=== PATIENT | male | born 1940 | race Two or more races ===

== ENCOUNTER 2020-08-25 15:16 | Emergency (ER) | payer MEDICARE, SELFPAY ==
[2020-08-25 16:06] VITALS: BP 132/72; PULSE 87; RESP 16; TEMP 37.2; O2SAT 98; BMI 21.7
--- NOTE | 2020-08-25 19:51 | PC.NURSE ---
daughter at bedside, reports that pt has had a decreased appetite x 1 month, always needs to push hydration and nutrition because of his dementia history. blood clots in toilet today, pt not complaining of pain. bladder scan does not show urine in bladder. small amount of blood of adult diaper.
[2020-08-25 19:53] VITALS: BP 142/74; PULSE 75; RESP 18; TEMP 36.6; O2SAT 98
--- NOTE | 2020-08-25 19:54 | ED_ITS ---
HPI - Male Genitourinary General Chief complaint: Urogenital-Male Stated complaint: bleeding from penis Time Seen by Provider: 08/25/20 20:48 Source: family Mode of arrival: ambulatory Limitations: language barrier and altered mental status History of Present Illness HPI Narrative: 79-year-old male with past medical history of dementia and diabetes presents with bright red blood from his penis. He presents with his daughter, who is his primary medical officer psychiatry. The patient is unable to make his needs known, and requires 24 hour care. MD Complaint: dysuria Onset (ago): day(s) (1) Location: penis Severity: moderate Associated symptoms: Reports denies other symptoms Related Data Sexually active: No Previous Rx's Medication Instructions Recorded cefpodoxime 200 mg PO Q12H 10 Days #20 tab 08/25/20 Allergies Allergy/AdvReac Type Severity Reaction Status Date / Time No Known Allergies Allergy Verified 08/25/20 16:13 [No Known Allergies*] Review of Systems Review of Systems: Constitutional: No Fever, No Chills ENT/Mouth: No sore throat Eyes: No Eye Pain, No Swelling, No Redness Cardiovascular: No Chest Pain, No SOB Respiratory: No Cough, No Sputum, No Wheezing Gastrointestinal: No Nausea, no Vomiting, No Diarrhea, no abdominal pain Genitourinary: positive Dysuria, no urinary frequency, positive Hematuria, no Flank Pain, positive hesitancy Musculoskeletal: No joint pain, No Myalgias Skin: No Skin Lesions, No rash Neuro: No Weakness, No Numbness, No Headache Psych: No Anxiety/Panic, No Depression Heme/Lymph: No Bruising, No Lymphadenopathy Endocrine: No Polyuria, No Polydipsia Yes all other systems are reviewed and are negative [facility] Past Medical History Attestation statement: The following information was validated with the patient. Medical History Asthma Dementia Diabetes Social History Social History Advance Directives: No Advance Directives Information Provided: Yes Physical Exam Vital Signs: Vital Signs: Last Vital Signs Temp 99.0 F 08/25/20 21:43 Pulse 58 08/25/20 21:43 Resp 19 08/25/20 21:43 BP 142/71 H 08/25/20 21:43 Pulse Ox 97 08/25/20 21:43 Body Mass Index 21.7 Appearance: Alert. Oriented to self, demented per baseline. No acute distress. Eyes: Pupils equal, round and reactive to light. ENT: Pharynx normal. Neck: Normal inspection. Neck supple. CVS: Normal heart rate and rhythm. Pulses normal. Respiratory: No respiratory distress. Breath sounds normal. Abdomen: Soft and nontender. Genitourinary: Brief wet with sanguinous urine, no penile discharge or erythema. Skin: Skin warm and dry. Normal skin color. Normal skin turgor. Extremities: No lower extremity edema. Neuro: No motor deficit. No sensory deficit. Course Course Course Narrative: 79-year-old male presents with hematuria. H&P obtained from his daughter who is his primary medical officer psychiatry. When you ask him questions he does not answer in complete sentences, when asked if he is in pain he says no. Daughter noted that he has been weak and is not eating as much. She noted blood from his penis earlier today. Plan is for CBC, Chem 7, lactic, cultures and u rinalysis. Patient is not septic, does have a significant UTI, will give 1 dose of IV ceftriaxone and discharged home with p.o. antibiotics. Detailed discussion with daughter regarding care, and that she must follow-up with primary care provider in order to get more services at home. She states that it is difficult for her to take care of him and would like nursing to come in on a more regular basis. She was advised to discuss with her drafter structural as he already has services at home. cyber policy and strategy planner utilized for all correspondence, Google translate utilized for discharge instructions. Patient verbalized understanding of and agrees to our plan of care discharge home. MDM - Male Genitourinary Differential Diagnosis Differential diagnosis: Likely urinary tract infection, urethritis, epididymitis, prostatitis, acute retention of urine and inguinal hernia Medical Records Attestation: I reviewed the patient's medical records. Lab Data Attestation: I reviewed the patient's lab results. Result diagrams: 08/25/20 20:02 08/25/20 20:02 Labs: Lab Results 08/25/20 08/25/20 08/25/20 Range/Units 20:02 20:02 20:02 WBC 5.0 (4.8-10.8) X10*3/uL RBC 5.01 (4.60-5.80) X10*6/uL Hgb 15.3 (14.0-18.0) g/dl Hct 45.7 (42-52) % MCV 91.2 (80-98) fL MCH 30.5 (27.0-33.0) pg MCHC 33.5 (31.0-36.0) g/dl RDW 12.8 (11.0-16.0) % Plt Count 211 (160-400) X10*3/uL MPV 11.3 (9.4-12.4) fL Immature Gran % (Auto) 0.2 (0.0-0.4) % Neut % (Auto) 63.2 (45-73) % Lymph % (Auto) 20.0 (20-40) % [place] % (Auto) 5.8 (2-11) % Eos % (Auto) 10.6 H (0-4) % Baso % (Auto) 0.2 (0-2) % Lymph # (Auto) 1.0 L (1.2-4.9) X10*3/uL [place] # (Auto) 0.3 (0.1-1.2) X10*3/uL Eos # (Auto) 0.5 H (0.0-0.4) X10*3/uL Baso # (Auto) 0.0 (0.0-0.2) X10*3/uL Abs Immat Gran (auto) 0.01 (0.00-0.03) X10*3/uL Absolute Neuts (auto) 3.2 (2.0-8.3) X10*3/uL Absolute Nucleated RBC 0.000 (0.0-0.012) X10*3/uL Nucleated RBC % (auto) 0.0 (0.0-0.2) /100WBC PT (10.8-13.0) SEC INR (0.9-1.1) APTT (24.1-38.0) SEC Hold Blue Top SEE NOTE Sodium 136 (135-145) mmol/L Potassium 4.4 (3.3-5.1) mmol/l Chloride 100 (96-108) mmol/L Carbon Dioxide 27 (22-29) mmol/L Anion Gap 13 (12-20) BUN 15 (9-16) mg/dL Creatinine 1.07 (0.5-1.4) mg/dL Estim Creat Clear Calc 50.0 Estimated GFR > 60 POC Glucose (60-115) mg/dL Random Glucose 397 H* (60-115) mg/dL Lactic Acid (0.5-2.0) mmol/L Calcium 8.7 (8.4-10.2) mg/dL Troponin I High Sens (<3.5-35.0) ng/L Urine Color Urine Appearance Urine pH (5.0-8.0) Ur Specific [place] (1.005-1.025) Urine Protein (NEG-TRACE) MG/DL Urine Glucose (UA) (NEG) MG/DL Urine Ketones (NEG) MG/DL Urine Blood (NEG) Urine Nitrite (NEG) Ur Leukocyte Esterase (NEG) Urine RBC (0) /HPF Urine WBC (0-4) /HPF Ur Squamous Epith Cells /LPF Urine Bacteria /LPF 08/25/20 08/25/20 08/25/20 Range/Units 20:02 20:07 22:16 WBC (4.8-10.8) X10*3/uL RBC (4.60-5.80) X10*6/uL Hgb (14.0-18.0) g/dl Hct (42-52) % MCV (80-98) fL MCH (27.0-33.0) pg MCHC (31.0-36.0) g/dl RDW (11.0-16.0) % Plt Count (160-400) X10*3/uL MPV (9.4-12.4) fL Immature Gran % (Auto) (0.0-0.4) % Neut % (Auto) (45-73) % Lymph % (Auto) (20-40) % [place] % (Auto) (2-11) % Eos % (Auto) (0-4) % Baso % (Auto) (0-2) % Lymph # (Auto) (1.2-4.9) X10*3/uL [place] # (Auto) (0.1-1.2) X10*3/uL Eos # (Auto) (0.0-0.4) X10*3/uL Baso # (Auto) (0.0-0.2) X10*3/uL Abs Immat Gran (auto) (0.00-0.03) X10*3/uL Absolute Neuts (auto) (2.0-8.3) X10*3/uL Absolute Nucleated RBC (0.0-0.012) X10*3/uL Nucleated RBC % (auto) (0.0-0.2) /100WBC PT 11.7 (10.8-13.0) SEC INR 1.0 (0.9-1.1) APTT 27.3 (24.1-38.0) SEC Hold Blue Top Sodium (135-145) mmol/L Potassium (3.3-5.1) mmol/l Chloride (96-108) mmol/L Carbon Dioxide (22-29) mmol/L Anion Gap (12-20) BUN (9-16) mg/dL Creatinine (0.5-1.4) mg/dL Estim Creat Clear Calc Estimated GFR POC Glucose 357 H* (60-115) mg/dL Random Glucose (60-115) mg/dL Lactic Acid (0.5-2.0) mmol/L Calcium (8.4-10.2) mg/dL Troponin I High Sens (<3.5-35.0) ng/L Urine Color BROWN Urine Appearance TURBID Urine pH 5.5 (5.0-8.0) Ur Specific [place] 1.020 (1.005-1.025) Urine Protein 3+ H (NEG-TRACE) MG/DL Urine Glucose (UA) >=1000 H (NEG) MG/DL Urine Ketones 5 (NEG) MG/DL Urine Blood 3+ H (NEG) Urine Nitrite POS H (NEG) Ur Leukocyte Esterase TRACE H (NEG) Urine RBC TNTC H (0) /HPF Urine WBC 10-14 H (0-4) /HPF Ur Squamous Epith Cells TRACE /LPF Urine Bacteria 3+ /LPF 08/25/20 08/25/20 Range/Units 22:16 22:24 WBC (4.8-10.8) X10*3/uL RBC (4.60-5.80) X10*6/uL Hgb (14.0-18.0) g/dl Hct (42-52) % MCV (80-98) fL MCH (27.0-33.0) pg MCHC (31.0-36.0) g/dl RDW (11.0-16.0) % Plt Count (160-400) X10*3/uL MPV (9.4-12.4) fL Immature Gran % (Auto) (0.0-0.4) % Neut % (Auto) (45-73) % Lymph % (Auto) (20-40) % [place] % (Auto) (2-11) % Eos % (Auto) (0-4) % Baso % (Auto) (0-2) % Lymph # (Auto) (1.2-4.9) X10*3/uL [place] # (Auto) (0.1-1.2) X10*3/uL Eos # (Auto) (0.0-0.4) X10*3/uL Baso # (Auto) (0.0-0.2) X10*3/uL Abs Immat Gran (auto) (0.00-0.03) X10*3/uL Absolute Neuts (auto) (2.0-8.3) X10*3/uL Absolute Nucleated RBC (0.0-0.012) X10*3/uL Nucleated RBC % (auto) (0.0-0.2) /100WBC PT (10.8-13.0) SEC INR (0.9-1.1) APTT (24.1-38.0) SEC Hold Blue Top Sodium (135-145) mmol/L Potassium (3.3-5.1) mmol/l Chloride (96-108) mmol/L Carbon Dioxide (22-29) mmol/L Anion Gap (12-20) BUN (9-16) mg/dL Creatinine (0.5-1.4) mg/dL Estim Creat Clear Calc Estimated GFR POC Glucose (60-115) mg/dL Random Glucose (60-115) mg/dL Lactic Acid 1.2 (0.5-2.0) mmol/L Calcium (8.4-10.2) mg/dL Troponin I High Sens 4.9 (<3.5-35.0) ng/L Urine Color Urine Appearance Urine pH (5.0-8.0) Ur Specific [place] (1.005-1.025) Urine Protein (NEG-TRACE) MG/DL Urine Glucose (UA) (NEG) MG/DL Urine Ketones (NEG) MG/DL Urine Blood (NEG) Urine Nitrite (NEG) Ur Leukocyte Esterase (NEG) Urine RBC (0) /HPF Urine WBC (0-4) /HPF Ur Squamous Epith Cells /LPF Urine Bacteria /LPF Imaging Data Chest x-ray: Attestation: I personally reviewed and interpreted this imaging study as follows: Radiologist's impression: EXAMINATION: XR CHEST CLINICAL INFORMATION: Weakness COMPARISON: 02/02/2020 TECHNIQUE: Frontal view of the chest was obtained. FINDINGS: No acute finding. No obvious failure or infiltrate. There is no effusion. Low lung volumes are seen. The mediastinal contours are within normal limits. XR/XR chest 1V IMPRESSION: No acute finding on this portable chest. Low lung volumes. ECG Data Attestation: I personally reviewed and interpreted this ECG as follows: ECG interpretation date: 08/25/20 ECG interpretation time: 20:23 Prior ECG tracings: available for review Interpretation: Vent. Rate : 069 BPM Atrial Rate : 069 BPM P-R Int : 134 ms QRS Dur : 102 ms QT Int : 404 ms P-R-T Axes : 061 -58 070 degrees QTc Int : 432 ms Normal sinus rhythm Left axis deviation Nonspecific T wave abnormality Abnormal ECG When compared with ECG of 02-FEB-2020 13:56, QT has shortened Discharge Plan Discharge Clinical Impression: Urinary tract infection Patient Disposition: Home, Self-Care Instructions: Urinary Tract Infection in Men (ED), Urinary Tract Infection in Older Adults (ED) Additional Instructions: Tu padre fue evaluado por debilidad. Los laboratorios indican infecci?n del tracto urinario. Pedimos cefpodoxime, un antibi?pako para ayudar a combatir esta infecci?n del tracto urinario. Por favor, tome hugo medicamento dos veces al d?a y complete todo el curso. Usted debe hacer un seguimiento con el m?dico de atenci?n primaria en 3-5 d?as. Si los s?ntomas empeoran, por favor regrese al departamento de emergencias inmediatamente. Hayley por elegir hugo departamento de emergencias para la evaluaci?n. Por favor, mattie un seguimiento con el m?dico de atenci?n primaria seg?n sea necesario. Regrese al servicio de urgencias para cualquier s?ntoma nuevo, preocupante o que empeore. Your father was evaluated for weakness. Labs indicate urinary tract infection. We ordered cefpodoxime, an antibiotic to help fight this urinary tract infection. Please take this medication twice a day and complete the entire course. You must follow-up with primary care physician in 3-5 days. If symptoms get worse please return to the emergency department immediately. Thank you for choosing this emergency department for evaluation. Please follow-up with primary care physician as needed. Return to the emergency department for any new, concerning, or worsening symptoms. Prescriptions: New cefpodoxime 200 mg tablet 200 mg PO Q12H 10 Days Qty: 20 RF: 0 Interventions: ED Discharge Assessment Last Done: 08/25/20 23:29 Discharge Date/Time: 08/25/20 23:29
[2020-08-25 20:09] VITALS: BP 142/74; PULSE 97; RESP 16; O2SAT 97
[2020-08-25 20:12] LABS: Glucose, Whole Blood 357 mg/dL (60-115)
[2020-08-25 20:17] LABS: Basophils Percent Auto 0.2 % (0-2); Eosinophils Absolute Auto 0.5 X10*3/uL (0.0-0.4); Eosinophils Percent Auto 10.6 % (0-4); Hematocrit 45.7 % (42-52); Hemoglobin 15.3 g/dl (14.0-18.0); Imm Gran Abs Auto 0.01 X10*3/uL (0.00-0.03); Imm Gran Pct Auto 0.2 % (0.0-0.4); MANUAL DIFF FLAG NO; Mean Corpuscular HGB Conc 33.5 g/dl (31.0-36.0); Mean Corpuscular Hemoglobin 30.5 pg (27.0-33.0); Mean Corpuscular Volume 91.2 fL (80-98); Mean Platelet Volume 11.3 fL (9.4-12.4); Monocytes Absolute Auto 0.3 X10*3/uL (0.1-1.2); Monocytes Percent Auto 5.8 % (2-11); Neutrophils Absolute Auto 3.2 X10*3/uL (2.0-8.3); Neutrophils Percent Auto 63.2 % (45-73); Platelet Count 211 X10*3/uL (160-400); Red Blood Count 5.01 X10*6/uL (4.60-5.80); Red Cell Distribution Width 12.8 % (11.0-16.0)
[2020-08-25 20:47] LABS: Anion Gap 13 (12-20); Blood Urea Nitrogen 15 mg/dL (9-16); Calcium 8.7 mg/dL (8.4-10.2); Carbon Dioxide 27 mmol/L (22-29); Chloride 100 mmol/L (96-108); Estimated Glomerular Filt Rate > 60; Glucose Random 397 mg/dL (60-115); Potassium 4.4 mmol/l (3.3-5.1); Sodium 136 mmol/L (135-145)
[2020-08-25] MEDS: 0.9 % Sodium Chloride 1,000 ML 999 ML IVCONT ×2 (20:50→22:26)
[2020-08-25 20:55] LABS: Glucose Urine UA >=1000 MG/DL (NEG); Leukocyte Esterase Urine TRACE (NEG); Nitrite Urine POS (NEG); PH 5.5 (5.0-8.0); Urine Blood 3+ (NEG); Urine Ketones 5 MG/DL (NEG); Urine Protein 3+ MG/DL (NEG-TRACE)
[2020-08-25 21:26] LABS: Appearance Urine TURBID; Color Urine BROWN
[2020-08-25 21:28] LABS: Bacteria Urine 3+ /LPF; RBC Urine TNTC /HPF (0); Squamous Epithelial Cell Urine TRACE /LPF
[2020-08-25 21:43] VITALS: BP 142/71; PULSE 58; RESP 19; TEMP 37.2; O2SAT 97
[2020-08-25] MEDS: Insulin Regular, Human 100 UNIT/ML 3 ML VIAL 10 UNIT SUBCUT (22:26)
[2020-08-25] MEDS: cefTRIAXone sodium 1 GM in 0.9 % Sodium Chloride 50 ML IV (22:26)
--- NOTE | 2020-08-25 22:41 | PC.NURSE ---
PT HAS BEEN SLEEPING WHILE IN ER, WAKES EASILY. PT TOLERATED STRAIGHT CATH WELL TO OBTAIN URINE SAMPLE. DAUGHTER REMAINS AT BEDSIDE. SHE WAS ASKING WHAT CAUSED URINE INFECTION. EXPLAINED THAT URINE WAS VERY DARK, ONE CAUSE MAY BE DECREASED FLUID INTAKE. SHE WAS ALSO ASKING WHY HIS BLOOD GLUCOSE HAS BEEN ELEVATED. EXPLAINED THAT IT MAY BE BOTH DEHYDRATION AND UTI. PT IN NO DISTRESS, HAD A SMALL SOFT BM. PT DENIES PAIN.
[2020-08-25 22:44] LABS: Prothrombin Time 11.7 SEC (10.8-13.0)
[2020-08-25 22:46] LABS: Partial Thromboplastin Time 27.3 SEC (24.1-38.0)
[2020-08-25 22:59] LABS: Troponin-I High Sensitivity 4.9 ng/L (<3.5-35.0)
[2020-08-25 23:04] LABS: Lactic Acid 1.2 mmol/L (0.5-2.0)
== END 2020-08-25 23:29 | disposition home or self-care (01) ==
PROVIDERS: Nurse Practitioner Family; Emergency Provider Internal Medicine; PCP Internal Medicine
DX: N39.0 Urinary tract infection, site not specified (principal); R36.9 Urethral discharge, unspecified; R30.0 Dysuria; Z79.899 Other long term (current) drug therapy
CPT/HCPCS: 36415; 71045; 80048; 81001; 81003; 82947; 83605; 84484; 85025; 85610; 85730; 87040; 87086; 87088; 87186; 93005; 96361; 96365; 99283; 99284; J0696

== ENCOUNTER 2021-03-14 08:39 | Inpatient (IN) | payer MEDICARE, SELFPAY ==
--- NOTE | 2021-03-14 | ECG_ITS ---
Test Reason : UROGENITAL Blood Pressure : / mmHG Vent. Rate : 058 BPM Atrial Rate : 058 BPM P-R Int : 138 ms QRS Dur : 106 ms QT Int : 442 ms P-R-T Axes : 066 -56 238 degrees QTc Int : 433 ms Sinus bradycardia Left anterior fascicular block T wave abnormality, consider lateral ischemia Abnormal ECG When compared with ECG of 14-MAR-2021 11:20, Sinus rhythm has replaced Ectopic atrial rhythm Referred By: Ashia Briceño Electronically Signed By:Sacha Lopez
--- NOTE | ~2021-03-14 | CT_ITS ---
EXAMINATION: CT HEAD WITHOUT CONTRAST CLINICAL INFORMATION: Weakness COMPARISON: Head CT on 02/02/2020 TECHNIQUE: Contiguous axial imaging was performed from the skull base to vertex without intravenous administration of contrast. This CT examination was performed using dose optimization techniques as appropriate, variously including the following: *Automated exposure control *Adjustment of mA and/or kV according to patient size (this includes techniques or standardized protocols for targeted exams where dose is matched to indication/reason for exam; i.e. extremities or head) *Use of iterative reconstruction technique DLP: 751 mGy-cm FINDINGS: There is no evidence of acute intracranial hemorrhage or territorial infarction. No abnormal mass effect or midline shift is seen. Hernandez to white matter differentiation is well preserved. No extra-axial fluid collections are identified. The ventricles and sulci are mildly prominent consistent with age related volume loss.There are patchy periventricular and subcortical white matter changes, which are nonspecific, but likely represent chronic microangiopathic change in a patient of this age. The osseous structures and soft tissues are normal. The mastoid air cells and visualized portions of the paranasal sinuses are well aerated. CT/CT head/brain wo con IMPRESSION: No acute intracranial pathology.
--- NOTE | ~2021-03-14 | XR_ITS ---
EXAMINATION: XR CHEST CLINICAL INFORMATION: High sugar, weakness, evaluate for infection COMPARISON: Chest x-ray on 08/25/2020 TECHNIQUE: 2 views of the chest were obtained. FINDINGS: No significant abnormality is noted involving the heart, lungs, mediastinum, bony thorax or soft tissues. XR/XR chest 2V IMPRESSION: Unremarkable examination.
--- NOTE | 2021-03-14 08:47 | ED.GENADULT ---
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 His niece who is his marketing specialist tells me this morning when she changed his brief she noticed some bloody streaks on the brief. Denies any rectal bleeding or bloody emesis or abdominal pain No abdominal pain, flank pain, testicular pain, vomiting, diarrhea, fevers, chills. Patient does have dementia and requires 24 hour care at home. Seen here for similar complaint in August of 2020 and diagnosed with a UTI. Symptoms improved on antibiotics. Related Data Previous Rx's Medication Instructions Recorded cefpodoxime 200 mg PO Q12H 10 Days #20 tab 08/25/20 Allergies Allergy/AdvReac Type Severity Reaction Status Date / Time No Known Allergies Allergy Verified 08/25/20 16:13 [No Known Allergies*] Review of Systems Review of Systems: Yes Unobtainable due to mental status Neurologic: Denies Abnormal speech present and Reports confusion Psychiatric: Psychiatric: Reports confusion PMFSH Past Medical History Attestation statement: The following information was validated with the patient. Source: old records reviewed and nursing notes reviewed Medical History Asthma Dementia Diabetes Social History Social History Advance Directives: No Advance Directives Information Provided: No Physical Exam Vital Signs: Vital Signs: Last Vital Signs Temp 98.5 F 03/14/21 12:21 Pulse 55 03/14/21 12:21 Resp 17 03/14/21 12:21 BP 120/56 L 03/14/21 12:21 Pulse Ox 95 03/14/21 12:21 Body Mass Index 17.2 Const: Other: Resting with eyes closed. Arouses to verbal Ambulated into the emergency room bed General: confusion Orientation/consciousness: confusion Limitations: no limitations HENMT: Head: Yes normal to inspection Ears: hearing grossly normal bilaterally General nose exam: Normal external nose present Face and sinus: Yes normal facial exam Mouth: Normal oral and palatal mucosa present Throat: Yes posterior oropharynx normal Eyes: General: appearance normal, both eyes and all related structures Neck: Neck: Yes normal visual inspection Chest: Chest palpation & inspection: normal inspection of the chest Resp: Effort & Inspection: normal respiratory effort Auscultation: clear to auscultation bilaterally Cardio: Rate: regular rate Rhythm: regular rhythm Peripheral pulses: Peripheral pulses 2+ throughout GI: Inspection: Yes normal to inspection Palpation (GI): Soft to palpation and nontender Auscultation: normal bowel sounds : General: Yes no CVA tenderness Penis: normal penis and circumcised Meatus: meatus normal Scrotum: scrotum normal Back/Spine/Pelvis: Back: no CVA tenderness Thoracic/Lumbar Spine: thoracic and lumbar spine normal to inspection Skin: General skin exam: no rashes or lesions noted Neuro: General: moves all extremities and confusion Speech: No Abnormal speech present Extrem: General: Yes normal to inspection, Yes no pedal edema and Yes no calf tenderness Course Course Course Narrative: 80-year-old male here with complaints of bloody streaks noted on the brief this morning. History of UTI with similar presentation. Patient has dementia at baseline and is unable to provide history of present illness. He is here with his caregiver who provides the history. He is afebrile. No pain on exam. Pt is lethargic, confused. Per marketing specialist due to patient's medications and underlying dementia he normally is more sleepy and lethargic in the morning and rouses in the afternoon. He does appear to be at his baseline. Will check UA, labs. Patient is incontinent at baseline and so will perform straight catheter. 1020-urine is pending. Labs show elevated blood sugar. Patient has been compliant with his insulin per family but his blood sugars have been running high at home. Nursing to place IV. Will check the BG, acetone, blood cultures, lactic. Will give normal saline bolus, 10 units IV insulin. Check CXR, CT head. 1100-UA is consistent with UTI. At this time infection is suspected. Antibiotics ordered. Patient will require admission. Family was updated. 1130-EKG shows sinus bradycardia with flipped T-waves in leads V4 and V5 with slight depressions in V6. Add on troponin. No chest pain. 1200-repeat blood sugar 370. Pending imaging and then will admit. 1230-imaging negative. Troponin negative. Discussed with Fernanda GANT who agreed with admission. Medical Decision Making Medical Records Medical records reviewed: Yes I reviewed the patient's medical records. Lab Data Lab results reviewed: Yes I reviewed the patient's lab results. Result diagrams: 03/14/21 09:47 03/14/21 09:47 Labs: Lab Results 03/14/21 03/14/21 03/14/21 Range/Units 09:47 09:47 09:47 WBC 5.3 (4.8-10.8) X10*3/uL RBC 4.50 L (4.60-5.80) X10*6/uL Hgb 13.2 L (14.0-18.0) g/dl Hct 40.5 L (42-52) % MCV 90.0 (80-98) fL MCH 29.3 (27.0-33.0) pg MCHC 32.6 (31.0-36.0) g/dl RDW 12.9 (11.0-16.0) % Plt Count 234 (160-400) X10*3/uL MPV 11.1 (9.4-12.4) fL Immature Gran % (Auto) 0.2 (0.0-0.4) % Neut % (Auto) 58.8 (45-73) % Lymph % (Auto) 21.8 (20-40) % [place] % (Auto) 4.6 (2-11) % Eos % (Auto) 14.2 H (0-4) % Baso % (Auto) 0.4 (0-2) % Lymph # (Auto) 1.2 (1.2-4.9) X10*3/uL [place] # (Auto) 0.2 (0.1-1.2) X10*3/uL Eos # (Auto) 0.8 H (0.0-0.4) X10*3/uL Baso # (Auto) 0.0 (0.0-0.2) X10*3/uL Abs Immat Gran (auto) 0.01 (0.00-0.03) X10*3/uL Absolute Neuts (auto) 3.1 (2.0-8.3) X10*3/uL Absolute Nucleated RBC 0.000 (0.0-0.012) X10*3/uL Nucleated RBC % (auto) 0.0 (0.0-0.2) /100WBC VBG pH (7.32-7.43) VBG pCO2 mmHg VBG pO2 mmHg VBG HCO3 (22-26) mmol/L VBG O2 Saturation % VBG Base Excess mmol/L Sodium 135 (135-145) mmol/L Potassium 4.7 (3.3-5.1) mmol/L Chloride 98 (96-108) mmol/L Carbon Dioxide 30 H (22-29) mmol/L Anion Gap 12 (12-20) BUN 18 H (9-16) mg/dL Creatinine 1.40 (0.5-1.4) mg/dL Estim Creat Clear Calc 28.9 Estimated GFR 49 POC Glucose (60-115) mg/dL Random Glucose 634 H* (60-115) mg/dL Lactic Acid (0.5-2.0) mmol/L Calcium 8.6 (8.4-10.2) mg/dL Magnesium 1.7 (1.6-2.6) mg/dL Total Bilirubin 0.3 (0.0-1.0) mg/dL Direct Bilirubin < 0.2 (0.0-0.5) mg/dL AST 12 (5-37) U/L ALT 32 (0-40) U/L Alkaline Phosphatase 177 H (39-117) U/L Troponin I High Sens 4.0 (<3.5-35.0) ng/L Total Protein 6.4 L (6.5-8.0) g/dL Albumin 3.1 L (3.5-5.0) g/dL Urine Color Urine Appearance Urine pH (5.0-8.0) Ur Specific [place] (1.005-1.025) Urine Protein (NEG-TRACE) MG/DL Urine Glucose (UA) (NEG) MG/DL Urine Ketones (NEG) MG/DL Urine Blood (NEG) Urine Nitrite (NEG) Ur Leukocyte Esterase (NEG) Urine RBC (0) /HPF Urine WBC (0-4) /HPF Ur Squamous Epith Cells /LPF Urine Bacteria /LPF Acetone, Qual Negative (Negative) COVID-19 ([facility]) (Negative) COVID-19 Clin Com 03/14/21 03/14/21 03/14/21 Range/Units 10:26 10:39 10:39 WBC (4.8-10.8) X10*3/uL RBC (4.60-5.80) X10*6/uL Hgb (14.0-18.0) g/dl Hct (42-52) % MCV (80-98) fL MCH (27.0-33.0) pg MCHC (31.0-36.0) g/dl RDW (11.0-16.0) % Plt Count (160-400) X10*3/uL MPV (9.4-12.4) fL Immature Gran % (Auto) (0.0-0.4) % Neut % (Auto) (45-73) % Lymph % (Auto) (20-40) % [place] % (Auto) (2-11) % Eos % (Auto) (0-4) % Baso % (Auto) (0-2) % Lymph # (Auto) (1.2-4.9) X10*3/uL [place] # (Auto) (0.1-1.2) X10*3/uL Eos # (Auto) (0.0-0.4) X10*3/uL Baso # (Auto) (0.0-0.2) X10*3/uL Abs Immat Gran (auto) (0.00-0.03) X10*3/uL Absolute Neuts (auto) (2.0-8.3) X10*3/uL Absolute Nucleated RBC (0.0-0.012) X10*3/uL Nucleated RBC % (auto) (0.0-0.2) /100WBC VBG pH (7.32-7.43) VBG pCO2 mmHg VBG pO2 mmHg VBG HCO3 (22-26) mmol/L VBG O2 Saturation % VBG Base Excess mmol/L Sodium (135-145) mmol/L Potassium (3.3-5.1) mmol/L Chloride (96-108) mmol/L Carbon Dioxide (22-29) mmol/L Anion Gap (12-20) BUN (9-16) mg/dL Creatinine (0.5-1.4) mg/dL Estim Creat Clear Calc Estimated GFR POC Glucose 523 H* (60-115) mg/dL Random Glucose (60-115) mg/dL Lactic Acid 2.2 H* (0.5-2.0) mmol/L Calcium (8.4-10.2) mg/dL Magnesium (1.6-2.6) mg/dL Total Bilirubin (0.0-1.0) mg/dL Direct Bilirubin (0.0-0.5) mg/dL AST (5-37) U/L ALT (0-40) U/L Alkaline Phosphatase (39-117) U/L Troponin I High Sens (<3.5-35.0) ng/L Total Protein (6.5-8.0) g/dL Albumin (3.5-5.0) g/dL Urine Color Urine Appearance Urine pH (5.0-8.0) Ur Specific [place] (1.005-1.025) Urine Protein (NEG-TRACE) MG/DL Urine Glucose (UA) (NEG) MG/DL Urine Ketones (NEG) MG/DL Urine Blood (NEG) Urine Nitrite (NEG) Ur Leukocyte Esterase (NEG) Urine RBC (0) /HPF Urine WBC (0-4) /HPF Ur Squamous Epith Cells /LPF Urine Bacteria /LPF Acetone, Qual Cancelled (Negative) COVID-19 ([facility]) (Negative) COVID-19 Clin Com 03/14/21 03/14/21 03/14/21 Range/Units 10:40 11:10 11:11 WBC (4.8-10.8) X10*3/uL RBC (4.60-5.80) X10*6/uL Hgb (14.0-18.0) g/dl Hct (42-52) % MCV (80-98) fL MCH (27.0-33.0) pg MCHC (31.0-36.0) g/dl RDW (11.0-16.0) % Plt Count (160-400) X10*3/uL MPV (9.4-12.4) fL Immature Gran % (Auto) (0.0-0.4) % Neut % (Auto) (45-73) % Lymph % (Auto) (20-40) % [place] % (Auto) (2-11) % Eos % (Auto) (0-4) % Baso % (Auto) (0-2) % Lymph # (Auto) (1.2-4.9) X10*3/uL [place] # (Auto) (0.1-1.2) X10*3/uL Eos # (Auto) (0.0-0.4) X10*3/uL Baso # (Auto) (0.0-0.2) X10*3/uL Abs Immat Gran (auto) (0.00-0.03) X10*3/uL Absolute Neuts (auto) (2.0-8.3) X10*3/uL Absolute Nucleated RBC (0.0-0.012) X10*3/uL Nucleated RBC % (auto) (0.0-0.2) /100WBC VBG pH 7.36 (7.32-7.43) VBG pCO2 47 mmHg VBG pO2 38 mmHg VBG HCO3 27 H (22-26) mmol/L VBG O2 Saturation 59.0 % VBG Base Excess 1.6 mmol/L Sodium (135-145) mmol/L Potassium (3.3-5.1) mmol/L Chloride (96-108) mmol/L Carbon Dioxide (22-29) mmol/L Anion Gap (12-20) BUN (9-16) mg/dL Creatinine (0.5-1.4) mg/dL Estim Creat Clear Calc Estimated GFR POC Glucose (60-115) mg/dL Random Glucose (60-115) mg/dL Lactic Acid (0.5-2.0) mmol/L Calcium (8.4-10.2) mg/dL Magnesium (1.6-2.6) mg/dL Total Bilirubin (0.0-1.0) mg/dL Direct Bilirubin (0.0-0.5) mg/dL AST (5-37) U/L ALT (0-40) U/L Alkaline Phosphatase (39-117) U/L Troponin I High Sens (<3.5-35.0) ng/L Total Protein (6.5-8.0) g/dL Albumin (3.5-5.0) g/dL Urine Color YELLOW Urine Appearance HAZY Urine pH 6.0 (5.0-8.0) Ur Specific [place] 1.010 (1.005-1.025) Urine Protein TRACE (NEG-TRACE) MG/DL Urine Glucose (UA) >=1000 H (NEG) MG/DL Urine Ketones NEG (NEG) MG/DL Urine Blood 3+ H (NEG) Urine Nitrite POS H (NEG) Ur Leukocyte Esterase NEG (NEG) Urine RBC 50-75 H (0) /HPF Urine WBC 15-29 H (0-4) /HPF Ur Squamous Epith Cells NONE /LPF Urine Bacteria 3+ /LPF Acetone, Qual (Negative) COVID-19 ([facility]PIN[facility]) Negative (Negative) COVID-19 Clin Com See Note Imaging Data Chest x-ray: Attestation: I personally reviewed and interpreted this imaging study as follows: Radiologist's impression: EXAMINATION: XR CHEST CLINICAL INFORMATION: High sugar, weakness, evaluate for infection COMPARISON: Chest x-ray on 08/25/2020 TECHNIQUE: 2 views of the chest were obtained. FINDINGS: No significant abnormality is noted involving the heart, lungs, mediastinum, bony thorax or soft tissues. XR/XR chest 2V IMPRESSION: Unremarkable examination. CT scan - head: Attestation: I personally reviewed and interpreted this imaging study as follows: Radiologist's impression: FINDINGS: There is no evidence of acute intracranial hemorrhage or territorial infarction. No abnormal mass effect or midline shift is seen. Hernandez to white matter differentiation is well preserved. No extra-axial fluid collections are identified. The ventricles and sulci are mildly prominent consistent with age related volume loss.There are patchy periventricular and subcortical white matter changes, which are nonspecific, but likely represent chronic microangiopathic change in a patient of this age. The osseous structures and soft tissues are normal. The mastoid air cells and visualized portions of the paranasal sinuses are well aerated. CT/CT head/brain wo con IMPRESSION: No acute intracranial pathology. ECG Data Attestation: I personally reviewed and interpreted this ECG as follows: Interpretation: Sinus bradycardia with a rate of 59, normal CT, normal QRS, flipped T-waves in V4 and V5. ST depressions lead V6 Discharge Plan Discharge Clinical Impression: Urinary tract infection, Acute hyperglycemia Patient Disposition: Admitted As Inpatient
[2021-03-14 08:52] VITALS: BP 140/60; PULSE 62; RESP 18; TEMP 36.6; O2SAT 97; BMI 17.2
[2021-03-14 09:52] LABS: Basophils Percent Auto 0.4 % (0-2); Eosinophils Absolute Auto 0.8 X10*3/uL (0.0-0.4); Eosinophils Percent Auto 14.2 % (0-4); Hematocrit 40.5 % (42-52); Hemoglobin 13.2 g/dl (14.0-18.0); Imm Gran Abs Auto 0.01 X10*3/uL (0.00-0.03); Imm Gran Pct Auto 0.2 % (0.0-0.4); Lymphocytes Absolute Auto 1.2 X10*3/uL (1.2-4.9); Lymphocytes Percent Auto 21.8 % (20-40); MANUAL DIFF FLAG NO; Mean Corpuscular HGB Conc 32.6 g/dl (31.0-36.0); Mean Corpuscular Hemoglobin 29.3 pg (27.0-33.0); Mean Platelet Volume 11.1 fL (9.4-12.4); Monocytes Absolute Auto 0.2 X10*3/uL (0.1-1.2); Monocytes Percent Auto 4.6 % (2-11); Neutrophils Absolute Auto 3.1 X10*3/uL (2.0-8.3); Neutrophils Percent Auto 58.8 % (45-73); Platelet Count 234 X10*3/uL (160-400); Red Cell Distribution Width 12.9 % (11.0-16.0); White Blood Count 5.3 X10*3/uL (4.8-10.8)
[2021-03-14 10:22] LABS: Anion Gap 12 (12-20); Blood Urea Nitrogen 18 mg/dL (9-16); Calcium 8.6 mg/dL (8.4-10.2); Carbon Dioxide 30 mmol/L (22-29); Chloride 98 mmol/L (96-108); Creatinine Clr Calc Pharmacy 28.9; Estimated Glomerular Filt Rate 49; Glucose Random 634 mg/dL (60-115); Potassium 4.7 mmol/L (3.3-5.1); Sodium 135 mmol/L (135-145)
--- NOTE | 2021-03-14 10:26 | ECG_ITS ---
Test Reason : UROGENITAL Blood Pressure : / mmHG Vent. Rate : 060 BPM Atrial Rate : 060 BPM P-R Int : 138 ms QRS Dur : 106 ms QT Int : 394 ms P-R-T Axes : 146 -31 -38 degrees QTc Int : 394 ms Unusual P axis, possible ectopic atrial rhythm Left axis deviation Septal infarct , age undetermined T wave abnormality, consider lateral ischemia Abnormal ECG When compared with ECG of 25-AUG-2020 20:23, possible rhythm change Referred By: Ashia Briceño Electronically Signed By:DOMINGO KERR
[2021-03-14 10:30] LABS: Glucose, Whole Blood 523 mg/dL (60-115)
[2021-03-14 10:50] LABS: Glucose Urine UA >=1000 MG/DL (NEG); Leukocyte Esterase Urine NEG (NEG); Nitrite Urine POS (NEG); UACC Culture Trigger YES; Urine Blood 3+ (NEG); Urine Ketones NEG (NEG); Urine Protein TRACE MG/DL (NEG-TRACE)
[2021-03-14 10:51] LABS: Appearance Urine HAZY; Color Urine YELLOW
[2021-03-14 10:57] LABS: RBC Urine 50-75 /HPF (0)
[2021-03-14] MEDS: Insulin Regular, Human 100 UNIT/ML 3 ML VIAL 10 UNIT IVPUSH (10:57)
[2021-03-14] MEDS: 0.9 % Sodium Chloride 1,000 ML 999 ML IV (10:57)
[2021-03-14 10:58] LABS: Bacteria Urine 3+ /LPF
[2021-03-14] MEDS: cefTRIAXone sodium 1 GM in 0.9 % Sodium Chloride 50 ML IV (11:16)
[2021-03-14 11:19] LABS: VBG Base Excess 1.6 mmol/L; VBG HCO3 27 mmol/L (22-26); VBG pCO2 47 mmHg; VBG pH 7.36 (7.32-7.43); VBG pO2 38 mmHg
[2021-03-14 11:21] LABS: Lactic Acid 2.2 mmol/L (0.5-2.0)
[2021-03-14 11:22] LABS: Venous Blood Gas Refer to POC result
[2021-03-14 11:31] LABS: COVID-19 Test Negative (Negative); IDNOW Serial# 9DD0AD1C
[2021-03-14 11:34] LABS: Acetone, serum QL Negative (Negative); Alanine Aminotransferase 32 U/L (0-40); Albumin Level 3.1 g/dL (3.5-5.0); Alkaline Phosphatase 177 U/L (39-117); Aspartate Amino Transferase 12 U/L (5-37); Bilirubin Direct < 0.2 mg/dL (0.0-0.5); Bilirubin Total 0.3 mg/dL (0.0-1.0); Magnesium 1.7 mg/dL (1.6-2.6); Total Protein 6.4 g/dL (6.5-8.0)
[2021-03-14 11:59] VITALS: BP 144/61; PULSE 56; RESP 18; TEMP 36.6; O2SAT 97
[2021-03-14 12:21] VITALS: BP 120/56; PULSE 55; RESP 17; TEMP 36.9; O2SAT 95
[2021-03-14 12:44] LABS: Reflex Lactate? Lactic Acid Added
[2021-03-14 13:50] LABS: Glucose, Whole Blood 370 mg/dL (60-115)
--- NOTE | 2021-03-14 13:54 | P.HPHOSP_ITS ---
History of Present Illness Date of Service: 03/14/21 Chief Complaint: Bloody urine 80 year old tanzanian speaking man presenting to the ED with blood in his urine apparently his knees, who is his primary tear executive associate, noted some blood streaks in his brief. Patient has a history of dementia however he denied any p ain, nausea, vomiting, diarrhea. Attempt was made to call his daughter Tereza [phone]) however she did not answer. Urinalysis was noted to be overtly positive. Blood sugar was quite elevated at 634 with no anion gap, bicarb of 30 and no acetone. This did improve with fluids and insulin. Vital signs are stable. He was given IV Rocephin IV fluids in the ER. He will be admitted further management and treatment of UTI. Review of Systems Review of Systems: Denies any recent fever chills or decrease in appetite respiratory denies any shortness of breath coverage production cardiovascular Denies chest pain gastrointestinal denies any dysphagia abdominal pain nausea vomiting or diarrhea genitourinary denies any dysuria frequency or hematuria musculoskeletal denies any joint pain or swelling neuropsych denies any weakness or seizures all other systems reviewed are negative [facility] Medical History (Updated 03/14/21 @ 14:17 by Fernanda Blackman NP) Alzheimer disease Asthma Dementia Diabetes Pertinent family history: unknown history as patient has a history of dementia and is unaccompanied. Social History Advance Directives: No Advance Directives Information Provided: No Meds Allergies Allergy/AdvReac Type Severity Reaction Status Date / Time No Known Allergies Allergy Verified 08/25/20 16:13 [No Known Allergies*] Active Medications: Current Medications Generic Name Dose Route Start Last Admin Trade Name Freq PRN Reason Stop Dose Admin Acetaminophen 650 mg 03/14/21 13:39 Acetaminophen 325 Mg Tablet PO Q6H PRN Pain, Mild (Pain Scale 1-3) Ceftriaxone Sodium 1 gm/ 50 mls @ 100 mls/hr 03/15/21 11:00 Sodium Chloride IV Q24H ZACH Ondansetron HCl 4 mg 03/14/21 13:39 Ondansetron Hcl 4 Mg/2 Ml Vial IVPUSH Q8H PRN Nausea and Vomiting Sodium Chloride 3 ml 03/14/21 16:00 0.9 % Sodium Chloride Flush 3 Ml Syringe IVFLUSH QSHIFT [facility] Home Medications Medication Instructions Recorded Confirmed Last Taken Type aspirin 1 tab PO DAILY 03/14/21 03/14/21 Unknown History atorvastatin 1 tab PO BEDTIME 03/14/21 03/14/21 Unknown History docusate sodium 1 cap PO BID 03/14/21 03/14/21 Unknown History quetiapine 1 tab PO BEDTIME 03/14/21 03/14/21 Unknown History sertraline 1 tab PO DAILY 03/14/21 03/14/21 Unknown History trazodone 1 tab PO BEDTIME 03/14/21 03/14/21 Unknown History Physical Exam Vital Signs and Narrative: Vital Signs: Last Vital Signs Temp 98.5 F 03/14/21 12: Pulse 55 03/14/21 12:21 Resp 17 03/14/21 12:21 BP 120/56 L 03/14/21 12:21 Pulse Ox 95 03/14/21 12:21 Body Mass Index 17.2 Appearing in no acute distress head is normocephalic atraumatic eyes pupils are PERRLA sclera is anicteric mouth throat mucous membranes are intact and moist neck is supple no lymphadenopathy, no JVD noted lung sounds are clear to auscultation heart regular rate rhythm, clear S1, S2 positive bowel sounds, abdomen is soft, nontender neuro patient is alert, no focal deficits Results Labs CBC and Chem 7: 03/14/21 09:47 03/14/21 09:47 Labs: Laboratory Results - last 24 hr 03/14/21 03/14/21 03/14/21 09:47 09:47 09:47 MCV 90.0 MCH 29.3 MCHC 32.6 RDW 12.9 Plt Count 234 MPV 11.1 Immature Gran % (Auto) 0.2 Neut % (Auto) 58.8 Lymph % (Auto) 21.8 Smith % (Auto) 4.6 Eos % (Auto) 14.2 H Baso % (Auto) 0.4 Lymph # (Auto) 1.2 [place] # (Auto) 0.2 Eos # (Auto) 0.8 H Baso # (Auto) 0.0 Abs Immat Gran (auto) 0.01 Absolute Neuts (auto) 3.1 Absolute Nucleated RBC 0.000 Nucleated RBC % (auto) 0.0 VBG pH VBG pCO2 VBG pO2 VBG HCO3 VBG O2 Saturation VBG Base Excess Anion Gap 12 Estim Creat Clear Calc 28.9 Estimated GFR 49 POC Glucose Random Glucose 634 H* Lactic Acid Calcium 8.6 Magnesium 1.7 Total Bilirubin 0.3 Direct Bilirubin < 0.2 AST 12 ALT 32 Alkaline Phosphatase 177 H Troponin I High Sens 4.0 Total Protein 6.4 L Albumin 3.1 L Urine Color Urine Appearance Urine pH Ur Specific [place] Urine Protein Urine Glucose (UA) Urine Ketones Urine Blood Urine Nitrite Ur Leukocyte Esterase Urine RBC Urine WBC Ur Squamous Epith Cells Urine Bacteria Acetone, Qual Negative COVID-19 ([facility]PIN[facility]ZA) COVID-19 [employer]ost 03/14/21 03/14/21 03/14/21 10:26 10:39 10:39 MCV MCH MCHC RDW Plt Count MPV Immature Gran % (Auto) Neut % (Auto) Lymph % (Auto) [place] % (Auto) Eos % (Auto) Baso % (Auto) Lymph # (Auto) [place] # (Auto) Eos # (Auto) Baso # (Auto) Abs Immat Gran (auto) Absolute Neuts (auto) Absolute Nucleated RBC Nucleated RBC % (auto) VBG pH VBG pCO2 VBG pO2 VBG HCO3 VBG O2 Saturation VBG Base Excess Anion Gap Estim Creat Clear Calc Estimated GFR POC Glucose 523 H* Random Glucose Lactic Acid 2.2 H* Calcium Magnesium Total Bilirubin Direct Bilirubin AST ALT Alkaline Phosphatase Troponin I High Sens Total Protein Albumin Urine Color Urine Appearance Urine pH Ur Specific [place] Urine Protein Urine Glucose (UA) Urine Ketones Urine Blood Urine Nitrite Ur Leukocyte Esterase Urine RBC Urine WBC Ur Squamous Epith Cells Urine Bacteria Acetone, Qual Cancelled COVID-19 ([place]PIN[place]) COVID-19 KitBoost 03/14/21 03/14/21 03/14/21 10:40 11:10 11:11 MCV MCH MCHC RDW Plt Count MPV Immature Gran % (Auto) Neut % (Auto) Lymph % (Auto) [place] % (Auto) Eos % (Auto) Baso % (Auto) Lymph # (Auto) [place] # (Auto) Eos # (Auto) Baso # (Auto) Abs Immat Gran (auto) Absolute Neuts (auto) Absolute Nucleated RBC Nucleated RBC % (auto) VBG pH 7.36 VBG pCO2 47 VBG pO2 38 VBG HCO3 27 H VBG O2 Saturation 59.0 VBG Base Excess 1.6 Anion Gap Estim Creat Clear Calc Estimated GFR POC Glucose Random Glucose Lactic Acid Calcium Magnesium Total Bilirubin Direct Bilirubin AST ALT Alkaline Phosphatase Troponin I High Sens Total Protein Albumin Urine Color YELLOW Urine Appearance HAZY Urine pH 6.0 Ur Specific [place] 1.010 Urine Protein TRACE Urine Glucose (UA) >=1000 H Urine Ketones NEG Urine Blood 3+ H Urine Nitrite POS H Ur Leukocyte Esterase NEG Urine RBC 50-75 H Urine WBC 15-29 H Ur Squamous Epith Cells NONE Urine Bacteria 3+ Acetone, Qual COVID-19 ([facility]PIN[facility]) Negative COVID-19 Clin Com See Note 03/14/21 11:58 MCV MCH MCHC RDW Plt Count MPV Immature Gran % (Auto) Neut % (Auto) Lymph % (Auto) [place] % (Auto) Eos % (Auto) Baso % (Auto) Lymph # (Auto) [place] # (Auto) Eos # (Auto) Baso # (Auto) Abs Immat Gran (auto) Absolute Neuts (auto) Absolute Nucleated RBC Nucleated RBC % (auto) VBG pH VBG pCO2 VBG pO2 VBG HCO3 VBG O2 Saturation VBG Base Excess Anion Gap Estim Creat Clear Calc Estimated GFR POC Glucose 370 H* Random Glucose Lactic Acid Calcium Magnesium Total Bilirubin Direct Bilirubin AST ALT Alkaline Phosphatase Troponin I High Sens Total Protein Albumin Urine Color Urine Appearance Urine pH Ur Specific [place] Urine Protein Urine Glucose (UA) Urine Ketones Urine Blood Urine Nitrite Ur Leukocyte Esterase Urine RBC Urine WBC Ur Squamous Epith Cells Urine Bacteria Acetone, Qual COVID-19 ([facility]PIN[facility]ZA) COVID-19 Clin Com Imaging Radiologist's Impressions: Impressions Chest X-Ray 03/14/21 10:36 IMPRESSION: Unremarkable examination. Head CT 03/14/21 10:37 IMPRESSION: No acute intracranial pathology. Assessment and Plan (1) Urinary tract infection: Status: Acute 72-year-old Mongolian-speaking man with a history of Alzheimer's dementia is admitted due to acute UTI. UTI. Had some blood tinges in brief, no overt bleeding Follow urine cultures Continue Rocephin Diabetes mellitus with hyperglycemia. Likely secondary to infection. No DKA Sliding scale, ADA diet Dementia Continue Seroquel, sertraline and trazodone DVT prophylaxis with mechanical compression boots due to blood in his urine Full code Attending Dr. Overton Quality Stroke Does the patient have a stroke diagnosis?: No VTE Prior VTE?: No VTE Risk Level:: Medical - moderate - high VTE Device Contraindication: N/A - Device Ordered VTE Drug Contraindication: Treatment Not Indicated
[2021-03-14] MEDS: 0.9 % Sodium Chloride Flush 3 ML SYRINGE IVFLUSH (16:28)
--- NOTE | 2021-03-14 16:36 | P.EN_ITS ---
Event Note Date of Service: 03/14/21 Event Note: Patient seen examined case discussed with APC agree with above marce atment plan Patient brought into [facility] since noted to have some specks of blood on the brief, urinalysis positive, patient afebrile normal WBC count normal renal function noted to have hyperglycemia Patient is being admitted due to acute UTI and hyperglycemia continue IV antibiotics follow urine and blood cultures no evidence of sepsis, noted to have mild lactic acidosis likely due to hyperglycemia and mild dehydration.
[2021-03-14 19:19] VITALS: BP 135/70; PULSE 66; RESP 18; TEMP 36.7; O2SAT 95
[2021-03-14 19:53] LABS: ~Lactic Acid-LAB USE ONLY 1.2 mmol/L (0.5-2.0)
[2021-03-15] MEDS: 0.9 % Sodium Chloride Flush 3 ML SYRINGE IVFLUSH ×4 (00:49→19:53)
[2021-03-15 06:00] VITALS: BP 146/75; PULSE 58; RESP 16; TEMP 36.7; O2SAT 95
[2021-03-15 09:55] LABS: MANUAL DIFF FLAG NO
[2021-03-15 10:07] LABS: Basophils Percent Auto 0.4 % (0-2); Eosinophils Absolute Auto 0.8 X10*3/uL (0.0-0.4); Eosinophils Percent Auto 15.1 % (0-4); Hematocrit 46.8 % (42-52); Hemoglobin 15.2 g/dl (14.0-18.0); Imm Gran Abs Auto 0.02 X10*3/uL (0.00-0.03); Imm Gran Pct Auto 0.4 % (0.0-0.4); Lymphocytes Absolute Auto 1.8 X10*3/uL (1.2-4.9); Mean Corpuscular HGB Conc 32.5 g/dl (31.0-36.0); Mean Corpuscular Hemoglobin 29.3 pg (27.0-33.0); Mean Corpuscular Volume 90.3 fL (80-98); Mean Platelet Volume 11.3 fL (9.4-12.4); Monocytes Absolute Auto 0.2 X10*3/uL (0.1-1.2); Monocytes Percent Auto 3.4 % (2-11); Neutrophils Absolute Auto 2.5 X10*3/uL (2.0-8.3); Neutrophils Percent Auto 46.7 % (45-73); Platelet Count 274 X10*3/uL (160-400); Red Blood Count 5.18 X10*6/uL (4.60-5.80); Red Cell Distribution Width 12.9 % (11.0-16.0); White Blood Count 5.2 X10*3/uL (4.8-10.8)
[2021-03-15 10:27] LABS: Glucose, Whole Blood 458 mg/dL (60-115)
[2021-03-15 10:39] LABS: Anion Gap 17 (12-20); Blood Urea Nitrogen 18 mg/dL (9-16); Calcium 9.5 mg/dL (8.4-10.2); Carbon Dioxide 26 mmol/L (22-29); Chloride 99 mmol/L (96-108); Creatinine Clr Calc Pharmacy 34.5; Estimated Glomerular Filt Rate > 60; Glucose Random 434 mg/dL (60-115); Potassium 4.5 mmol/L (3.3-5.1); Sodium 137 mmol/L (135-145)
[2021-03-15] MEDS: Aspirin Enteric Coated 81 MG TABLET.DR PO (10:44)
[2021-03-15] MEDS: Docusate Sodium 100 MG CAPSULE PO ×2 (10:44→19:42)
[2021-03-15] MEDS: Insulin Glargine,Hum.rec.anlog 100 UNIT/ML 10 ML VIAL 15 UNIT SUBCUT (10:44)
[2021-03-15] MEDS: Sertraline HCL 100 MG TABLET PO (10:44)
[2021-03-15] MEDS: cefTRIAXone sodium 1 GM in 0.9 % Sodium Chloride 50 ML IV (10:56)
--- NOTE | 2021-03-15 11:12 | P.PNIM_ITS ---
Subjective Subjective Date of Service: 03/15/21 Interval History: Follow up UTI no fever mental status alert and oriented Physical Exam Vital Signs: Vital Signs: Last Vital Signs Temp 98.1 F 03/15/21 06:00 Pulse 58 03/15/21 06:00 Resp 16 03/15/21 06:00 BP 146/75 H 03/15/21 06:00 Pulse Ox 95 03/15/21 06:00 Body Mass Index 17.2 Appearing in no acute distress lung sounds are clear to auscultation heart regular rate rhythm, clear S1, S2 positive bowel sounds, abdomen is soft, nontender neuro patient is alert x3, no focal deficits Objective Data Current Medications Generic Name Dose Route Start Last Admin Trade Name Freq PRN Reason Stop Dose Admin Acetaminophen 650 mg 03/14/21 13:39 Acetaminophen 325 Mg Tablet PO Q6H PRN Pain, Mild (Pain Scale 1-3) Aspirin 81 mg 03/15/21 09:00 03/15/21 10:44 Aspirin Enteric Coated 81 Mg Tablet.Dr PO 81 mg DAILY ZACH Administration Atorvastatin Calcium 40 mg 03/15/21 21:00 Atorvastatin Calcium 40 Mg Tablet PO BEDTIME ZACH Docusate Sodium 100 mg 03/15/21 09:00 03/15/21 10:44 Docusate Sodium 100 Mg Capsule PO 100 mg BID ZACH Administration Ceftriaxone Sodium 1 gm/ 50 mls @ 100 mls/hr 03/15/21 11:00 03/15/21 10:56 Sodium Chloride IV 100 mls/hr Q24H ZACH Administration Insulin Glargine 15 unit 03/15/21 09:00 03/15/21 10:44 Insulin Glargine,Hum.Rec.Anlog 100 Unit/Ml 10 Ml Vial SUBCUT 15 unit DAILY ZACH Administration Insulin Human Lispro 0 unit 03/15/21 11:30 Insulin Lispro 100 Unit/Ml 3 Ml [facility]ial [facility] Protocol Ondansetron HCl 4 mg 03/14/21 13:39 Ondansetron Hcl 4 Mg/2 Ml Vial IVPUSH Q8H PRN Nausea and Vomiting Quetiapine Fumarate 25 mg 03/15/21 21:00 Quetiapine Fumarate 25 Mg Tablet PO BEDTIME ZACH Sertraline HCl 100 mg 03/15/21 09:00 03/15/21 10:44 Sertraline Hcl 100 Mg Tablet PO 100 mg DAILY ZACH Administration Sodium Chloride 3 ml 03/14/21 16:00 03/15/21 09:52 0.9 % Sodium Chloride Flush 3 Ml Syringe IVFLUSH 3 ml QSHIFT ZACH Administration Sodium Chloride 3 ml 03/15/21 16:00 0.9 % Sodium Chloride Flush 3 Ml Syringe IVFLUSH QSHIFT ZACH Trazodone HCl 50 mg 03/15/21 21:00 Trazodone Hcl 50 Mg Tablet PO BEDTIME ZACH Labs CBC & Chem 7: 03/15/21 09:43 03/15/21 09:43 Labs: Laboratory Results - last 24 hr 03/14/21 03/14/21 03/14/21 09:47 09:47 10:39 MCV MCH MCHC RDW Plt Count MPV Immature Gran % (Auto) Neut % (Auto) Lymph % (Auto) [place] % (Auto) Eos % (Auto) Baso % (Auto) Lymph # (Auto) [place] # (Auto) Eos # (Auto) Baso # (Auto) Abs Immat Gran (auto) Absolute Neuts (auto) Absolute Nucleated RBC Nucleated RBC % (auto) VBG pH VBG pCO2 VBG pO2 VBG HCO3 VBG O2 Saturation VBG Base Excess Anion Gap Estim Creat Clear Calc Estimated GFR POC Glucose Random Glucose Lactic Acid 2.2 H* Lactic Acid Fup @ 2Hr Calcium Magnesium 1.7 Total Bilirubin 0.3 Direct Bilirubin < 0.2 AST 12 ALT 32 Alkaline Phosphatase 177 H Troponin I High Sens 4.0 Total Protein 6.4 L Albumin 3.1 L Acetone, Qual Negative COVID-19 ([facility]) COVID-19 Clin Com 03/14/21 03/14/21 03/14/21 11:10 11:11 11:58 MCV MCH MCHC RDW Plt Count MPV Immature Gran % (Auto) Neut % (Auto) Lymph % (Auto) [place] % (Auto) Eos % (Auto) Baso % (Auto) Lymph # (Auto) [place] # (Auto) Eos # (Auto) Baso # (Auto) Abs Immat Gran (auto) Absolute Neuts (auto) Absolute Nucleated RBC Nucleated RBC % (auto) VBG pH 7.36 VBG pCO2 47 VBG pO2 38 VBG HCO3 27 H VBG O2 Saturation 59.0 VBG Base Excess 1.6 Anion Gap Estim Creat Clear Calc Estimated GFR POC Glucose 370 H* Random Glucose Lactic Acid Lactic Acid Fup @ 2Hr Calcium Magnesium Total Bilirubin Direct Bilirubin AST ALT Alkaline Phosphatase Troponin I High Sens Total Protein Albumin Acetone, Qual COVID-19 ([facility]) Negative [employer] See Note 03/14/21 03/15/21 03/15/21 19:30 09:43 09:43 MCV 90.3 MCH 29.3 MCHC 32.5 RDW 12.9 Plt Count 274 MPV 11.3 Immature Gran % (Auto) 0.4 Neut % (Auto) 46.7 Lymph % (Auto) 34.0 [place] % (Auto) 3.4 Eos % (Auto) 15.1 H Baso % (Auto) 0.4 Lymph # (Auto) 1.8 [place] # (Auto) 0.2 Eos # (Auto) 0.8 H Baso # (Auto) 0.0 Abs Immat Gran (auto) 0.02 Absolute Neuts (auto) 2.5 Absolute Nucleated RBC 0.000 Nucleated RBC % (auto) 0.0 VBG pH VBG pCO2 VBG pO2 VBG HCO3 VBG O2 Saturation VBG Base Excess Anion Gap 17 Estim Creat Clear Calc 34.5 Estimated GFR > 60 POC Glucose Random Glucose 434 H* Lactic Acid Lactic Acid Fup @ 2Hr 1.2 Calcium 9.5 D Magnesium Total Bilirubin Direct Bilirubin AST ALT Alkaline Phosphatase Troponin I High Sens Total Protein Albumin Acetone, Qual COVID-19 ([facility]) [employer] 03/15/21 10:23 MCV MCH MCHC RDW Plt Count MPV Immature Gran % (Auto) Neut % (Auto) Lymph % (Auto) [place] % (Auto) Eos % (Auto) Baso % (Auto) Lymph # (Auto) [place] # (Auto) Eos # (Auto) Baso # (Auto) Abs Immat Gran (auto) Absolute Neuts (auto) Absolute Nucleated RBC Nucleated RBC % (auto) VBG pH VBG pCO2 VBG pO2 VBG HCO3 VBG O2 Saturation VBG Base Excess Anion Gap Estim Creat Clear Calc Estimated GFR POC Glucose 458 H* Random Glucose Lactic Acid Lactic Acid Fup @ 2Hr Calcium Magnesium Total Bilirubin Direct Bilirubin AST ALT Alkaline Phosphatase Troponin I High Sens Total Protein Albumin Acetone, Qual COVID-19 ([facility]) [employer] Microbiology Microbiology Results: Microbiology 03/14/21 Unknown Urine Catheterized - Straight Catheter Urine Culture - Preliminary Gram negative sharmin Progress Note: A&P (1) Urinary tract infection: Status: Acute (2) Acute hyperglycemia: Status: Acute Assessment and Plan: 72-year-old Yakut-speaking man with a history of Alzheimer's dementia is admitted due to acute UTI. UTI. Had some blood tinges in brief, no overt bleeding urine cx GNR Continue Rocephin Diabetes mellitus with hyperglycemia. Likely secondary to infection. No DKA Sliding scale, ADA diet lantus Dementia Continue Seroquel, sertraline and trazodone DVT prophylaxis with mechanical compression boots due to blood in his urine Full code Attending Dr. Leiva Quality Stroke Does the patient have a stroke diagnosis?: No VTE Prior VTE?: No VTE Risk Level:: Medical - moderate - high VTE Device Contraindication: N/A - Device Ordered VTE Drug Contraindication: Treatment Not Indicated
[2021-03-15] MEDS: Insulin Lispro 100 UNIT/ML 3 ML VIAL SUBCUT ×3 (12:49→19:42)
[2021-03-15 13:10] LABS: Glucose, Whole Blood 389 mg/dL (60-115)
[2021-03-15 13:12] VITALS: BP 118/73; PULSE 62; RESP 16; TEMP 36.9; O2SAT 94
--- NOTE | 2021-03-15 13:24 | PC.NURSE ---
Pt alert and confused, vss. Pt resting quietly, family at bedside, insulin coverage given as documented. Pt awaiting bed assignment.
--- NOTE | 2021-03-15 13:32 | PC.NURSE ---
report given to receiving nurse NAIF Peres.
[2021-03-15 13:56] VITALS: BP 140/72; PULSE 62; RESP 18; TEMP 36.6; O2SAT 97
[2021-03-15 15:23] VITALS: BP 121/72; PULSE 68; RESP 18; TEMP 36.6; O2SAT 96
[2021-03-15 17:00] LABS: Glucose, Whole Blood 76 mg/dL (60-115)
[2021-03-15] MEDS: QUEtiapine Fumarate 25 MG TABLET PO (19:42)
[2021-03-15] MEDS: traZODone HCL 50 MG TABLET PO (19:42)
[2021-03-15] MEDS: Atorvastatin Calcium 40 MG TABLET PO (19:42)
[2021-03-15 19:58] LABS: Glucose, Whole Blood 262 mg/dL (60-115)
[2021-03-15 23:35] VITALS: BP 111/57; PULSE 59; RESP 16; TEMP 36.6; O2SAT 94
[2021-03-16] MEDS: 0.9 % Sodium Chloride Flush 3 ML SYRINGE IVFLUSH ×3 (00:28→07:14)
[2021-03-16 06:48] LABS: Anion Gap 16 (12-20); Blood Urea Nitrogen 22 mg/dL (9-16); Calcium 8.7 mg/dL (8.4-10.2); Carbon Dioxide 20 mmol/L (22-29); Chloride 105 mmol/L (96-108); Creatinine Clr Calc Pharmacy 43.9; Estimated Glomerular Filt Rate > 60; Glucose Random 120 mg/dL (60-115); Potassium 4.1 mmol/L (3.3-5.1); Sodium 137 mmol/L (135-145)
[2021-03-16 07:07] VITALS: BP 111/67; PULSE 64; RESP 16; TEMP 36.9; O2SAT 97
[2021-03-16 07:40] LABS: Glucose, Whole Blood 139 mg/dL (60-115)
[2021-03-16] MEDS: Sertraline HCL 100 MG TABLET PO (09:13)
[2021-03-16] MEDS: Docusate Sodium 100 MG CAPSULE PO (09:13)
[2021-03-16] MEDS: Aspirin Enteric Coated 81 MG TABLET.DR PO (09:13)
[2021-03-16] MEDS: Insulin Glargine,Hum.rec.anlog 100 UNIT/ML 10 ML VIAL 15 UNIT SUBCUT (09:13)
[2021-03-16] MEDS: cefTRIAXone sodium 1 GM in 0.9 % Sodium Chloride 50 ML IV (09:15)
[2021-03-16 11:11] VITALS: BP 111/67; PULSE 64; O2SAT 97
[2021-03-16 11:25] LABS: Glucose, Whole Blood 272 mg/dL (60-115)
[2021-03-16] MEDS: Insulin Lispro 100 UNIT/ML 3 ML VIAL SUBCUT (11:33)
--- NOTE | 2021-03-16 11:54 | MHC.CM.PN ---
pt lives c his daughter in their apt. he also has a kitchen stewardess who is his niece. per rhonda deleon at [facility] ( home builder) pt goes to adult day program. in addition to this program he can get 10 hrs per week of kitchen stewardess svcs through [facility]. pt also has a gssc - frankie gibbs ph: [phone]. rikki deleon has given auth for patient to have [facility] svcs for dm teaching and monitoring, a ref. for hvna has been made. pt' daughter or niece will provide transportation at az. az plan is for patient to return home c all prior svcs plus ref. for hvna. cm to cont. to follow.
--- NOTE | 2021-03-16 11:58 | P.DS_ITS ---
DS: Providers Provider Date of Service: 03/16/21 <Fernanda Blackman NP - Last Filed: 03/16/21 12:02> Date of admission: 03/15/21 08:59 <Fernanda Blackman NP - Last Filed: 03/16/21 12:02> Date of discharge: 03/16/21 <Fernanda Blackman NP - Last Filed: 03/16/21 12:02> Primary care physician: Lenore Gillette <Fernanda Blackman NP - Last Filed: 03/16/21 12:02> Admitting clinician: Fernanda Blackman <Fernanda Blackman NP - Last Filed: 03/16/21 12:02> Attending physician on admission: Angela Overton <Fernanda Blackman NP - Last Filed: 03/16/21 12:02> Attending physician on discharge: Arvind Leiva <Fernanda Blackman NP - Last Filed: 03/16/21 12:02> Discharging clinician: Fernanda Blackman <Fernanda Blackman NP - Last Filed: 03/16/21 12:02> DS: Diagnosis Discharge Diagnosis (1) Urinary tract infection: Status: Acute <Fernanda Blackman NP - Last Filed: 03/16/21 12:02> (2) Acute hyperglycemia: Status: Acute <Fernanda Blackman NP - Last Filed: 03/16/21 12:02> DS: Medications Discharge Medications Home Medications: Home Medications Medication Instructions Recorded Confirmed Lantus Solostar U-100 Insulin 15 unit SUBCUT DAILY 03/14/21 03/14/21 aspirin 1 tab PO DAILY 03/14/21 03/14/21 atorvastatin 1 tab PO BEDTIME 03/14/21 03/14/21 docusate sodium 1 cap PO BID 03/14/21 03/14/21 quetiapine 1 tab PO BEDTIME 03/14/21 03/14/21 sertraline 1 tab PO DAILY 03/14/21 03/14/21 trazodone 1 tab PO BEDTIME 03/14/21 03/14/21 Previous Rx's Medication Instructions Recorded cefuroxime axetil 500 mg PO BID #16 tab 03/16/21 <Fernanda Blackman NP - Last Filed: 03/16/21 12:02> DS: Summary Hospital Course Hospital Course: 80 year old sinhala speaking man presenting to the ED with blood in his urine apparently his knees, who 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 Patient has a history of dementia however he denied any pain, nausea, vomiting, diarrhea. Attempt was made to call his daughter Tereza [phone]) however she did not answer. Urinalysis was noted to be overtly positive. Blood sugar was quite elevated at 634 with no anion gap, bicarb of 30 and no acetone. This did improve with fluids and insulin. Vital signs are stable. He was given IV Rocephin IV fluids in the ER. He will be admitted further management and treatment of UTI. UTI. Positive urinalysis. Urine culture showed Klebsiella. Blood cultures negative after 24 hoursHe was treated with IV Rocephin while inpatient. He will be sent home with Ceftin. discharge back to home with family. Diabetes with hyperglycemia. No DKA. Secondary to infection. Treated with sliding scale. Continue home medications Attending Attestation: Patient seen and examined independently and I was present during hernandez portion of E/M service. Agree with Dick Blackman NP's history, physical, assessment, and plan. <Fernanda Blackman NP - Last Filed: 03/16/21 12:02> Time Spent with Patient Time attestation: Total time spent providing and/or coordinating discharge services: <Fernanda Blackman NP - Last Filed: 03/16/21 12:02> Discharge coordination time: Greater than 30 minutes <Fernanda Blackman NP - Last Filed: 03/16/21 12:02> Quality: Stroke Does the patient have a stroke diagnosis?: No <Fernanda Blackman NP - Last Filed: 03/16/21 12:02> Physical Exam Vital Signs: Vital Signs: Last Vital Signs Temp 98.4 F 03/16/21 07:07 Pulse 64 03/16/21 11:11 Resp 16 03/16/21 07:07 BP 111/67 03/16/21 11:11 Pulse Ox 97 03/16/21 11:11 Body Mass Index 17.2 <Fernanda Blackman NP - Last Filed: 03/16/21 12:02> Appearing in no acute distress head is normocephalic atraumatic eyes pupils are PERRLA sclera is anicteric mouth throat mucous membranes are intact and moist neck is supple no lymphadenopathy, no JVD noted lung sounds are clear to auscultation heart regular rate rhythm, clear S1, S2 positive bowel sounds, abdomen is soft, nontender neuro patient is alert x3, no focal deficits <Fernanda Blackman NP - Last Filed: 03/16/21 12:02> DS: Data Data Completed and Pending Labs on day of discharge: Laboratory Results - last 24 hr 03/15/21 03/15/21 03/15/21 12:08 16:41 19:35 Sodium Potassium Chloride Carbon Dioxide Anion Gap BUN Creatinine Estim Creat Clear Calc Estimated GFR POC Glucose 389 H* 76 262 H Random Glucose Calcium 03/16/21 03/16/21 03/16/21 05:55 07:09 11:14 Sodium 137 Potassium 4.1 Chloride 105 Carbon Dioxide 20 L Anion Gap 16 BUN 22 H Creatinine 0.92 Estim Creat Clear Calc 43.9 Estimated GFR > 60 POC Glucose 139 H 272 H Random Glucose 120 H D Calcium 8.7 D Preliminary micro results at discharge 03/14/21 11:10 Blood Culture - Preliminary Blood - Venous No growth after 24 hours. 03/14/21 10:39 Blood Culture - Preliminary Blood - Venous No growth after 24 hours. <Fernanda Blackman NP - Last Filed: 03/16/21 12:02> Discharge Plan Discharge Anticipated Discharge Date/Time: 03/16/21 11:43 <Fernanda Blackman NP - Last Filed: 03/16/21 12:02> Patient Disposition: Home, Self-Care <Fernanda Blackman NP - Last Filed: 03/16/21 12:02> Discharge Diagnosis: UTI Diabetes, hyperglycemia <Fernanda Blackman NP - Last Filed: 03/16/21 12:02> UTI Diabetes, hyperglycemia <Arvind Leiva MD - Last Filed: 03/16/21 17:41> Referrals: Reji DOBSON [Outside] - 1 Week Lenore Gillette [Primary Care Provider] - 1 Week <Fernanda Blackman NP - Last Filed: 03/16/21 12:02> Discharge Medications: New cefuroxime axetil 500 mg tablet 500 mg PO BID Qty: 16 RF: 0 Continued quetiapine 25 mg tablet 1 tab PO BEDTIME RF: 0 atorvastatin 40 mg tablet 1 tab PO BEDTIME RF: 0 trazodone 50 mg tablet 1 tab PO BEDTIME RF: 0 sertraline 100 mg tablet 1 tab PO DAILY RF: 0 aspirin 81 mg tablet,delayed release (DR/EC) 1 tab PO DAILY RF: 0 docusate sodium 100 mg capsule 1 cap PO BID RF: 0 Lantus Solostar U-100 Insulin 100 unit/mL (3 mL) insulin pen 15 unit subcut DAILY RF: 0 <Fernanda Blackman NP - Last Filed: 03/16/21 12:02> Discharge Orders: Discharge Order (Routine); Ordered 03/16/21 Ordered By: Fernanda Blackman <Fernanda Blackman NP - Last Filed: 03/16/21 12:02> Diet: advance to usual diet <Fernanda Blackman NP - Last Filed: 03/16/21 12:02> advance to usual diet <Arvind Leiva MD - Last Filed: 03/16/21 17:41> Activity on Discharge: As tolerated <Fernanda Blackman NP - Last Filed: 03/16/21 12:02> As tolerated <Arvind Leiva MD - Last Filed: 03/16/21 17:41> Stand Alone Forms: Patient Portal Discharge page <Fernanda Blackman NP - Last Filed: 03/16/21 12:02> Care Plan Goals: Resolution of urinary symptoms <Fernanda Blackman NP - Last Filed: 03/16/21 12:02> Health Concerns: UTI Diabetes, hyperglycemia <Fernanda Blackman NP - Last Filed: 03/16/21 12:02> Plan of Treatment: Continue antibiotics as prescribed <Fernanda Blackman NP - Last Filed: 03/16/21 12:02> Assessment: See discharge summary <Fernanda Blackman NP - Last Filed: 03/16/21 12:02> Discharge Date/Time: 03/16/21 13:43 <Fernanda Blackman NP - Last Filed: 03/16/21 12:02>
== END 2021-03-16 13:43 | disposition home or self-care (01) | DRG 690 ==
LOC: HO.ED 11:19 → HO.EDOVER 03-15 09:14 → HO.S3 03-15 12:14
PROVIDERS: Nurse Practitioner Family; Admitting Provider Nurse Practitioner Acute Care; Emergency Provider Emergency Medicine; PCP Internal Medicine; Visit Provider Family Medicine
DX: N39.0 Urinary tract infection, site not specified (principal); R31.9 Hematuria, unspecified; G30.9 Alzheimer's disease, unspecified; B96.1 Klebsiella pneumoniae [K. pneumoniae] as the cause of diseases classified elsewhere; E11.65 Type 2 diabetes mellitus with hyperglycemia; F02.80 Dementia in other diseases classified elsewhere, unspecified severity, without behavioral disturbance, psychotic disturbance, mood disturbance, and anxiety; Z20.822 Contact with and (suspected) exposure to COVID-19; Z79.4 Long term (current) use of insulin; Z79.82 Long term (current) use of aspirin; Z79.899 Other long term (current) drug therapy
CPT/HCPCS: 36415; 70450; 71046; 80048; 80076; 81001; 81003; 82009; 82947; 83605; 83735; 84484; 85025; 87040; 87086; 87088; 87186; 87635; 93005; 97161; 99285; J0696

== ENCOUNTER 2021-03-22 19:59 | Emergency (ER) | payer MEDICARE, SELFPAY ==
--- NOTE | ~2021-03-22 | CT_ITS ---
EXAMINATION: CT ABDOMEN AND PELVIS WITHOUT CONTRAST CLINICAL INFORMATION: Elevated lipase, question pancreatitis COMPARISON: None TECHNIQUE: Multidetector volumetric imaging was performed from the superior aspect of the liver through the pubic symphysis. Sagittal and coronal reformatted images were obtained on the technologist's workstation. This CT examination was performed using dose optimization techniques as appropriate, variously including the following: *Automated exposure control *Adjustment of mA and/or kV according to patient size (this includes techniques or standardized protocols for targeted exams where dose is matched to indication/reason for exam; i.e. extremities or head) *Use of iterative reconstruction technique DLP: 348 mGy-cm FINDINGS: Limited evaluation some regions due to motion artifact. LUNG BASES: The visualized lung bases demonstrate calcified granulomas. LIVER, GALLBLADDER, AND BILIARY TREE: The liver is normal in size, shape, and attenuation. No focal hepatic lesion or biliary ductal dilatation is identified. The gallbladder appears somewhat contracted with cholelithiasis noted. PANCREAS: No significant peripancreatic inflammation identified. SPLEEN: Unremarkable. ADRENAL GLANDS: Unremarkable. KIDNEYS AND URETERS: There are numerous bilateral renal hypodensities favoring cysts, more numerous in the right kidney than the left and measuring up to approximately 5 cm in diameter in the right upper pole. Multiple bilateral renal calculi are present, more numerous and larger in the right kidney and punctate on the left, measuring up to approximately 1.3 cm in length in the right lower pole. No hydronephrosis or ureteral calculus seen bilaterally. BLADDER: Unremarkable. GASTROINTESTINAL TRACT: No evidence of bowel obstruction. Large amount of stool is present in the rectum with mild perirectal stranding. Moderate to large volume of stool is also present in the remainder of the colon. No significant bowel wall thickening is seen. The appendix is not identified. ABDOMINAL WALL: No significant hernia is appreciated. LYMPH NODES: No discrete lymphadenopathy is seen, though assessment is limited in the absence of intravenous contrast. VASCULAR: There is atherosclerotic calcification along the aorta and iliac arteries. PELVIC VISCERA: Unremarkable. OSSEOUS STRUCTURES: There are several lower right rib fractures which overall have a subacute appearance. There is facet arthropathy of the lower lumbar spine. Grade 1 anterolisthesis of L4 on L5 is favored to be chronic. CT/CT abdomen pelvis wo con IMPRESSION: 1. Limited assessment due to motion artifact. No significant peripancreatic inflammation identified. 2. Large amount of stool in the rectum with mild surrounding stranding, potentially representing developing stercoral colitis. 3. Multiple lower right rib fractures which have a subacute appearance. Clinical correlation recommended. 4. Cholelithiasis. 5. Predominantly right-sided nephrolithiasis without hydronephrosis. Bilateral renal cysts.
[2021-03-22 20:23] VITALS: BP 125/61; PULSE 65; RESP 18; TEMP 36.7; O2SAT 95; BMI 51.5
[2021-03-22 20:31] LABS: Glucose, Whole Blood 562 mg/dL (60-115)
--- NOTE | 2021-03-22 21:26 | ED.GENADULT ---
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 On arrival patient's blood sugar was five hundred sixty-two. No vomiting no fever no cough no shortness of breath no abdominal pain Related Data Home Medications Medication Instructions Recorded Confirmed Lantus Solostar U-100 Insulin 15 unit SUBCUT DAILY 03/14/21 03/14/21 aspirin 1 tab PO DAILY 03/14/21 03/14/21 atorvastatin 1 tab PO BEDTIME 03/14/21 03/14/21 docusate sodium 1 cap PO BID 03/14/21 03/14/21 quetiapine 1 tab PO BEDTIME 03/14/21 03/14/21 sertraline 1 tab PO DAILY 03/14/21 03/14/21 trazodone 1 tab PO BEDTIME 03/14/21 03/14/21 Previous Rx's Medication Instructions Recorded cefuroxime axetil 500 mg PO BID #16 tab 03/16/21 Allergies Allergy/AdvReac Type Severity Reaction Status Date / Time No Known Allergies Allergy Verified 08/25/20 16:13 [No Known Allergies*] Review of Systems Review of Systems: Limited as patient has dementia [facility] Past Medical History Medical History Alzheimer disease Asthma Dementia Diabetes Social History Social History Household Members: Family Housing: Apartment Do you presently have visiting nurse or other home services: No Patient Tobacco Use Status: Former Tobacco user Quit Date: 1 YEAR AGO Advance Directives: No Advance Directives Information Provided: Yes service: No Current occupational status: retired Physical Exam Vital Signs: Vital Signs: Last Vital Signs Temp 97.8 F 03/22/21 22:52 Pulse 53 03/22/21 22:52 Resp 16 03/22/21 22:52 BP 132/56 L 03/22/21 22:52 Pulse Ox 97 03/22/21 22:52 Body Mass Index 51.5 Appearance: Alert. Oriented X1-2 No acute distress. Eyes: PERRLA, No Nystagmus ENT: Pharynx normal. Oral Mucosa moist Neck: Normal inspection. Neck supple. CVS: Normal heart rate and rhythm. Pulses normal. Respiratory: No respiratory distress. Equal air entry bilateral, no wheezing/rales/rhonchi Abdomen: Soft and nontender. Bowel sounds are present, no mass palpable, no CVA tenderness Skin: Skin warm and dry. Normal skin color. Normal skin turgor. Extremities: No lower extremity edema. No calf tenderness Neuro: Oriented X 1-2. No motor deficit. Medical Decision Making MDM Narrative Medical decision making narrative: Patient with elevated POC with elevated lipase to seek abdominal pain etiology not clear likely from less fluid intake. Will do the CT abdomen to rule out pancreatitis although patient does not have any abdominal pain Lab Data Lab results reviewed: Yes I reviewed the patient's lab results. Result diagrams: 03/22/21 22:05 03/22/21 22:05 Labs: Lab Results 03/22/21 03/22/21 03/22/21 Range/Units 20:26 22:05 22:05 WBC 4.2 L (4.8-10.8) X10*3/uL RBC 4.29 L (4.60-5.80) X10*6/uL Hgb 12.8 L (14.0-18.0) g/dl Hct 38.1 L (42-52) % MCV 88.8 (80-98) fL MCH 29.8 (27.0-33.0) pg MCHC 33.6 (31.0-36.0) g/dl RDW 13.1 (11.0-16.0) % Plt Count 220 (160-400) X10*3/uL MPV 10.8 (9.4-12.4) fL Immature Gran % (Auto) 0.5 H (0.0-0.4) % Neut % (Auto) 38.6 L (45-73) % Lymph % (Auto) 30.6 (20-40) % [place] % (Auto) 5.0 (2-11) % Eos % (Auto) 25.1 H (0-4) % Baso % (Auto) 0.2 (0-2) % Lymph # (Auto) 1.3 (1.2-4.9) X10*3/uL [place] # (Auto) 0.2 (0.1-1.2) X10*3/uL Eos # (Auto) 1.1 H (0.0-0.4) X10*3/uL Baso # (Auto) 0.0 (0.0-0.2) X10*3/uL Abs Immat Gran (auto) 0.02 (0.00-0.03) X10*3/uL Absolute Neuts (auto) 1.6 L (2.0-8.3) X10*3/uL Absolute Nucleated RBC 0.000 (0.0-0.012) X10*3/uL Nucleated RBC % (auto) 0.0 (0.0-0.2) /100WBC Smear Tech's Comments VERIFIED Sodium 133 L (135-145) mmol/L Potassium 4.0 (3.3-5.1) mmol/L Chloride 100 (96-108) mmol/L Carbon Dioxide 28 (22-29) mmol/L Anion Gap 9 L (12-20) BUN 15 (9-16) mg/dL Creatinine 1.37 (0.5-1.4) mg/dL Estim Creat Clear Calc 54.6 Estimated GFR 50 POC Glucose 562 H* (60-115) mg/dL Random Glucose 509 H* (60-115) mg/dL Calcium 8.5 (8.4-10.2) mg/dL Total Bilirubin 0.2 (0.0-1.0) mg/dL Direct Bilirubin < 0.2 (0.0-0.5) mg/dL AST 15 (5-37) U/L ALT 28 (0-40) U/L Alkaline Phosphatase 138 H D (39-117) U/L Total Protein 6.1 L (6.5-8.0) g/dL Albumin 3.1 L (3.5-5.0) g/dL Lipase 253 H (8-78) U/L Urine Color Urine Appearance Urine pH (5.0-8.0) Ur Specific [place] (1.005-1.025) Urine Protein (NEG-TRACE) MG/DL Urine Glucose (UA) (NEG) MG/DL Urine Ketones (NEG) MG/DL Urine Blood (NEG) Urine Nitrite (NEG) Ur Leukocyte Esterase (NEG) Urine RBC (0) /HPF Urine WBC (0-4) /HPF Ur Squamous Epith Cells /LPF Urine Bacteria /LPF Urine Mucus /LPF Acetone, Qual Negative (Negative) 03/22/21 03/22/21 03/22/21 Range/Units 22:53 23:32 23:34 WBC (4.8-10.8) X10*3/uL RBC (4.60-5.80) X10*6/uL Hgb (14.0-18.0) g/dl Hct (42-52) % MCV (80-98) fL MCH (27.0-33.0) pg MCHC (31.0-36.0) g/dl RDW (11.0-16.0) % Plt Count (160-400) X10*3/uL MPV (9.4-12.4) fL Immature Gran % (Auto) (0.0-0.4) % Neut % (Auto) (45-73) % Lymph % (Auto) (20-40) % [place] % (Auto) (2-11) % Eos % (Auto) (0-4) % Baso % (Auto) (0-2) % Lymph # (Auto) (1.2-4.9) X10*3/uL [place] # (Auto) (0.1-1.2) X10*3/uL Eos # (Auto) (0.0-0.4) X10*3/uL Baso # (Auto) (0.0-0.2) X10*3/uL Abs Immat Gran (auto) (0.00-0.03) X10*3/uL Absolute Neuts (auto) (2.0-8.3) X10*3/uL Absolute Nucleated RBC (0.0-0.012) X10*3/uL Nucleated RBC % (auto) (0.0-0.2) /100WBC Smear Tech's Comments Sodium (135-145) mmol/L Potassium (3.3-5.1) mmol/L Chloride (96-108) mmol/L Carbon Dioxide (22-29) mmol/L Anion Gap (12-20) BUN (9-16) mg/dL Creatinine (0.5-1.4) mg/dL Estim Creat Clear Calc Estimated GFR POC Glucose 238 H 228 H (60-115) mg/dL Random Glucose (60-115) mg/dL Calcium (8.4-10.2) mg/dL Total Bilirubin (0.0-1.0) mg/dL Direct Bilirubin (0.0-0.5) mg/dL AST (5-37) U/L ALT (0-40) U/L Alkaline Phosphatase (39-117) U/L Total Protein (6.5-8.0) g/dL Albumin (3.5-5.0) g/dL Lipase (8-78) U/L Urine Color STRAW Urine Appearance CLEAR Urine pH 6.5 (5.0-8.0) Ur Specific [place] <= 1.005 (1.005-1.025) Urine Protein NEG (NEG-TRACE) MG/DL Urine Glucose (UA) >=1000 H (NEG) MG/DL Urine Ketones NEG (NEG) MG/DL Urine Blood NEG (NEG) Urine Nitrite NEG (NEG) Ur Leukocyte Esterase NEG (NEG) Urine RBC 0-2 (0) /HPF Urine WBC 1-4 (0-4) /HPF Ur Squamous Epith Cells TRACE /LPF Urine Bacteria TRACE /LPF Urine Mucus TRACE /LPF Acetone, Qual (Negative) Discharge Plan Discharge Clinical Impression: Diabetes mellitus with hyperglycemia Qualifiers: Diabetes mellitus type: type 2 Diabetes mellitus senior living insulin use: with senior living use Qualified Code(s): E11.65 - Type 2 diabetes mellitus with hyperglycemia Patient Disposition: Home, Self-Care Instructions: Diabetic Hyperglycemia (ED) Additional Instructions: Give patient plenty of fluids Increased dose of Lantus insulin to 20 units in the morning Check blood sugar before meals and follow with PCP Prescriptions: No Action quetiapine 25 mg tablet 1 tab PO BEDTIME RF: 0 atorvastatin 40 mg tablet 1 tab PO BEDTIME RF: 0 trazodone 50 mg tablet 1 tab PO BEDTIME RF: 0 sertraline 100 mg tablet 1 tab PO DAILY RF: 0 aspirin 81 mg tablet,delayed release (DR/EC) 1 tab PO DAILY RF: 0 docusate sodium 100 mg capsule 1 cap PO BID RF: 0 Lantus Solostar U-100 Insulin 100 unit/mL (3 mL) insulin pen 15 unit subcut DAILY RF: 0 cefuroxime axetil 500 mg tablet 500 mg PO BID Qty: 16 RF: 0
[2021-03-22 22:13] LABS: Basophils Percent Auto 0.2 % (0-2); Eosinophils Absolute Auto 1.1 X10*3/uL (0.0-0.4); Eosinophils Percent Auto 25.1 % (0-4); Hematocrit 38.1 % (42-52); Hemoglobin 12.8 g/dl (14.0-18.0); Imm Gran Abs Auto 0.02 X10*3/uL (0.00-0.03); Imm Gran Pct Auto 0.5 % (0.0-0.4); Lymphocytes Absolute Auto 1.3 X10*3/uL (1.2-4.9); Lymphocytes Percent Auto 30.6 % (20-40); Mean Corpuscular HGB Conc 33.6 g/dl (31.0-36.0); Mean Corpuscular Hemoglobin 29.8 pg (27.0-33.0); Mean Corpuscular Volume 88.8 fL (80-98); Mean Platelet Volume 10.8 fL (9.4-12.4); Monocytes Absolute Auto 0.2 X10*3/uL (0.1-1.2); Neutrophils Absolute Auto 1.6 X10*3/uL (2.0-8.3); Neutrophils Percent Auto 38.6 % (45-73); Platelet Count 220 X10*3/uL (160-400); Red Blood Count 4.29 X10*6/uL (4.60-5.80); Red Cell Distribution Width 13.1 % (11.0-16.0); White Blood Count 4.2 X10*3/uL (4.8-10.8)
[2021-03-22 22:14] LABS: MANUAL DIFF FLAG SCAN
[2021-03-22 22:32] LABS: SLIDE REVIEW VERIFIED
[2021-03-22] MEDS: Insulin Lispro 100 UNIT/ML 3 ML VIAL 12 UNIT SUBCUT (22:33)
[2021-03-22] MEDS: 0.9 % Sodium Chloride 1,000 ML 999 ML IVCONT (22:34)
[2021-03-22 22:39] LABS: Alanine Aminotransferase 28 U/L (0-40); Albumin Level 3.1 g/dL (3.5-5.0); Alkaline Phosphatase 138 U/L (39-117); Aspartate Amino Transferase 15 U/L (5-37); Bilirubin Direct < 0.2 mg/dL (0.0-0.5); Bilirubin Total 0.2 mg/dL (0.0-1.0); Blood Urea Nitrogen 15 mg/dL (9-16); Calcium 8.5 mg/dL (8.4-10.2); Creatinine Clr Calc Pharmacy 54.6; Estimated Glomerular Filt Rate 50; Lipase 253 U/L (8-78); Total Protein 6.1 g/dL (6.5-8.0)
[2021-03-22 22:40] LABS: Glucose Random 509 mg/dL (60-115)
[2021-03-22 22:48] LABS: Anion Gap 9 (12-20); Carbon Dioxide 28 mmol/L (22-29); Chloride 100 mmol/L (96-108); Sodium 133 mmol/L (135-145)
[2021-03-22 22:52] VITALS: BP 132/56; PULSE 53; RESP 16; TEMP 36.6; O2SAT 97
[2021-03-22 23:00] LABS: Glucose Urine UA >=1000 MG/DL (NEG); Leukocyte Esterase Urine NEG (NEG); Nitrite Urine NEG (NEG); PH 6.5 (5.0-8.0); Specific Gravity - Urine <= 1.005 (1.005-1.025); Urine Blood NEG (NEG); Urine Ketones NEG (NEG); Urine Protein NEG (NEG-TRACE)
[2021-03-22 23:01] LABS: Appearance Urine CLEAR; Color Urine STRAW
[2021-03-22 23:08] LABS: Bacteria Urine TRACE /LPF; Mucus Urine TRACE /LPF; RBC Urine 0-2 /HPF (0); Squamous Epithelial Cell Urine TRACE /LPF
[2021-03-22 23:36] LABS: Acetone, serum QL Negative (Negative)
[2021-03-22 23:39] LABS: Glucose, Whole Blood 228 mg/dL (60-115)
[2021-03-22 23:39] LABS: Glucose, Whole Blood 238 mg/dL (60-115)
[2021-03-23] MEDS: LORazepam 2 MG/ML VIAL 0.5 MG IVPUSH (01:21)
[2021-03-23 02:00] VITALS: BP 132/68; PULSE 82; RESP 18; TEMP 36.8; O2SAT 97
[2021-03-23 04:00] VITALS: RESP 16
== END 2021-03-23 05:26 | disposition home or self-care (01) ==
PROVIDERS: Emergency Provider Internal Medicine; PCP Internal Medicine
DX: E11.65 Type 2 diabetes mellitus with hyperglycemia (principal); G30.9 Alzheimer's disease, unspecified; F02.80 Dementia in other diseases classified elsewhere, unspecified severity, without behavioral disturbance, psychotic disturbance, mood disturbance, and anxiety; S22.41XD Multiple fractures of ribs, right side, subsequent encounter for fracture with routine healing; Z79.4 Long term (current) use of insulin; Z79.899 Other long term (current) drug therapy; W06.XXXD Fall from bed, subsequent encounter
CPT/HCPCS: 36415; 74176; 80048; 80076; 81001; 81003; 82009; 82947; 83690; 85025; 96361; 96374; 99284; J2060

== ENCOUNTER 2022-07-30 15:06 | Emergency (ER) | payer MEDICARE, SELFPAY ==
--- NOTE | 2022-07-30 15:13 | ED_ITS ---
HPI - Male Genitourinary General Chief complaint: Urogenital-Male Stated complaint: bloody urine Time Seen by Provider: 07/30/22 16:05 Related Data Home Medications Medication Instructions Recorded Confirmed aspirin 81 mg tablet,delayed 1 tab PO DAILY 03/14/21 03/14/21 release atorvastatin 40 mg tablet 1 tab PO BEDTIME 03/14/21 03/14/21 docusate sodium 100 mg capsule 1 cap PO BID 03/14/21 03/14/21 insulin glargine 100 unit/mL (3 15 unit subcut DAILY 03/14/21 03/14/21 mL) subcutaneous pen (Lantus Solostar U-100 Insulin) quetiapine 25 mg tablet 1 tab PO BEDTIME 03/14/21 03/14/21 sertraline 100 mg tablet 1 tab PO DAILY 03/14/21 03/14/21 trazodone 50 mg tablet 1 tab PO BEDTIME 03/14/21 03/14/21 Previous Rx's Medication Instructions Recorded cefuroxime axetil 500 mg tablet 500 mg PO BID #16 tabs 03/16/21 cefuroxime axetil 500 mg tablet 500 mg PO Q12H 7 days #14 tabs 07/30/22 Allergies Allergy/AdvReac Type Severity Reaction Status Date / Time No Known Allergies Allergy Verified 08/25/20 16:13 [No Known Allergies*] [facility] Past Medical History Medical History Alzheimer disease Asthma Dementia Diabetes Social History Social History Household Members: Family Housing: Apartment Do you presently have visiting nurse or other home services: No Patient Tobacco Use Status: Former Tobacco user Quit Date: 1 YEAR AGO Advance Directives: No Advance Directives Information Provided: No service: No Current occupational status: retired Physical Exam Vital Signs: Vital Signs: Last Vital Signs Temp 98.4 F 07/30/22 19:43 Pulse 67 07/30/22 19:43 Resp 16 07/30/22 19:43 BP 133/73 07/30/22 19:43 Pulse Ox 97 07/30/22 19:43 O2 Del Method 07/30/22 19:43 BMI result Body Mass Index 26.6 Course Course Course Narrative: RME: Patient is a 81-year-old Guyanese-speaking male pmhx Dementia, HLD, DM presenting to emergency department for evaluation of hematuria, first noted today by daughter. Dark red in color, noted in the brief. While shoering today golden meade urinated and she also noted blood at that time. States he has had this happen once in the past, and she was encouraged to push fluids for him. Due to patient's history of dementia he is unable to provide any significant review of symptoms or history. PE: Abdominal examination is benign, no CVA tenderness, well appearing, non- toxic Plan:CBC, CMP, urinalysis Medications Administered Discontinued Medications Generic Name Dose Route Start Last Admin Trade Name Freq PRN Reason Stop Dose Admin Sodium Chloride 1,000 mls @ 999 mls/hr 07/30/22 17:45 07/30/22 19:57 Ns IVCONT 07/30/22 18:45 Infused .Q1H1M ZACH Infusion Ceftriaxone Sodium 1 gm/ 50 mls @ 100 mls/hr 07/30/22 17:39 07/30/22 19:57 Sodium Chloride IV 07/30/22 18:08 Infused ONCE ONE Infusion MDM - Male Genitourinary Lab Data Result diagrams: 07/30/22 17:30 07/30/22 17:30 Labs: Lab Results 07/30/22 07/30/22 07/30/22 Range/Units 17:10 17:30 17:30 WBC 4.9 (4.8-10.8) X10*3/uL RBC 4.85 (4.60-5.80) X10*6/uL Hgb 14.4 (14.0-18.0) g/dl Hct 43.3 (42.0-52.0) % MCV 89.3 (80.0-98.0) fL MCH 29.7 (27.0-33.0) pg MCHC 33.3 (31.0-36.0) g/dl RDW 13.2 (11.0-16.0) % Plt Count 176 (160-400) X10*3/uL MPV 11.3 (9.4-12.4) fL Immature Gran % (Auto) 0.2 (0.0-0.4) % Neut % (Auto) 32.1 L (45-73) % Lymph % (Auto) 28.2 (20-40) % [place] % (Auto) 4.1 (2-11) % Eos % (Auto) 34.6 H (0-4) % Baso % (Auto) 0.8 (0-2) % Lymph # (Auto) 1.4 (1.2-4.9) X10*3/uL [place] # (Auto) 0.2 (0.1-1.2) X10*3/uL Eos # (Auto) 1.7 H (0.0-0.4) X10*3/uL Baso # (Auto) 0.0 (0.0-0.2) X10*3/uL Abs Immat Gran (auto) 0.01 (0.00-0.03) X10*3/uL Absolute Neuts (auto) 1.6 L (2.0-8.3) x10*3/uL Absolute Nucleated RBC 0.000 (0.0-0.012) X10*3/uL Nucleated RBC % (auto) 0.0 (0.0-0.2) /100WBC Smear Tech's Comments VERIFIED Sodium 139 (135-145) mmol/L Potassium 4.2 (3.3-5.1) mmol/L Chloride 104 (96-108) mmol/L Carbon Dioxide 27 (22-29) mmol/L Anion Gap 12 (12-20) BUN 17 H (9-16) mg/dL Creatinine 0.93 (0.5-1.4) mg/dL Estim Creat Clear Calc 47.8 Estimated GFR > 60 Random Glucose 212 H (60-115) mg/dL Lactic Acid (0.5-2.0) mmol/L Calcium 8.4 (8.4-10.2) mg/dL Total Bilirubin 0.4 (0.0-1.0) mg/dL AST 12 (5-37) U/L ALT 14 (0-40) U/L Alkaline Phosphatase 131 H (39-117) U/L Total Protein 6.4 L (6.5-8.0) g/dL Albumin 3.3 L (3.5-5.0) g/dL Urine Color Yellow Urine Appearance Cloudy Urine pH 5.5 (5.0-9.0) Ur Specific [place] 1.020 (1.005-1.025) Urine Protein 300 (3+) H (Neg-Trace) mg/dL Urine Glucose (UA) Negative (Negative) mg/dL Urine Ketones Negative (Negative) mg/dL Urine Blood Large (3+) H (Negative) Urine Nitrite Negative (Negative) Ur Leukocyte Esterase Moderate (2+) H (Negative) Urine RBC >20 H (0-2) /HPF Urine WBC >50 H (0-5) /HPF Ur Squamous Epith Cells 0-2 (0-2) /HPF Urine Bacteria 4+ (None Seen) Hyaline Casts 3-5 (0-2) /LPF 07/30/22 Range/Units 18:01 WBC (4.8-10.8) X10*3/uL RBC (4.60-5.80) X10*6/uL Hgb (14.0-18.0) g/dl Hct (42.0-52.0) % MCV (80.0-98.0) fL MCH (27.0-33.0) pg MCHC (31.0-36.0) g/dl RDW (11.0-16.0) % Plt Count (160-400) X10*3/uL MPV (9.4-12.4) fL Immature Gran % (Auto) (0.0-0.4) % Neut % (Auto) (45-73) % Lymph % (Auto) (20-40) % [place] % (Auto) (2-11) % Eos % (Auto) (0-4) % Baso % (Auto) (0-2) % Lymph # (Auto) (1.2-4.9) X10*3/uL [place] # (Auto) (0.1-1.2) X10*3/uL Eos # (Auto) (0.0-0.4) X10*3/uL Baso # (Auto) (0.0-0.2) X10*3/uL Abs Immat Gran (auto) (0.00-0.03) X10*3/uL Absolute Neuts (auto) (2.0-8.3) x10*3/uL Absolute Nucleated RBC (0.0-0.012) X10*3/uL Nucleated RBC % (auto) (0.0-0.2) /100WBC Smear Tech's Comments Sodium (135-145) mmol/L Potassium (3.3-5.1) mmol/L Chloride (96-108) mmol/L Carbon Dioxide (22-29) mmol/L Anion Gap (12-20) BUN (9-16) mg/dL Creatinine (0.5-1.4) mg/dL Estim Creat Clear Calc Estimated GFR Random Glucose (60-115) mg/dL Lactic Acid 1.1 (0.5-2.0) mmol/L Calcium (8.4-10.2) mg/dL Total Bilirubin (0.0-1.0) mg/dL AST (5-37) U/L ALT (0-40) U/L Alkaline Phosphatase (39-117) U/L Total Protein (6.5-8.0) g/dL Albumin (3.5-5.0) g/dL Urine Color Urine Appearance Urine pH (5.0-9.0) Ur Specific [place] (1.005-1.025) Urine Protein (Neg-Trace) mg/dL Urine Glucose (UA) (Negative) mg/dL Urine Ketones (Negative) mg/dL Urine Blood (Negative) Urine Nitrite (Negative) Ur Leukocyte Esterase (Negative) Urine RBC (0-2) /HPF Urine WBC (0-5) /HPF Ur Squamous Epith Cells (0-2) /HPF Urine Bacteria (None Seen) Hyaline Casts (0-2) /LPF Discharge Plan Discharge Clinical Impression: Urinary tract infection Patient Disposition: Home, Self-Care Instructions: Urinary Tract Infection in Men (ED) Additional Instructions: Le evaluaron por hematuria. Le tratamos de saumya infecci?n del tracto urinario, mientras estaba en el servicio de urgencias recibi? 1 g de ceftriaxona y 1 L de l?quido. [place] cefuroxima 500 mg cada 12 horas pavel los pr?ximos 7 d?as. Seguimiento con el m?dico de atenci?n primaria esta semana. Si los s?ntomas empeoran, regrese al departamento de emergencias para saumya evaluaci?n inmediata. Hayley por elegir hugo departamento de emergencias para kunz evaluaci?n. Por favor, mattie un seguimiento con el m?dico de atenci?n primaria seg?n sea necesario. Regrese al departamento de emergencias por cualquier s?ntoma nuevo, preocupante o que empeore. You were evaluated for hematuria. We treated you for a urinary tract infection, while you were in the emergency department you received 1 g of ceftriaxone, and 1 L of fluid. Please take cefuroxime 500 mg every 12 hours for the next 7 days. Follow-up with primary care physician this week. If symptoms worsen please return to the emergency department for immediate evaluation. Thank you for choosing this emergency department for evaluation. Please follow-up with primary care physician as needed. Return to the emergency department for any new, concerning, or worsening symptoms. Prescriptions: New cefuroxime axetil 500 mg tablet 500 mg PO Q12H 7 Days Qty: 14 0RF No Action quetiapine 25 mg tablet 1 tab PO BEDTIME atorvastatin 40 mg tablet 1 tab PO BEDTIME trazodone 50 mg tablet 1 tab PO BEDTIME sertraline 100 mg tablet 1 tab PO DAILY aspirin 81 mg tablet,delayed release (DR/EC) 1 tab PO DAILY docusate sodium 100 mg capsule 1 cap PO BID Lantus Solostar U-100 Insulin 100 unit/mL (3 mL) insulin pen 15 unit subcut DAILY cefuroxime axetil 500 mg tablet 500 mg PO BID Qty: 16 0RF Interventions: ED Discharge Assessment Last Done: 07/30/22 19:31 Discharge Date/Time: 07/30/22 20:43
[2022-07-30 15:15] VITALS: BP 146/87; PULSE 89; RESP 16; TEMP 36.9; O2SAT 96; BMI 26.6
--- NOTE | 2022-07-30 16:12 | ED.MALEGU ---
HPI - Male Genitourinary General Chief complaint: Urogenital-Male Stated complaint: bloody urine Time Seen by Provider: 07/30/22 16:05 Source: patient and family Mode of arrival: ambulatory Limitations: other (Dementia) History of Present Illness HPI Narrative: 81-year-old male presents with family for hematuria. Daughter is the primary barrel drainer, and noted that patient had hematuria and his incontinent brief. She does not report fevers or chills, or abnormal behavior at this time. Patient has severe dementia, does not speak in complete sentences, and is not able to follow directions. Patient has been eating and drinking without difficulty, and has been taking his medications. There is no penile discharge, and no risk of STI. Onset (ago): day(s) (1) Duration: intermittent Severity: mild Associated symptoms: Reports denies other symptoms Related Data Sexually active: No Home Medications Medication Instructions Recorded Confirmed aspirin 81 mg tablet,delayed 1 tab PO DAILY 03/14/21 03/14/21 release atorvastatin 40 mg tablet 1 tab PO BEDTIME 03/14/21 03/14/21 docusate sodium 100 mg capsule 1 cap PO BID 03/14/21 03/14/21 insulin glargine 100 unit/mL (3 15 unit subcut DAILY 03/14/21 03/14/21 mL) subcutaneous pen (Lantus Solostar U-100 Insulin) quetiapine 25 mg tablet 1 tab PO BEDTIME 03/14/21 03/14/21 sertraline 100 mg tablet 1 tab PO DAILY 03/14/21 03/14/21 trazodone 50 mg tablet 1 tab PO BEDTIME 03/14/21 03/14/21 Previous Rx's Medication Instructions Recorded cefuroxime axetil 500 mg tablet 500 mg PO BID #16 tabs 03/16/21 cefuroxime axetil 500 mg tablet 500 mg PO Q12H 7 days #14 tabs 07/30/22 Allergies Allergy/AdvReac Type Severity Reaction Status Date / Time No Known Allergies Allergy Verified 08/25/20 16:13 [No Known Allergies*] Review of Systems Review of Systems: Yes Unobtainable due to mental condition PMFSH Past Medical History Attestation statement: The following information was validated with the patient. Source: old records reviewed Medical History Alzheimer disease Asthma Dementia Diabetes Social History Social History Household Members: Family Housing: Apartment Do you presently have visiting nurse or other home services: No Patient Tobacco Use Status: Former Tobacco user Quit Date: 1 YEAR AGO Advance Directives: No Advance Directives Information Provided: No service: No Current occupational status: retired Physical Exam Vital Signs: Vital Signs: Last Vital Signs Temp 98.4 F 07/30/22 19:43 Pulse 67 07/30/22 19:43 Resp 16 07/30/22 19:43 BP 133/73 07/30/22 19:43 Pulse Ox 97 07/30/22 19:43 O2 Del Method 07/30/22 19:43 BMI result Body Mass Index 26.6 Appearance: Alert. Pleasantly confused. No acute distress. Eyes: Pupils equal, round and reactive to light. ENT: Pharynx normal. Neck: Normal inspection. Neck supple. CVS: Normal heart rate and rhythm. Pulses normal. Respiratory: No respiratory distress. Breath sounds normal. Abdomen: Soft and nontender. Skin: Skin warm and dry. Normal skin color. Normal skin turgor. Extremities: No lower extremity edema. Awkward but steady gait Neuro: No motor deficit. No sensory deficit. Cranial nerves intact Course Course Course Narrative: 81-year-old male presents with family for hematuria that was noted this morning. Patient does not have any significant past medical history of kidney or cardiac injury. Patient is unable to make his needs known, but family states that they do not notice any changes in behavior, patient has been eating and drinking without difficulty, taking his medications, has been afebrile, no injuries or falls reported. Will order labs, straight cath for urine, with bladder scan. If bladder scan indicates urinary retention, will place [facility]. Bladder scan indicates 150 mL of urine, straight cath produced 150. 17:40 urinalysis positive for leukocyte esterase, heme. Order for ceftriaxone and 1 L of fluids. Lactic and cultures are pending. 19:15 lab values are encouraging, no indication of sepsis at this time. Will give cefuroxime 500 mg twice a day for the next 7 days for home usage. Family would like to take this patient home as they are able to care for him appropriately. Family does understand that if his symptoms worsen that they should return to the emergency department for immediate evaluation. waterproofing mixer utilized for all correspondence. Google translate utilized for discharge instructions. Patient's family verbalized understanding of and agrees to plan of care to discharge home. Medications Administered Discontinued Medications Generic Name Dose Route Start Last Admin Trade Name Tylerq PRN Reason Stop Dose Admin Sodium Chloride 1,000 mls @ 999 mls/hr 07/30/22 17:45 07/30/22 19:57 Ns IVCONT 07/30/22 18:45 Infused .Q1H1M ZACH Infusion Ceftriaxone Sodium 1 gm/ 50 mls @ 100 mls/hr 07/30/22 17:39 07/30/22 19:57 Sodium Chloride IV 07/30/22 18:08 Infused ONCE ONE Infusion MDM - Male Genitourinary Differential Diagnosis Differential diagnosis: Likely urinary tract infection, urethritis, epididymitis, prostatitis and acute retention of urine Medical Records Attestation: I reviewed the patient's medical records. Lab Data Attestation: I reviewed the patient's lab results. Result diagrams: 07/30/22 17:30 07/30/22 17:30 Labs: Lab Results 07/30/22 07/30/22 07/30/22 Range/Units 17:10 17:30 17:30 WBC 4.9 (4.8-10.8) X10*3/uL RBC 4.85 (4.60-5.80) X10*6/uL Hgb 14.4 (14.0-18.0) g/dl Hct 43.3 (42.0-52.0) % MCV 89.3 (80.0-98.0) fL MCH 29.7 (27.0-33.0) pg MCHC 33.3 (31.0-36.0) g/dl RDW 13.2 (11.0-16.0) % Plt Count 176 (160-400) X10*3/uL MPV 11.3 (9.4-12.4) fL Immature Gran % (Auto) 0.2 (0.0-0.4) % Neut % (Auto) 32.1 L (45-73) % Lymph % (Auto) 28.2 (20-40) % [place] % (Auto) 4.1 (2-11) % Eos % (Auto) 34.6 H (0-4) % Baso % (Auto) 0.8 (0-2) % Lymph # (Auto) 1.4 (1.2-4.9) X10*3/uL [place] # (Auto) 0.2 (0.1-1.2) X10*3/uL Eos # (Auto) 1.7 H (0.0-0.4) X10*3/uL Baso # (Auto) 0.0 (0.0-0.2) X10*3/uL Abs Immat Gran (auto) 0.01 (0.00-0.03) X10*3/uL Absolute Neuts (auto) 1.6 L (2.0-8.3) x10*3/uL Absolute Nucleated RBC 0.000 (0.0-0.012) X10*3/uL Nucleated RBC % (auto) 0.0 (0.0-0.2) /100WBC Smear Tech's Comments VERIFIED Sodium 139 (135-145) mmol/L Potassium 4.2 (3.3-5.1) mmol/L Chloride 104 (96-108) mmol/L Carbon Dioxide 27 (22-29) mmol/L Anion Gap 12 (12-20) BUN 17 H (9-16) mg/dL Creatinine 0.93 (0.5-1.4) mg/dL Estim Creat Clear Calc 47.8 Estimated GFR > 60 Random Glucose 212 H (60-115) mg/dL Lactic Acid (0.5-2.0) mmol/L Calcium 8.4 (8.4-10.2) mg/dL Total Bilirubin 0.4 (0.0-1.0) mg/dL AST 12 (5-37) U/L ALT 14 (0-40) U/L Alkaline Phosphatase 131 H (39-117) U/L Total Protein 6.4 L (6.5-8.0) g/dL Albumin 3.3 L (3.5-5.0) g/dL Urine Color Yellow Urine Appearance Cloudy Urine pH 5.5 (5.0-9.0) Ur Specific [place] 1.020 (1.005-1.025) Urine Protein 300 (3+) H (Neg-Trace) mg/dL Urine Glucose (UA) Negative (Negative) mg/dL Urine Ketones Negative (Negative) mg/dL Urine Blood Large (3+) H (Negative) Urine Nitrite Negative (Negative) Ur Leukocyte Esterase Moderate (2+) H (Negative) Urine RBC >20 H (0-2) /HPF Urine WBC >50 H (0-5) /HPF Ur Squamous Epith Cells 0-2 (0-2) /HPF Urine Bacteria 4+ (None Seen) Hyaline Casts 3-5 (0-2) /LPF 07/30/ Range/Units 18:01 WBC (4.8-10.8) X10*3/uL RBC (4.60-5.80) X10*6/uL Hgb (14.0-18.0) g/dl Hct (42.0-52.0) % MCV (80.0-98.0) fL MCH (27.0-33.0) pg MCHC (31.0-36.0) g/dl RDW (11.0-16.0) % Plt Count (160-400) X10*3/uL MPV (9.4-12.4) fL Immature Gran % (Auto) (0.0-0.4) % Neut % (Auto) (45-73) % Lymph % (Auto) (20-40) % [place] % (Auto) (2-11) % Eos % (Auto) (0-4) % Baso % (Auto) (0-2) % Lymph # (Auto) (1.2-4.9) X10*3/uL [place] # (Auto) (0.1-1.2) X10*3/uL Eos # (Auto) (0.0-0.4) X10*3/uL Baso # (Auto) (0.0-0.2) X10*3/uL Abs Immat Gran (auto) (0.00-0.03) X10*3/uL Absolute Neuts (auto) (2.0-8.3) x10*3/uL Absolute Nucleated RBC (0.0-0.012) X10*3/uL Nucleated RBC % (auto) (0.0-0.2) /100WBC Smear Tech's Comments Sodium (135-145) mmol/L Potassium (3.3-5.1) mmol/L Chloride (96-108) mmol/L Carbon Dioxide (22-29) mmol/L Anion Gap (12-20) BUN (9-16) mg/dL Creatinine (0.5-1.4) mg/dL Estim Creat Clear Calc Estimated GFR Random Glucose (60-115) mg/dL Lactic Acid 1.1 (0.5-2.0) mmol/L Calcium (8.4-10.2) mg/dL Total Bilirubin (0.0-1.0) mg/dL AST (5-37) U/L ALT (0-40) U/L Alkaline Phosphatase (39-117) U/L Total Protein (6.5-8.0) g/dL Albumin (3.5-5.0) g/dL Urine Color Urine Appearance Urine pH (5.0-9.0) Ur Specific [place] (1.005-1.025) Urine Protein (Neg-Trace) mg/dL Urine Glucose (UA) (Negative) mg/dL Urine Ketones (Negative) mg/dL Urine Blood (Negative) Urine Nitrite (Negative) Ur Leukocyte Esterase (Negative) Urine RBC (0-2) /HPF Urine WBC (0-5) /HPF Ur Squamous Epith Cells (0-2) /HPF Urine Bacteria (None Seen) Hyaline Casts (0-2) /LPF ECG Data Attestation: I personally reviewed and interpreted this ECG as follows: ECG interpretation date: 07/30/22 ECG interpretation time: 16:26 Prior ECG tracings: available for review Interpretation: Ventricular rate 76 beats per minute, NE 146, QRS 106, QT 386, QTC 434 normal sinus rhythm left axis deviation, nonspecific T-wave abnormality, no significant changes when compared to EKG on 03/14/2021, and 08/25/2020 Discharge Plan Discharge Clinical Impression: Urinary tract infection Patient Disposition: Home, Self-Care Instructions: Urinary Tract Infection in Men (ED) Additional Instructions: Le evaluaron por hematuria. Le tratamos de saumya infecci?n del tracto urinario, mientras estaba en el servicio de urgencias recibi? 1 g de ceftriaxona y 1 L de l?quido. [place] cefuroxima 500 mg cada 12 horas pavel los pr?ximos 7 d?as. Seguimiento con el m?dico de atenci?n primaria esta semana. Si los s?ntomas empeoran, regrese al departamento de emergencias para asumya evaluaci?n inmediata. Hayley por elegir hugo departamento de emergencias para kunz evaluaci?n. Por favor, mattie un seguimiento con el m?dico de atenci?n primaria seg?n sea necesario. Regrese al departamento de emergencias por cualquier s?ntoma nuevo, preocupante o que empeore. You were evaluated for hematuria. We treated you for a urinary tract infection, while you were in the emergency department you received 1 g of ceftriaxone, and 1 L of fluid. Please take cefuroxime 500 mg every 12 hours for the next 7 days. Follow-up with primary care physician this week. If symptoms worsen please return to the emergency department for immediate evaluation. Thank you for choosing this emergency department for evaluation. Please follow-up with primary care physician as needed. Return to the emergency department for any new, concerning, or worsening symptoms. Prescriptions: New cefuroxime axetil 500 mg tablet 500 mg PO Q12H 7 Days Qty: 14 0RF No Action quetiapine 25 mg tablet 1 tab PO BEDTIME atorvastatin 40 mg tablet 1 tab PO BEDTIME trazodone 50 mg tablet 1 tab PO BEDTIME sertraline 100 mg tablet 1 tab PO DAILY aspirin 81 mg tablet,delayed release (DR/EC) 1 tab PO DAILY docusate sodium 100 mg capsule 1 cap PO BID [place] U-100 Insulin 100 unit/mL (3 mL) insulin pen 15 unit subcut DAILY cefuroxime axetil 500 mg tablet 500 mg PO BID Qty: 16 0RF Interventions: ED Discharge Assessment Last Done: 07/30/22 19:31 Discharge Date/Time: 07/30/22 20:43
--- NOTE | 2022-07-30 16:18 | ECG_ITS ---
Test Reason : ABDOMINAL PAIN Blood Pressure : / mmHG Vent. Rate : 076 BPM Atrial Rate : 076 BPM P-R Int : 146 ms QRS Dur : 106 ms QT Int : 386 ms P-R-T Axes : 051 -56 145 degrees QTc Int : 434 ms Normal sinus rhythm Low voltage QRS Left anterior fascicular block Nonspecific T wave abnormality Abnormal ECG When compared with ECG of 14-MAR-2021 11:25, Nonspecific T wave abnormality, improved in Inferior leads Referred By: Marina Bourgeois Electronically Signed By:JODY SZYMANSKI MD
[2022-07-30 16:42] VITALS: RESP 16
[2022-07-30 17:16] LABS: Appearance Urine Cloudy; Color Urine Yellow; Glucose Urine UA Negative (Negative); Leukocyte Esterase Urine Moderate (2+) (Negative); Nitrite Urine Negative (Negative); PH 5.5 (5.0-9.0); UMIC TRIGGER UACC YES; Urine Blood Large (3+) (Negative); Urine Ketones Negative (Negative); Urine Protein 300 (3+) mg/dL (Neg-Trace)
[2022-07-30 17:28] LABS: Bacteria Urine 4+ (None Seen); RBC Urine >20 /HPF (0-2); Squamous Epithelial Cell Urine 0-2 /HPF (0-2); UACC Culture Trigger YES; WBC Urine >50 /HPF (0-5)
[2022-07-30 17:36] LABS: Basophils Percent Auto 0.8 % (0-2); Eosinophils Absolute Auto 1.7 X10*3/uL (0.0-0.4); Eosinophils Percent Auto 34.6 % (0-4); Hematocrit 43.3 % (42.0-52.0); Hemoglobin 14.4 g/dl (14.0-18.0); Imm Gran Abs Auto 0.01 X10*3/uL (0.00-0.03); Imm Gran Pct Auto 0.2 % (0.0-0.4); Lymphocytes Absolute Auto 1.4 X10*3/uL (1.2-4.9); Lymphocytes Percent Auto 28.2 % (20-40); Mean Corpuscular HGB Conc 33.3 g/dl (31.0-36.0); Mean Corpuscular Hemoglobin 29.7 pg (27.0-33.0); Mean Corpuscular Volume 89.3 fL (80.0-98.0); Mean Platelet Volume 11.3 fL (9.4-12.4); Monocytes Absolute Auto 0.2 X10*3/uL (0.1-1.2); Monocytes Percent Auto 4.1 % (2-11); Neutrophils Absolute Auto 1.6 x10*3/uL (2.0-8.3); Neutrophils Percent Auto 32.1 % (45-73); Platelet Count 176 X10*3/uL (160-400); Red Blood Count 4.85 X10*6/uL (4.60-5.80); Red Cell Distribution Width 13.2 % (11.0-16.0); SCAN SMEAR FLAG 1; White Blood Count 4.9 X10*3/uL (4.8-10.8)
[2022-07-30 17:42] LABS: MANUAL DIFF FLAG SCAN
[2022-07-30 17:54] LABS: Alanine Aminotransferase 14 U/L (0-40); Albumin Level 3.3 g/dL (3.5-5.0); Alkaline Phosphatase 131 U/L (39-117); Anion Gap 12 (12-20); Aspartate Amino Transferase 12 U/L (5-37); Bilirubin Total 0.4 mg/dL (0.0-1.0); Blood Urea Nitrogen 17 mg/dL (9-16); Calcium 8.4 mg/dL (8.4-10.2); Carbon Dioxide 27 mmol/L (22-29); Chloride 104 mmol/L (96-108); Creatinine Clr Calc Pharmacy 47.8; Estimated Glomerular Filt Rate > 60; Glucose Random 212 mg/dL (60-115); Potassium 4.2 mmol/L (3.3-5.1); Sodium 139 mmol/L (135-145); Total Protein 6.4 g/dL (6.5-8.0)
[2022-07-30 18:03] LABS: SLIDE REVIEW VERIFIED
[2022-07-30] MEDS: cefTRIAXone sodium 1 GM in 0.9 % Sodium Chloride 50 ML IV (18:16)
[2022-07-30] MEDS: 0.9 % Sodium Chloride 1,000 ML 999 ML IVCONT (18:16)
--- NOTE | 2022-07-30 18:18 | PC.NURSE ---
IV established, pt medicated per the MAR. Resting comfortably in bed
[2022-07-30 18:21] LABS: Lactic Acid 1.1 mmol/L (0.5-2.0)
[2022-07-30 19:43] VITALS: BP 133/73; PULSE 67; RESP 16; TEMP 36.9; O2SAT 97
== END 2022-07-30 20:43 | disposition home or self-care (01) ==
PROVIDERS: Nurse Practitioner Family; Emergency Provider Emergency Medicine
DX: N39.0 Urinary tract infection, site not specified (principal); G30.9 Alzheimer's disease, unspecified; F02.80 Dementia in other diseases classified elsewhere, unspecified severity, without behavioral disturbance, psychotic disturbance, mood disturbance, and anxiety; J45.909 Unspecified asthma, uncomplicated; Z87.891 Personal history of nicotine dependence; Z79.82 Long term (current) use of aspirin; Z79.02 Long term (current) use of antithrombotics/antiplatelets; Z79.4 Long term (current) use of insulin; Z79.899 Other long term (current) drug therapy
CPT/HCPCS: 36415; 51798; 80053; 81001; 83605; 85025; 87040; 87086; 87088; 87186; 93005; 96361; 96365; 99284; 99285; J0696

== ENCOUNTER 2023-02-04 12:46 | Inpatient (IN) | payer OTHER, SELFPAY ==
[2023-02-04 13:21] VITALS: BP 122/80; PULSE 100; RESP 18; TEMP 36.7; O2SAT 90; BMI 20.7
--- NOTE | 2023-02-04 13:21 | ED.GENADULT ---
HPI - General Adult General Chief complaint: Urogenital-Male Stated complaint: bacterial infection Time Seen by Provider: 02/04/23 16:02 Source: family Mode of arrival: EMS Limitations: other (Severe dementia) History of Present Illness HPI narrative: Patient comes to the emergency room accompanied by his daughter. According to the daughter, she has noted that over the last month, patient has had foul-smelling urine. Patient was seen by enters in their home on January 19, patient was diagnosed with a UTI, for unclear reasons, the patient only got a prescription of Levaquin for 2 days and did not have any more antibiotics. Since then, the daughter has noted that the patient is becoming more lethargic, sleeping more, not drinking enough fluids, patient usually takes/swallows his home medications but lately has been spitting them out then refusing them. Patient is awake, somnolent, unable to give any history. Related Data Home Medications Medication Instructions Recorded Confirmed aspirin 81 mg tablet,delayed 1 tab PO DAILY 03/14/21 03/14/21 release atorvastatin 40 mg tablet 1 tab PO BEDTIME 03/14/21 03/14/21 docusate sodium 100 mg capsule 1 cap PO BID 03/14/21 03/14/21 insulin glargine 100 unit/mL (3 15 unit subcut DAILY 03/14/21 03/14/21 mL) subcutaneous pen (Lantus Solostar U-100 Insulin) quetiapine 25 mg tablet 1 tab PO BEDTIME 03/14/21 03/14/21 sertraline 100 mg tablet 1 tab PO DAILY 03/14/21 03/14/21 trazodone 50 mg tablet 1 tab PO BEDTIME 03/14/21 03/14/21 Previous Rx's Medication Instructions Recorded cefuroxime axetil 500 mg tablet 500 mg PO BID #16 tabs 03/16/21 cefuroxime axetil 500 mg tablet 500 mg PO Q12H 7 days #14 tabs 07/30/22 Allergies Allergy/AdvReac Type Severity Reaction Status Date / Time No Known Allergies Allergy Verified 08/25/20 16:13 [No Known Allergies*] Review of Systems Review of Systems: Yes Unobtainable due to mental condition PMFSH Past Medical History Medical History Alzheimer disease Asthma Dementia Diabetes Social History Social History Household Members: Family Housing: Apartment Do you presently have visiting nurse or other home services: No Patient Tobacco Use Status: Former Tobacco user Quit Date: 1 YEAR AGO Advance Directives: No Advance Directives Information Provided: No service: No Current occupational status: retired Physical Exam ED Vital Signs: Vital Signs - 24 hr 02/04/23 13:21 02/04/23 16:17 02/04/23 18:46 Temperature 98.0 F 98.1 F Pulse Rate 100 78 70 Respiratory Rate 18 14 16 Blood Pressure 122/80 116/65 137/67 Pulse Oximetry 90 L 93 96 Oxygen Delivery Method Room Air Room Air Room Air BMI result Body Mass Index 20.7 Const Other: Appearance: Alert. Somnolent but easily arousable, lethargic Eyes: Pupils equal, round and reactive to light. ENT: Pharynx normal. Dry oral mucosa Neck: Normal inspection. Neck supple. No lymph nodes noted. No crepitus CVS: Normal heart rate and rhythm. Pulses normal. Normal S1 and S2 Respiratory: No respiratory distress. Breath sounds normal. No Wheezing. No rales Abdomen: Soft and nontender. No rigidity. No distention. Skin: Skin warm and dry. Normal skin color. Normal skin turgor. Extremities: No lower extremity edema. No Lacerations. No Rash Neuro: Unable to participating cranial nerve assessment Psych: calm, cooperative, Course Course Course Narrative: RME performed by Renee Gomez PA-C. Patient is an 82 year old assigned male at presenting to the emergency department with a possible infection. Labs ordered. Patient placed back in the waiting room pending room availability and results. Medications Administered Generic Name Dose Route Start Last Admin Trade Name Freq PRN Reason Stop Dose Admin Sodium Chloride 1,000 mls @ 999 mls/hr 02/04/23 18:30 02/04/23 18:48 Ns IVCONT 02/04/23 19:30 999 mls/hr .Q1H1M ONE Administration Discontinued Medications Generic Name Dose Route Start Last Admin Trade Name Freq PRN Reason Stop Dose Admin Sodium Chloride 1,000 mls @ 999 mls/hr 02/04/23 16:32 02/04/23 18:47 Ns IVCONT 02/04/23 17:32 Infused .Q1H1M ONE Infusion Lidocaine HCl 20 ml 02/04/23 17:28 02/04/23 17:41 Lidocaine Hcl 2 % Urojet 10 Ml Jel.Pf.Abigail TOPICAL 02/04/23 17:29 20 ml ONCE ONE Administration Medical Decision Making Medical Decision Making [facility] Narrative: Patient's white blood cell count within normal limits. Urinalysis pending. We will have to straight cath the patient. -admission has been consider. Patient seems dehydrated, will need fluids. Also, if patient has a UTI, he is unable to take p.o. antibiotics, he has been refusing all his PO meds. He will need IV antibiotics. Patient's son and daughter agree with plan. -blood pressure stable, 137/67, heart rate 70, no fever, lactic acid pending. At this time, 19:05 sepsis is not suspected -I was informed by the patient's nurse that they were unable to insert a Cochran catheter, I inserted a coude, urine obtained. -patient does have a UTI, patient is significantly symptomatic. -I discussed the patient with Dr. Soria, patient being admitted. Admission/Observation Consideration of admission/observation: Escalation of care including admission/observation considered Consult Healthcare Provider Management of the patient was discussed with: Hospitalist Lab Data [facility] Lab Attestation statement: I reviewed the patient's lab results. 02/04/23 13:51 02/04/23 13:51 Labs: Lab Results 02/04/23 02/04/23 02/04/23 Range/Units 13:51 13:51 17:02 WBC 4.8 (4.8-10.8) X10*3/uL RBC 5.20 (4.60-5.80) X10*6/uL Hgb 15.1 (14.0-18.0) g/dl Hct 46.7 (42.0-52.0) % MCV 89.8 (80.0-98.0) fL MCH 29.0 (27.0-33.0) pg MCHC 32.3 (31.0-36.0) g/dl RDW 13.6 (11.0-16.0) % Plt Count 252 D (160-400) X10*3/uL MPV 10.5 (9.4-12.4) fL Immature Gran % (Auto) 0.2 (0.0-0.4) % Neut % (Auto) 56.7 (45-73) % Lymph % (Auto) 26.4 (20-40) % [place] % (Auto) 3.1 (2-11) % Eos % (Auto) 13.2 H (0-4) % Baso % (Auto) 0.4 (0-2) % Lymph # (Auto) 1.3 (1.2-4.9) X10*3/uL [place] # (Auto) 0.2 (0.1-1.2) X10*3/uL Eos # (Auto) 0.6 H (0.0-0.4) X10*3/uL Baso # (Auto) 0.0 (0.0-0.2) X10*3/uL Abs Immat Gran (auto) 0.01 (0.00-0.03) X10*3/uL Absolute Neuts (auto) 2.7 (2.0-8.3) x10*3/uL Absolute Nucleated RBC 0.000 (0.0-0.012) X10*3/uL Nucleated RBC % (auto) 0.0 (0.0-0.2) /100WBC Sodium 142 (135-145) mmol/L Potassium 3.8 (3.3-5.1) mmol/L Chloride 106 (96-108) mmol/L Carbon Dioxide 26 (22-29) mmol/L Anion Gap 14 (12-20) BUN 13 (9-16) mg/dL Creatinine 1.09 (0.5-1.4) mg/dL Estim Creat Clear Calc 41.8 Estimated GFR > 60 Random Glucose 236 H (60-115) mg/dL Calcium 8.9 (8.4-10.2) mg/dL Magnesium 1.8 (1.6-2.6) mg/dL Total Bilirubin 0.5 (0.0-1.0) mg/dL AST 14 (5-37) U/L ALT 12 (0-40) U/L Alkaline Phosphatase 120 H (39-117) U/L Total Protein 7.2 (6.5-8.0) g/dL Albumin 3.6 (3.5-5.0) g/dL Urine Color Yellow Urine Appearance Cloudy Urine pH 5.5 (5.0-9.0) Ur Specific [place] 1.015 (1.005-1.025) Urine Protein 30 (1+) H (Neg-Trace) mg/dL Urine Glucose (UA) Negative (Negative) mg/dL Urine Ketones Negative (Negative) mg/dL Urine Blood Negative (Negative) Urine Nitrite Negative (Negative) Ur Leukocyte Esterase Small (1+) H (Negative) Urine RBC 0-2 (0-2) /HPF Urine WBC 6-10 H (0-5) /HPF Ur Squamous Epith Cells 0-2 (0-2) /HPF Urine Bacteria 4+ (None Seen) Hyaline Casts 0-2 (0-2) /LPF Critical Care Time Critical Care Time Critical Care Time: Yes Total Critical Care Time: 60 Attestation: I have personally provided critical care time. Time includes review of lab data, radiology results, discussion with consultants, and monitoring for potential decompensation. Intervention performed as documented. Discharge Plan Discharge Clinical Impression: Urinary tract infection, Weakness, Adult failure to thrive Patient Disposition: Admitted As Inpatient Prescriptions: No Action quetiapine 25 mg tablet 1 tab PO BEDTIME atorvastatin 40 mg tablet 1 tab PO BEDTIME trazodone 50 mg tablet 1 tab PO BEDTIME sertraline 100 mg tablet 1 tab PO DAILY aspirin 81 mg tablet,delayed release (DR/EC) 1 tab PO DAILY docusate sodium 100 mg capsule 1 cap PO BID Lantus Solostar U-100 Insulin 100 unit/mL (3 mL) insulin pen 15 unit subcut DAILY cefuroxime axetil 500 mg tablet 500 mg PO BID Qty: 16 0RF cefuroxime axetil 500 mg tablet 500 mg PO Q12H 7 Days Qty: 14 0RF
[2023-02-04 13:54] LABS: MANUAL DIFF FLAG NO
[2023-02-04 13:58] LABS: Basophils Percent Auto 0.4 % (0-2); Eosinophils Absolute Auto 0.6 X10*3/uL (0.0-0.4); Eosinophils Percent Auto 13.2 % (0-4); Hematocrit 46.7 % (42.0-52.0); Hemoglobin 15.1 g/dl (14.0-18.0); Imm Gran Abs Auto 0.01 X10*3/uL (0.00-0.03); Imm Gran Pct Auto 0.2 % (0.0-0.4); Lymphocytes Absolute Auto 1.3 X10*3/uL (1.2-4.9); Lymphocytes Percent Auto 26.4 % (20-40); Mean Corpuscular HGB Conc 32.3 g/dl (31.0-36.0); Mean Corpuscular Volume 89.8 fL (80.0-98.0); Mean Platelet Volume 10.5 fL (9.4-12.4); Monocytes Absolute Auto 0.2 X10*3/uL (0.1-1.2); Monocytes Percent Auto 3.1 % (2-11); Neutrophils Absolute Auto 2.7 x10*3/uL (2.0-8.3); Neutrophils Percent Auto 56.7 % (45-73); Platelet Count 252 X10*3/uL (160-400); Red Cell Distribution Width 13.6 % (11.0-16.0); White Blood Count 4.8 X10*3/uL (4.8-10.8)
[2023-02-04 14:20] LABS: Alanine Aminotransferase 12 U/L (0-40); Albumin Level 3.6 g/dL (3.5-5.0); Alkaline Phosphatase 120 U/L (39-117); Anion Gap 14 (12-20); Aspartate Amino Transferase 14 U/L (5-37); Bilirubin Total 0.5 mg/dL (0.0-1.0); Blood Urea Nitrogen 13 mg/dL (9-16); Calcium 8.9 mg/dL (8.4-10.2); Carbon Dioxide 26 mmol/L (22-29); Chloride 106 mmol/L (96-108); Creatinine Clr Calc Pharmacy 41.8; Estimated Glomerular Filt Rate > 60; Glucose Random 236 mg/dL (60-115); Magnesium 1.8 mg/dL (1.6-2.6); Potassium 3.8 mmol/L (3.3-5.1); Sodium 142 mmol/L (135-145); Total Protein 7.2 g/dL (6.5-8.0)
[2023-02-04 16:17] VITALS: BP 116/65; PULSE 78; RESP 14; TEMP 36.7; O2SAT 93
--- OUTSIDE RECORDS SUMMARY | 2023-02-04 16:18 | XMS_ITS | Continuity of Care Document ---
Author Name Unknown Organization [facility] Address [address] [place] [id number]- Care Team Providers Care Choir Director Name Role Phone Nain WILSON, Lenore Primary Care Physician [facility]): 11[facility]16[facility]20 - 12/16/20 [facility] [address] [address]- Allergies, Adverse Reactions, Alerts No Known Medication Allergies Immunizations Given and Recorded Vaccine Date Status Refusal Reason SARS-CoV-2 (COVID-19) mRNA BNT-162b2 vac 11/26/20 Given SARS-CoV-2 (COVID-19) mRNA BNT-162b2 vac 1 10/29/20 Given influenza virus vaccine, inactivated 07/04/19 Give n influenza virus vaccine, inactivated 2 07/15/16 Gi al influenza virus vaccine, inactivated 07/15/16 Give n influenza virus vaccine, inactivated 11/26/15 Give n influenza virus vaccine, inactivated 3 06/12/14 Gi al influenza virus vaccine, inactivated 06/10/13 Give n influenza virus vaccine, inactivated 4 07/18/12 Gi al influenza virus vaccine, inactivated 5 11/28/11 Gi al influenza virus vaccine, inactivated 6 10/18/10 Gi al pneumococcal 13-valent vaccine 7 02/26/15 Given tetanus/diphtheria/pertussis, acel(Tdap) 01/15/14 Given Zoster Vaccine Live 8 11/07/12 Given pneumococcal 23-valent vaccine 9 10/18/10 Given 1Result Comment: [place] Dawn 2Result Comment: [07/19/2016 Uncharted] duplicate 3Result Comment: [06/13/2014] Ordered by [facility] 4Admin Note: vis 03/05/2012 Flulzone 5Admin Note: VIS 03/29/11 GIVEN 6Admin Note: VIS 04/13/10 GIVEN 7Result Comment: [02/26/2015] Ordered by Som 8Asaloni Note: PT BRINGS IN VIS 05/10 9Admin Note: VIS 06/09/09 GIVEN Medications Adult Diapers size small Adult Diapers size small, See Instructions, # 240 each, Refills 11, Tot. Refills 11, Maintenance, to used as directed 8/day incontinence R32 vascular dementia F01.50 faxed to [phone], 08/10/20 15:06:00 EST, Supply Start Date: 08/10/20 Status: Ordered albuterol CFC free 90 mcg/inh inhalation aerosol 1, puffs, Inhalation, 4 times a day, PRN, # 1 each, Refills 6, Tot. Refills 6, Maintenance, 12/20/18 11:20:52 EDT, Aerosol, Route to Pharmacy Electronically, [id number], [facility] Start Date: 12/20/18 Stop Date: 07/18/19 Status: Ordered Aspirin Low Dose 81 mg oral delayed release tablet See Instructions, TAKE 1 TABLET BY MOUTH DAILY WITH FOOD, # 28 tablet, 5 Refills, Soft Stop, 11/03/20 10:10:00 EST, [facility], 157, cm, 04/30/20 13:16:00 EDT, Height Start Date: 11/03/20 Status: Ordered atorvastatin 40 mg oral tablet 1 tablet = 40 mg, By Mouth, Daily, # 30 tablet, 5 Refills, Maintenance, 07/29/20 16:53:00 EST, Tablet, [facility], 157, cm, 04/30/20 13:16:00 EDT, Height Start Date: 07/29/20 Stop Date: 01/25/21 Status: Ordered Diabetic Shoes with 3 inserts Diabetic Shoes with 3 inserts, See Instructions, # 1 each, Refills 0, Tot. Refills 0, Maintenance, dx: DM II with neuropathy, 11/18/19 17:16:00 EDT, Supply Start Date: 11/18/19 Status: Ordered Disposable Underpads Disposable Underpads, See Instructions, # 240 each, Refills 11, Tot. Refills 11, Maintenance, to used as directed 8/day incontinence R32 vascular dementia F01.50 faxed to [phone], 08/10/20 15:06:00 EST, Supply Start Date: 08/10/20 Status: Ordered docusate sodium 100 mg oral capsule 1 capsule = 100 mg, By Mouth, 2 times a day, # 56 capsule, 5 Refills, Soft Stop, 11/19/20 7:19:00 EDT, [facility], 157, cm, 04/30/20 13:16:00 EDT, Height Start Date: 11/19/20 Status: Ordered Freestyle Lite Lancets See Instructions, # 200 each, Refills 3, Tot. Refills 3, Maintenance, to check BS BID. Dx: DM II controlled, E11.9, 90 days supply., 12/09/20 14:36:00 EDT, Compound, 157, cm, 11/26/20 11:44:00 EDT, Height Start Date: 12/09/20 Status: Ordered Freestyle Lite Monitor See Instructions, # 1 units, Maintenance, to check BS BID. Dx: Dm II controlled, E11.9, 05/08/19 15:34:41 EDT, Compound Start Date: 05/08/19 Status: Ordered Freestyle Lite Test Strips See Instructions, # 200 each, Refills 3, Tot. Refills 3, Maintenance, to check Bs BID Dx: DM II controlled, E11.9, 90 days supply., 12/09/20 14:36:00 EDT, Compound, 157, cm, 11/26/20 11:44:00 EDT, Height Start Date: 12/09/20 Status: Ordered Gloves size adult Gloves size adult, See Instructions, # 4 pack/packet, Refills 11, Tot. Refills 11, Maintenance, to used as directed 8pair/day incontinence R32 vascular dementia F01.50 faxed to [phone], 08/10/2015:06:00 EST, Supply Start Date: 08/10/20 Status: Ordered Incontinence wipes for adults Incontinence wipes for adults, See Instructions, # 4 pack/packet, Refills 11, Tot. Refills 11, Maintenance, to used as directed 8 changes/day incontinence R32 vascular dementia F01.50 faxed to [phone], 08/10/20 15:06:00 EST, Supply Start Date: 08/10/20 Status: Ordered Lantus Solostar Pen 100 units/mL subcutaneous solution = 15 units, Subcutaneous Infusion, Daily, NEW HIGHER DOSE. discontinue metformin, # 10 mL, 3 Refills, Maintenance, 11/26/20 12:25:00 EDT, [facility], 157, cm, 11/26/20 11:44:00 EDT, Height Start Date: 11/26/20 Stop Date: 03/26/21 Status: Ordered Nitrostat 0.4 mg sublingual tablet 1 tablet = 0.4 mg, Sublingual, Every 5 minutes, PRN for chest pain, If chest pain not relieved in 5mins after 1st dose, take 2nd & go to the ER, # 25 tablet, 0 Refills, Maintenance, 12/20/18 11:37:20 EDT, Tablet Start Date: 12/20/18 Status: Ordered Nutritional Supplements See Instructions, # 90 each, Refills 11, Tot. Refills 11, Maintenance, Glucerna. Assorted Flavors. dx: R62.7, 06/02/20 14:19:00 EDT, Supply Start Date: 06/02/20 Status: Ordered Pen [place], 30 G x 8 mm BD Ultra Fine II See Instructions, # 90 units, Refills 3, Tot. Refills 3, Maintenance, to use with lantus 15 units daily, 05/08/19 15:35:35 EDT, Compound Start Date: 05/08/19 Status: Ordered Pen [place], 30 G x 8 mm BD Ultra Fine II See Instructions, # 30 each, Refills 11, Tot. Refills 11, Maintenance, dx: DM II. to use with lantus 10 units daily, 12/09/20 14:36:00 EDT, Compound, 157, cm, 11/26/20 11:44:00 EDT, Height Start Date: 12/09/20 Status: Ordered Shower chair Shower chair, See Instructions, # 1 each, Refills 0, Tot. Refills 0, Maintenance, Z91. 81 Weight: 46 kgs Height: 157 cm, 11/26/20 18:33:00 EDT, Supply Start Date: 11/26/20 Status: Ordered traZODone 100 mg oral tablet 100 mg, 1, tablet, By Mouth, Daily at bedtime, at 10 pm, # 90 tablet, Refills 3, Tot. Refills 3, Maintenance, 12/07/20 9:47:00 EDT, Route to Pharmacy Electronically, [facility], 157, cm, 11/26/20 11:44:00 EDT, Height Start Date: 12/07/20 Status: Ordered Walker with seat Walker with seat, See Instructions, # 1 each, Refills 0, Tot. Refills 0, Maintenance, Z91. 81 Weight: 46 kgs Height: 157 cm, 11/26/20 18:32:00 EDT, Supply Start Date: 11/26/20 Status: Ordered Zoloft 100 mg oral tablet 1 tablet = 100 mg, By Mouth, Daily, Please discontinue previous Rx of 50 mg with 100 mg being new dosing, # 90 tablet, 3 Refills, Maintenance, 08/17/20 13:32:00 EST, Tablet, [facility], Partial fill upon patient request if the prescription... Start Date: 08/17/20 Status: Ordered Problem List Condition Effective Dates Status Health Status Inform ant CAD - Coronary artery disease(Confirmed) 1, 2 Active Erectile dysfunction(Confirmed) Active Hyperlipidemia LDL goal < 100(Confirmed) Active Mild asthma(Confirmed) 3, 4 Active *[id number]-[facility] Neyda Gallegos RN(Confirmed) Active Counseling regarding advance d directives(Confirmed) 5 Active Diabetes mellitus type II, controlled(Confirmed) 2016 Active Urolithiasis(Confirmed) Active Dementia, vascular(Confirmed) Active 1Echo 2014:The mid anterior,inferolateral, anterolateral wall is moderately to severely hypokinetic [id number]-[id number] perfusion test shows scar in inferior and infero-lateral wall without reversibility. 3Had normal spirometry in [facility] in 04-06-2011, that if anything could suggest mild asthma 4Based on CXR done at [facility] in : hyperinflated lungs. PFTs done at outside facility (scanned under non [facility] results) showed severe obstruction with no marked improvement in FEV1 afer bronchodilator 5DNR/DNI Social History Social History Type Response Smoking Status 10 or more cigarette s (1/2 pack or more)/day in last 30 days; Type: Cigarettes; Tobacco use times per day: 2 CIGS A DAY; Started at age: 22; entered on: 12/20/18 Sex
--- OUTSIDE RECORDS SUMMARY | 2023-02-04 16:18 | XMS_ITS | Continuity of Care Document ---
Author Name Unknown Organization [facility] Address [address] [place] [address]- Care Team Providers Care Travel Manager Name Role Phone Nain WILSON, Lenore Primary Care Physician [facility]): [facility]20 - 10/29/20 [facility] [address] [place] [id number]- Attending Physician: Valorie Paez MD Admitting Physician: Valorie Paez MD Allergies, Adverse Reactions, Alerts No Known Medication Allergies Immunizations Given and Recorded Vaccine Date Status Refusal Reason SARS-CoV-2 (COVID-19) mRNA BNT-162b2 vac 1 10/29/20 [...] Uncharted] duplicate 3Result Comment: [06/13/2014] Ordered by Som 4Admin Note: vis 03/05/2012 Flulzone 5Admin Note: VIS 03/29/11 GIVEN 6Admin Note: VIS 04/13/10 GIVEN 7Result Comment: [02/26/2015] Ordered by Som 8Admin Note: PT BRINGS IN VIS 05/10 9Admin Note: VIS 06/09/09 GIVEN Medications Adult Diapers size small Adult Diapers size small, See Instructions, # 240 each, Refills 11, Tot. Refills 11, Maintenance, to used as directed 8/day incontinence R32 vascular dementia F01.50 faxed to [phone], 08/10/20 15:06:00 EST, Supply Start Date: 08/10/20 Status: Ordered albuterol CFC free 90 mcg/inh inhalation aerosol 1, puffs, Inhalation, 4 times a day, PRN, # 1 each, Refills 6, Tot. Refills 6, Maintenance, 12/20/18 11:20:52 EDT, Aerosol, Route to Pharmacy Electronically, [id number], [facility] Start Date: 12/20/18 Stop Date: 07/18/19 Status: Ordered Aspirin Low Dose 81 mg oral delayed release tablet See Instructions, TAKE 1 TABLET BY MOUTH DAILY WITH FOOD, # 28 tablet, 4 Refills, Soft Stop, 06/03/20 15:10:00 EDT, [facility], 157, cm, 04/30/20 13:16:00 EDT, Height Start Date: 06/03/20 Status: Ordered atorvastatin 40 mg oral tablet [...] incontinence R32 vascular dementia F01.50 faxed to [phone], 08/10/20 15:06:00 EST, Supply Start Date: 08/10/20 Status: Ordered docusate sodium 100 mg oral capsule 1 capsule = 100 mg, By Mouth, 2 times a day, # 56 capsule, 5 Refills, Soft Stop, 06/03/20 15:10:00 EDT, [facility], 157, cm, 04/30/20 13:16:00 EDT, Height Start Date: 06/03/20 Status: Ordered Freestyle Lite Lancets See Instructions, # 200 units, Refills 3, Tot. Refills 3, Maintenance, to check BS BID. Dx: DM II controlled, E11.9, 90 days supply., 05/08/19 15:34:40 EDT, Compound Start Date: 05/08/19 Status: Ordered Freestyle Lite Monitor See Instructions, # 1 units, Maintenance, to check BS BID. Dx: Dm II controlled, E11.9, 05/08/19 15:34:41 EDT, Compound Start Date: 05/08/19 Status: Ordered Freestyle Lite Test Strips See Instructions, # 200 units, Refills 3, Tot. Refills 3, Maintenance, to check Bs BID Dx: DM II controlled, E11.9, 90 days supply., 05/08/19 15:34:42 EDT, Compound Start Date: 05/08/19 Status: Ordered Gloves size adult Gloves size adult, See Instructions, # 4 pack/packet, Refills 11, Tot. Refills 11, Maintenance, to used as directed 8pair/day incontinence R32 vascular dementia F01.50 faxed to [phone], 08/10/2015:06:00 EST, Supply Start Date: 08/10/20 Status: Ordered Incontinence wipes for adults Incontinence wipes for adults, See Instructions, # 4 pack/packet, Refills 11, Tot. Refills 11, Maintenance, to used as directed 8 changes/day incontinence R32 vascular dementia F01.50 faxed to [phone], 08/10/20 15:06:00 EST, Supply Start Date: 08/10/20 Status: Ordered Lantus Solostar Pen 100 units/mL subcutaneous solution = 10 units, Subcutaneous Infusion, Daily, # 10 mL, 3 Refills, Maintenance, 10/21/19 12:10:00 EST, [facility], 157, cm, 07/04/19 11:26:00 EDT, Height Start Date: 10/21/19 Stop Date: 02/18/20 Status: Ordered metFORMIN 1000 mg oral tablet 1 tablet = 1,000 mg, By Mouth, Daily at supper, NEW LOWER FREQUENCY, # 90 tablet, 3 Refills, Maintenance, 06/09/20 11:07:00 EDT, Tablet, [facility], 157, cm, 04/30/20 13:16:00 EDT, Height Start Date: 06/09/20 Stop Date: 06/04/21 Status: Ordered Nitrostat 0.4 mg sublingual tablet [...] Supply Start Date: 06/02/20 Status: Ordered Pen [place], 30 G x 8 mm BD Ultra Fine II See Instructions, # 30 each, Refills 11, Tot. Refills 11, Maintenance, dx: DM II. to use with lantus 10 units daily, 10/21/19 12:12:00 EST, Compound, 157, cm, 07/04/19 11:26:00 EDT, Height Start Date: 10/21/19 Status: Ordered Pen [place], 30 G x 8 mm BD Ultra Fine II See Instructions, # 90 units, Refills 3, Tot. Refills 3, Maintenance, to use with lantus 15 units daily, 05/08/19 15:35:35 EDT, Compound Start Date: 05/08/19 Status: Ordered traZODone 100 mg oral tablet 100 mg, 1, tablet, By Mouth, Daily at bedtime, at 10 pm, # 90 tablet, Refills 3, Tot. Refills 3, Maintenance, 01/22/20 10:12:00 EDT, Route to Pharmacy Electronically, [facility], 157,cm, 12/23/19 15:32:00 EDT, Height Start Date: 01/22/20 Status: Ordered Zoloft 100 mg oral tablet [...] 100(Confirmed) Active Mild asthma(Confirmed) 3, 4 Active *[phone]-Care Neyda Gallegos RN(Confirmed) Active Counseling regarding advance d directives(Confirmed) 5 Active Diabetes mellitus type II, controlled(Confirmed) 2015 Active Urolithiasis(Confirmed) Active Dementia, vascular(Confirmed) Active 1Echo 2014:The mid anterior,inferolateral, anterolateral wall is moderately to severely hypokinetic [id number]-[id number] perfusion test shows scar in inferior and infero-lateral wall without reversibility. 3Had normal spirometry in [facility] in 04-06-2011, that if anything could suggest mild asthma 4Based on CXR done at [facility] in : hyperinflated lungs. PFTs done [...]
--- OUTSIDE RECORDS SUMMARY | 2023-02-04 16:18 | XMS_ITS | Continuity of Care Document ---
Author Name Unknown Organization [facility] Address [address] [place] [id number]- Care Team Providers Care Rn Manager Name Role Phone Nain WILSON, Lenore Primary Care Physician [facility] Date[facility]): 06[facility]11/20 - 07/11/20 [facility] [address] [address]- Allergies, Adverse Reactions, Alerts No Known Medication Allergies Immunizations Given and Recorded Vaccine Date Status Refusal Reason influenza virus vaccine, inactivated 07/04/19 Give n influenza virus vaccine, inactivated 1 07/15/16 Gi al influenza virus vaccine, inactivated 07/15/16 Give n influenza virus vaccine, inactivated 11/26/15 Give n influenza virus vaccine, inactivated 2 06/12/14 Gi al influenza virus vaccine, inactivated 06/10/13 Give n influenza virus vaccine, inactivated 3 07/18/12 Gi al influenza virus vaccine, inactivated 4 11/28/11 Gi al influenza virus vaccine, inactivated 5 10/18/10 Gi al pneumococcal 13-valent vaccine 6 02/26/15 Given tetanus/diphtheria/pertussis, acel(Tdap) 01/15/14 Given Zoster Vaccine Live 7 11/07/12 Given pneumococcal 23-valent vaccine 8 10/18/10 Given 1Result Comment: [07/19/2016 Uncharted] duplicate 2Result Comment: [06/13/2014] Ordered by Som 3Admin Note: vis 03/05/2012 Flulzone 4Admin Note: VIS 03/29/11 GIVEN 5Admin Note: VIS 04/13/10 GIVEN 6Result Comment: [02/26/2015] Ordered by Som 7Admin Note: PT BRINGS IN VIS 05/10 8Admin Note: VIS 06/09/09 GIVEN Medications albuterol CFC free 90 mcg/inh inhalation aerosol 1, puffs, Inhalation, 4 times a day, PRN, # 1 each, Refills 6, Tot. Refills 6, Maintenance, 12/20/18 11:20:52 EDT, Aerosol, Route to Pharmacy Electronically, [id number], [facility] Start Date: 12/20/18 Stop [...] mg, By Mouth, Daily, # 30 tablet, 11 Refills, Maintenance, 08/30/19 15:57:00 EST, Tablet, [facility], 157, cm, 07/04/19 11:26:00 EDT, Height Start Date: 08/30/19 Stop Date: 08/24/20 Status: Ordered Diabetic Shoes with 3 inserts Diabetic Shoes with 3 inserts, See Instructions, # 1 each, Refills 0, Tot. Refills 0, Maintenance, dx: DM II with neuropathy, 11/18/19 17:16:00 EDT, Supply Start Date: 11/18/19 Status: Ordered docusate sodium 100 mg oral [...] EDT, Compound Start Date: 05/08/19 Status: Ordered ketoconazole 2% topical shampoo See Instructions, lather and leave on skin x 5 minutes everyday x 14 days, # 120 mL, 0 Refills, Soft Stop, 07/04/19 12:47:32 EDT, lather and leave on skin x 5 minutes everyday x 14 days Start Date: 07/04/19 Status: Ordered Lantus Solostar Pen 100 units/mL [...] Date: 06/09/20 Stop Date: 06/04/21 Status: Ordered nicotine 14 mg/24 hr transdermal film, extended release 1 patch, Topically, Daily, please discontinue NICOTROL INH, # 30 patch, 0 Refills, Maintenance, 06/09/20 11:22:00 EDT, Patch, [facility], 1 patch Topically Daily,Instr:please discontinue NICOTROL INH, 157, cm, 04/30/20 13:16:00 EDT, Height Start Date: 06/09/20 Status: Ordered Nitrostat 0.4 mg sublingual tablet [...] Supply Start Date: 06/02/20 Status: Ordered Pen [place], 30 G x 8 mm BD Ultra Fine II See Instructions, # 90 units, Refills 3, Tot. Refills 3, Maintenance, to use with lantus 15 units daily, 05/08/19 15:35:35 EDT, Compound Start Date: 05/08/19 Status: Ordered Pen [place], 30 G x 8 mm BD Ultra Fine II See Instructions, # 30 each, Refills 11, Tot. Refills 11, Maintenance, dx: DM II. to use with lantus 10 units daily, 10/21/19 12:12:00 EST, Compound, 157, cm, 07/04/19 11:26:00 EDT, Height Start Date: 10/21/19 Status: Ordered traZODone 100 mg oral tablet 100 mg, 1, tablet, By Mouth, Daily at bedtime, at 10 pm, # 90 tablet, Refills 3, Tot. Refills 3, Maintenance, 01/22/20 10:12:00 EDT, Route to Pharmacy Electronically, [facility], 157,cm, 12/23/19 15:32:00 EDT, Height Start Date: 01/22/20 Status: Ordered Zoloft 50 mg oral tablet 1 tablet = 50 mg, By Mouth, Daily, # 90 tablet, 2 Refills, Maintenance, 01/22/20 10:11:00 EDT, Tablet, [facility], 157, cm, 12/23/19 15:32:00 EDT, Height Start Date: 01/22/20 Status: Ordered Problem List Condition Effective Dates Status Health Status Inform ant CAD - Coronary artery disease(Confirmed) 1, 2 Active Erectile dysfunction(Confirmed) Active Hyperlipidemia LDL goal < 100(Confirmed) Active Mild asthma(Confirmed) 3, 4 Active *[id number] Neyda Gallegos RN(Confirmed) Active Counseling regarding advance d directives(Confirmed) 5 Active Diabetes mellitus type II, controlled(Confirmed) 2016 Active Urolithiasis(Confirmed) Active Dementia, vascular(Confirmed) Active 1Echo 2014:The mid anterior,inferolateral, anterolateral wall is moderately to severely hypokinetic 07543-Azrepfoxcq perfusion test shows scar in inferior and infero-lateral wall without reversibility. 3Had normal spirometry in [facility] in 04-06-2011, that if anything could suggest mild asthma 4Based on CXR done at [facility] in : hyperinflated lungs. PFTs done [...]
--- OUTSIDE RECORDS SUMMARY | 2023-02-04 16:18 | XMS_ITS | Continuity of Care Document ---
Author Name Unknown Organization [facility] Address [address] [place] [address]- Care Team Providers Care Crop Production Advisor Name Role Phone Nain WILSON, Lenore Primary Care Physician Encounter [facility] [id number] Date(s): 11/26/20 - 12/26/20 [facility] [address] [address]- Attending Physician: Blayne Torres Admitting Physician: Blayne Torres Referring Physician: AdmtrBlayne Allergies, Adverse Reactions, Alerts No Known Medication [...] incontinence R32 vascular dementia F01.50 faxed to [phone], 08/10/20 15:06:00 EST, Supply Start Date: 08/10/20 Status: Ordered albuterol CFC free 90 mcg/inh inhalation aerosol 1, puffs, Inhalation, 4 times a day, PRN, # 1 each, Refills 6, Tot. Refills 6, Maintenance, 12/20/18 11:20:52 EDT, Aerosol, Route to Pharmacy Electronically, [id number], [facility] Start Date: 12/20/18 Stop Date: 07/18/19 Status: Ordered Aspirin Low Dose 81 mg oral delayed release tablet See Instructions, TAKE 1 TABLET BY MOUTH DAILY WITH FOOD, # 28 tablet, 5 Refills, Soft Stop, 11/03/20 [facility], [facility], cm, 04/30/20 13:16:00 EDT, [...] incontinence R32 vascular dementia F01.50 faxed to [phone], 08/10/20 15:06:00 EST, Supply Start Date: 08/10/20 [...] incontinence R32 vascular dementia F01.50 faxed to [phone], 08/10/2015:06:00 EST, Supply Start Date: 08/10/20 Status: Ordered Incontinence wipes for adults Incontinence wipes for adults, See Instructions, # 4 pack/packet, Refills 11, Tot. Refills 11, Maintenance, to used as directed 8 changes/day incontinence R32 vascular dementia F01.50 faxed to [phone], 08/10/20 15:06:00 EST, Supply Start Date: 08/10/20 [...] Supply Start Date: 06/02/20 Status: Ordered Pen [place], 30 G x 8 mm BD Ultra Fine II See Instructions, # 90 units, Refills 3, Tot. Refills 3, Maintenance, to use with lantus 15 units daily, 05/08/19 15:35:35 EDT, Compound Start Date: 05/08/19 Status: Ordered Pen [place], 30 G x 8 mm BD Ultra [...] 100(Confirmed) Active Mild asthma(Confirmed) 3, 4 Active *[id number]-Care Neyda Gallegos RN(Confirmed) Active Counseling regarding advance d directives(Confirmed) 5 Active Diabetes mellitus type II, controlled(Confirmed) 2015 Active Urolithiasis(Confirmed) Active Dementia, vascular(Confirmed) Active 1Echo 2014:The mid anterior,inferolateral, anterolateral wall is moderately to severely hypokinetic 11644-Feofjstpfp perfusion test shows scar in inferior and infero-lateral wall without reversibility. 3Had normal spirometry in [facility] in 04-06-2011, that if anything could suggest mild asthma 4Based on CXR done at [facility] in : hyperinflated lungs. PFTs done at outside facility (scanned under non BH results) showed severe obstruction with no marked improvement in FEV1 afer bronchodilator 5DNR/DNI Procedures Procedure Date Related Diagnosis Body Site Status TURP - Transurethral resecti on of prostate 1 07/21/16 Completed 1- Cystoscopy and transurethral resection of the prostate using bipolar energy. Social History Social History Type Response Smoking Status 10 or more cigarette s (1/2 pack or more)/day in last 30 days; Type: Cigarettes; Tobacco use times per day: 2 CIGS A DAY; Started at age: 22; entered on: 12/20/18 Sex
--- OUTSIDE RECORDS SUMMARY | 2023-02-04 16:18 | XMS_ITS | Continuity of Care Document ---
Author Name Unknown Organization [facility] Address [address] [place] [address]- Care Team Providers Care Metal Bumper Name Role Phone Lenore Gillette MD Primary Care Physician [facility] Date[facility]s): 01/03/20 - 01/10/20 [facility]/[address] [address]- [facility] Attending Physician: Lenore Gillette MD Allergies, Adverse Reactions, Alerts No Known [...] 11:20:52 EDT, Aerosol, Route to Pharmacy Electronically, [id number], [facility] Start Date: 12/20/18 Stop Date: 07/18/19 Status: Ordered Aspirin Low Dose 81 mg oral delayed release tablet See Instructions, # 28 tablet, Refills 11 Tot. Refills 11, TAKE 1 TABLET BY MOUTH DAILY WITH FOOD, [facility] Start Date: 07/11/19 Status: Ordered atorvastatin 40 mg oral tablet [...] # 56 capsule, 5 Refills, Soft Stop, 12/19/19 13:31:00 EDT, [facility], 157, cm, 07/04/19 11:26:00 EDT, Height Start Date: 12/19/19 Status: Ordered Freestyle Lite Lancets See Instructions, [...] = 1,000 mg, By Mouth, Daily at bedtime, NEW LOWER FREQUENCY, # 90 tablet, 3 Refills, Maintenance, 01/03/20 14:06:00 EDT, Tablet, [facility], 157, cm, 12/23/19 15:32:00 EDT, Height Start Date: 01/03/20 Stop Date: 12/28/20 Status: Ordered Nitrostat 0.4 mg sublingual tablet 1 tablet = 0.4 mg, Sublingual, Every 5 minutes, PRN for chest pain, If chest pain not relieved in 5mins after 1st dose, take 2nd & go to the ER, # 25 tablet, 0 Refills, Maintenance, 12/20/18 11:37:20 EDT, Tablet Start Date: 12/20/18 Status: Ordered oxybutynin 5 mg/24 hours oral tablet, extended release 1 tablet = 5 mg, By Mouth, Daily, # 90 tablet, 3 Refills, Maintenance, 10/28/19 12:35:00 EST, ER Tablet, [facility], 157, cm, 07/04/19 11:26:00 EDT, Height Start Date: 10/28/19 Status: Ordered Pen [place], 30 G x 8 mm BD Ultra Fine II See Instructions, # 90 units, Refills 3, Tot. Refills 3, Maintenance, to use with lantus 15 units daily, 05/08/19 15:35:35 EDT, Compound Start Date: 05/08/19 Status: Ordered Pen [place], 30 G x 8 mm BD Ultra Fine II See Instructions, # 30 each, Refills 11, Tot. Refills 11, Maintenance, dx: DM II. to use with lantus 10 units daily, 10/21/19 12:12:00 EST, Compound, 157, cm, 07/04/19 11:26:00 EDT, Height Start Date: 10/21/19 Status: Ordered traZODone 50 mg oral tablet 75 mg, 1.5, tablet, By Mouth, Daily at bedtime, new higher dose, # 135 tablet, Refills 3, Tot. Refills 3, Maintenance, 09/30/19 18:05:00 EST, Route to Pharmacy Electronically, [facility], 157, cm, 07/04/19 11:26:00 EDT, Height Start Date: 09/30/19 Stop Date: 09/24/20 Status: Ordered Zoloft 25 mg oral tablet 1 tablet = 25 mg, By Mouth, Daily, # 30 tablet, 4 Refills, Maintenance, 12/23/19 16:16:00 EDT, Tablet, [facility], 157, cm, 12/23/19 15:32:00 EDT, Height Start Date: 12/23/19 Status: Ordered Problem List Condition Effective Dates Status Health Status Inform ant CAD - Coronary artery disease(Confirmed) 1, 2 Active Erectile dysfunction(Confirmed) Active Hyperlipidemia LDL goal < 100(Confirmed) Active Mild asthma(Confirmed) 3, 4 Active *[phone]-[facility] Partn er-Mya Fairbanksgriselda(Confirmed) Active Diabetes mellitus type II, controlled(Confirmed) 2015 Active Urolithiasis(Confirmed) Active Dementia, vascular(Confirmed) Active 1Echo 2014:The mid anterior,inferolateral, anterolateral wall is moderately to severely hypokinetic 32300-Svutspjqhz perfusion test shows scar in inferior and infero-lateral wall without reversibility. 3Had normal spirometry in [facility] in 04-06-2011, that if anything could suggest mild asthma 4Based on CXR done at [facility] in : hyperinflated lungs. PFTs done at outside facility (scanned under non BH results) showed severe obstruction with no marked improvement in FEV1 afer bronchodilator Social History Social History Type Response Smoking Status 10 or more cigarette s (1/2 pack or more)/day in last 30 days; Type: Cigarettes; Tobacco use times per day: 2 CIGS A DAY; Started at age: 22; entered on: 12/20/18 Sex
--- OUTSIDE RECORDS SUMMARY | 2023-02-04 16:18 | XMS_ITS | Continuity of Care Document ---
Author Name Unknown Organization [facility] Address Unknown Care Team Providers Care Frame Wirer Name Role Phone Nain WILSON, Lenore Primary Care Physician [facility] Date[facility]s): 06/10/21 - 07/10/21 [facility] Allergies, Adverse Reactions, Alerts No Known Medication Allergies Immunizations Given and Recorded Vaccine Date Status Refusal Reason SARS-CoV-2 (COVID-19) mRNA BNT-162b2 vac 06/10/21 Given SARS-CoV-2 (COVID-19) mRNA BNT-162b2 vac 11/26/20 Given [...] incontinence R32 vascular dementia F01.50 faxed to [phone], 08/10/20 15:06:00 EST, Supply Start Date: 08/10/20 Status: Ordered albuterol CFC free 90 mcg/inh inhalation aerosol 1, puffs, Inhalation, 4 times a day, PRN, # 1 each, Refills 6, Tot. Refills 6, Maintenance, 12/20/18 11:20:52 EDT, Aerosol, Route to Pharmacy Electronically, [id number], [facility] Start Date: 12/20/18 Stop Date: 07/18/19 Status: Ordered Aspirin Low Dose 81 mg oral delayed release tablet See Instructions, TAKE 1 TABLET BY MOUTH DAILY WITH FOOD, # 28 tablet, 10 Refills, Maintenance, [facility], 157, cm, 03/29/21 13:24:00 EDT, Height Start Date: 03/31/21 Status: Ordered atorvastatin 40 mg oral tablet 1 tablet, By Mouth, Daily, # 28 tablet, 5 Refills, [facility], 157, cm, 06/10/21 11:13:00 EDT, Height Start Date: 06/23/21 Status: Ordered Diabetic Shoes with 3 inserts [...] incontinence R32 vascular dementia F01.50 faxed to [phone], 08/10/20 15:06:00 EST, Supply Start Date: 08/10/20 Status: Ordered docusate sodium 100 mg oral capsule 1 capsule, By Mouth, 2 times a day, # 56 capsule, 5 Refills, [facility], 157, cm, 04/16/21 15:53:00 EDT, Height Start Date: 04/27/21 Status: Ordered Freestyle Lite Lancets See Instructions, # 200 each, Refills 3, Tot. Refills 3, Maintenance, to check BS BID. Dx: DM II controlled, E11.9, 90 days supply., 12/09/20 14:36:00 EDT, Compound, 157, cm, 11/26/20 11:44:00 EDT, Height Start Date: 12/09/20 Status: Ordered Freestyle Lite Monitor See Instructions, # 1 each, Maintenance, to check BS BID. 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 Start Date: 03/12/21 Status: Ordered Incontinence wipes for adults Incontinence wipes for adults, See Instructions, # 4 pack/packet, Refills 11, Tot. Refills 11, Maintenance, to used as directed 8 changes/day incontinence R32 vascular dementia F01.50 faxed to [phone], 08/10/20 15:06:00 EST, Supply Start Date: 08/10/20 Status: Ordered Lantus Solostar Pen 100 units/mL subcutaneous solution = 20 units, Subcutaneous Infusion, Daily, NEW HIGHER DOSE., # 10 mL, 3 Refills, Maintenance, 03/25/21 11:42:00 EDT, [facility], 157, cm, 03/25/21 11:06:00 EDT, Height Start Date: 03/25/21 Stop Date: 07/23/21 Status: Ordered naproxen 375 mg oral tablet 375 mg, 1, tablet, By Mouth, 2 times a day, Take PRN rib pain with food. [place], # 30 tablet, Refills 0, Tot. Refills 0, Maintenance, 04/16/21 16:32:00 EDT, Route to Pharmacy Electronically, [facility], Partial fill upon patient request... Start Date: 04/16/21 Status: Ordered Nitrostat 0.4 mg sublingual tablet [...] Supply Start Date: 06/02/20 Status: Ordered Pen [place], 30 G x 8 mm BD Ultra Fine II See Instructions, # 100 each, Refills 1, Tot. Refills 1, Maintenance, dx: DM II. to use with units daily, 06/03/21 15:48:00 EDT, Compound, 157, cm, 06/03/21 10:57:00 EDT, Height Start Date: 06/03/21 Status: Ordered Pen [place], 30 G x 8 mm BD Ultra Fine II See Instructions, # 90 units, Refills 3, Tot. Refills 3, Maintenance, to use with lantus 15 units daily, 05/08/19 15:35:35 EDT, Compound Start Date: 05/08/19 Status: Ordered SEROquel 25 mg oral tablet 25 mg, 1, tablet, By Mouth, Daily, # 90 tablet, Refills 5, Tot. Refills 5, Maintenance, 01/21/21 10:49:00 EDT, Route to Pharmacy Electronically, [facility], Partial fill upon patient request if the prescription is for a schedule II opioid... Start Date: 01/21/21 Status: Ordered Shower chair Shower chair, See Instructions, # 1 each, Refills 0, Tot. Refills 0, Maintenance, Z91. 81 Weight: 46 kgs Height: 157 cm, 11/26/20 18:33:00 EDT, Supply Start Date: 11/26/20 Status: Ordered traZODone 50 mg oral tablet 25 mg, 0.5, tablet, By Mouth, Daily at bedtime, please cut in half for this elderly patient. NEW LOWER DOSE, # 15 tablet, Refills 11, Tot. Refills 11, Maintenance, 03/25/21 11:25:00 EDT, Route to Pharmacy Electronically, [facility], [place]... Start Date: 03/25/21 Stop Date: 03/20/22 Status: Ordered Trulicity Pen 1.5 mg/0.5 mL subcutaneous solution 0.5 mL = 1.5 mg, Subcutaneous Injection, Every week, rotate injection sites. NEW HIGHER DOSE, # 2 mL, 6 Refills, Maintenance, 06/03/21 11:11:00 EDT, Solution, [facility], Partial fillupon patient request if the prescription is for a sched... Start Date: 06/03/21 Status: Ordered Walker with seat Walker with seat, See Instructions, # 1 each, Refills 0, Tot. Refills 0, Maintenance, Z91. 81 Weight: 46 kgs Height: 157 cm, 11/26/20 18:32:00 EDT, Supply Start Date: 11/26/20 Status: Ordered Zoloft 100 mg oral tablet 1 tablet = 100 mg, By Mouth, Daily, # 90 tablet, 3 Refills, Maintenance, 07/06/21 13:57:00 EDT, Tablet, [facility], Partial fill upon patient request if the prescription is for a schedule II opioid drug., 157, cm, 06/10/21 11:13:00 EDT, He... Start Date: 07/06/21 Status: Ordered Problem List Condition Effective Dates Status Health Status Inform ant Cholelithiasis(Confirmed) 1 Active CAD - Coronary artery disease(Confirmed) 2, 3 Active Erectile dysfunction(Confirmed) Active Rib fractures(Confirmed) 4 Active Hyperlipidemia LDL goal < 100(Confirmed) Active Multiple renal calculi(Confirmed) 5 Active Mild asthma(Confirmed) 6, 7 Active DNR (do not resuscitate)(Confirmed) 8 Active *[phone]-Care Partn swathi-Francheska Gallegos RN(Confirmed) Active Counseling regarding advance d directives(Confirmed) 9 Active Diabetes mellitus type II, controlled(Confirmed) 2016 Active Urolithiasis(Confirmed) Active Dementia, vascular(Confirmed) Active 1-in US done at [facility] March 2021 2Echo 2014:The mid anterior,inferolateral, anterolateral wall is moderately to severely hypokinetic 96170-Lgpmrvhmgs perfusion test shows scar in inferior and infero-lateral wall without reversibility. 4-multiple subacute rib fractures on the Right (seen in imaging done at [facility] March 2021) 5-seen in CT scan abdomen done at [facility] March 2021 6Had normal spirometry in [facility] in 04-06-2011, that if anything could suggest mild asthma 7Based on CXR done at [facility] in : hyperinflated lungs. PFTs done at outside facility (scanned under non BH results) showed severe obstruction with no marked improvement in FEV1 afer bronchodilator 8MOLST 04/30/20 to reflect DNR DNI, no CPAP, ok to hospitalize, no artificial nutrition, no HD Health Care Proxy: Patient has appointed his daughter Tereza as his HCP 9DNR/DNI Social History Social History Type Response Smoking Status 10 or more cigarette s (1/2 pack or more)/day in last 30 days; Type: Cigarettes; Tobacco use times per day: 2 CIGS A DAY; Started at age: 22; entered on: 12/20/18 Sex
--- OUTSIDE RECORDS SUMMARY | 2023-02-04 16:18 | XMS_ITS | Continuity of Care Document ---
Author Name Unknown Organization [facility] Address [address] [place] [address]- Care Team Providers Care Is Project Manager Name Role Phone Nain WILSON, Lenore Primary Care Physician ( [phone] Encounter [facility] ACCT R [id number] Date(s): 01/02/23 - 02/01/23 [facility] [address]- Attending Physician: Blayne Torres Admitting Physician: Blayne Torres Referring Physician: AdmtrBlayne Allergies, Adverse Reactions, Alerts No Known Medication Allergies Immunizations Given and Recorded Vaccine Date Status Refusal Reason influenza virus vaccine, inactivated 06/16/22 Give n influenza virus vaccine, inactivated 07/04/19 Give n [...] virus vaccine, inactivated 5 10/18/10 Gi al SARS-CoV-2 (COVID-19) mRNA BNT-162b2 vac 06/10/21 Given SARS-CoV-2 (COVID-19) mRNA BNT-162b2 vac 11/26/20 Given SARS-CoV-2 (COVID-19) mRNA BNT-162b2 vac 6 10/29/20 Given pneumococcal 13-valent vaccine 7 02/26/15 Given tetanus/diphtheria/pertussis, acel(Tdap) 01/15/14 Given Zoster Vaccine Live 8 11/07/12 Given pneumococcal 23-valent vaccine 9 10/18/10 Given 1Result Comment: [07/19/2016 Uncharted] duplicate 2Result Comment: [06/13/2014] Ordered by Som 3Admin Note: vis 03/05/2012 Flulzone 4Admin Note: VIS 03/29/11 GIVEN 5Admin Note: VIS 04/13/10 GIVEN 6Result Comment: Savage Dawn 7Result Comment: [02/26/2015] Ordered by Som 8Admin Note: PT BRINGS IN VIS 05/10 9Admin Note: VIS 06/09/09 GIVEN Medications Adult Diapers size small Adult Diapers size small, See Instructions, # 240 each, Refills 11, Tot. Refills 11, Maintenance, to used as directed 8/day incontinence R32 vascular dementia F01.50 faxed to [phone], 01/02/23 14:17:00 EDT, Supply Start Date: 01/02/23 Status: Ordered Aspirin Low Dose 81 mg oral delayed release tablet See Instructions, TAKE 1 TABLET BY MOUTH DAILY WITH FOOD, # 90 tablet, 3 Refills, Maintenance, 01/02/23 13:33:00 EDT, [facility], 157, cm, 01/02/23 13:12:00 EDT, Height Start Date: 01/02/23 Status: Ordered atorvastatin 40 mg oral tablet See Instructions, TAKE 1 TABLET BY MOUTH DAILY., # 28 tablet, 5 Refills, Maintenance, 11/12/22 19:26:00 EST, [facility], 157, cm, 08/31/22 10:47:00 EST, Height Start Date: 11/12/22 Status: Ordered Diabetic Shoes with 3 inserts [...] incontinence R32 vascular dementia F01.50 faxed to [phone], 01/02/23 14:17:00 EDT, Supply Start Date: 01/02/23 Status: Ordered Gloves size adult Gloves size adult, See Instructions, # 4 pack/packet, Refills 11, Tot. Refills 11, Maintenance, to used as directed 8pair/day incontinence R32 vascular dementia F01.50 faxed to [phone], 08/10/2015:06:00 EST, Supply Start Date: 08/10/20 Status: [...] incontinence R32 vascular dementia F01.50 faxed to [phone], 08/10/20 15:06:00 EST, Supply Start Date: 08/10/20 Status: Ordered Lantus Solostar Pen 100 units/mL subcutaneous solution = 20 units, Subcutaneous Infusion, Daily, NEW HIGHER DOSE, # 10 mL, 3 Refills, Maintenance, 01/02/23 13:47:00 EDT, [facility], 157, cm, 01/02/23 13:12:00 EDT, Height Start Date: 01/02/23 Stop Date: 05/02/23 Status: Ordered nitroglycerin 0.4 mg sublingual tablet See Instructions, PLACE 1 TABLET UNDER THE TONGUE EVERY 5 MINS NEEDED FOR CHEST PAIN, IF CHEST PAIN NOT RELIEVED IN 5 MINS AFTER 1ST DOSE, TAKE 2ND DOSE AND GO TO THE ER, # 25 tablet, 0 Refills, [facility], 157, cm, 09/27/21 8:42:00 E... Start Date: 11/16/21 Status: Ordered Nutritional Supplements See Instructions, # 90 each, Refills 11, Tot. Refills 11, Maintenance, Glucerna. Vanilla only. dx: R62.7, 01/19/23 14:30:00 EDT, Supply Start Date: 01/19/23 Status: Ordered One Touch Delica Lancets See Instructions, # 200 each, Refills 11, Tot. Refills 11, Maintenance, to check BS BID. Dx: DM II controlled, E11.9, 90, 12/22/22 9:16:00 EDT, Supply, 157, cm, 08/31/22 10:47:00 EST, Height Start Date: 12/22/22 Status: Ordered One Touch Ultra 2 Glucose Meter See Instructions, # 1 each, Maintenance, to check BS BID. Dx: DM II controlled, E11.9,, 12/22/22 9:14:00 EDT, Supply, 157, cm, 08/31/22 10:47:00 EST, Height Start Date: 12/22/22 Status: Ordered One Touch Ultra Test Strips See Instructions, # 200 each, Refills 11, Tot. Refills 11, Maintenance, to check BS BID. Dx: DM II controlled, E11.9, 90 days supply, 12/22/22 9:14:00 EDT, Supply, 157, cm, 08/31/22 10:47:00 EST, Height Start Date: 12/22/22 Status: Ordered Pen [place], 30 G x 8 mm BD Ultra Fine II See Instructions, # 90 each, Refills 3, Tot. Refills 3, Maintenance, use as directed for Type 2 Diabetes Mellitus. to use with lantus emeterio, 01/02/23 13:47:00 EDT, Supply, 157, cm, 01/02/23 13:12:00 EDT, Height Start Date: 01/02/23 Stop Date: 12/28/23 Status: Ordered Reusable Bed Liners Reusable Bed Liners, See Instructions, # 2 each, Refills 0, Tot. Refills 0, Maintenance, 2 each incontinence R32 vascular dementia F01.50, 01/19/23 14:31:00 EDT, Supply Start Date: 01/19/23 Status: Ordered Senna 8.6 mg oral tablet 1 or 2 tablets, By Mouth, Daily at bedtime, PRN, # 60 tablet, Refills 1, Tot. Refills 1, Acute, Constipation, 02/16/23 11:34:00 EDT, 02/15/22 11:34:00 EDT, Route to Pharmacy Electronically, [facility]; [facility], Partial fill upon patient requ... Start Date: 02/15/22 Stop Date: 02/16/23 Status: Ordered SEROquel 100 mg oral tablet 100 mg, 1, tablet, By Mouth, Daily at supper, At 6:00 pm, # 90 tablet, Refills 3, Tot. Refills 3, Maintenance, 01/02/23 13:33:00 EDT, Route to Pharmacy Electronically, [facility], Partial fill upon patient request if the prescription is fo... Start Date: 01/02/23 Status: Ordered SEROquel 25 mg oral tablet 25 mg, 1, tablet, By Mouth, Daily in AM, CONTINUE WITH 100 MG AT 6 PM, # 90 tablet, Refills 3, Tot.Refills 3, Maintenance, 01/02/23 13:34:00 EDT, Route to Pharmacy Electronically, [facility], Partial fill upon patient request if the presc... Start Date: 01/02/23 Status: Ordered sertraline 100 mg oral tablet See Instructions, TAKE 1 TABLET BY MOUTH DAILY., # 28 tablet, 5 Refills, Maintenance, 11/12/22 19:26:00 EST, [facility], 157, cm, 08/31/22 10:47:00 EST, Height Start Date: 11/12/22 Status: Ordered Shower chair Shower chair, See Instructions, # 1 each, Refills 0, Tot. Refills 0, Maintenance, Z91. 81 Weight: 46 kgs Height: 157 cm, 11/26/20 18:33:00 EDT, Supply Start Date: 11/26/20 Status: Ordered Trulicity Pen 3 mg/0.5 mL subcutaneous solution 0.5 mL = 3 mg, Subcutaneous Injection, Every week, rotate injection sites. New higher dose, # 6.5 mL, 0 Refills, Maintenance, 01/02/23 13:48:00 EDT, Solution, [facility], Partial fillupon patient request if the prescription is for a sched... Start Date: 01/02/23 Stop Date: 04/02/23 Status: Ordered Ventolin HFA 108 mcg/inh inhalation aerosol with adapter See Instructions, INHALE 1 PUFF BY MOUTH 4 TIMES A DAY NEEDED FOR WHEEZING/SHORTNESS OF BREATH, # 18 Gm, 5 Refills, Maintenance, 08/10/22 10:49:00 [facility], 157, cm, 06/16/22 9:38:00 EDT, Height Start Date: 08/10/22 Status: Ordered Walker with seat Walker with seat, See Instructions, # 1 each, Refills 0, Tot. Refills 0, Maintenance, Z91. 81 Weight: 46 kgs Height: 157 cm, 11/26/20 18:32:00 EDT, Supply Start Date: 11/26/20 Status: Ordered Problem List Condition Confirmation Course Effective Dates Status H ealth Status Informant Cholelithiasis 1 Confirmed Active CAD - Coronary artery disease 2, 3 Confirmed Active Erectile dysfunction Confirmed Active Rib fractures 4 Confirmed Active Hyperlipidemia LDL goal < 100 Confirmed Active Multiple renal calculi 5 Confirmed Active Mild asthma 6, 7 Confirmed Active DNR (do not resuscitate) 8 Confirmed Active *[id number]-Car e Partner-Francheska Gallegos RN Confirmed Active Counseling regarding advanced directives 9 Confirmed Active Diabetes mellitus type II, controlled Confirmed 2015 Active Urolithiasis Confirmed Active Dementia, vascular Confirmed Active 1-in US done at [facility] March 2021 2Echo 2014:The mid anterior,inferolateral, anterolateral wall is moderately to severely hypokinetic 17535-Jciiqrnmrj perfusion test shows scar in inferior and infero-lateral wall without reversibility. 4-multiple subacute rib fractures on the Right (seen in imaging done at [facility] March 2021) 5-seen in CT scan abdomen done at [facility] March 2021 6Had normal spirometry in [facility] in 04-06-2011, that if anything could suggest mild asthma 7Based on CXR done at [facility] in : hyperinflated lungs. PFTs done at outside facility (scanned under non BH results) showed severe obstruction with no marked improvement in FEV1 afer bronchodilator 8MOLST 04/30/20 to reflect DNR DNI, no CPAP, ok to hospitalize, no artificial nutrition, no HD Health Care Proxy: Patient has appointed his daughter Nikolas as his HCP 9DNR/DNI Procedures Procedure Date Related Diagnosis Body Site Status TURP - Transurethral resecti on of prostate 1 07/21/16 Completed 1- Cystoscopy and transurethral resection of the prostate using bipolar energy. Social History Social History Type Response Smoking Status Former smoker, quit more than 30 days ago; Type: Cigarettes; Exposure to Secondhand Smoke: No; Started at age: 22; entered on: 01/02/23 Sex Note * Event Display: Discharge/Transfer Note Hospital Authored Date: [id number] Patient Care team information Care Team Personnel Name: Lenore Gillette MD Position: [facility] Physician - Primary Care Member Role: PCP Address: Address: [address] [place] [address]- Care Team Related Persons Name: RIC HARPER Address: home [address] [address] Name: NIKOLAS MEJÍA Address: home [address] [place] [address] Name: ANITA LEÓN Address: home [facility] [address] Name: AKHIL CHAU Address: [place] [address] Name: JESENIA KUMARI Address: [place] [address]
--- OUTSIDE RECORDS SUMMARY | 2023-02-04 16:18 | XMS_ITS | Continuity of Care Document ---
Author Name Unknown Organization [facility] Address [address] [place] [address]- Care Team Providers Care Nursery Helper Name Role Phone Nain WILSON, Lenore Primary Care Physician ( [phone] [facility]counter [facility] Date(s): 06/01/20 - 07/01/20 [facility] De Lisa [address] [place] [id number]- [facility] Allergies, Adverse Reactions, Alerts No Known [...] Som 7Admin Note: PT BRINGS IN VIS 09/06 8Admin Note: VIS 06/09/09 GIVEN Medications albuterol CFC free 90 mcg/inh inhalation aerosol 1, puffs, Inhalation, 4 times a day, PRN, # 1 each, Refills 6, Tot. Refills 6, Maintenance, 12/20/18 11:20:52 EDT, Aerosol, Route to Pharmacy Electronically, [id number], [facility] Start Date: 12/20/18 Stop [...] Supply Start Date: 06/02/20 Status: Ordered Pen [place], 30 G x 8 mm BD Ultra Fine II See Instructions, # 90 units, Refills 3, Tot. Refills 3, Maintenance, to use with lantus 15 units daily, 05/08/19 15:35:35 EDT, Compound Start Date: 05/08/19 Status: Ordered Pen [place], 30 G x 8 mm BD Ultra [...] 100(Confirmed) Active Mild asthma(Confirmed) 3, 4 Active *[id number] Neyda Gallegos RN(Confirmed) Active Counseling regarding advance d directives(Confirmed) 5 Active Diabetes mellitus type II, controlled(Confirmed) 2016 Active Urolithiasis(Confirmed) Active Dementia, vascular(Confirmed) Active 1Echo 2014:The mid anterior,inferolateral, anterolateral wall is moderately to severely hypokinetic 94704-Pcseeuypfe perfusion test shows scar in inferior and infero-lateral wall without reversibility. 3Had normal spirometry in [facility] in 04-06-2011, that if anything could suggest mild asthma 4Based on CXR done at [facility] in : hyperinflated lungs. PFTs done [...]
--- OUTSIDE RECORDS SUMMARY | 2023-02-04 16:18 | XMS_ITS | Continuity of Care Document ---
Author Name Unknown Organization [facility] Address [address] [place] [address]- Care Team Providers Care Vamp Stitcher Name Role Phone Nain WILSON, Lenore Primary Care Physician Encounter [facility] Date(s): 04/01/20 - 05/01/20 [facility] De Lisa [address] [place] [address]- [facility] Allergies, Adverse Reactions, Alerts No Known Medication [...] 11:20:52 EDT, Aerosol, Route to Pharmacy Electronically, [id number], [facility] Start Date: 12/20/18 Stop [...] EDT, Tablet Start Date: 12/20/18 Status: Ordered Pen [place], 30 G x 8 mm BD Ultra Fine II See Instructions, # 90 units, Refills 3, Tot. Refills 3, Maintenance, to use with lantus 15 units daily, 05/08/19 15:35:35 EDT, Compound Start Date: 05/08/19 Status: Ordered Pen [place], 30 G x 8 mm BD Ultra [...] 100(Confirmed) Active Mild asthma(Confirmed) 3, 4 Active *[id number] Monreal(Confirmed) Active Diabetes mellitus type II, controlled(Confirmed) 2015 Active Urolithiasis(Confirmed) Active Dementia, vascular(Confirmed) Active 1Echo 2014:The mid anterior,inferolateral, anterolateral wall is moderately to severely hypokinetic 29777-Kckiutzwbo perfusion test shows scar in inferior and infero-lateral wall without reversibility. 3Had normal spirometry in [facility] in 04-06-2011, that if anything could suggest mild asthma 4Based on CXR done at [facility] in : hyperinflated lungs. PFTs [...]
--- OUTSIDE RECORDS SUMMARY | 2023-02-04 16:18 | XMS_ITS | Continuity of Care Document ---
Author Name Unknown Organization [facility] Address Unknown Care Team Providers Care Tours Hostess Name Role Phone Nain WILSON, Lenore Primary Care Physician ( [phone] [facility]counter [facility] Date(s): 12/01/21 - 12/31/21 [facility] Allergies, Adverse Reactions, Alerts No Known [...] duplicate 3Result Comment: [06/13/2014] Ordered by Som 4Asaloni Note: vis 03/05/2012 Flulzone 5Admin Note: VIS [...] incontinence R32 vascular dementia F01.50 faxed to [phone], 08/10/20 15:06:00 EST, Supply Start Date: 08/10/20 Status: Ordered Aspirin Low Dose 81 mg oral delayed release tablet See Instructions, TAKE 1 TABLET BY MOUTH DAILY WITH FOOD, # 28 tablet, 10 Refills, Maintenance, [facility], 157, cm, 03/29/21 13:24:00 EDT, Height Start Date: 03/31/21 Status: Ordered atorvastatin 40 mg oral tablet 1 tablet, By Mouth, Daily, # 28 tablet, 5 Refills, 12/08/21 15:37:00 EDT, [facility], 157, cm, 09/27/21 8:42:00 EST, Height Start Date: 12/08/21 Status: Ordered Diabetic Shoes with 3 inserts [...] incontinence R32 vascular dementia F01.50 faxed to [phone], 08/10/20 15:06:00 EST, Supply Start Date: 08/10/20 Status: Ordered docusate sodium 100 mg oral capsule See Instructions, TAKE (1) CAPSULE BY MOUTH TWICE DAILY., # 56 capsule, 5 Refills, [facility], 157, cm, 09/27/21 8:42:00 EST, Height Start Date: 10/14/21 Status: Ordered Freestyle Lite Lancets See Instructions, [...] incontinence R32 vascular dementia F01.50 faxed to [phone], 08/10/2015:06:00 EST, Supply Start Date: 08/10/20 Status: [...] incontinence R32 vascular dementia F01.50 faxed to [phone], 08/10/20 15:06:00 EST, Supply Start Date: 08/10/20 Status: Ordered Lantus Solostar Pen 100 units/mL subcutaneous solution = 20 units, Subcutaneous Infusion, Daily, NEW HIGHER DOSE., # 10 mL, 3 Refills, Maintenance, 03/25/21 11:42:00 EDT, [facility], 157, cm, 03/25/21 11:06:00 EDT, Height Start Date: 03/25/21 Stop Date: 07/23/21 Status: Ordered MiraLax oral powder for reconstitution = 17 Gm, By Mouth, Daily, for 30 days, dissolve in water before taking, # 510 Gm, 1 Refills, Acute 02/07/22 11:20:00 EDT, 12/09/21 11:20:00 EDT, REC Powder, [facility], Partial fill upon patient request if the prescription is for a schedul... Start Date: 12/09/21 Stop Date: 02/07/22 Status: Ordered nitroglycerin 0.4 mg sublingual tablet See Instructions, PLACE 1 TABLET UNDER THE TONGUE EVERY 5 MINS NEEDED FOR CHEST PAIN, IF CHEST PAIN NOT RELIEVED IN 5 MINS AFTER 1ST DOSE, TAKE 2ND DOSE AND GO TO THE ER, # 25 tablet, 0 Refills, [facility], 157, cm, 09/27/21 8:42:00 E... Start Date: 11/16/21 Status: Ordered Nutritional Supplements See Instructions, # 90 each, Refills 11, Tot. Refills 11, Maintenance, Glucerna. Assorted Flavors. dx: R62.7, 06/02/20 14:19:00 EDT, Supply Start Date: 06/02/20 Status: Ordered Pen [place], 30 G x 8 mm BD Ultra Fine II See Instructions, # 90 each, Refills 3, Tot. Refills 3, Maintenance, to use with lantus daily, 12/09/21 11:14:00 EDT, Compound, 157, cm, 12/09/21 10:30:00 EDT, Height Start Date: 12/09/21 Status: Ordered Pen [place], 30 G x 8 mm BD Ultra Fine II See Instructions, # 100 each, Refills 1, Tot. Refills 1, Maintenance, dx: DM II. to use with [id number] units daily, 12/08/21 15:38:00 EDT, Compound, 157, cm, 09/27/21 8:42:00 EST, Height Start Date: 12/08/21 Status: Ordered SEROquel 50 mg oral tablet 1.5 tablet = 75 mg, By Mouth, Daily at bedtime, total 75 mg in total to be taken at 6pm, # 135 tablet, 3 Refills, Maintenance, 11/22/21 9:52:00 EDT, Tablet, [facility], Partial fill upon patient request if the prescription is for a schedul... Start Date: 11/22/21 Status: Ordered Shower chair Shower chair, See Instructions, # 1 each, Refills 0, Tot. Refills 0, Maintenance, Z91. 81 Weight: 46 kgs Height: 157 cm, 11/26/20 18:33:00 EDT, Supply Start Date: 11/26/20 Status: Ordered Trulicity Pen 1.5 mg/0.5 mL subcutaneous solution See Instructions, INJECT 0.5ML SUBCUTANEOUS EVERY WEEK. ROTATE INJECTION SITES., # 2 mL, 6 Refills,12/09/21 11:14:00 EDT, [facility], 157, cm, 12/09/21 10:30:00 EDT, Height Start Date: 12/09/21 Status: Ordered Ventolin HFA 108 mcg/inh inhalation aerosol with adapter 1 puffs, Inhalation, 4 times a day, PRN NEEDED FOR WHEEZING/SHORTNESS OF BREATH, # 18 Gm, 0 Refills, [facility], 157, cm, 09/27/21 8:42:00 EST, Height Start Date: 11/16/21 Status: Ordered Walker with seat Walker with [...] a schedule II opioid drug., 157, cm, 10/07/21 11:13:00 EDT, He... Start Date: 07/06/21 Status: Ordered Problem List Condition Effective Dates Status Health Status Inform ant Cholelithiasis(Confirmed) 1 Active CAD - Coronary artery disease(Confirmed) 2, 3 Active Erectile dysfunction(Confirmed) Active Rib fractures(Confirmed) 4 Active Hyperlipidemia LDL goal < 100(Confirmed) Active Multiple renal calculi(Confirmed) 5 Active Mild asthma(Confirmed) 6, 7 Active DNR (do not resuscitate)(Confirmed) 8 Active *[id number]-Care Partn swathi-Francheska Gallegos RN(Confirmed) Active Counseling regarding advance d directives(Confirmed) 9 Active Diabetes mellitus type II, controlled(Confirmed) 2015 Active Urolithiasis(Confirmed) Active Dementia, vascular(Confirmed) Active 1-in US done at [facility] March 2021 2Echo 2014:The mid anterior,inferolateral, anterolateral wall is moderately to severely hypokinetic 88402-Tgyrlvpccq perfusion test shows scar in inferior and infero-lateral wall without reversibility. 4-multiple subacute rib fractures on the Right (seen in imaging done at [facility] March 2021) 5-seen in CT scan abdomen done at [facility] March 2021 6Had normal spirometry in [facility] in -, that if anything could suggest mild asthma 7Based on CXR done at [facility] in : hyperinflated lungs. PFTs done [...]
--- OUTSIDE RECORDS SUMMARY | 2023-02-04 16:18 | XMS_ITS | Continuity of Care Document ---
Author Name Unknown Organization [facility] Address [address] [place] [address]- Care Team Providers Care Transmission Maintenance Supervisor Name Role Phone Nain WILSON, Lenore Primary Care Physician ( [phone] [facility]counter [facility] Date(s): 07/31/20 - 08/30/20 [facility] De Lisa[address] [address]- Allergies, Adverse Reactions, Alerts No Known Medication [...] 05/10 8Admin Note: VIS 06/09/09 GIVEN Medications Adult Diapers size small Adult Diapers size small, See Instructions, # 240 each, Refills 11, Tot. Refills 11, Maintenance, to used as directed 8/day incontinence R32 vascular dementia F01.50 faxed to [phone], 08/10/20 15:06:00 EST, Supply Start Date: 08/10/20 Status: Ordered albuterol CFC free 90 mcg/inh inhalation aerosol 1, puffs, Inhalation, 4 times a day, PRN, # 1 each, Refills 6, Tot. Refills 6, Maintenance, 12/20/18 11:20:52 EDT, Aerosol, Route to Pharmacy Electronically, [id number], [facility] Start Date: 12/20/18 Stop [...] Date: 07/29/20 Stop Date: 01/25/21 Status: Ordered cefpodoxime 200 mg oral tablet 1 tablet = 200 mg, By Mouth, Every 12 hours, for 10 days, # 20 tablet, 0 Refills, Acute 09/06/20 9:25:00 EST, 08/27/20 9:25:00 EST, Tablet, [facility], Partial fill upon patient request if the prescription is for a schedule II opioid drug.... Start Date: 08/27/20 Stop Date: 09/06/20 Status: Ordered Diabetic Shoes with 3 inserts [...] incontinence R32 vascular dementia F01.50 faxed to [phone], 08/10/20 15:06:00 EST, Supply Start Date: 08/10/20 [...] incontinence R32 vascular dementia F01.50 faxed to [phone], 08/10/2015:06:00 EST, Supply Start Date: 08/10/20 Status: Ordered Incontinence wipes for adults Incontinence wipes for adults, See Instructions, # 4 pack/packet, Refills 11, Tot. Refills 11, Maintenance, to used as directed 8 changes/day incontinence R32 vascular dementia F01.50 faxed to [phone], 08/10/20 15:06:00 EST, Supply Start Date: 08/10/20 Status: Ordered ketoconazole 2% topical shampoo See [...] Supply Start Date: 06/02/20 Status: Ordered Pen [place], 30 G x 8 mm BD Ultra Fine II See Instructions, # 30 each, Refills 11, Tot. Refills 11, Maintenance, dx: DM II. to use with lantus 10 units daily, 10/21/19 12:12:00 EST, Compound, 157, cm, 07/04/19 11:26:00 EDT, Height Start Date: 10/21/19 Status: Ordered Pen [place], 30 G x 8 mm BD Ultra [...] 100(Confirmed) Active Mild asthma(Confirmed) 3, 4 Active *[id number] Neyda Gallegos RN(Confirmed) Active Counseling regarding advance d directives(Confirmed) 5 Active Diabetes mellitus type II, controlled(Confirmed) 2016 Active Urolithiasis(Confirmed) Active Dementia, vascular(Confirmed) Active 1Echo 2014:The mid anterior,inferolateral, anterolateral wall is moderately to severely hypokinetic 83958-Qsdbyddvjh perfusion test shows scar in inferior and infero-lateral wall without reversibility. 3Had normal spirometry in [facility] in 04-06-2011, that if anything could suggest mild asthma 4Based on CXR done at [facility] in : hyperinflated lungs. PFTs done [...]
--- OUTSIDE RECORDS SUMMARY | 2023-02-04 16:18 | XMS_ITS | Continuity of Care Document ---
Author Name Unknown Organization [facility] Address [address] [place] [address]- Care Team Providers Care Theater Teacher Name Role Phone Nain WILSON, Lenore Primary Care Physician ( [phone] Encounter [facility] Date(s): 08/31/22 - 09/30/22 [facility] [address]- Attending Physician: Blayne Torres Admitting Physician: AdmBlayne dietz Referring Physician: AdmtrBlayne Allergies, Adverse Reactions, Alerts [...] incontinence R32 vascular dementia F01.50 faxed to [phone], 08/10/20 15:06:00 EST, Supply Start Date: 08/10/20 Status: Ordered Aspirin Low Dose 81 mg oral delayed release tablet See Instructions, TAKE 1 TABLET BY MOUTH DAILY WITH FOOD, # 28 tablet, 10 Refills, [facility], 157, cm, 12/09/21 10:30:00 EDT, Height Start Date: 02/03/22 Status: Ordered atorvastatin 40 mg oral tablet 1 tablet, By Mouth, Daily, # 28 tablet, 5 Refills, Maintenance, 05/25/22 18:15:00 EDT, [facility], 157, cm, 05/03/22 11:09:00 EDT, Height Start Date: 05/25/22 Status: Ordered Diabetic Shoes with 3 inserts [...] incontinence R32 vascular dementia F01.50 faxed to [phone], 08/10/20 15:06:00 EST, Supply Start Date: 08/10/20 Status: Ordered Freestyle Lite Lancets See Instructions, [...] incontinence R32 vascular dementia F01.50 faxed to [phone], 08/10/2015:06:00 EST, Supply Start Date: 08/10/20 Status: Ordered GNP ULTICARE PEN NDL 8MM 31G GNP ULTICARE PEN NDL 8MM 31G, See Instructions, # 100 Unknown, 0 Refills, Maintenance, TO USE WITH LANTUS DAILY, 09/01/22 12:18:00 EST, 157, cm, 08/31/22 10:47:00 EST, Height Start Date: 09/01/22 Status: Ordered Hospital Bed See Instructions, # [...] incontinence R32 vascular dementia F01.50 faxed to [phone], 08/10/20 15:06:00 EST, Supply Start Date: 08/10/20 Status: Ordered Lantus Solostar Pen 100 units/mL subcutaneous solution = 15 units, Subcutaneous Infusion, Daily, new lower dose, # 10 mL, 3 Refills, Maintenance, 06/16/2210:30:00 EDT, [facility], 157, cm, 06/16/22 9:38:00 EDT, Height Start Date: 06/16/22 Stop Date: 10/14/22 Status: Ordered levoFLOXacin 250 mg oral tablet 1 tablet = 250 mg, By Mouth, Every 24 hours, for 10 days, # 10 tablet, 0 Refills, Acute 10/08/22 12:18:00 EST, 09/28/22 12:18:00 EST, [facility], Partial fill upon patient request if the prescription is for a schedule II opioid drug., 157,... Start Date: 09/28/22 Stop Date: 10/08/22 Status: Ordered nitroglycerin 0.4 mg sublingual tablet See Instructions, PLACE 1 TABLET UNDER THE TONGUE EVERY 5 MINS NEEDED FOR CHEST PAIN, IF CHEST PAIN NOT RELIEVED IN 5 MINS AFTER 1ST DOSE, TAKE 2ND DOSE AND GO TO THE ER, # 25 tablet, 0 Refills, [facility], 157, cm, 09/27/21 8:42:00 E... Start Date: 11/16/21 Status: Ordered Nutritional Supplements See Instructions, # 90 each, Refills 11, Tot. Refills 11, Maintenance, Glucerna. Vanilla only. dx: R62.7, 06/16/22 10:48:00 EDT, Supply Start Date: 06/16/22 Status: Ordered Senna 8.6 mg oral tablet 1 or 2 tablets, By Mouth, Daily at bedtime, PRN, # 60 tablet, Refills 1, Tot. Refills 1, Acute, Constipation, 02/16/23 11:34:00 EDT, 02/15/22 11:34:00 EDT, Route to Pharmacy Electronically, [facility] Tablet, Partial fill upon patient requ... Start Date: 02/15/22 Stop Date: 02/16/23 Status: Ordered SEROquel 100 mg oral tablet 100 mg, 1, tablet, By Mouth, Daily at supper, At 6:00 pm, # 90 tablet, Refills 3, Tot. Refills 3, Maintenance, 02/15/22 11:33:00 EDT, Route to Pharmacy Electronically, [facility], Partial fill upon patient request if the prescription is fo... Start Date: 02/15/22 Status: Ordered SEROquel 25 mg oral tablet 25 mg, 1, tablet, By Mouth, Daily in AM, CONTINUE WITH 100 MG AT 6 PM, # 90 tablet, Refills 3, Tot.Refills 3, Maintenance, 08/05/22 16:31:00 EST, Route to Pharmacy Electronically, [facility], Partial fill upon patient request if the presc... Start Date: 08/05/22 Status: Ordered sertraline 100 mg oral tablet 1 tablet, By Mouth, Daily, # 28 tablet, 5 Refills, Maintenance, 05/25/22 18:17:00 EDT, [facility], 157, cm, 05/03/22 11:09:00 EDT, Height Start Date: 05/25/22 Status: Ordered Shower chair Shower chair, See Instructions, # 1 each, Refills 0, Tot. Refills 0, Maintenance, Z91. 81 Weight: 46 kgs Height: 157 cm, 11/26/20 18:33:00 EDT, Supply Start Date: 11/26/20 Status: Ordered Trulicity Pen 1.5 mg/0.5 mL subcutaneous solution See Instructions, INJECT 0.5ML SUBCUTANEOUS EVERY WEEK. ROTATE INJECTION SITES., # 2 mL, 11 Refills, 06/16/22 10:31:00 EDT, [facility], 157, cm, 06/16/22 9:38:00 EDT, Height Start Date: 06/16/22 Status: Ordered Ventolin HFA 108 mcg/inh inhalation [...] DNR (do not resuscitate) 8 Confirmed Active *[id number]-Car e Partner-Francheska Gallegos RN Confirmed Active Counseling regarding advanced directives 9 Confirmed Active Diabetes mellitus type II, controlled Confirmed 2015 Active Urolithiasis Confirmed Active Dementia, vascular Confirmed Active 1-in US done at [facility] March 2021 2Echo 2014:The mid anterior,inferolateral, anterolateral wall is moderately to severely hypokinetic 80800-Rjlmpeewco perfusion test shows scar in inferior and infero-lateral wall without reversibility. 4-multiple subacute rib fractures on the Right (seen in imaging done at [facility] March 2021) 5-seen in CT scan abdomen done at [facility] March 2021 6Had normal spirometry in [facility] in 04-06-2011, that if anything could suggest mild asthma 7Based on CXR done at [facility] in : hyperinflated lungs. PFTs [...] No; Started at age: 22; entered on: 06/16/22 Sex Note * Event Display: Discharge/Transfer Note Hospital Authored Date: Patient Care team information Care Team Personnel Name: Lenore Gillette MD Position: S Primary Care Physician Member Role: PCP Address: Address: [address] [place] [address]- Care Team Related Persons Name: RIC HARPER Address: home [address] [place] [address] Name: NIKOLAS MEJÍA Address: home [address] [place] [address] Name: ANITA LEÓN Address: home [facility] [id number] Name: AKHIL CHAU Address: [place] [address] Name: JESENIA KUMARI Address: [place] [address]
--- OUTSIDE RECORDS SUMMARY | 2023-02-04 16:18 | XMS_ITS | Continuity of Care Document ---
Author Name Unknown Organization [facility] Address [address] [place] [address]- Care Team Providers Care Supervisor Bonding Name Role Phone Nain WILSON, Lenore Primary Care Physician Encounter [facility] Date(s): 01/23/21 - 02/22/[address] [facility] [address] [place] [address]- Allergies, Adverse Reactions, Alerts No Known Medication [...] incontinence R32 vascular dementia F01.50 faxed to [phone], 08/10/20 15:06:00 EST, Supply Start Date: 08/10/20 Status: Ordered albuterol CFC free 90 mcg/inh inhalation aerosol 1, puffs, Inhalation, 4 times a day, PRN, # 1 each, Refills 6, Tot. Refills 6, Maintenance, 12/20/18 11:20:52 EDT, Aerosol, Route to Pharmacy Electronically, [id number], [facility] Start Date: 12/20/18 Stop [...] Daily, # 30 tablet, 5 Refills, Maintenance, 01/25/21 16:53:00 EDT, Tablet, [facility], 157, cm, 11/26/20 11:44:00 EDT, Height Start Date: 01/25/21 Stop Date: 07/24/21 Status: Ordered Diabetic Shoes with 3 inserts [...] incontinence R32 vascular dementia F01.50 faxed to [phone], 08/10/20 15:06:00 EST, Supply Start Date: 08/10/20 [...] incontinence R32 vascular dementia F01.50 faxed to [phone], 08/10/2015:06:00 EST, Supply Start Date: 08/10/20 Status: Ordered Incontinence wipes for adults Incontinence wipes for adults, See Instructions, # 4 pack/packet, Refills 11, Tot. Refills 11, Maintenance, to used as directed 8 changes/day incontinence R32 vascular dementia F01.50 faxed to [phone], 08/10/20 15:06:00 EST, Supply Start Date: 08/10/20 [...] Supply Start Date: 06/02/20 Status: Ordered Pen Ava, 30 G x 8 mm BD Ultra Fine II See Instructions, # 90 units, Refills 3, Tot. Refills 3, Maintenance, to use with lantus 15 units daily, 05/08/19 15:35:35 EDT, Compound Start Date: 05/08/19 Status: Ordered Pen Ava, 30 G x 8 mm BD Ultra Fine II See Instructions, # 30 each, Refills 11, Tot. Refills 11, Maintenance, dx: DM II. to use with lantus 10 units daily, 12/09/20 14:36:00 EDT, Compound, 157, cm, 11/26/20 11:44:00 EDT, Height Start Date: 12/09/20 Status: Ordered SEROquel 25 mg oral tablet [...] Status: Ordered traZODone 50 mg oral tablet 50 mg, 1, tablet, By Mouth, Daily at bedtime, # 90 tablet, Refills 5, Tot. Refills 5, Maintenance, 01/21/21 10:58:00 EDT, Route to Pharmacy Electronically, [facility], Partial fill upon patient request if the prescription is for a schedule... Start Date: 01/21/21 Status: Ordered Walker with seat Walker with [...] 100(Confirmed) Active Mild asthma(Confirmed) 3, 4 Active *[phone]-[facility] Neyda Gallegos RN(Confirmed) Active Counseling regarding advance d directives(Confirmed) 5 Active Diabetes mellitus type II, controlled(Confirmed) 2015 Active Urolithiasis(Confirmed) Active Dementia, vascular(Confirmed) Active 1Echo 2014:The mid anterior,inferolateral, anterolateral wall is moderately to severely hypokinetic 26415-Thrmtzkanf perfusion test shows scar in inferior and infero-lateral wall without reversibility. 3Had normal spirometry in [facility] in 04-06-2011, that if anything could suggest mild asthma 4Based on CXR done at [facility] in : hyperinflated lungs. [...]
--- OUTSIDE RECORDS SUMMARY | 2023-02-04 16:18 | XMS_ITS | Continuity of Care Document ---
Author Name Unknown Organization [facility] Address [address] [place] [address]- Care Team Providers Care Assorter Name Role Phone Nain WILSON, Lenore Primary Care Physician Encounter [facility] Date(s): 08/10/22 - 09/09/22 [facility]/[address] [address]- [place] Allergies, Adverse Reactions, Alerts No Known Medication [...] incontinence R32 vascular dementia F01.50 faxed to [phone], 08/10/20 15:06:00 EST, Supply Start Date: 08/10/20 [...] incontinence R32 vascular dementia F01.50 faxed to [phone], 08/10/20 15:06:00 EST, Supply Start Date: 08/10/20 [...] incontinence R32 vascular dementia F01.50 faxed to [phone], 08/10/2015:06:00 EST, Supply Start Date: 08/10/20 Status: [...] Risk for Falls Z91.81 Poor Vision H54.7 ARAD 99To be used as directed, 03/12/21 10:42:00 E... Start Date: 03/12/21 Status: Ordered Incontinence wipes for adults Incontinence wipes for adults, See Instructions, # 4 pack/packet, Refills 11, Tot. Refills 11, Maintenance, to used as directed 8 changes/day incontinence R32 vascular dementia F01.50 faxed to [phone], 08/10/20 15:06:00 EST, Supply Start Date: 08/10/20 Status: Ordered Lantus Solostar Pen 100 units/mL subcutaneous solution = 15 units, Subcutaneous Infusion, Daily, new lower dose, # 10 mL, 3 Refills, Maintenance, 06/16/2210:30:00 EDT, [facility], 157, cm, 06/16/22 9:38:00 EDT, Height Start Date: 06/16/22 Stop Date: 10/14/22 Status: Ordered nitroglycerin 0.4 mg sublingual tablet See Instructions, PLACE 1 TABLET UNDER THE TONGUE EVERY 5 MINS NEEDED FOR CHEST PAIN, IF CHEST PAIN NOT RELIEVED IN 5 MINS AFTER 1ST DOSE, TAKE 2ND DOSE AND GO TO THE ER, # 25 tablet, 0 Refills, [facility], 157, cm, 09/27/21 8:42:00 E... Start Date: [...] 11:34:00 EDT, Route to Pharmacy Electronically, [facility] Anna[facility]; [facility] Tablet, Partial fill upon [...] 5 Refills, Maintenance, 05/25/22 18:17:00 EDT, [facility], 157, cm, 05/03/22 11:09:00 EDT, Height Start [...] 18 Gm, 5 Refills, Maintenance, 08/10/22 10:49:00 EST, [facility], 157, cm, 06/16/22 9:38:00 EDT, Height Start [...] DNR (do not resuscitate) 8 Confirmed Active *[phone]-Car e Partner-Francheska Gallegos RN Confirmed Active Counseling regarding advanced directives 9 Confirmed Active Diabetes mellitus type II, controlled Confirmed 2016 Active Urolithiasis Confirmed Active Dementia, vascular Confirmed Active 1-in US done at [facility] March 2021 2Echo 2014:The mid anterior,inferolateral, anterolateral wall is moderately to severely hypokinetic 17322-Torxajesdf perfusion test shows scar in inferior and infero-lateral wall without reversibility. 4-multiple subacute rib fractures on the Right (seen in imaging done at [facility] March 2021) 5-seen in CT scan abdomen done at [facility] March 2021 6Had normal spirometry in [facility] in -, that if anything could suggest mild asthma 7Based on CXR done at [facility] in : hyperinflated lungs. PFTs done at outside facility (scanned under non results) showed severe obstruction with no marked improvement in FEV1 afer bronchodilator 8MOLST 04/30/20 to reflect DNR DNI, no CPAP, ok to hospitalize, no artificial nutrition, no HD Health Care Proxy: Patient has appointed his daughter Nikolas as his HCP 9DNR/DNI Social History Social History Type Response Smoking Status Former smoker, quit more than 30 days ago; Type: Cigarettes; Exposure to Secondhand Smoke: No; Started at age: 22; entered on: 06/16/22 Sex Patient Care team information Care Team Personnel Name: Nain WILSON, Lenore Position: [facility] Primary Care Physician Member Role: PCP Address: Address: [address] [place] [address]- Care Team Related Persons Name: RIC HARPER Address: home [address] [place] [address] Name: NIKOLAS MEJÍA Address: home [address] [facility] [place] [address] Name: ANITA LEÓN Address: home [facility] [address] Name: AKHIL CHAU Address: [place] [address] Name: JESENIA KUMARI Address: [place] [address]
--- OUTSIDE RECORDS SUMMARY | 2023-02-04 16:18 | XMS_ITS | Continuity of Care Document ---
Author Name Unknown Organization [facility] Address [address] [place] [address]- Care Team Providers Care Glass Inspector Name Role Phone Lenore Gillette MD Primary Care Physician ( [phone] Encounter [facility] Date(s): 11/19/21 - 12/22/21 [facility] [address] [place] [address]- Attending Physician: Valorie Paez MD Admitting Physician: [...] vaccine 9 10/18/10 Given 1Result Comment: Savage R. 2Result Comment: [07/19/2016 Uncharted] duplicate 3Result Comment: [...] incontinence R32 vascular dementia F01.50 faxed to [phone], 08/10/20 15:06:00 EST, Supply Start Date: 08/10/20 [...] incontinence R32 vascular dementia F01.50 faxed to [phone], 08/10/20 15:06:00 EST, Supply Start Date: 08/10/20 Status: Ordered docusate sodium 100 mg oral capsule See Instructions, TAKE (1) CAPSULE BY MOUTH TWICE DAILY., # 56 capsule, 5 Refills, [facility], 157, cm, 09/27/21 8:42:00 EST, Height Start [...] incontinence R32 vascular dementia F01.50 faxed to [phone], 08/10/2015:06:00 EST, Supply Start Date: 08/10/20 Status: [...] incontinence R32 vascular dementia F01.50 faxed to [phone], 08/10/20 15:06:00 EST, Supply Start Date: 08/10/20 [...] Supply Start Date: 06/02/20 Status: Ordered Pen [place], 30 G x 8 mm BD Ultra Fine II See Instructions, # 90 each, Refills 3, Tot. Refills 3, Maintenance, to use with lantus daily, 12/09/21 11:14:00 EDT, Compound, 157, cm, 12/09/21 10:30:00 EDT, Height Start Date: 12/09/21 Status: Ordered Pen [place], 30 G x 8 mm BD Ultra Fine II See Instructions, # 100 each, Refills 1, Tot. Refills 1, Maintenance, dx: DM II. to use with dteeab11 units daily, 12/08/21 15:38:00 EDT, Compound, 157, [...] BREATH, # 18 Gm, 0 Refills, [facility], 157, cm, 09/27/21 [...] opioid drug., 157, cm, 06/10/21 11:13:00 EDT, Leif. Start Date: 07/06/21 Status: Ordered Problem List Condition Effective Dates Status Health Status Inform ant Cholelithiasis(Confirmed) 1 Active CAD - Coronary artery disease(Confirmed) 2, 3 Active Erectile dysfunction(Confirmed) Active Rib fractures(Confirmed) 4 Active Hyperlipidemia LDL goal < 100(Confirmed) Active Multiple renal calculi(Confirmed) 5 Active Mild asthma(Confirmed) 6, 7 Active DNR (do not resuscitate)(Confirmed) 8 Active *[phone]-Care Partpennie Gallegos RN(Confirmed) Active Counseling regarding advance d directives(Confirmed) 9 Active Diabetes mellitus type II, controlled(Confirmed) 2015 Active Urolithiasis(Confirmed) Active Dementia, vascular(Confirmed) Active 1-in US done at [facility] March 2021 2Echo 2014:The mid anterior,inferolateral, anterolateral wall is moderately to severely hypokinetic 35587-Yfbysrljle perfusion test shows scar in inferior and infero-lateral wall without reversibility. 4-multiple subacute rib fractures on the Right (seen in imaging done at [facility] March 2021) 5-seen in CT scan abdomen done at [facility] March 2021 6Had normal spirometry in [facility] in 04-06-2011, that if anything could suggest mild asthma 7Based on CXR done at [facility] in : hyperinflated lungs. [...]
--- OUTSIDE RECORDS SUMMARY | 2023-02-04 16:18 | XMS_ITS | Continuity of Care Document ---
Author Name Unknown Organization [facility] Address [address] [place] [address]- Care Team Providers Care Tray Casting Machine Operator Name Role Phone Nain WILSON, Lenore Primary Care Physician Encounter [facility] Date(s): 10/14/19 - 11/16/19 [facility] De Lisa [address] [place] [address]- [facility] Attending Physician: Lenore Gillette MD Admitting Physician: Lenore Gillette MD Allergies, Adverse Reactions, [...] 11:20:52 EDT, Aerosol, Route to Pharmacy Electronically, [id number], [facility] Start Date: 12/20/18 Stop Date: [...] 11 Refills, Maintenance, 08/30/19 15:57:00 EST, Tablet, [facility], 157, cm, 07/04/19 11:26:00 EDT, Height Start Date: 08/30/19 Stop Date: 08/24/20 Status: Ordered docusate sodium 100 mg oral capsule See Instructions, # 56 capsule, Refills 5 Tot. Refills 5, TAKE (1) CAPSULE BY MOUTH TWICE DAILY., [facility] Start Date: 07/11/19 Status: Ordered donepezil 5 mg oral tablet 5 mg, 1, tablet, By Mouth, Daily at bedtime, # 30 tablet, Refills 11, Tot. Refills 11, Maintenance,03/15/19 17:52:34 EDT, Route to Pharmacy Electronically, [id number], [facility] Start Date: 03/15/19 Stop Date: 03/09/20 Status: Ordered Freestyle Lite Lancets See Instructions, [...] 1 tablet = 1,000 mg, By Mouth, 2 times a day, with meals, # 180 tablet, 3 Refills, Maintenance, 08/30/19 15:57:00 EST, Tablet, [facility], 157, cm, 07/04/19 11:26:00 EDT, Height Start Date: 08/30/19 Stop Date: 08/24/20 Status: Ordered Nitrostat 0.4 mg sublingual tablet [...] Height Start Date: 10/28/19 Status: Ordered Pen [place], 30 G x 8 mm BD Ultra Fine II See Instructions, # 90 units, Refills 3, Tot. Refills 3, Maintenance, to use with lantus 15 units daily, 05/08/19 15:35:35 EDT, Compound Start Date: 05/08/19 Status: Ordered Pen [place], 30 G x 8 mm BD Ultra [...] Date: 09/30/19 Stop Date: 09/24/20 Status: Ordered Vitamin D3 1000 intl units oral tablet 1 tablet = 1,000 International_Units, By Mouth, Daily, # 30 tablet, 11 Refills, Maintenance, 08/30/19 15:57:00 EST, Tablet, [facility], 157, cm, 07/04/19 11:26:00 EDT, Height Start Date: 08/30/19 Stop Date: 08/24/20 Status: Ordered Problem List Condition Effective Dates Status Health Status Inform ant CAD - Coronary artery disease(Confirmed) 1, 2 Active Erectile dysfunction(Confirmed) Active Hyperlipidemia LDL goal < 100(Confirmed) Active Mild asthma(Confirmed) 3, 4 Active *[phone]-[facility] Partn er-Mya Limardo(Confirmed) Active Diabetes mellitus type II, controlled(Confirmed) 2016 Active Urolithiasis(Confirmed) Active Dementia, vascular(Confirmed) Active 1Echo 2014:The mid anterior,inferolateral, anterolateral wall is moderately to severely hypokinetic 19243-Gbqwkckdsi perfusion test shows scar in inferior and infero-lateral wall without reversibility. 3Had normal spirometry in [facility] in 04-06-2011, that if anything could suggest mild asthma 4Based on CXR done at [facility] in : hyperinflated lungs. PFTs done [...]
--- OUTSIDE RECORDS SUMMARY | 2023-02-04 16:18 | XMS_ITS | Continuity of Care Document ---
Author Name Unknown Organization [facility] Address [address] [place] [address]- Care Team Providers Care Funeral Director And Embalmer Name Role Phone Nain WILSON, Lenore Primary Care Physician [facility]counter [facility] Date(s): 12/09/20 - 01/08/21 [facility] De [address] [address]- Allergies, Adverse Reactions, Alerts No Known Medication [...] incontinence R32 vascular dementia F01.50 faxed to [phone], 08/10/20 15:06:00 EST, Supply Start Date: 08/10/20 Status: Ordered albuterol CFC free 90 mcg/inh inhalation aerosol 1, puffs, Inhalation, 4 times a day, PRN, # 1 each, Refills 6, Tot. Refills 6, Maintenance, 12/20/18 11:20:52 EDT, Aerosol, Route to Pharmacy Electronically, [id number], [facility] Start Date: 12/20/18 Stop [...] incontinence R32 vascular dementia F01.50 faxed to [phone], 08/10/20 15:06:00 EST, Supply Start Date: 08/10/20 [...] incontinence R32 vascular dementia F01.50 faxed to [phone], 08/10/2015:06:00 EST, Supply Start Date: 08/10/20 Status: Ordered Incontinence wipes for adults Incontinence wipes for adults, See Instructions, # 4 pack/packet, Refills 11, Tot. Refills 11, Maintenance, to used as directed 8 changes/day incontinence R32 vascular dementia F01.50 faxed to [phone], 08/10/20 15:06:00 EST, Supply Start Date: 08/10/20 [...] Supply Start Date: 06/02/20 Status: Ordered Pen [place], 30 G x 8 mm BD Ultra Fine II See Instructions, # 90 units, Refills 3, Tot. Refills 3, Maintenance, to use with lantus 15 units daily, 05/08/19 15:35:35 EDT, Compound Start Date: 05/08/19 Status: Ordered Pen [place], 30 G x 8 mm BD Ultra [...] 100(Confirmed) Active Mild asthma(Confirmed) 3, 4 Active *[id number]-[facility] Neyda Gallegos RN(Confirmed) Active Counseling regarding advance d directives(Confirmed) 5 Active Diabetes mellitus type II, controlled(Confirmed) 2016 Active Urolithiasis(Confirmed) Active Dementia, vascular(Confirmed) Active 1Echo 2014:The mid anterior,inferolateral, anterolateral wall is moderately to severely hypokinetic 24951-[place] perfusion test shows scar in inferior and infero-lateral wall without reversibility. 3Had normal spirometry in [facility] in 04-06-2011, that if anything could suggest mild asthma 4Based on CXR done at [facility] in : hyperinflated lungs. PFTs done at [...]
--- OUTSIDE RECORDS SUMMARY | 2023-02-04 16:18 | XMS_ITS | Continuity of Care Document ---
Author Name Unknown Organization [facility] Address [address] [place] [address]- Care Team Providers Care Hand Almond Blancher Name Role Phone Nain WILSON, Lenore Primary Care Physician Encounter [facility] Date(s): 06/16/22 - 07/16/22 [facility] [address]- Attending Physician: Blayne Torres Admitting Physician: AdmBlayne [...] incontinence R32 vascular dementia F01.50 faxed to [phone], 08/10/20 15:06:00 EST, Supply Start Date: 08/10/20 [...] incontinence R32 vascular dementia F01.50 faxed to [phone], 08/10/20 15:06:00 EST, Supply Start Date: 08/10/20 [...] incontinence R32 vascular dementia F01.50 faxed to [phone], 08/10/2015:06:00 EST, Supply Start Date: 08/10/20 Status: [...] incontinence R32 vascular dementia F01.50 faxed to [phone], 08/10/20 15:06:00 EST, Supply Start Date: 08/10/20 [...] EDT, Supply Start Date: 06/16/22 Status: Ordered Pen [place], 30 G x 8 mm BD Ultra Fine II See Instructions, # 90 each, Refills 3, Tot. Refills 3, Maintenance, to use with lantus daily, 12/09/21 11:14:00 EDT, Compound, 157, cm, 12/09/21 10:30:00 EDT, Height Start Date: 12/09/21 Status: Ordered Senna 8.6 mg oral tablet [...] WITH 100 MG AT 6 PM, # 30 tablet, Refills 1, Tot.Refills 1, Maintenance, 06/28/22 12:50:00 EDT, Route to Pharmacy Electronically, [facility], Partial fill upon patient request if the presc... Start Date: 06/28/22 Status: Ordered sertraline 100 mg oral tablet 1 tablet, By Mouth, Daily, # 28 tablet, 5 Refills, Maintenance, 05/25/22 18:17:00 EDT, [facility], 157, cm, 05/03/22 11:09:00 EDT, Height Start [...] BREATH, # 18 Gm, 0 Refills, [facility], 157, cm, 09/27/21 8:42:00 EST, Height Start [...] DNR (do not resuscitate) 8 Confirmed Active *[phone]-Car e Partner-Francheska Gallegos RN Confirmed Active Counseling regarding advanced directives 9 Confirmed Active Diabetes mellitus type II, controlled Confirmed 2016 Active Urolithiasis Confirmed Active Dementia, vascular Confirmed Active 1-in US done at [facility] March 2021 2Echo 2014:The mid anterior,inferolateral, anterolateral wall is moderately to severely hypokinetic 18766-Yuwbpcvwyn perfusion test shows scar in inferior and infero-lateral wall without reversibility. 4-multiple subacute rib fractures on the Right (seen in imaging done at [facility] March 2021) 5-seen in CT scan abdomen done at [facility] March 2021 6Had normal spirometry in [facility] in -, that if anything could suggest mild asthma 7Based on CXR done at [facility] in : hyperinflated lungs. PFTs done at [...] Team Personnel Name: Lenore Gillette MD Position: [facility] Primary Care Physician Member Role: PCP Address: Address: [address] [place] [address]- Care Team Related Persons Name: RIC HARPER Address: home [address] [place] [address] Name: NIKOLAS MEJÍA Address: home [address] [place] [address] Name: ANITA LEÓN Address: home [facility] [address] Name: AKHIL CHAU Address: [place] [address] Name: JESENIA KUMARI Address: [place] [address]
--- OUTSIDE RECORDS SUMMARY | 2023-02-04 16:18 | XMS_ITS | Continuity of Care Document ---
Author Name Unknown Organization [facility] Address [address] [place] [address]- Care Team Providers Care Groover And Turner Name Role Phone Nain WILSON, Lenore Primary Care Physician ( [phone] Encounter [facility] Date(s): 02/15/22 - 03/17/22 [facility] [address] [place] [address]- Attending Physician: Blayne Torres Admitting Physician: Blayne [...] incontinence R32 vascular dementia F01.50 faxed to [phone], 08/10/20 15:06:00 EST, Supply Start Date: 08/10/20 [...] incontinence R32 vascular dementia F01.50 faxed to [phone], 08/10/20 15:06:00 EST, Supply Start Date: 08/10/20 [...] incontinence R32 vascular dementia F01.50 faxed to [phone], 08/10/2015:06:00 EST, Supply Start Date: 08/10/20 Status: [...] incontinence R32 vascular dementia F01.50 faxed to [phone], 08/10/20 15:06:00 EST, Supply Start Date: 08/10/20 Status: Ordered Lantus Solostar Pen 100 units/mL subcutaneous solution = 20 units, Subcutaneous Infusion, Daily, # 10 mL, 3 Refills, Maintenance, 02/01/22 17:18:00 EDT, [facility], 157, cm, 12/09/21 10:30:00 EDT, Height Start Date: 02/01/22 Stop Date: 06/01/22 Status: Ordered nitroglycerin 0.4 mg sublingual tablet [...] 11, Maintenance, Glucerna. Vanilla only. dx: R62.7, 02/02/22 13:06:00 EDT, Supply Start Date: 02/02/22 Status: Ordered Pen [place], 30 G x 8 mm BD Ultra Fine II See Instructions, # 90 each, Refills 3, Tot. Refills 3, Maintenance, to use with lantus daily, 12/09/21 11:14:00 EDT, Compound, 157, cm, 12/09/21 10:30:00 EDT, Height Start Date: 12/09/21 Status: Ordered Pen [place], 30 G x 8 mm BD Ultra Fine II See Instructions, # 100 each, Refills 1, Tot. Refills 1, Maintenance, dx: DM II. to use with phurff25 units daily, 12/08/21 15:38:00 EDT, Compound, 157, cm, 09/27/21 8:42:00 EST, Height Start Date: 12/08/21 Status: Ordered Senna 8.6 mg oral tablet [...] is fo... Start Date: 02/15/22 Status: Ordered Shower chair Shower chair, See [...] BREATH, # 18 Gm, 0 Refills, [facility], 157, cm, 09/27/21 8:42:00 EST, Height [...] Active DNR (do not resuscitate)(Confirmed) 8 Active *[phone]-Care Partn er-Francheska Gallegos RN(Confirmed) Active Counseling regarding advance d directives(Confirmed) 9 Active Diabetes mellitus type II, controlled(Confirmed) 2016 Active Urolithiasis(Confirmed) Active Dementia, vascular(Confirmed) Active 1-in US done at [facility] March 2021 2Echo 2014:The mid anterior,inferolateral, anterolateral wall is moderately to severely hypokinetic 41837-Rdwegxjnpw perfusion test shows scar in inferior and infero-lateral wall without reversibility. 4-multiple subacute rib fractures on the Right (seen in imaging done at [facility] March 2021) 5-seen in CT scan abdomen done at [facility] March 2021 6Had normal spirometry in [facility] in -, that if anything could suggest mild asthma 7Based on CXR done at [facility] in : hyperinflated lungs. PFTs [...]
--- OUTSIDE RECORDS SUMMARY | 2023-02-04 16:18 | XMS_ITS | Continuity of Care Document ---
Author Name Unknown Organization [facility] Address [address] [place] [address]- Care Team Providers Care Stemhole Borer And Topper Name Role Phone Nain WILSON, Lenore Primary Care Physician ( [phone] Encounter [facility] Date(s): 10/07/21 - 11/25/21 [facility] [address] [place] [address]- Attending Physician: Valorie Paez MD Admitting Physician: [...] influenza virus vaccine, inactivated 4 07/18/12 Gi la influenza virus vaccine, inactivated 5 11/28/11 Gi [...] incontinence R32 vascular dementia F01.50 faxed to [phone], 08/10/20 15:06:00 EST, Supply Start Date: 08/10/20 Status: Ordered Aspirin Low Dose 81 mg oral delayed release tablet See Instructions, TAKE 1 TABLET BY MOUTH DAILY WITH FOOD, # 28 tablet, 10 Refills, Maintenance, [facility], 157, cm, 03/29/21 13:24:00 EDT, Height Start Date: 03/31/21 Status: Ordered atorvastatin 40 mg oral tablet 1 tablet, By Mouth, Daily, # 28 tablet, 5 Refills, [facility], 157, cm, 06/10/21 11:13:00 EDT, Height Start [...] incontinence R32 vascular dementia F01.50 faxed to [phone], 08/10/20 15:06:00 EST, Supply Start Date: 08/10/20 [...] incontinence R32 vascular dementia F01.50 faxed to [phone], 08/10/2015:06:00 EST, Supply Start Date: 08/10/20 Status: [...] incontinence R32 vascular dementia F01.50 faxed to [phone], 08/10/20 15:06:00 EST, Supply Start Date: 08/10/20 Status: Ordered Lantus Solostar Pen 100 units/mL subcutaneous solution = 20 units, Subcutaneous Infusion, Daily, NEW HIGHER DOSE., # 10 mL, 3 Refills, Maintenance, 03/25/21 11:42:00 EDT, [facility], 157, cm, 03/25/21 11:06:00 EDT, Height Start Date: 03/25/21 Stop Date: 07/23/21 Status: Ordered nitroglycerin 0.4 mg sublingual tablet [...] Supply Start Date: 06/02/20 Status: Ordered Pen [place], 30 G x 8 mm BD Ultra Fine II See Instructions, # 100 each, Refills 1, Tot. Refills 1, Maintenance, dx: DM II. to use with [id number] units daily, 06/03/21 15:48:00 EDT, Compound, 157, cm, 06/03/21 10:57:00 EDT, Height Start Date: 06/03/21 Status: Ordered Pen [place], 30 G x 8 mm BD Ultra Fine II See Instructions, # 90 units, Refills 3, Tot. Refills 3, Maintenance, to use with lantus 15 units daily, 05/08/19 15:35:35 EDT, Compound Start Date: 05/08/19 Status: Ordered SEROquel 50 mg oral tablet [...] WEEK. ROTATE INJECTION SITES., # 2 mL, 2 Refills,[facility], 157, cm, 09/27/21 8:42:00 EST, Height Start Date: 11/10/21 Status: Ordered Ventolin HFA 108 mcg/inh inhalation aerosol with adapter 1 puffs, Inhalation, 4 times a day, PRN NEEDED FOR WHEEZING/SHORTNESS OF BREATH, # 18 Gm, 0 Refills, [facility], 157, cm, 09/27/21 8:42:00 EST, [...] Active DNR (do not resuscitate)(Confirmed) 8 Active *[phone]-Care Partn swathi-Francheska Gallegos RN(Confirmed) Active Counseling regarding advance d directives(Confirmed) 9 Active Diabetes mellitus type II, controlled(Confirmed) 2016 Active Urolithiasis(Confirmed) Active Dementia, vascular(Confirmed) Active 1-in US done at [facility] March 2021 2Echo 2014:The mid anterior,inferolateral, anterolateral wall is moderately to severely hypokinetic 83680-Dtdvbtskmn perfusion test shows scar in inferior and infero-lateral wall without reversibility. 4-multiple subacute rib fractures on the Right (seen in imaging done at [facility] March 2021) 5-seen in CT scan abdomen done at [facility] March 2021 6Had normal spirometry in [facility] in -, that if anything could suggest mild asthma 7Based on CXR done at [facility] in : hyperinflated lungs. PFTs done at [...]
--- OUTSIDE RECORDS SUMMARY | 2023-02-04 16:18 | XMS_ITS | Continuity of Care Document ---
Author Name Unknown Organization [facility] Address [address] [place] [address]- Care Team Providers Care Dip Lube Operator Name Role Phone Nain WILSON, Lenore Primary Care Physician Encounter [facility] Date(s): 03/17/21 - 04/16/21 [facility]/[address] [address]- Allergies, Adverse Reactions, Alerts No Known Medication [...] incontinence R32 vascular dementia F01.50 faxed to [phone], 08/10/20 15:06:00 EST, Supply Start Date: 08/10/20 Status: Ordered albuterol CFC free 90 mcg/inh inhalation aerosol 1, puffs, Inhalation, 4 times a day, PRN, # 1 each, Refills 6, Tot. Refills 6, Maintenance, 12/20/18 11:20:52 EDT, Aerosol, Route to Pharmacy Electronically, [id number], [facility] Start Date: 12/20/18 Stop [...] incontinence R32 vascular dementia F01.50 faxed to [phone], 08/10/20 15:06:00 EST, Supply Start Date: 08/10/20 [...] incontinence R32 vascular dementia F01.50 faxed to [phone], 08/10/2015:06:00 EST, Supply Start Date: 08/10/20 Status: [...] incontinence R32 vascular dementia F01.50 faxed to [phone], 08/10/20 15:06:00 EST, Supply Start Date: 08/10/20 Status: Ordered Lantus Solostar Pen 100 units/mL subcutaneous solution = 20 units, Subcutaneous Infusion, Daily, NEW HIGHER DOSE., # 10 mL, 3 Refills, Maintenance, 03/25/21 11:42:00 EDT, [facility], 157, cm, 03/25/21 11:06:00 EDT, Height Start Date: 03/25/21 Stop Date: 07/23/21 Status: Ordered lidocaine 5% topical ointment 1 application, Topically, 3 times a day, Apply to right ribs PRN pain wash hands thoroughly after application [place] Citizen, # 50 Gm, 0 Refills, Maintenance, 04/16/21 16:32:00 EDT, Ointment, [facility], Partial fill upon patient request if th... Start Date: 04/16/21 Status: Ordered naproxen 375 mg oral tablet 375 mg, 1, tablet, By Mouth, 2 times a day, Take PRN rib pain with food. [place], # 30 tablet, Refills 0, Tot. Refills [...] Supply Start Date: 06/02/20 Status: Ordered Pen [place], 30 G x 8 mm BD Ultra Fine II See Instructions, # 90 units, Refills 3, Tot. Refills 3, Maintenance, to use with lantus 15 units daily, 05/08/19 15:35:35 EDT, Compound Start Date: 05/08/19 Status: Ordered Pen [place], 30 G x 8 mm BD Ultra [...] 03/25/21 11:25:00 EDT, Route to Pharmacy Electronically, [facility], [place]... Start Date: 03/25/21 Stop Date: 03/20/22 Status: Ordered Trulicity Pen 0.75 mg/0.5 mL subcutaneous solution 0.5 mL = 0.75 mg, Subcutaneous Injection, Every week, rotate injection sites For diabetes [place] Citizen, # 2 mL, 11 Refills, Maintenance, 04/16/21 16:42:00 EDT, Solution, [facility], Partial fill upon patient request if the prescription is fo... Start Date: 04/16/21 Status: Ordered Walker with seat Walker with [...] Active DNR (do not resuscitate)(Confirmed) 8 Active *[phone]-[facility] Neyda Gallegos RN(Confirmed) Active Counseling regarding advance d directives(Confirmed) 9 Active Diabetes mellitus type II, controlled(Confirmed) 2016 Active Urolithiasis(Confirmed) Active Dementia, vascular(Confirmed) Active 1-in US done at [facility] March 2021 2Echo 2014:The mid anterior,inferolateral, anterolateral wall is moderately to severely hypokinetic 63807-Aumoeocxss perfusion test shows scar in inferior and infero-lateral wall without reversibility. 4-multiple subacute rib fractures on the Right (seen in imaging done at [facility] March 2021) 5-seen in CT scan abdomen done at [facility] March 2021 6Had normal spirometry in [facility] in -, that if anything could suggest mild asthma 7Based on CXR done at [facility] in : hyperinflated lungs. PFTs done at [...]
--- OUTSIDE RECORDS SUMMARY | 2023-02-04 16:19 | XMS_ITS | Continuity of Care Document ---
Author Name Unknown Organization [facility] Address [address] [place] [address]- Care Team Providers Care Sewer Tapper Name Role Phone Nain WILSON, Lenore Primary Care Physician ( [phone] Encounter [facility] Date(s): 08/31/22 - 09/30/22 [facility]/[place] [address]- [place] Allergies, Adverse Reactions, Alerts No Known [...] incontinence R32 vascular dementia F01.50 faxed to [phone], 08/10/20 15:06:00 EST, Supply Start Date: 08/10/20 [...] incontinence R32 vascular dementia F01.50 faxed to [phone], 08/10/20 15:06:00 EST, Supply Start Date: 08/10/20 [...] incontinence R32 vascular dementia F01.50 faxed to [phone], 08/10/2015:06:00 EST, Supply Start Date: 08/10/20 Status: [...] incontinence R32 vascular dementia F01.50 faxed to [phone], 08/10/20 15:06:00 EST, Supply Start Date: 08/10/20 [...] ER, # 25 tablet, 0 Refills, [facility], 157, cm, 09/27/21 8:42:00 E... Start Date: [...] 5 Refills, Maintenance, 05/25/22 18:17:00 EDT, [facility], 157, cm, 05/03/22 11:09:00 [...] 5 Refills, Maintenance, 08/10/22 10:49:00 EST, [facility], 157, cm, 06/16/22 9:38:00 EDT, Height [...] DNR (do not resuscitate) 8 Confirmed Active *[phone]-Car e Partner-Francheska Gallegos RN Confirmed Active Counseling regarding advanced directives 9 Confirmed Active Diabetes mellitus type II, controlled Confirmed 2015 Active Urolithiasis Confirmed Active Dementia, vascular Confirmed Active 1-in US done at [facility] March 2021 2Echo 2014:The mid anterior,inferolateral, anterolateral wall is moderately to severely hypokinetic 07020-Domsxysjhh perfusion test shows scar in inferior and infero-lateral wall without reversibility. 4-multiple subacute rib fractures on the Right (seen in imaging done at [facility] March 2021) 5-seen in CT scan abdomen done at [facility] March 2021 6Had normal spirometry in [facility] in 04-06-2011, that if anything could suggest mild asthma 7Based on CXR done at [facility] in : hyperinflated lungs. PFTs done [...] Team Personnel Name: Lenore Gillette MD Position: [facility] Primary Care Physician Member Role: PCP Address: Address: [address] [place] [address]- Care Team Related Persons Name: RIC HARPER Address: home [address] [place] [address] Name: NIKOLAS MEJÍA Address: home [address] [place] [address] Name: ANITA LEÓN Address: home [facility] [address] Name: AKHIL CHAU Address: [place] [address] Name: JESENIA KUMARI Address: [place] [address]
--- OUTSIDE RECORDS SUMMARY | 2023-02-04 16:19 | XMS_ITS | Continuity of Care Document ---
Author Name Unknown Organization [facility] Address [address] [place] [address]- Care Team Providers Care Diesel Mechanic Helper Name Role Phone Nain WILSON, Lenore Primary Care Physician [facility]counter [facility] Date(s): 10/30/19 - 02/01/20 [facility]/[address] [address]- [facility] Attending Physician: Lenore Gillette MD Admitting [...] 11:20:52 EDT, Aerosol, Route to Pharmacy Electronically, [id number], [facility] Start Date: [...] Tablet Start Date: 12/20/18 Status: Ordered Pen [place], 30 G x 8 mm BD Ultra Fine II See Instructions, # 90 units, Refills 3, Tot. Refills 3, Maintenance, to use with lantus 15 units daily, 05/08/19 15:35:35 EDT, Compound Start Date: 05/08/19 Status: Ordered Pen [place], 30 G x 8 mm BD Ultra [...] 100(Confirmed) Active Mild asthma(Confirmed) 3, 4 Active *[phone]-[facility] Partn liyahMya Fairbanksgriselda(Confirmed) Active Diabetes mellitus type II, controlled(Confirmed) 2015 Active Urolithiasis(Confirmed) Active Dementia, vascular(Confirmed) Active 1Echo 2014:The mid anterior,inferolateral, anterolateral wall is moderately to severely hypokinetic 89621-Maexmtvoog perfusion test shows scar in inferior and infero-lateral wall without reversibility. 3Had normal spirometry in [facility] in 04-06-2011, that if anything could suggest mild asthma 4Based on CXR done at [facility] in : hyperinflated lungs. PFTs done [...]
--- OUTSIDE RECORDS SUMMARY | 2023-02-04 16:19 | XMS_ITS | Continuity of Care Document ---
Author Name Unknown Organization [facility] Address [address] [place] [address]- Care Team Providers Care Front Counter Clerk Name Role Phone Nain WILSON, Lenore Primary Care Physician Encounter [facility] Date(s): 08/01/22 - 09/16/22 [facility]/[place] [address]- Attending Physician: Lety Chanel DO Admitting Physician: Lety Chanel DO Allergies, Adverse Reactions, Alerts No Known Medication [...] Note: VIS 04/13/10 GIVEN 6Result Comment: Savage VanChastity 7Result Comment: [02/26/2015] Ordered by Som 8Admin Note: PT BRINGS IN VIS 05/10 9Admin Note: VIS 06/09/09 GIVEN Medications Adult Diapers size small Adult Diapers size small, See Instructions, # 240 each, Refills 11, Tot. Refills 11, Maintenance, to used as directed 8/day incontinence R32 vascular dementia F01.50 faxed to [phone], 08/10/20 15:06:00 EST, Supply Start Date: 08/10/20 [...] incontinence R32 vascular dementia F01.50 faxed to [phone], 08/10/20 15:06:00 EST, Supply Start Date: 08/10/20 [...] incontinence R32 vascular dementia F01.50 faxed to [phone], 08/10/2015:06:00 EST, Supply Start Date: 08/10/20 Status: [...] incontinence R32 vascular dementia F01.50 faxed to [phone], 08/10/20 15:06:00 EST, Supply Start Date: 08/10/20 [...] 5 Refills, Maintenance, 05/25/22 18:17:00 EDT, [facility], 157, cm, 05/03/22 11:09:00 EDT, Height Start [...] mL, 11 Refills, 06/16/22 10:31:00 EDT, [facility], 157, cm, 06/16/22 9:38:00 EDT, Height [...] DNR (do not resuscitate) 8 Confirmed Active *[phone]-Car e Partner-Francheska Gallegos RN Confirmed Active Counseling regarding advanced directives 9 Confirmed Active Diabetes mellitus type II, controlled Confirmed 2015 Active Urolithiasis Confirmed Active Dementia, vascular Confirmed Active 1-in US done at [facility] March 2021 2Echo 2014:The mid anterior,inferolateral, anterolateral wall is moderately to severely hypokinetic 56954-Srkvpsrdhb perfusion test shows scar in inferior and infero-lateral wall without reversibility. 4-multiple subacute rib fractures on the Right (seen in imaging done at [facility] March 2021) 5-seen in CT scan abdomen done at [facility] March 2021 6Had normal spirometry in [facility] in -, that if anything could suggest mild asthma 7Based on CXR done at [facility] in : hyperinflated lungs. PFTs done [...] Team Personnel Name: Lenore Gillette MD Position: [facility] Primary Care Physician Member Role: PCP Address: Address: [address] [place] [address]- Care Team Related Persons Name: RIC HARPER Address: home [address] [place] [address] Name: NIKOLAS MEJÍA Address: home [address] [facility] [address] [place] [address] Name: ANITA LEÓN Address: home [facility] [address] Name: AKHIL CHAU Address: [place] [address] Name: JESENIA KUMARI Address: home [place] [id number]
--- OUTSIDE RECORDS SUMMARY | 2023-02-04 16:19 | XMS_ITS | Continuity of Care Document ---
Author Name Unknown Organization [facility] Address [address] [place] [address]- Care Team Providers Care Slot Operations Director Name Role Phone Nain WILSON, Lenore Primary Care Physician [facility]): 12/21/22 - 01/20/23 [facility]/[address] [address]- [place] Allergies, Adverse Reactions, Alerts No Known [...] incontinence R32 vascular dementia F01.50 faxed to [phone], 01/02/23 14:17:00 EDT, Supply Start Date: 01/02/23 [...] incontinence R32 vascular dementia F01.50 faxed to [phone], 01/02/23 14:17:00 EDT, Supply Start Date: 01/02/23 Status: Ordered Gloves size adult Gloves size adult, See Instructions, # 4 pack/packet, Refills 11, Tot. Refills 11, Maintenance, to used as directed 8pair/day incontinence R32 vascular dementia F01.50 faxed to [phone], 08/10/2015:06:00 EST, Supply Start Date: 08/10/20 Status: [...] incontinence R32 vascular dementia F01.50 faxed to [phone], 08/10/20 15:06:00 EST, Supply Start Date: 08/10/20 [...] 25 tablet, 0 Refills, [facility], 157, cm, 09/27/21 8:42:00 E... Start [...] Height Start Date: 12/22/22 Status: Ordered Pen Lucile, 30 G x 8 mm BD Ultra [...] 5 Refills, Maintenance, 11/12/22 19:26:00 EST, [facility], 157, cm, 08/31/22 10:47:00 EST, Height Start [...] Refills, Maintenance, 01/02/23 13:48:00 EDT, Solution, [facility], Partial fillupon patient request if the prescription is for a sched... Start Date: 01/02/23 Stop Date: 04/02/23 Status: Ordered Ventolin HFA 108 mcg/inh inhalation aerosol with adapter See Instructions, INHALE 1 PUFF BY MOUTH 4 TIMES A DAY NEEDED FOR WHEEZING/SHORTNESS OF BREATH, # 18 Gm, 5 Refills, Maintenance, 08/10/22 10:49:00 [facility], 157, cm, 06/16/22 9:38:00 EDT, Height [...] DNR (do not resuscitate) 8 Confirmed Active *[phone]-Car e Partner-Francheska Gallegos RN Confirmed Active Counseling regarding advanced directives 9 Confirmed Active Diabetes mellitus type II, controlled Confirmed 2015 Active Urolithiasis Confirmed Active Dementia, vascular Confirmed Active 1-in US done at [facility] March 2021 2Echo 2014:The mid anterior,inferolateral, anterolateral wall is moderately to severely hypokinetic 63841-Bdtogenkhu perfusion test shows scar in inferior and infero-lateral wall without reversibility. 4-multiple subacute rib fractures on the Right (seen in imaging done at [facility] March 2021) 5-seen in CT scan abdomen done at [facility] March 2021 6Had normal spirometry in [facility] in 04-06-2011, that if anything could suggest mild asthma 7Based on CXR done at [facility] [...] at age: 22; entered on: 01/02/23 Sex Patient Care team information Care Team Personnel Name: Nain WILSON, Lenore Position: [facility] Primary Care Physician Member Role: PCP Address: Address: [address] [place] [phone]- Care Team Related Persons Name: RIC HARPER Address: home [address] [address] Name: NIKOLAS MEJÍA Address: home [address] [place] [address] Name: ANITA LEÓN Address: home [facility] [address] Name: AKHIL CHAU Address: [place] [address] Name: JESENIA KUMARI Address: [place] [address]
--- OUTSIDE RECORDS SUMMARY | 2023-02-04 16:19 | XMS_ITS | Continuity of Care Document ---
Author Name Unknown Organization [facility] Address Unknown Care Team Providers Care Senior Games Technician Name Role Phone Nain WILSON, Lenore Primary Care Physician [facility]): 06/15/21 - 07/15/21 [facility] Allergies, Adverse Reactions, Alerts No Known [...] incontinence R32 vascular dementia F01.50 faxed to [phone], 08/10/20 15:06:00 EST, Supply Start Date: 08/10/20 Status: Ordered albuterol CFC free 90 mcg/inh inhalation aerosol 1, puffs, Inhalation, 4 times a day, PRN, # 1 each, Refills 6, Tot. Refills 6, Maintenance, 12/20/18 11:20:52 EDT, Aerosol, Route to Pharmacy Electronically, [id number], [facility] Start Date: 12/20/18 Stop [...] incontinence R32 vascular dementia F01.50 faxed to [phone], 08/10/20 15:06:00 EST, Supply Start Date: 08/10/20 [...] incontinence R32 vascular dementia F01.50 faxed to [phone], 08/10/2015:06:00 EST, Supply Start Date: 08/10/20 Status: [...] incontinence R32 vascular dementia F01.50 faxed to [phone], 08/10/20 15:06:00 EST, Supply Start Date: 08/10/20 [...] day, Take PRN rib pain with food. Liberian, # 30 tablet, Refills 0, Tot. Refills [...] Supply Start Date: 06/02/20 Status: Ordered Pen Elsie, 30 G x 8 mm BD Ultra Fine II See Instructions, # 100 each, Refills 1, Tot. Refills 1, Maintenance, dx: DM II. to use with iwolfe84 units daily, 06/03/21 15:48:00 EDT, Compound, 157, cm, 06/03/21 10:57:00 EDT, Height Start Date: 06/03/21 Status: Ordered Pen Elsie, 30 G x 8 mm BD Ultra [...] Active DNR (do not resuscitate)(Confirmed) 8 Active *[phone]-Care Partn swathi-Francheska Gallegos RN(Confirmed) Active Counseling regarding advance d directives(Confirmed) 9 Active Diabetes mellitus type II, controlled(Confirmed) 2016 Active Urolithiasis(Confirmed) Active Dementia, vascular(Confirmed) Active 1-in US done at [facility] March 2021 2Echo 2014:The mid anterior,inferolateral, anterolateral wall is moderately to severely hypokinetic 27916-Bhwpaujsno perfusion test shows scar in inferior and infero-lateral wall without reversibility. 4-multiple subacute rib fractures on the Right (seen in imaging done at [facility] March 2021) 5-seen in CT scan abdomen done at [facility] March 2021 6Had normal spirometry in [facility] in 04-06-2011, that if anything could suggest mild asthma 7Based on CXR done at [facility] in : hyperinflated lungs. PFTs done [...]
--- OUTSIDE RECORDS SUMMARY | 2023-02-04 16:19 | XMS_ITS | Continuity of Care Document ---
Author Name Unknown Organization [facility] Address [address] [place] [address]- Care Team Providers Care Second Vp Hr Assessment Name Role Phone Nain WILSON, Lenore Primary Care Physician [facility] Date(s): 12/29/22 - 01/28/23 [facility] [place] [facility] [address]- [place] Allergies, Adverse Reactions, Alerts No Known [...] incontinence R32 vascular dementia F01.50 faxed to [phone], 01/02/23 14:17:00 EDT, Supply Start Date: 01/02/23 [...] incontinence R32 vascular dementia F01.50 faxed to [phone], 01/02/23 14:17:00 EDT, Supply Start Date: 01/02/23 Status: Ordered Gloves size adult Gloves size adult, See Instructions, # 4 pack/packet, Refills 11, Tot. Refills 11, Maintenance, to used as directed 8pair/day incontinence R32 vascular dementia F01.50 faxed to [phone], 08/10/2015:06:00 EST, Supply Start Date: 08/10/20 Status: [...] incontinence R32 vascular dementia F01.50 faxed to [phone], 08/10/20 15:06:00 EST, Supply Start Date: 08/10/20 [...] ER, # 25 tablet, 0 Refills, [facility], 157, cm, 09/27/21 8:42:00 E... Start Date: [...] Height Start Date: 12/22/22 Status: Ordered Pen Fairplay, 30 G x 8 mm BD Ultra [...] DNR (do not resuscitate) 8 Confirmed Active *[id number]-Car e Partner-Francheska Gallegos RN Confirmed Active Counseling regarding advanced directives 9 Confirmed Active Diabetes mellitus type II, controlled Confirmed 2015 Active Urolithiasis Confirmed Active Dementia, vascular Confirmed Active 1-in US done at [facility] March 2021 2Echo 2014:The mid anterior,inferolateral, anterolateral wall is moderately to severely hypokinetic 69091-Afgbbqkuly perfusion test shows scar in inferior and infero-lateral wall without reversibility. 4-multiple subacute rib fractures on the Right (seen in imaging done at [facility] March 2021) 5-seen in CT scan abdomen done at [facility] March 2021 6Had normal spirometry in [facility] in 04-06-2011, that if anything could suggest mild asthma 7Based on CXR done at [facility] in : hyperinflated lungs. PFTs [...] Team Personnel Name: Lenore Gillette MD Position: [facility] Physician - Primary Care Member Role: PCP Address: Address: [address] [place] [address]- Care Team Related Persons Name: RIC HARPER Address: home [address] [place] [address] Name: NIKOLAS MEJÍA Address: home [address] [place] [address] Name: ANITA LEÓN Address: home [facility] [address] Name: AKHIL CHAU Address: [place] [address] Name: JESENIA KUMARI Address: [place] [address]
--- OUTSIDE RECORDS SUMMARY | 2023-02-04 16:19 | XMS_ITS | Continuity of Care Document ---
Author Name Unknown Organization [facility] Address [address] [place] [address]- Care Team Providers Care Machine Setter Automatic Name Role Phone Nain WILSON, Lenore Primary Care Physician [facility]s): 08/17/20 - 09/16/20 [facility] [address] [place] [address] Allergies, Adverse Reactions, Alerts No Known Medication [...] incontinence R32 vascular dementia F01.50 faxed to [phone], 08/10/20 15:06:00 EST, Supply Start Date: 08/10/20 Status: Ordered albuterol CFC free 90 mcg/inh inhalation aerosol 1, puffs, Inhalation, 4 times a day, PRN, # 1 each, Refills 6, Tot. Refills 6, Maintenance, 12/20/18 11:20:52 EDT, Aerosol, Route to Pharmacy Electronically, [id number], [facility] Start Date: 12/20/18 Stop [...] incontinence R32 vascular dementia F01.50 faxed to [phone], 08/10/20 15:06:00 EST, Supply Start Date: 08/10/20 [...] incontinence R32 vascular dementia F01.50 faxed to [phone], 08/10/2015:06:00 EST, Supply Start Date: 08/10/20 Status: Ordered Incontinence wipes for adults Incontinence wipes for adults, See Instructions, # 4 pack/packet, Refills 11, Tot. Refills 11, Maintenance, to used as directed 8 changes/day incontinence R32 vascular dementia F01.50 faxed to [phone], 08/10/20 15:06:00 EST, Supply Start Date: 08/10/20 [...] Supply Start Date: 06/02/20 Status: Ordered Pen Perham, 30 G x 8 mm BD Ultra Fine II See Instructions, # 30 each, Refills 11, Tot. Refills 11, Maintenance, dx: DM II. to use with lantus 10 units daily, 10/21/19 12:12:00 EST, Compound, 157, cm, 07/04/19 11:26:00 EDT, Height Start Date: 10/21/19 Status: Ordered Pen Perham, 30 G x 8 mm BD Ultra [...] 100(Confirmed) Active Mild asthma(Confirmed) 3, 4 Active *[id number]-[facility] Neyda Gallegos RN(Confirmed) Active Counseling regarding advance d directives(Confirmed) 5 Active Diabetes mellitus type II, controlled(Confirmed) 2015 Active Urolithiasis(Confirmed) Active Dementia, vascular(Confirmed) Active 1Echo 2014:The mid anterior,inferolateral, anterolateral wall is moderately to severely hypokinetic 39883-Qhrbmqkzws perfusion test shows scar in inferior and infero-lateral wall without reversibility. 3Had normal spirometry in [facility] in 04-06-2011, that if anything could suggest mild asthma 4Based on CXR done at [facility] in : hyperinflated lungs. PFTs [...]
--- OUTSIDE RECORDS SUMMARY | 2023-02-04 16:19 | XMS_ITS | Continuity of Care Document ---
Author Name Unknown Organization [facility] Address [address] [place] [address]- Care Team Providers Care Trimmer Tailer Name Role Phone Nain WILSON, Lenore Primary Care Physician [facility] Date(s): 12/07/22 - 01/06/23 [facility] [place] [address]- [place] Allergies, Adverse Reactions, Alerts No Known [...] incontinence R32 vascular dementia F01.50 faxed to [phone], 01/02/23 14:17:00 EDT, Supply Start Date: 01/02/23 [...] incontinence R32 vascular dementia F01.50 faxed to [phone], 01/02/23 14:17:00 EDT, Supply Start Date: 01/02/23 Status: Ordered Gloves size adult Gloves size adult, See Instructions, # 4 pack/packet, Refills 11, Tot. Refills 11, Maintenance, to used as directed 8pair/day incontinence R32 vascular dementia F01.50 faxed to [phone], 08/10/2015:06:00 EST, Supply Start Date: 08/10/20 Status: [...] incontinence R32 vascular dementia F01.50 faxed to [phone], 08/10/20 15:06:00 EST, Supply Start Date: 08/10/20 [...] THE ER, # 25 tablet, 0 Refills, [facility], 157, cm, 09/27/21 8:42:00 E... Start Date: 11/16/21 Status: Ordered Nutritional Supplements See Instructions, # 90 each, Refills 11, Tot. Refills 11, Maintenance, Glucerna. Vanilla only. dx: R62.7, 06/16/22 10:48:00 EDT, Supply Start Date: 06/16/22 Status: Ordered One Touch Delica Lancets See [...] Height Start Date: 12/22/22 Status: Ordered Pen Homeland, 30 G x 8 mm BD Ultra Fine II See Instructions, # 90 each, Refills 3, Tot. Refills 3, Maintenance, use as directed for Type 2 Diabetes Mellitus. to use with lantus emeterio, 01/02/23 13:47:00 EDT, Supply, 157, cm, 01/02/23 13:12:00 EDT, Height Start Date: 01/02/23 Stop Date: 12/28/23 Status: Ordered Senna 8.6 mg oral tablet [...] 18 Gm, 5 Refills, Maintenance, 08/10/22 10:49:00 [facility], 157, cm, 06/16/22 9:38:00 EDT, Height [...] DNR (do not resuscitate) 8 Confirmed Active *[phone]-Car e Partner-Francheska Gallegos RN Confirmed Active Counseling regarding advanced directives 9 Confirmed Active Diabetes mellitus type II, controlled Confirmed 2015 Active Urolithiasis Confirmed Active Dementia, vascular Confirmed Active 1-in US done at [facility] March 2021 2Echo 2014:The mid anterior,inferolateral, anterolateral wall is moderately to severely hypokinetic 34400-Itfnbegxal perfusion test shows scar in inferior and infero-lateral wall without reversibility. 4-multiple subacute rib fractures on the Right (seen in imaging done at [facility] March 2021) 5-seen in CT scan abdomen done at [facility] March 2021 6Had normal spirometry in [facility] in 04-06-2011, that if anything could suggest mild asthma 7Based on CXR done at [facility] in : hyperinflated lungs. PFTs done at [...] Team Personnel Name: Lenore Gillette MD Position: [facility] Primary Care Physician Member Role: PCP Address: Address: [address] [place] [address]- Care Team Related Persons Name: RIC HARPER Address: home [address] [address] Name: NIKOLAS MEJÍA Address: home [address] [facility] [address] [place] [address] Name: ANITA LEÓN Address: home [facility] [address] Name: AKHIL CHAU Address: [place] [address] Name: JESENIA KUMARI Address: [place] [address]
--- OUTSIDE RECORDS SUMMARY | 2023-02-04 16:19 | XMS_ITS | Continuity of Care Document ---
Author Name Unknown Organization [facility] Address [address] [place] [address]- Care Team Providers Care Wood Finisher Name Role Phone Nain WILSON, Lenore Primary Care Physician [facility]s): 01/15/21 - 02/14/21 [facility] [address] [address]- Allergies, Adverse Reactions, Alerts No Known Medication [...] incontinence R32 vascular dementia F01.50 faxed to [phone], 08/10/20 15:06:00 EST, Supply Start Date: 08/10/20 Status: Ordered albuterol CFC free 90 mcg/inh inhalation aerosol 1, puffs, Inhalation, 4 times a day, PRN, # 1 each, Refills 6, Tot. Refills 6, Maintenance, 12/20/18 11:20:52 EDT, Aerosol, Route to Pharmacy Electronically, [id number], [facility] Start Date: 12/20/18 Stop [...] incontinence R32 vascular dementia F01.50 faxed to [phone], 08/10/20 15:06:00 EST, Supply Start Date: 08/10/20 [...] incontinence R32 vascular dementia F01.50 faxed to [phone], 08/10/2015:06:00 EST, Supply Start Date: 08/10/20 Status: Ordered Incontinence wipes for adults Incontinence wipes for adults, See Instructions, # 4 pack/packet, Refills 11, Tot. Refills 11, Maintenance, to used as directed 8 changes/day incontinence R32 vascular dementia F01.50 faxed to [phone], 08/10/20 15:06:00 EST, Supply Start Date: 08/10/20 [...] Supply Start Date: 06/02/20 Status: Ordered Pen Phoenix, 30 G x 8 mm BD Ultra Fine II See Instructions, # 90 units, Refills 3, Tot. Refills 3, Maintenance, to use with lantus 15 units daily, 05/08/19 15:35:35 EDT, Compound Start Date: 05/08/19 Status: Ordered Pen Phoenix, 30 G x 8 mm BD Ultra [...] 100(Confirmed) Active Mild asthma(Confirmed) 3, 4 Active *[phone]-Care Neyda Gallegos RN(Confirmed) Active Counseling regarding advance d directives(Confirmed) 5 Active Diabetes mellitus type II, controlled(Confirmed) 2016 Active Urolithiasis(Confirmed) Active Dementia, vascular(Confirmed) Active 1Echo 2014:The mid anterior,inferolateral, anterolateral wall is moderately to severely hypokinetic 72298-Bzillwdoys perfusion test shows scar in inferior and infero-lateral wall without reversibility. 3Had normal spirometry in [facility] in 04-06-2011, that if anything could suggest mild asthma 4Based on CXR done at [facility] in : hyperinflated lungs. PFTs [...]
--- OUTSIDE RECORDS SUMMARY | 2023-02-04 16:19 | XMS_ITS | Continuity of Care Document ---
Author Name Unknown Organization [facility] Address [address] [place] [address]- Care Team Providers Care Jig Boring Machine Operator For Metal Name Role Phone Nain WILSON, Lenore Primary Care Physician Encounter [facility] Date(s): 08/16/22 - 09/17/22 [facility] [address]- Attending Physician: Alessia Tarango NP Admitting Physician: Alessia Tarango NP Allergies, Adverse Reactions, Alerts No Known Medication [...] 8 11/07/12 Given pneumococcal 23-valent vaccine 9 2/14/11 Given 1Result Comment: [07/19/2016 Uncharted] duplicate 2Result Comment: [06/13/2014] Ordered by Som 3Admin Note: vis 03/05/2012 Flulzone 4Admin Note: VIS 03/29/11 GIVEN 5Admin Note: VIS 04/13/10 GIVEN 6Result Comment: Savage AraujoChastity 7Result Comment: [02/26/2015] Ordered by Som 8Admin Note: PT BRINGS IN VIS 05/10 9Admin Note: VIS 06/09/09 GIVEN Medications Adult Diapers size small Adult Diapers size small, See Instructions, # 240 each, Refills 11, Tot. Refills 11, Maintenance, to used as directed 8/day incontinence R32 vascular dementia F01.50 faxed to [phone], 08/10/20 15:06:00 EST, Supply Start Date: 08/10/20 [...] incontinence R32 vascular dementia F01.50 faxed to [phone], 08/10/20 15:06:00 EST, Supply Start Date: 08/10/20 [...] incontinence R32 vascular dementia F01.50 faxed to [phone], 08/10/2015:06:00 EST, Supply Start Date: 08/10/20 Status: [...] incontinence R32 vascular dementia F01.50 faxed to [phone], 08/10/20 15:06:00 EST, Supply Start Date: 08/10/20 [...] DNR (do not resuscitate) 8 Confirmed Active *[phone]-Car e Partner-Francheska Gallegos RN Confirmed Active Counseling regarding advanced directives 9 Confirmed Active Diabetes mellitus type II, controlled Confirmed 2015 Active Urolithiasis Confirmed Active Dementia, vascular Confirmed Active 1-in US done at [facility] March 2021 2Echo 2014:The mid anterior,inferolateral, anterolateral wall is moderately to severely hypokinetic 88777-Gimgklkkag perfusion test shows scar in inferior and infero-lateral wall without reversibility. 4-multiple subacute rib fractures on the Right (seen in imaging done at [facility] March 2021) 5-seen in CT scan abdomen done at [facility] March 2021 6Had normal spirometry in [facility] in -, that if anything could suggest mild asthma 7Based on CXR done at [facility] in : hyperinflated lungs. PFTs done [...] Team Personnel Name: Lenore Gillette MD Position: [facility] Primary Care Physician Member Role: PCP Address: Address: [address] [place] [address]- Care Team Related Persons Name: RIC HARPER Address: home [address] [place] [address] Name: NIKOLAS MEJÍA Address: home [address] [address] [place] [address] Name: ANITA LEÓN Address: home [facility] [address] Name: AKHIL CHAU Address: [place] [address] Name: JESENIA KUMARI Address: home [address] [place] [id number]
--- OUTSIDE RECORDS SUMMARY | 2023-02-04 16:19 | XMS_ITS | Continuity of Care Document ---
Author Name Unknown Organization [facility] Address [address] [place] [address]- Care Team Providers Care Computer Forensics Technician Name Role Phone Nain WILSON, Lenore Primary Care Physician ( [phone] [facility] Date[facility]s): 03/29/21 - 04/28/21 [facility] [address] [place] [address]- Attending Physician: Blayne Torres Admitting Physician: Blayne [...] incontinence R32 vascular dementia F01.50 faxed to [phone], 08/10/20 15:06:00 EST, Supply Start Date: 08/10/20 Status: Ordered albuterol CFC free 90 mcg/inh inhalation aerosol 1, puffs, Inhalation, 4 times a day, PRN, # 1 each, Refills 6, Tot. Refills 6, Maintenance, 12/20/18 11:20:52 EDT, Aerosol, Route to Pharmacy Electronically, [id number], [facility] Start Date: 12/20/18 Stop [...] incontinence R32 vascular dementia F01.50 faxed to [phone], 08/10/20 15:06:00 EST, Supply Start Date: 08/10/20 [...] incontinence R32 vascular dementia F01.50 faxed to [phone], 08/10/2015:06:00 EST, Supply Start Date: 08/10/20 Status: [...] incontinence R32 vascular dementia F01.50 faxed to [phone], 08/10/20 15:06:00 EST, Supply Start Date: 08/10/20 [...] PRN pain wash hands thoroughly after application Serbian, # 50 Gm, 0 Refills, Maintenance, 04/16/21 16:32:00 EDT, Ointment, [facility], Partial fill upon patient request if th... Start Date: 04/16/21 Status: Ordered naproxen 375 mg oral tablet 375 mg, 1, tablet, By Mouth, 2 times a day, Take PRN rib pain with food. Serbian, # 30 tablet, Refills 0, Tot. Refills [...] Supply Start Date: 06/02/20 Status: Ordered Pen [place], 30 G x 8 mm BD Ultra Fine II See Instructions, # 90 units, Refills 3, Tot. Refills 3, Maintenance, to use with lantus 15 units daily, 05/08/19 15:35:35 EDT, Compound Start Date: 05/08/19 Status: Ordered Pen [place], 30 G x 8 mm BD Ultra [...] Every week, rotate injection sites For diabetes Serbian, # 2 mL, 11 Refills, Maintenance, 04/16/21 [...] Active DNR (do not resuscitate)(Confirmed) 8 Active *[phone]-[facility] Neyda Gallegos RN(Confirmed) Active Counseling regarding advance d directives(Confirmed) 9 Active Diabetes mellitus type II, controlled(Confirmed) 2016 Active Urolithiasis(Confirmed) Active Dementia, vascular(Confirmed) Active 1-in US done at [facility] March 2021 2Echo 2014:The mid anterior,inferolateral, anterolateral wall is moderately to severely hypokinetic 16003-Jbjrhcirzp perfusion test shows scar in inferior and infero-lateral wall without reversibility. 4-multiple subacute rib fractures on the Right (seen in imaging done at [facility] March 2021) 5-seen in CT scan abdomen done at [facility] March 2021 6Had normal spirometry in [facility] in -, that if anything could suggest mild asthma 7Based on CXR done at [facility] in : hyperinflated lungs. PFTs done [...]
--- OUTSIDE RECORDS SUMMARY | 2023-02-04 16:19 | XMS_ITS | Continuity of Care Document ---
Author Name Unknown Organization [facility] Address [address] [place] [address]- Care Team Providers Care Fabricator Industrial Furnace Name Role Phone Lenore Gillette MD Primary Care Physician [facility] Date[facility]s): 10/31/19 - 01/22/20 [facility] [address] [place] [address]- [facility] Attending Physician: Valorie Paez MD Admitting Physician: [...] 11:20:52 EDT, Aerosol, Route to Pharmacy Electronically, [id number], [facility] Start Date: 12/20/18 Stop [...] Tablet Start Date: 12/20/18 Status: Ordered Pen [place], 30 G x 8 mm BD Ultra Fine II See Instructions, # 90 units, Refills 3, Tot. Refills 3, Maintenance, to use with lantus 15 units daily, 05/08/19 15:35:35 EDT, Compound Start Date: 05/08/19 Status: Ordered Pen [place], 30 G x 8 mm BD Ultra [...] 100(Confirmed) Active Mild asthma(Confirmed) 3, 4 Active *[id number]-[facility] swathiMya Monreal(Confirmed) Active Diabetes mellitus type II, controlled(Confirmed) 2015 Active Urolithiasis(Confirmed) Active Dementia, vascular(Confirmed) Active 1Echo 2014:The mid anterior,inferolateral, anterolateral wall is moderately to severely hypokinetic 12840-Rrpgxjwsmi perfusion test shows scar in inferior and infero-lateral wall without reversibility. 3Had normal spirometry in [facility] in 04-06-2011, that if anything could suggest mild asthma 4Based on CXR done at [facility] in : hyperinflated lungs. PFTs done [...]
--- OUTSIDE RECORDS SUMMARY | 2023-02-04 16:19 | XMS_ITS | Continuity of Care Document ---
Author Name Unknown Organization [facility] Address Unknown Care Team Providers Care Recruit Instructor Name Role Phone Nain WILSON, Lenore Primary Care Physician [facility] [facility] [id number] Date(s): 04/16/21 - 05/16/21 [facility] Attending Physician: Blayne Torres Admitting Physician: Blayne Torres Referring Physician: Blayne Torres Allergies, Adverse Reactions, Alerts No Known Medication [...] incontinence R32 vascular dementia F01.50 faxed to [phone], 08/10/20 15:06:00 EST, Supply Start Date: 08/10/20 Status: Ordered albuterol CFC free 90 mcg/inh inhalation aerosol 1, puffs, Inhalation, 4 times a day, PRN, # 1 each, Refills 6, Tot. Refills 6, Maintenance, 12/20/18 11:20:52 EDT, Aerosol, Route to Pharmacy Electronically, [id number], [facility] Start Date: 12/20/18 Stop [...] incontinence R32 vascular dementia F01.50 faxed to [phone], 08/10/20 15:06:00 EST, Supply Start Date: 08/10/20 Status: Ordered docusate sodium 100 mg oral capsule 1 capsule, By Mouth, 2 times a day, # 56 capsule, 5 Refills, [facility], 157, cm, 04/16/21 15:53:00 EDT, Height Start [...] incontinence R32 vascular dementia F01.50 faxed to [phone], 08/10/2015:06:00 EST, Supply Start Date: 08/10/20 Status: [...] incontinence R32 vascular dementia F01.50 faxed to [phone], 08/10/20 15:06:00 EST, Supply Start Date: 08/10/20 [...] PRN pain wash hands thoroughly after application Bulgarian, # 50 Gm, 0 Refills, Maintenance, 04/16/21 16:32:00 EDT, Ointment, [facility], Partial fill upon patient request if th... Start Date: 04/16/21 Status: Ordered naproxen 375 mg oral tablet 375 mg, 1, tablet, By Mouth, 2 times a day, Take PRN rib pain with food. Bulgarian, # 30 tablet, Refills 0, Tot. Refills [...] Supply Start Date: 06/02/20 Status: Ordered Pen [place], 30 G x 8 mm BD Ultra Fine II See Instructions, # 90 units, Refills 3, Tot. Refills 3, Maintenance, to use with lantus 15 units daily, 05/08/19 15:35:35 EDT, Compound Start Date: 05/08/19 Status: Ordered Pen [place], 30 G x 8 mm BD Ultra [...] 11:25:00 EDT, Route to Pharmacy Electronically, [facility], [place]... Start Date: 03/25/21 Stop Date: 03/20/22 Status: Ordered Trulicity Pen 0.75 mg/0.5 mL subcutaneous solution 0.5 mL = 0.75 mg, Subcutaneous Injection, Every week, rotate injection sites For diabetes Bulgarian, # 2 mL, 11 Refills, Maintenance, 04/16/21 16:42:00 EDT, Solution, [facility], Partial fill upon patient request [...] Active DNR (do not resuscitate)(Confirmed) 8 Active *[phone]-Care Partpennie Gallegos RN(Confirmed) Active Counseling regarding advance d directives(Confirmed) 9 Active Diabetes mellitus type II, controlled(Confirmed) 2016 Active Urolithiasis(Confirmed) Active Dementia, vascular(Confirmed) Active 1-in US done at [facility] March 2021 2Echo 2014:The mid anterior,inferolateral, anterolateral wall is moderately to severely hypokinetic 69967-Notyvlomsy perfusion test shows scar in inferior and infero-lateral wall without reversibility. 4-multiple subacute rib fractures on the Right (seen in imaging done at [facility] March 2021) 5-seen in CT scan abdomen done at [facility] March 2021 6Had normal spirometry in [facility] in 04-06-2011, that if anything could suggest mild asthma 7Based on CXR done at [facility] in : hyperinflated lungs. PFTs done at outside facility (scanned under non BH results) showed severe obstruction with no marked improvement in FEV1 afer bronchodilator 8MOLST 04/30/20 to reflect DNR DNI, no CPAP, ok to hospitalize, no artificial nutrition, no HD Health Care Proxy: Patient has appointed his daughter Tereza as his HCP 9DNR/DNI Procedures Procedure Date [...]
--- OUTSIDE RECORDS SUMMARY | 2023-02-04 16:19 | XMS_ITS | Continuity of Care Document ---
Author Name Unknown Organization [facility] Address [address] [place] [address]- Care Team Providers Care Bi Specialist Name Role Phone Nain WILSON, Lenore Primary Care Physician [facility] Date(s): 06/03/20 - 07/03/20 [facility] [address] [place] [address]- [facility] Allergies, Adverse Reactions, Alerts [...] 11:20:52 EDT, Aerosol, Route to Pharmacy Electronically, [id number], [facility] Start Date: 12/20/18 Stop [...] Supply Start Date: 06/02/20 Status: Ordered Pen [place], 30 G x 8 mm BD Ultra Fine II See Instructions, # 90 units, Refills 3, Tot. Refills 3, Maintenance, to use with lantus 15 units daily, 05/08/19 15:35:35 EDT, Compound Start Date: 05/08/19 Status: Ordered Pen [place], 30 G x 8 mm BD Ultra [...] 100(Confirmed) Active Mild asthma(Confirmed) 3, 4 Active *[phone] Neyda Gallegos RN(Confirmed) Active Counseling regarding advance d directives(Confirmed) 5 Active Diabetes mellitus type II, controlled(Confirmed) 2016 Active Urolithiasis(Confirmed) Active Dementia, vascular(Confirmed) Active 1Echo 2014:The mid anterior,inferolateral, anterolateral wall is moderately to severely hypokinetic 16251-Eowesnlxwz perfusion test shows scar in inferior and infero-lateral wall without reversibility. 3Had normal spirometry in [facility] in 04-06-2011, that if anything could suggest mild asthma 4Based on CXR done at [facility] in : hyperinflated lungs. PFTs [...]
--- OUTSIDE RECORDS SUMMARY | 2023-02-04 16:19 | XMS_ITS | Continuity of Care Document ---
Author Name Unknown Organization [facility] Address [address] [place] [address]- Care Team Providers Care Plant Production Worker Name Role Phone Nain WILSON, Lenore Primary Care Physician [facility] Date(s): 01/03/20 - 02/02/20 [facility]/[address] [address]- [facility] Attending Physician: AdmBlayne dietz Admitting Physician: AdmtrBlayne Referring Physician: Admtr, Blayne Allergies, Adverse Reactions, Alerts No Known Medication [...] 11:20:52 EDT, Aerosol, Route to Pharmacy Electronically, [id number], [facility] Start Date: [...] Tablet Start Date: 12/20/18 Status: Ordered Pen [place], 30 G x 8 mm BD Ultra Fine II See Instructions, # 90 units, Refills 3, Tot. Refills 3, Maintenance, to use with lantus 15 units daily, 05/08/19 15:35:35 EDT, Compound Start Date: 05/08/19 Status: Ordered Pen [place], 30 G x 8 mm BD Ultra [...] 100(Confirmed) Active Mild asthma(Confirmed) 3, 4 Active *[phone]-[facility] swathi-Mya Fairbanksgriselda(Confirmed) Active Diabetes mellitus type II, controlled(Confirmed) 2015 Active Urolithiasis(Confirmed) Active Dementia, vascular(Confirmed) Active 1Echo 2014:The mid anterior,inferolateral, anterolateral wall is moderately to severely hypokinetic 80032-Kigqlxgund perfusion test shows scar in inferior and infero-lateral wall without reversibility. 3Had normal spirometry in [facility] in 04-06-2011, that if anything could suggest mild asthma 4Based on CXR done at [facility] in : hyperinflated lungs. PFTs done at outside facility (scanned under non BH results) showed severe obstruction with no marked improvement in FEV1 afer bronchodilator Procedures Procedure Date Related Diagnosis Body Site [...]
--- OUTSIDE RECORDS SUMMARY | 2023-02-04 16:19 | XMS_ITS | Continuity of Care Document ---
Author Name Unknown Organization [facility] Address Unknown Care Team Providers Care Burnt Lime Drawer Name Role Phone Nain WILSON, Lenore Primary Care Physician [place] [facility] [place] 07/10/21 [facility] Attending Physician: Blayne Torres Admitting Physician: [...] incontinence R32 vascular dementia F01.50 faxed to [phone], 08/10/20 15:06:00 EST, Supply Start Date: 08/10/20 Status: Ordered albuterol CFC free 90 mcg/inh inhalation aerosol 1, puffs, Inhalation, 4 times a day, PRN, # 1 each, Refills 6, Tot. Refills 6, Maintenance, 12/20/18 11:20:52 EDT, Aerosol, Route to Pharmacy Electronically, [id number], [facility] Start Date: 12/20/18 Stop [...] incontinence R32 vascular dementia F01.50 faxed to [phone], 08/10/20 15:06:00 EST, Supply Start Date: 08/10/20 [...] incontinence R32 vascular dementia F01.50 faxed to [phone], 08/10/2015:06:00 EST, Supply Start Date: 08/10/20 Status: [...] incontinence R32 vascular dementia F01.50 faxed to [phone], 08/10/20 15:06:00 EST, Supply Start Date: 08/10/20 [...] day, Take PRN rib pain with food. Zimbabwean, # 30 tablet, Refills 0, Tot. Refills 0, Maintenance, 04/16/21 16:32:00 EDT, Route to Pharmacy Electronically, [facility]; [facility], Partial fill upon patient [...] Supply Start Date: 06/02/20 Status: Ordered Pen [place], 30 G x 8 mm BD Ultra Fine II See Instructions, # 100 each, Refills 1, Tot. Refills 1, Maintenance, dx: DM II. to use with [id number] units daily, 06/03/21 15:48:00 EDT, Compound, 157, cm, 06/03/21 10:57:00 EDT, Height Start Date: 06/03/21 Status: Ordered Pen [place], 30 G x 8 mm BD Ultra [...] 6 Refills, Maintenance, 06/03/21 11:11:00 EDT, Solution, [facility], Partial fillupon [...] Active DNR (do not resuscitate)(Confirmed) 8 Active *[phone][facility] Franc[facility]ka Gallegos RN(Confirmed) Active Counseling regarding advance d directives(Confirmed) 9 Active Diabetes mellitus type II, controlled(Confirmed) 2016 Active Urolithiasis(Confirmed) Active Dementia, vascular(Confirmed) Active 1-in US done at [facility] March 2021 2Echo 2014:The mid anterior,inferolateral, anterolateral wall is moderately to severely hypokinetic 27825-Pbyaqnynjv perfusion test shows scar in inferior and infero-lateral wall without reversibility. 4-multiple subacute rib fractures on the Right (seen in imaging done at [facility] March 2021) 5-seen in CT scan abdomen done at [facility] March 2021 6Had normal spirometry in [facility] in 04-06-2011, that if anything could suggest mild asthma 7Based on CXR done at [facility] in : hyperinflated lungs. PFTs done [...]
--- OUTSIDE RECORDS SUMMARY | 2023-02-04 16:19 | XMS_ITS | Continuity of Care Document ---
Author Name Unknown Organization [facility] Address Unknown Care Team Providers Care Stand In Name Role Phone Nain WILSON, Lenore Primary Care Physician [facility] Date(s): 05/26/21 - 06/25/21 [facility] Allergies, Adverse Reactions, Alerts No [...] incontinence R32 vascular dementia F01.50 faxed to [phone], 08/10/20 15:06:00 EST, Supply Start Date: 08/10/20 Status: Ordered albuterol CFC free 90 mcg/inh inhalation aerosol 1, puffs, Inhalation, 4 times a day, PRN, # 1 each, Refills 6, Tot. Refills 6, Maintenance, 12/20/18 11:20:52 EDT, Aerosol, Route to Pharmacy Electronically, [id number], [facility] Start Date: 12/20/18 Stop [...] incontinence R32 vascular dementia F01.50 faxed to [phone], 08/10/20 15:06:00 EST, Supply Start Date: 08/10/20 [...] incontinence R32 vascular dementia F01.50 faxed to [phone], 08/10/2015:06:00 EST, Supply Start Date: 08/10/20 Status: [...] incontinence R32 vascular dementia F01.50 faxed to [phone], 08/10/20 15:06:00 EST, Supply Start Date: 08/10/20 [...] day, Take PRN rib pain with food. Japanese, # 30 tablet, Refills 0, Tot. Refills [...] Supply Start Date: 06/02/20 Status: Ordered Pen [place], 30 G x 8 mm BD Ultra Fine II See Instructions, # 100 each, Refills 1, Tot. Refills 1, Maintenance, dx: DM II. to use with [id number] units daily, 06/03/21 15:48:00 EDT, Compound, 157, cm, 06/03/21 10:57:00 EDT, Height Start Date: 06/03/21 Status: Ordered Pen [place], 30 G x 8 mm BD Ultra [...] cm, 11/26/20 18:32:00 EDT, Supply Start Date: 3/25/21 Status: Ordered Zoloft 100 mg oral tablet 1 tablet = 100 mg, By Mouth, Daily, Please discontinue previous Rx of 50 mg with 100 mg being new dosing, # 90 tablet, 3 Refills, Maintenance, 08/17/20 13:32:00 EST, Tablet, [facility], Partial fill [...] Active DNR (do not resuscitate)(Confirmed) 8 Active *[id number]-Care Partpennie Gallegos RN(Confirmed) Active Counseling regarding advance d directives(Confirmed) 9 Active Diabetes mellitus type II, controlled(Confirmed) 2015 Active Urolithiasis(Confirmed) Active Dementia, vascular(Confirmed) Active 1-in US done at [facility] March 2021 2Echo 2014:The mid anterior,inferolateral, anterolateral wall is moderately to severely hypokinetic 78069-Pvgicddfrc perfusion test shows scar in inferior and infero-lateral wall without reversibility. 4-multiple subacute rib fractures on the Right (seen in imaging done at [facility] March 2021) 5-seen in CT scan abdomen done at [facility] March 2021 6Had normal spirometry in [facility] in 04-06-2011, that if anything could suggest mild asthma 7Based on CXR done at [facility] in : hyperinflated lungs. PFTs done at [...]
--- OUTSIDE RECORDS SUMMARY | 2023-02-04 16:19 | XMS_ITS | Continuity of Care Document ---
Author Name Unknown Organization [facility] Address [address] [place] [address]- Care Team Providers Care Interpreter Translator Name Role Phone Nain WILSON, Lenore Primary Care Physician ( [phone] [facility] Date(s): 12/20/21 - 02/17/22 [facility] [address] [place] [address]- Attending Physician: Valorie Paez MD Admitting Physician: [...] incontinence R32 vascular dementia F01.50 faxed to [phone], 08/10/20 15:06:00 EST, Supply Start Date: 08/10/20 Status: Ordered Aspirin Low Dose 81 mg oral delayed release tablet See Instructions, TAKE 1 TABLET BY MOUTH DAILY WITH FOOD, # 28 tablet, 10 Refills, [facility], 157, cm, 12/09/21 10:30:00 EDT, Height Start [...] incontinence R32 vascular dementia F01.50 faxed to [phone], 08/10/20 15:06:00 EST, Supply Start Date: 08/10/20 [...] incontinence R32 vascular dementia F01.50 faxed to [phone], 08/10/2015:06:00 EST, Supply Start Date: 08/10/20 Status: [...] incontinence R32 vascular dementia F01.50 faxed to [phone], 08/10/20 15:06:00 EST, Supply Start Date: 08/10/20 [...] Supply Start Date: 02/02/22 Status: Ordered Pen [place], 30 G x 8 mm BD Ultra Fine II See Instructions, # 90 each, Refills 3, Tot. Refills 3, Maintenance, to use with lantus daily, 12/09/21 11:14:00 EDT, Compound, 157, cm, 12/09/21 10:30:00 EDT, Height Start Date: 12/09/21 Status: Ordered Pen [place], 30 G x 8 mm BD Ultra Fine II See Instructions, # 100 each, Refills 1, Tot. Refills 1, Maintenance, dx: DM II. to use with [id number] units daily, 12/08/21 15:38:00 EDT, Compound, 157, [...] BREATH, # 18 Gm, 0 Refills, [facility], 157, cm, 09/27/21 8:42:00 EST, Height [...] Active DNR (do not resuscitate)(Confirmed) 8 Active *[id number]-Care Partn swathi-Francheska Gallegos RN(Confirmed) Active Counseling regarding advance d directives(Confirmed) 9 Active Diabetes mellitus type II, controlled(Confirmed) 2016 Active Urolithiasis(Confirmed) Active Dementia, vascular(Confirmed) Active 1-in US done at [facility] March 2021 2Echo 2014:The mid anterior,inferolateral, anterolateral wall is moderately to severely hypokinetic 11592-Pmreuluvzn perfusion test shows scar in inferior and infero-lateral wall without reversibility. 4-multiple subacute rib fractures on the Right (seen in imaging done at [facility] March 2021) 5-seen in CT scan abdomen done at [facility] March 2021 6Had normal spirometry in [facility] in 04-06-2011, that if anything could suggest mild asthma 7Based on CXR done at [facility] in : hyperinflated lungs. PFTs done [...]
--- OUTSIDE RECORDS SUMMARY | 2023-02-04 16:19 | XMS_ITS | Continuity of Care Document ---
Author Name Unknown Organization [facility] Address [address] [place] [address]- Care Team Providers Care Life Skills Instructor Name Role Phone Nain WILSON, Lenore Primary Care Physician [place] [facility] [place] [id number] Date(s): 06/09/20 - 07/09/20 [facility] De Lisa [address] [place] [address]- Attending Physician: Blayne Torres Admitting Physician: Blayne [...] 11:20:52 EDT, Aerosol, Route to Pharmacy Electronically, [id number], [facility] Start Date: 12/20/18 Stop [...] Supply Start Date: 06/02/20 Status: Ordered Pen [place], 30 G x 8 mm BD Ultra Fine II See Instructions, # 90 units, Refills 3, Tot. Refills 3, Maintenance, to use with lantus 15 units daily, 05/08/19 15:35:35 EDT, Compound Start Date: 05/08/19 Status: Ordered Pen [place], 30 G x 8 mm BD Ultra [...] 100(Confirmed) Active Mild asthma(Confirmed) 3, 4 Active *[phone]-[facility] Neyda Gallegos RN(Confirmed) Active Counseling regarding advance d directives(Confirmed) 5 Active Diabetes mellitus type II, controlled(Confirmed) 2015 Active Urolithiasis(Confirmed) Active Dementia, vascular(Confirmed) Active 1Echo 2014:The mid anterior,inferolateral, anterolateral wall is moderately to severely hypokinetic 37938-Rzbjgddcpv perfusion test shows scar in inferior and infero-lateral wall without reversibility. 3Had normal spirometry in [facility] in 04-06-2011, that if anything could suggest mild asthma 4Based on CXR done at [facility] in : hyperinflated lungs. PFTs [...]
--- OUTSIDE RECORDS SUMMARY | 2023-02-04 16:19 | XMS_ITS | Continuity of Care Document ---
Author Name Unknown Organization [facility] Address [address] [place] [address]- Care Team Providers Care Baker Apprentice Name Role Phone Nain WILSON, Lenore Primary Care Physician [facility]): [facility]21 - 05/22/21 [facility] Medicine [address] [place] [id number] Allergies, Adverse Reactions, Alerts No Known Medication [...] incontinence R32 vascular dementia F01.50 faxed to [phone], 08/10/20 15:06:00 EST, Supply Start Date: 08/10/20 Status: Ordered albuterol CFC free 90 mcg/inh inhalation aerosol 1, puffs, Inhalation, 4 times a day, PRN, # 1 each, Refills 6, Tot. Refills 6, Maintenance, 12/20/18 11:20:52 EDT, Aerosol, Route to Pharmacy Electronically, [id number], [facility] Start Date: 12/20/18 Stop [...] incontinence R32 vascular dementia F01.50 faxed to [phone], 08/10/20 15:06:00 EST, Supply Start Date: 08/10/20 [...] incontinence R32 vascular dementia F01.50 faxed to [phone], 08/10/2015:06:00 EST, Supply Start Date: 08/10/20 Status: [...] incontinence R32 vascular dementia F01.50 faxed to [phone], 08/10/20 15:06:00 EST, Supply Start Date: 08/10/20 [...] Supply Start Date: 06/02/20 Status: Ordered Pen [place], 30 G x 8 mm BD Ultra Fine II See Instructions, # 90 units, Refills 3, Tot. Refills 3, Maintenance, to use with lantus 15 units daily, 05/08/19 15:35:35 EDT, Compound Start Date: 05/08/19 Status: Ordered Pen [place], 30 G x 8 mm BD Ultra [...] 11:25:00 EDT, Route to Pharmacy Electronically, [facility], [place]... Start Date: 03/25/21 [...] Active DNR (do not resuscitate)(Confirmed) 8 Active *[phone][facility](Confirmed) Active Counseling regarding advance d directives(Confirmed) 9 Active Diabetes mellitus type II, controlled(Confirmed) 2016 Active Urolithiasis(Confirmed) Active Dementia, vascular(Confirmed) Active 1-in US done at [facility] March 2021 2Echo 2014:The mid anterior,inferolateral, anterolateral wall is moderately to severely hypokinetic 70660-Pqctjwejtd perfusion test shows scar in inferior and infero-lateral wall without reversibility. 4-multiple subacute rib fractures on the Right (seen in imaging done at [facility] March 2021) 5-seen in CT scan abdomen done at [facility] March 2021 6Had normal spirometry in [facility] in 04-06-2011, that if anything could suggest mild asthma 7Based on CXR done at [facility] in : hyperinflated lungs. PFTs [...]
--- OUTSIDE RECORDS SUMMARY | 2023-02-04 16:19 | XMS_ITS | Continuity of Care Document ---
Author Name Unknown Organization [facility] Address [address] [place] [address]- Care Team Providers Care Sharemilker Name Role Phone Nain WILSON, Lenore Primary Care Physician [facility] Date(s): 04/27/22 - 05/27/22 [facility] [address]- [place] Allergies, Adverse Reactions, Alerts No Known [...] incontinence R32 vascular dementia F01.50 faxed to [phone], 08/10/20 15:06:00 EST, Supply Start Date: 08/10/20 [...] EDT, Height Start Date: 05/25/22 Status: Ordered atorvastatin 40 mg oral tablet [...] incontinence R32 vascular dementia F01.50 faxed to [phone], 08/10/20 15:06:00 EST, Supply Start Date: 08/10/20 Status: Ordered docusate sodium 100 mg oral capsule 1 capsule, By Mouth, 2 times a day, # 56 capsule, 10 Refills, Maintenance, 04/28/22 10:19:00 EDT, [facility], 157, cm, 02/15/22 11:08:00 EDT, Height Start Date: 04/28/22 Status: Ordered Freestyle Lite Lancets See Instructions, [...] incontinence R32 vascular dementia F01.50 faxed to [phone], 08/10/2015:06:00 EST, Supply Start Date: 08/10/20 Status: [...] incontinence R32 vascular dementia F01.50 faxed to [phone], 08/10/20 15:06:00 EST, Supply Start Date: 08/10/20 [...] Supply Start Date: 02/02/22 Status: Ordered Pen [place], 30 G x 8 mm BD Ultra Fine II See Instructions, # 90 each, Refills 3, Tot. Refills 3, Maintenance, to use with lantus daily, 12/09/21 11:14:00 EDT, Compound, 157, cm, 12/09/21 10:30:00 EDT, Height Start Date: 12/09/21 Status: Ordered Pen [place], 30 G x 8 mm BD Ultra Fine II See Instructions, # 100 each, Refills 1, Tot. Refills 1, Maintenance, dx: DM II. to use with ojuwxo27 units daily, 12/08/21 15:38:00 EDT, Compound, 157, [...] is fo... Start Date: 02/15/22 Status: Ordered sertraline 100 mg oral tablet 1 tablet, By Mouth, Daily, # 28 tablet, 5 Refills, Maintenance, 05/25/22 18:17:00 EDT, [facility], 157, cm, 05/03/22 11:09:00 EDT, Height Start [...] OF BREATH, # 18 Gm, 0 Refills, [facility], 157, cm, 09/27/21 8:42:00 EST, Height [...] Active DNR (do not resuscitate)(Confirmed) 8 Active *[id number]-[facility] Gal[facility] RN(Confirmed) Active Counseling regarding advance d directives(Confirmed) 9 Active Diabetes mellitus type II, controlled(Confirmed) 2015 Active Urolithiasis(Confirmed) Active Dementia, vascular(Confirmed) Active 1-in US done at [facility] March 2021 2Echo 2014:The mid anterior,inferolateral, anterolateral wall is moderately to severely hypokinetic 50366-Hhddfbfxdk perfusion test shows scar in inferior and infero-lateral wall without reversibility. 4-multiple subacute rib fractures on the Right (seen in imaging done at [facility] March 2021) 5-seen in CT scan abdomen done at [facility] March 2021 6Had normal spirometry in [facility] in 04-06-2011, that if anything could suggest mild asthma 7Based on CXR done at [facility] in : hyperinflated lungs. PFTs [...] more than 30 days ago; Type: Cigarettes; Tobacco use times per day: 2 CIGS A DAY; Started at age: 22; entered on: 05/03/22 Sex Care Team Personnel Name: Nain WILSON, Lenore Address: [address] [place] [id number]
--- OUTSIDE RECORDS SUMMARY | 2023-02-04 16:19 | XMS_ITS | Continuity of Care Document ---
Author Name Unknown Organization [facility] Address [address] [place] [address]- Care Team Providers Care Scaleman Name Role Phone Nain WILSON, Lenore Primary Care Physician [facility]): 05[facility]25/20 - 06/24/20 [facility] De [address] [address]- [facility] Allergies, Adverse Reactions, Alerts No Known [...] 11:20:52 EDT, Aerosol, Route to Pharmacy Electronically, [id number], [facility] Start Date: 12/20/18 Stop [...] Supply Start Date: 06/02/20 Status: Ordered Pen [place], 30 G x 8 mm BD Ultra Fine II See Instructions, # 90 units, Refills 3, Tot. Refills 3, Maintenance, to use with lantus 15 units daily, 05/08/19 15:35:35 EDT, Compound Start Date: 05/08/19 Status: Ordered Pen [place], 30 G x 8 mm BD Ultra [...] 100(Confirmed) Active Mild asthma(Confirmed) 3, 4 Active *[phone] Neyda Gallegos RN(Confirmed) Active Counseling regarding advance d directives(Confirmed) 5 Active Diabetes mellitus type II, controlled(Confirmed) 2016 Active Urolithiasis(Confirmed) Active Dementia, vascular(Confirmed) Active 1Echo 2014:The mid anterior,inferolateral, anterolateral wall is moderately to severely hypokinetic 09683-Lgzapeqgob perfusion test shows scar in inferior and infero-lateral wall without reversibility. 3Had normal spirometry in [facility] in 04-06-2011, that if anything could suggest mild asthma 4Based on CXR done at [facility] in : hyperinflated lungs. PFTs done [...]
--- OUTSIDE RECORDS SUMMARY | 2023-02-04 16:19 | XMS_ITS | Continuity of Care Document ---
Author Name Unknown Organization [facility] Address [address] [place] [address]- Care Team Providers Care Wire Temperer Name Role Phone Nain WILSON, Lenore Primary Care Physician [facility]s): 06/03/20 - 07/03/20 [facility] De Lisa [address] [place] [address]- [facility] Allergies, Adverse Reactions, Alerts No Known [...] 11:20:52 EDT, Aerosol, Route to Pharmacy Electronically, [id number], [facility] Start Date: 12/20/18 Stop [...] Supply Start Date: 06/02/20 Status: Ordered Pen [place], 30 G x 8 mm BD Ultra Fine II See Instructions, # 90 units, Refills 3, Tot. Refills 3, Maintenance, to use with lantus 15 units daily, 05/08/19 15:35:35 EDT, Compound Start Date: 05/08/19 Status: Ordered Pen [place], 30 G x 8 mm BD Ultra [...] 100(Confirmed) Active Mild asthma(Confirmed) 3, 4 Active *[id number] Neyda Gallegos RN(Confirmed) Active Counseling regarding advance d directives(Confirmed) 5 Active Diabetes mellitus type II, controlled(Confirmed) 2016 Active Urolithiasis(Confirmed) Active Dementia, vascular(Confirmed) Active 1Echo 2014:The mid anterior,inferolateral, anterolateral wall is moderately to severely hypokinetic 76802-Tzqrwuwcuu perfusion test shows scar in inferior and infero-lateral wall without reversibility. 3Had normal spirometry in [facility] in 04-06-2011, that if anything could suggest mild asthma 4Based on CXR done at [facility] in : hyperinflated lungs. PFTs done at [...]
--- OUTSIDE RECORDS SUMMARY | 2023-02-04 16:19 | XMS_ITS | Continuity of Care Document ---
Author Name Unknown Organization [facility] Address [address] [place] [address]- Care Team Providers Care Pool Cleaner Name Role Phone Nain WILSON, Lenore Primary Care Physician [facility]s): 05/19/20 - 09/16/20 [facility] [address] [place] [address] Attending Physician: Valorie Paez MD Admitting Physician: [...] GIVEN 6Result Comment: [02/26/2015] Ordered by Som Robison Note: PT BRINGS IN VIS 05/10 8Avivianain Note: VIS 06/09/09 GIVEN Medications Adult Diapers size small Adult Diapers size small, See Instructions, # 240 each, Refills 11, Tot. Refills 11, Maintenance, to used as directed 8/day incontinence R32 vascular dementia F01.50 faxed to [phone], 08/10/20 15:06:00 EST, Supply Start Date: 08/10/20 Status: Ordered albuterol CFC free 90 mcg/inh inhalation aerosol 1, puffs, Inhalation, 4 times a day, PRN, # 1 each, Refills 6, Tot. Refills 6, Maintenance, 12/20/18 11:20:52 EDT, Aerosol, Route to Pharmacy Electronically, [id number], [facility] Start Date: 12/20/18 Stop [...] incontinence R32 vascular dementia F01.50 faxed to [phone], 08/10/20 15:06:00 EST, Supply Start Date: 08/10/20 [...] incontinence R32 vascular dementia F01.50 faxed to [phone], 08/10/2015:06:00 EST, Supply Start Date: 08/10/20 Status: Ordered Incontinence wipes for adults Incontinence wipes for adults, See Instructions, # 4 pack/packet, Refills 11, Tot. Refills 11, Maintenance, to used as directed 8 changes/day incontinence R32 vascular dementia F01.50 faxed to [phone], 08/10/20 15:06:00 EST, Supply Start Date: 08/10/20 [...] Supply Start Date: 06/02/20 Status: Ordered Pen [place], 30 G x 8 mm BD Ultra Fine II See Instructions, # 30 each, Refills 11, Tot. Refills 11, Maintenance, dx: DM II. to use with lantus 10 units daily, 10/21/19 12:12:00 EST, Compound, 157, cm, 07/04/19 11:26:00 EDT, Height Start Date: 10/21/19 Status: Ordered Pen [place], 30 G x 8 mm BD Ultra [...] 100(Confirmed) Active Mild asthma(Confirmed) 3, 4 Active *[id number]-Care Partpennie echevarria-Francheska Gallegos RN(Confirmed) Active Counseling regarding advance d directives(Confirmed) 5 Active Diabetes mellitus type II, controlled(Confirmed) 2015 Active Urolithiasis(Confirmed) Active Dementia, vascular(Confirmed) Active 1Echo 2014:The mid anterior,inferolateral, anterolateral wall is moderately to severely hypokinetic 38313-Pixdnqcdsk perfusion test shows scar in inferior and infero-lateral wall without reversibility. 3Had normal spirometry in [facility] in 04-06-2011, that if anything could suggest mild asthma 4Based on CXR done at [facility] in : hyperinflated lungs. PFTs [...]
--- OUTSIDE RECORDS SUMMARY | 2023-02-04 16:19 | XMS_ITS | Continuity of Care Document ---
Author Name Unknown Organization [facility] Address [address] [place] [address]- Care Team Providers Care Vacuum Evaporation Operator Name Role Phone Nain WILSON, Lenore Primary Care Physician [facility] Date(s): 12/19/22 - 01/18/23 [facility] [place] [address]- [place] Allergies, Adverse Reactions, Alerts No Known [...] incontinence R32 vascular dementia F01.50 faxed to [phone], 01/02/23 14:17:00 EDT, Supply Start Date: 01/02/23 [...] incontinence R32 vascular dementia F01.50 faxed to [phone], 01/02/23 14:17:00 EDT, Supply Start Date: 01/02/23 Status: Ordered Gloves size adult Gloves size adult, See Instructions, # 4 pack/packet, Refills 11, Tot. Refills 11, Maintenance, to used as directed 8pair/day incontinence R32 vascular dementia F01.50 faxed to [phone], 08/10/2015:06:00 EST, Supply Start Date: 08/10/20 Status: [...] incontinence R32 vascular dementia F01.50 faxed to [phone], 08/10/20 15:06:00 EST, Supply Start Date: 08/10/20 [...] ER, # 25 tablet, 0 Refills, [facility], 157, cm, 09/27/21 8:42:00 E... Start [...] Height Start Date: 12/22/22 Status: Ordered Pen [place], 30 G x 8 mm BD Ultra [...] DNR (do not resuscitate) 8 Confirmed Active *[phone]-Car e Partner-Francheska Gallegos RN Confirmed Active Counseling regarding advanced directives 9 Confirmed Active Diabetes mellitus type II, controlled Confirmed 2015 Active Urolithiasis Confirmed Active Dementia, vascular Confirmed Active 1-in US done at [facility] March 2021 2Echo 2014:The mid anterior,inferolateral, anterolateral wall is moderately to severely hypokinetic 70530-Tfpvqagreo perfusion test shows scar in inferior and infero-lateral wall without reversibility. 4-multiple subacute rib fractures on the Right (seen in imaging done at [facility] March 2021) 5-seen in CT scan abdomen done at [facility] March 2021 6Had normal spirometry in [facility] in 04-06-2011, that if anything could suggest mild asthma 7Based on CXR done at [facility] in : hyperinflated lungs. PFTs [...] Team Personnel Name: Lenore Gillette MD Position: [facility] Primary Care Physician Member Role: PCP Address: Address: [address] [place] [address]- Care Team Related Persons Name: RIC HARPER Address: home [address] [address] Name: NIKOLAS MEJÍA Address: home [address] [facility] [address] [place] [address] Name: ANITA LEÓN Address: home [facility] [address] Name: AKHIL CHAU Address: [place] [address] Name: JESENIA KUMARI Address: [place] [address]
--- OUTSIDE RECORDS SUMMARY | 2023-02-04 16:19 | XMS_ITS | Continuity of Care Document ---
Author Name Unknown Organization [facility] Address Unknown Care Team Providers Care Bulk Intake Worker Name Role Phone Nain WILSON, Lenore Primary Care Physician ( [phone] Encounter [facility] [place] [place] Date(s): 04/30/21 - 05/30/21 [facility] Allergies, Adverse Reactions, Alerts No Known [...] 8Asaloni Note: PT BRINGS IN VIS 05/10 9Asaloni Note: VIS 06/09/09 GIVEN Medications Adult Diapers size small Adult Diapers size small, See Instructions, # 240 each, Refills 11, Tot. Refills 11, Maintenance, to used as directed 8/day incontinence R32 vascular dementia F01.50 faxed to [phone], 08/10/20 15:06:00 EST, Supply Start Date: 08/10/20 Status: Ordered albuterol CFC free 90 mcg/inh inhalation aerosol 1, puffs, Inhalation, 4 times a day, PRN, # 1 each, Refills 6, Tot. Refills 6, Maintenance, 12/20/18 11:20:52 EDT, Aerosol, Route to Pharmacy Electronically, [id number], [facility] Start Date: 12/20/18 Stop [...] incontinence R32 vascular dementia F01.50 faxed to [phone], 08/10/20 15:06:00 EST, Supply Start Date: 08/10/20 [...] incontinence R32 vascular dementia F01.50 faxed to [phone], 08/10/2015:06:00 EST, Supply Start Date: 08/10/20 Status: [...] incontinence R32 vascular dementia F01.50 faxed to [phone], 08/10/20 15:06:00 EST, Supply Start Date: 08/10/20 [...] PRN pain wash hands thoroughly after application Amharic, # 50 Gm, 0 Refills, Maintenance, 04/16/21 16:32:00 EDT, Ointment, [facility], Partial fill upon patient request if th... Start Date: 04/16/21 Status: Ordered naproxen 375 mg oral tablet 375 mg, 1, tablet, By Mouth, 2 times a day, Take PRN rib pain with food. Amharic, # 30 tablet, Refills 0, Tot. Refills [...] Supply Start Date: 06/02/20 Status: Ordered Pen [place], 30 G x 8 mm BD Ultra Fine II See Instructions, # 90 units, Refills 3, Tot. Refills 3, Maintenance, to use with lantus 15 units daily, 05/08/19 15:35:35 EDT, Compound Start Date: 05/08/19 Status: Ordered Pen [place], 30 G x 8 mm BD Ultra [...] Every week, rotate injection sites For diabetes Amharic, # 2 mL, 11 Refills, Maintenance, 04/16/21 [...] Active DNR (do not resuscitate)(Confirmed) 8 Active *[phone]-Care Partn Francheska Gallegos RN(Confirmed) Active Counseling regarding advance d directives(Confirmed) 9 Active Diabetes mellitus type II, controlled(Confirmed) 2015 Active Urolithiasis(Confirmed) Active Dementia, vascular(Confirmed) Active 1-in US done at [facility] March 2021 2Echo 2014:The mid anterior,inferolateral, anterolateral wall is moderately to severely hypokinetic 02628-Xsirbyjepi perfusion test shows scar in inferior and infero-lateral wall without reversibility. 4-multiple subacute rib fractures on the Right (seen in imaging done at [facility] March 2021) 5-seen in CT scan abdomen done at [facility] March 2021 6Had normal spirometry in [facility] in 04-06-2011, that if anything could suggest mild asthma 7Based on CXR done at [facility] in : hyperinflated lungs. PFTs done at [...]
--- OUTSIDE RECORDS SUMMARY | 2023-02-04 16:19 | XMS_ITS | Continuity of Care Document ---
Author Name Unknown Organization [facility] Address Unknown Care Team Providers Care Autism Motor Specialist Name Role Phone Nain WILSON, Lenore Primary Care Physician Encounter [facility] Date(s): 12/17/21 - 01/16/22 [facility] Allergies, Adverse Reactions, Alerts No [...] incontinence R32 vascular dementia F01.50 faxed to [phone], 08/10/20 15:06:00 EST, Supply Start Date: 08/10/20 [...] incontinence R32 vascular dementia F01.50 faxed to [phone], 08/10/20 15:06:00 EST, Supply Start Date: 08/10/20 [...] incontinence R32 vascular dementia F01.50 faxed to [phone], 08/10/2015:06:00 EST, Supply Start Date: 08/10/20 Status: [...] incontinence R32 vascular dementia F01.50 faxed to [phone], 08/10/20 15:06:00 EST, Supply Start Date: 08/10/20 [...] ER, # 25 tablet, 0 Refills, [facility], 157, cm, 09/27/21 8:42:00 E... Start Date: 11/16/21 Status: Ordered Nutritional Supplements See Instructions, # 90 each, Refills 11, Tot. Refills 11, Maintenance, Glucerna. Assorted Flavors. dx: R62.7, 06/02/20 14:19:00 EDT, Supply Start Date: 06/02/20 Status: Ordered Pen [place], 30 G x 8 mm BD Ultra Fine II See Instructions, # 90 each, Refills 3, Tot. Refills 3, Maintenance, to use with lantus daily, 12/09/21 11:14:00 EDT, Compound, 157, cm, 12/09/21 10:30:00 EDT, Height Start Date: 12/09/21 Status: Ordered Pen [place], 30 G x 8 mm BD Ultra Fine II See Instructions, # 100 each, Refills 1, Tot. Refills 1, Maintenance, dx: DM II. to use with units daily, 12/08/21 15:38:00 EDT, Compound, 157, [...] BREATH, # 18 Gm, 0 Refills, [facility], 157, cm, 09/27/21 8:42:00 EST, [...] Active DNR (do not resuscitate)(Confirmed) 8 Active *[id number]-Care Partn swathi-Francheska Gallegos RN(Confirmed) Active Counseling regarding advance d directives(Confirmed) 9 Active Diabetes mellitus type II, controlled(Confirmed) 2015 Active Urolithiasis(Confirmed) Active Dementia, vascular(Confirmed) Active 1-in US done at [facility] March 2021 2Echo 2014:The mid anterior,inferolateral, anterolateral wall is moderately to severely hypokinetic 34653-Fcoysaegxv perfusion test shows scar in inferior and infero-lateral wall without reversibility. 4-multiple subacute rib fractures on the Right (seen in imaging done at [facility] March 2021) 5-seen in CT scan abdomen done at [facility] March 2021 6Had normal spirometry in [facility] in -, that if anything could suggest mild asthma 7Based on CXR done at [facility] in : hyperinflated lungs. PFTs done [...]
--- OUTSIDE RECORDS SUMMARY | 2023-02-04 16:19 | XMS_ITS | Continuity of Care Document ---
Author Name Unknown Organization [facility] Address [address] [place] [address]- Care Team Providers Care Warrant Clerk Name Role Phone Nain WILSON, Lenore Primary Care Physician [facility]): 05/02/22 - 06/01/22 [facility] [place] [address]- [place] Allergies, Adverse Reactions, Alerts No Known [...] incontinence R32 vascular dementia F01.50 faxed to [phone], 08/10/20 15:06:00 EST, Supply Start Date: 08/10/20 [...] 5 Refills, Maintenance, 05/25/22 18:15:00 EDT, [facility], 157, cm, 05/03/22 11:09:00 [...] incontinence R32 vascular dementia F01.50 faxed to [phone], 08/10/20 15:06:00 EST, Supply Start Date: 08/10/20 [...] incontinence R32 vascular dementia F01.50 faxed to [phone], 08/10/2015:06:00 EST, Supply Start Date: 08/10/20 Status: [...] incontinence R32 vascular dementia F01.50 faxed to [phone], 08/10/20 15:06:00 EST, Supply Start Date: 08/10/20 [...] Supply Start Date: 02/02/22 Status: Ordered Pen [place], 30 G x 8 mm BD Ultra Fine II See Instructions, # 90 each, Refills 3, Tot. Refills 3, Maintenance, to use with lantus daily, 12/09/21 11:14:00 EDT, Compound, 157, cm, 12/09/21 10:30:00 EDT, Height Start Date: 12/09/21 Status: Ordered Pen [place], 30 G x 8 mm BD Ultra [...] 2 mL, 6 Refills,12/09/21 11:14:00 EDT, [facility], 157, cm, 12/09/21 10:30:00 EDT, Height [...] DNR (do not resuscitate) 8 Confirmed Active *[phone]-Car e Partner-Francheska Gallegos RN Confirmed Active Counseling regarding advanced directives 9 Confirmed Active Diabetes mellitus type II, controlled Confirmed 2015 Active Urolithiasis Confirmed Active Dementia, vascular Confirmed Active 1-in US done at [facility] March 2021 2Echo 2014:The mid anterior,inferolateral, anterolateral wall is moderately to severely hypokinetic 11536-Ocjwybhxkw perfusion test shows scar in inferior and infero-lateral wall without reversibility. 4-multiple subacute rib fractures on the Right (seen in imaging done at [facility] March 2021) 5-seen in CT scan abdomen done at [facility] March 2021 6Had normal spirometry in [facility] in 04-06-2011, that if anything could suggest mild asthma 7Based on CXR done at [facility] in : hyperinflated lungs. [...] at age: 22; entered on: 05/03/22 Sex Patient Care team information Personnel Name: Lenore Gillette MD Address: Address: [address] [place] [address]-
--- OUTSIDE RECORDS SUMMARY | 2023-02-04 16:20 | XMS_ITS | Continuity of Care Document ---
Author Name Unknown Organization [facility] Address [address] [place] [address]- Care Team Providers Care Family Preservation Officer Name Role Phone Nain WILSON, Lenore Primary Care Physician Encounter [facility] Date(s): 12/23/19 - 01/22/20 [facility] [address] [place] [address]- [facility] Attending Physician: Not on Staff, Attending MD Allergies, Adverse Reactions, Alerts No Known [...] 05/10 8Avivianain Note: VIS 06/09/09 GIVEN Medications albuterol CFC free 90 mcg/inh inhalation aerosol 1, puffs, Inhalation, 4 times a day, PRN, # 1 each, Refills 6, Tot. Refills 6, Maintenance, 12/20/18 11:20:52 EDT, Aerosol, Route to Pharmacy Electronically, [id number], [facility] Start Date: 12/20/18 Stop Date: 07/18/19 Status: Ordered Aspirin Low Dose 81 mg oral delayed release tablet See Instructions, # 28 tablet, Refills 11 Tot. Refills 11, TAKE 1 TABLET BY MOUTH DAILY WITH FOOD, [facility] Start Date: 07/11/19 Status: Ordered [...] Tablet Start Date: 12/20/18 Status: Ordered Pen [place], 30 G x 8 mm BD Ultra Fine II See Instructions, # 90 units, Refills 3, Tot. Refills 3, Maintenance, to use with lantus 15 units daily, 05/08/19 15:35:35 EDT, Compound Start Date: 05/08/19 Status: Ordered Pen [place], 30 G x 8 mm BD Ultra [...] 01/22/20 10:12:00 EDT, Route to Pharmacy Electronically, [facility], 157,cm, 12/23/19 15:32:00 EDT, Height [...] 100(Confirmed) Active Mild asthma(Confirmed) 3, 4 Active *[phone]-[facility] swathiMya Frankeldaniellegriselda(Confirmed) Active Diabetes mellitus type II, controlled(Confirmed) 2015 Active Urolithiasis(Confirmed) Active Dementia, vascular(Confirmed) Active 1Echo 2014:The mid anterior,inferolateral, anterolateral wall is moderately to severely hypokinetic 84176-Bsxiwtaczv perfusion test shows scar in inferior and infero-lateral wall without reversibility. 3Had normal spirometry in [facility] in 04-06-2011, that if anything could suggest mild asthma 4Based on [facility] done at [facility] [...]
--- OUTSIDE RECORDS SUMMARY | 2023-02-04 16:20 | XMS_ITS | Continuity of Care Document ---
Author Name Unknown Organization [facility] Address [address] [place] [address]- Care Team Providers Care Safety Advisor Name Role Phone Nain WILSON, Lenore Primary Care Physician ( [phone] [facility]): 10/15/20 - 11/14/20 [facility] [address] [address]- Allergies, Adverse Reactions, Alerts No Known Medication [...] incontinence R32 vascular dementia F01.50 faxed to [phone], 08/10/20 15:06:00 EST, Supply Start Date: 08/10/20 Status: Ordered albuterol CFC free 90 mcg/inh inhalation aerosol 1, puffs, Inhalation, 4 times a day, PRN, # 1 each, Refills 6, Tot. Refills 6, Maintenance, 12/20/18 11:20:52 EDT, Aerosol, Route to Pharmacy Electronically, [id number], [facility] Start Date: 12/20/18 Stop [...] incontinence R32 vascular dementia F01.50 faxed to [phone], 08/10/20 15:06:00 EST, Supply Start Date: 08/10/20 [...] incontinence R32 vascular dementia F01.50 faxed to [phone], 08/10/2015:06:00 EST, Supply Start Date: 08/10/20 Status: Ordered Incontinence wipes for adults Incontinence wipes for adults, See Instructions, # 4 pack/packet, Refills 11, Tot. Refills 11, Maintenance, to used as directed 8 changes/day incontinence R32 vascular dementia F01.50 faxed to [phone], 08/10/20 15:06:00 EST, Supply Start Date: 08/10/20 [...] Supply Start Date: 06/02/20 Status: Ordered Pen [place], 30 G x 8 mm BD Ultra Fine II See Instructions, # 30 each, Refills 11, Tot. Refills 11, Maintenance, dx: DM II. to use with lantus 10 units daily, 10/21/19 12:12:00 EST, Compound, 157, cm, 07/04/19 11:26:00 EDT, Height Start Date: 10/21/19 Status: Ordered Pen [place], 30 G x 8 mm BD Ultra [...] 100(Confirmed) Active Mild asthma(Confirmed) 3, 4 Active *[phone]-Care Neyda Gallegos RN(Confirmed) Active Counseling regarding advance d directives(Confirmed) 5 Active Diabetes mellitus type II, controlled(Confirmed) 2015 Active Urolithiasis(Confirmed) Active Dementia, vascular(Confirmed) Active 1Echo 2014:The mid anterior,inferolateral, anterolateral wall is moderately to severely hypokinetic 13469-Nbfvowhbua perfusion test shows scar in inferior and infero-lateral wall without reversibility. 3Had normal spirometry in [facility] in 04-06-2011, that if anything could suggest mild asthma 4Based on CXR done at [facility] in : hyperinflated lungs. PFTs [...]
--- OUTSIDE RECORDS SUMMARY | 2023-02-04 16:20 | XMS_ITS | Continuity of Care Document ---
Author Name Unknown Organization [facility] Address [address] [place] [address]- Care Team Providers Care Embedded Software Design Engineer Name Role Phone Nain WILSON, Lenore Primary Care Physician [facility]s): 03/19/21 - 04/18/21 [facility] De [address] [address]- Allergies, Adverse Reactions, Alerts No Known Medication [...] incontinence R32 vascular dementia F01.50 faxed to [phone], 08/10/20 15:06:00 EST, Supply Start Date: 08/10/20 Status: Ordered albuterol CFC free 90 mcg/inh inhalation aerosol 1, puffs, Inhalation, 4 times a day, PRN, # 1 each, Refills 6, Tot. Refills 6, Maintenance, 12/20/18 11:20:52 EDT, Aerosol, Route to Pharmacy Electronically, [id number], [facility] Start Date: 12/20/18 Stop [...] incontinence R32 vascular dementia F01.50 faxed to [phone], 08/10/20 15:06:00 EST, Supply Start Date: 08/10/20 [...] incontinence R32 vascular dementia F01.50 faxed to [phone], 08/10/2015:06:00 EST, Supply Start Date: 08/10/20 Status: [...] incontinence R32 vascular dementia F01.50 faxed to [phone], 08/10/20 15:06:00 EST, Supply Start Date: 08/10/20 [...] PRN pain wash hands thoroughly after application [place], # 50 Gm, 0 Refills, Maintenance, 04/16/21 16:32:00 EDT, Ointment, [facility], Partial fill upon patient request if th... Start Date: 04/16/21 Status: Ordered naproxen 375 mg oral tablet 375 mg, 1, tablet, By Mouth, 2 times a day, Take PRN rib pain with food. [place], # 30 tablet, Refills 0, Tot. Refills [...] Supply Start Date: 06/02/20 Status: Ordered Pen [place], 30 G x 8 mm BD Ultra Fine II See Instructions, # 90 units, Refills 3, Tot. Refills 3, Maintenance, to use with lantus 15 units daily, 05/08/19 15:35:35 EDT, Compound Start Date: 05/08/19 Status: Ordered Pen [place], 30 G x 8 mm BD Ultra [...] Every week, rotate injection sites For diabetes Citizen [place], # 2 mL, 11 Refills, Maintenance, 04/16/21 [...] Active DNR (do not resuscitate)(Confirmed) 8 Active *[phone]-[facility] Neyda Gallegos RN(Confirmed) Active Counseling regarding advance d directives(Confirmed) 9 Active Diabetes mellitus type II, controlled(Confirmed) 2016 Active Urolithiasis(Confirmed) Active Dementia, vascular(Confirmed) Active 1-in US done at [facility] March 2021 2Echo 2015:The mid anterior,inferolateral, anterolateral wall is moderately to severely hypokinetic 38817-Iebqvccntm perfusion test shows scar in inferior and infero-lateral wall without reversibility. 4-multiple subacute rib fractures on the Right (seen in imaging done at [facility] March 2021) 5-seen in CT scan abdomen done at [facility] March 2021 6Had normal spirometry in [facility] in -, that if anything could suggest mild asthma 7Based on CXR done at [facility] [...]
--- OUTSIDE RECORDS SUMMARY | 2023-02-04 16:20 | XMS_ITS | Continuity of Care Document ---
Author Name Unknown Organization [facility] Address [address] [place] [address]- Care Team Providers Care Tie Presser Name Role Phone Nain WILSON, Lenore Primary Care Physician ( [phone] [facility]s): 06/04/20 - 07/04/20 [facility] [address] [place] [address]- [facility] Allergies, Adverse Reactions, Alerts No Known Medication [...] 11:20:52 EDT, Aerosol, Route to Pharmacy Electronically, [id number], [facility] Start Date: 12/20/18 Stop [...] Supply Start Date: 06/02/20 Status: Ordered Pen [place], 30 G x 8 mm BD Ultra Fine II See Instructions, # 90 units, Refills 3, Tot. Refills 3, Maintenance, to use with lantus 15 units daily, 05/08/19 15:35:35 EDT, Compound Start Date: 05/08/19 Status: Ordered Pen [place], 30 G x 8 mm BD Ultra [...] 100(Confirmed) Active Mild asthma(Confirmed) 3, 4 Active *[phone] Neyda Gallegos RN(Confirmed) Active Counseling regarding advance d directives(Confirmed) 5 Active Diabetes mellitus type II, controlled(Confirmed) 2016 Active Urolithiasis(Confirmed) Active Dementia, vascular(Confirmed) Active 1Echo 2014:The mid anterior,inferolateral, anterolateral wall is moderately to severely hypokinetic 06739-Jpmrcrumxt perfusion test shows scar in inferior and infero-lateral wall without reversibility. 3Had normal spirometry in [facility] in 04-06-2011, that if anything could suggest mild asthma 4Based on CXR done at [facility] [...]
--- OUTSIDE RECORDS SUMMARY | 2023-02-04 16:20 | XMS_ITS | Continuity of Care Document ---
Author Name Unknown Organization [facility] Address [address] [place] [address]- Care Team Providers Care Assistant Vice President Name Role Phone Nain WILSON, Lenore Primary Care Physician [facility]s): 10/09/19 - 11/09/19 [facility] Lisa [address] [place] [address]- [facility] Attending Physician: Lenore Gillette MD Admitting Physician: [...] 11:20:52 EDT, Aerosol, Route to Pharmacy Electronically, [id number], [facility] Start Date: [...] Maintenance,03/15/19 17:52:34 EDT, Route to Pharmacy Electronically, [id number], [facility] Start Date: [...] Height Start Date: 10/28/19 Status: Ordered Pen [place], 30 G x 8 mm BD Ultra Fine II See Instructions, # 90 units, Refills 3, Tot. Refills 3, Maintenance, to use with lantus 15 units daily, 05/08/19 15:35:35 EDT, Compound Start Date: 05/08/19 Status: Ordered Pen [place], 30 G x 8 mm BD Ultra [...] 100(Confirmed) Active Mild asthma(Confirmed) 3, 4 Active *[phone]-[facility]Mya Limardo(Confirmed) Active Diabetes mellitus type II, controlled(Confirmed) 2016 Active Urolithiasis(Confirmed) Active Dementia, vascular(Confirmed) Active 1Echo 2014:The mid anterior,inferolateral, anterolateral wall is moderately to severely hypokinetic 26225-Jygljjulgu perfusion test shows scar in inferior and infero-lateral wall without reversibility. 3Had normal spirometry in [facility] in 04-06-2011, that if anything could suggest mild asthma 4Based on CXR done at [facility] in : hyperinflated lungs. PFTs done [...]
--- OUTSIDE RECORDS SUMMARY | 2023-02-04 16:20 | XMS_ITS | Continuity of Care Document ---
Author Name Unknown Organization [facility] Address [address] [place] [address]- Care Team Providers Care Wig Sales Consultant Name Role Phone Nain WILSON, Lenore Primary Care Physician ( [phone] [facility](s): 09/27/22 - 10/27/[address] [address] Allergies, Adverse Reactions, Alerts No [...] incontinence R32 vascular dementia F01.50 faxed to [phone], 08/10/20 15:06:00 EST, Supply Start Date: 08/10/20 [...] incontinence R32 vascular dementia F01.50 faxed to [phone], 08/10/20 15:06:00 EST, Supply Start Date: 08/10/20 [...] incontinence R32 vascular dementia F01.50 faxed to [phone], 08/10/2015:06:00 EST, Supply Start Date: 08/10/20 Status: [...] incontinence R32 vascular dementia F01.50 faxed to [phone], 08/10/20 15:06:00 EST, Supply Start Date: 08/10/20 [...] 02/15/22 11:33:00 EDT, Route to Pharmacy Electronically, [facility], Partial fill upon patient request [...] DNR (do not resuscitate) 8 Confirmed Active *[phone]-Car e Partner-Francheska Gallegos RN Confirmed Active Counseling regarding advanced directives 9 Confirmed Active Diabetes mellitus type II, controlled Confirmed 2016 Active Urolithiasis Confirmed Active Dementia, vascular Confirmed Active 1-in US done at [facility] March 2021 2Echo 2014:The mid anterior,inferolateral, anterolateral wall is moderately to severely hypokinetic 21366-Ahsfqxrfpq perfusion test shows scar in inferior and infero-lateral wall without reversibility. 4-multiple subacute rib fractures on the Right (seen in imaging done at [facility] March 2021) 5-seen in CT scan abdomen done at [facility] March 2021 6Had normal spirometry in [facility] in -, that if anything could suggest mild asthma 7Based on CXR done at [facility] in : hyperinflated lungs. PFTs [...] Team Personnel Name: Nain WILSON, Lenore Position: [facility] Primary Care Physician Member Role: PCP Address: Address: [address] [place] [address]- Care Team Related Persons Name: RIC HARPER Address: home [address] [address] Name: NIKOLAS MEJÍA Address: home [address] [place] [address] Name: ANITA LEÓN Address: home [facility] [address] Name: AKHIL CHAU Address: [place] [address] Name: JESENIA KUMARI Address: [place] [address]
--- OUTSIDE RECORDS SUMMARY | 2023-02-04 16:20 | XMS_ITS | Continuity of Care Document ---
Author Name Unknown Organization [facility] Address [address] [place] [address]- Care Team Providers Care Laborer Landscape Name Role Phone Nain WILSON, Lenore Primary Care Physician [facility]s): 11/11/22 - 12/11/22 [facility] [address]- [place] Allergies, Adverse Reactions, Alerts No Known [...] incontinence R32 vascular dementia F01.50 faxed to [phone], 08/10/20 15:06:00 EST, Supply Start Date: 08/10/20 Status: Ordered Aspirin Low Dose 81 mg oral delayed release tablet See Instructions, TAKE 1 TABLET BY MOUTH DAILY WITH FOOD, # 28 tablet, 2 Refills, Maintenance, 12/07/22 16:30:00 EDT, [facility], 157, cm, 08/31/22 10:47:00 EST, Height Start Date: 12/07/22 Status: Ordered atorvastatin 40 mg oral tablet [...] incontinence R32 vascular dementia F01.50 faxed to [phone], 08/10/20 15:06:00 EST, Supply Start Date: 08/10/20 [...] incontinence R32 vascular dementia F01.50 faxed to [phone], 08/10/2015:06:00 EST, Supply Start Date: 08/10/20 Status: [...] incontinence R32 vascular dementia F01.50 faxed to [phone], 08/10/20 15:06:00 EST, Supply Start Date: 08/10/20 Status: Ordered Lantus Solostar Pen 100 units/mL subcutaneous solution = 15 units, Subcutaneous Infusion, Daily, new lower dose, # 10 mL, 3 Refills, Maintenance, 06/16/2210:30:00 EDT, [facility], 157, cm, 06/16/22 9:38:00 EDT, Height Start Date: 06/16/22 Stop Date: 10/14/22 Status: Ordered nitroglycerin 0.4 mg sublingual tablet See Instructions, PLACE 1 TABLET UNDER THE TONGUE EVERY 5 MINS NEEDED FOR CHEST PAIN, IF CHEST PAIN NOT RELIEVED IN 5 MINS AFTER 1ST DOSE, TAKE 2ND DOSE AND GO TO THE ER, # 25 tablet, 0 Refills, [facility], 157, cm, 09/27/21 8:42:00 E... Start Date: [...] 16:31:00 EST, Route to Pharmacy Electronically, [facility], Partial fill upon patient request if the presc... Start Date: 08/05/22 Status: Ordered sertraline 100 mg oral tablet See Instructions, TAKE 1 TABLET BY MOUTH DAILY., # 28 tablet, 5 Refills, Maintenance, 11/12/22 19:26:00 EST, [facility], 157, cm, 08/31/22 10:47:00 EST, Height Start [...] 5 Refills, Maintenance, 08/10/22 10:49:00 EST, [facility], 157, cm, 06/16/22 9:38:00 EDT, Height Start [...] DNR (do not resuscitate) 8 Confirmed Active *[id number]-Car e Partner-Francheska Gallegos RN Confirmed Active Counseling regarding advanced directives 9 Confirmed Active Diabetes mellitus type II, controlled Confirmed 2015 Active Urolithiasis Confirmed Active Dementia, vascular Confirmed Active 1-in US done at [facility] March 2021 2Echo 2014:The mid anterior,inferolateral, anterolateral wall is moderately to severely hypokinetic 98429-Rgyfuoqxuz perfusion test shows scar in inferior and infero-lateral wall without reversibility. 4-multiple subacute rib fractures on the Right (seen in imaging done at [facility] March 2021) 5-seen in CT scan abdomen done at [facility] March 2021 6Had normal spirometry in [facility] in -, that if anything could suggest mild asthma 7Based on CXR done at [facility] in : hyperinflated lungs. PFTs [...] Team Personnel Name: Lenore Gillette MD Position: [facility] Primary Care Physician Member Role: PCP Address: Address: [address] [place] [address]- Care Team Related Persons Name: LEROY RIC Address: home [address] [place] [address] Name: NIKOLAS MEJÍA Address: home [address] [place] [address] Name: ANITA LEÓN Address: home [facility] [address] Name: AKHIL CHAU Address: [place] [address] Name: JESENIA KUMARI Address: [place] [address]
--- OUTSIDE RECORDS SUMMARY | 2023-02-04 16:20 | XMS_ITS | Continuity of Care Document ---
Author Name Unknown Organization [facility] Address [address] [place] [address]- Care Team Providers Care Cognos Lead Name Role Phone Nain WILSON, Lenore Primary Care Physician Encounter [facility] AC[facility] R [id number] Date(s): 09/08/20 - 10/08/20 [facility] [address] [address]- Attending Physician: Blayne Torres Admitting Physician: Blayne [...] incontinence R32 vascular dementia F01.50 faxed to [phone], 08/10/20 15:06:00 EST, Supply Start Date: 08/10/20 Status: Ordered albuterol CFC free 90 mcg/inh inhalation aerosol 1, puffs, Inhalation, 4 times a day, PRN, # 1 each, Refills 6, Tot. Refills 6, Maintenance, 12/20/18 11:20:52 EDT, Aerosol, Route to Pharmacy Electronically, [id number], [facility] Start Date: 12/20/18 Stop [...] incontinence R32 vascular dementia F01.50 faxed to [phone], 08/10/20 15:06:00 EST, Supply Start Date: 08/10/20 [...] incontinence R32 vascular dementia F01.50 faxed to [phone], 08/10/2015:06:00 EST, Supply Start Date: 08/10/20 Status: Ordered Incontinence wipes for adults Incontinence wipes for adults, See Instructions, # 4 pack/packet, Refills 11, Tot. Refills 11, Maintenance, to used as directed 8 changes/day incontinence R32 vascular dementia F01.50 faxed to [phone], 08/10/20 15:06:00 EST, Supply Start Date: 08/10/20 [...] Supply Start Date: 06/02/20 Status: Ordered Pen [place], 30 G x 8 mm BD Ultra Fine II See Instructions, # 30 each, Refills 11, Tot. Refills 11, Maintenance, dx: DM II. to use with lantus 10 units daily, 10/21/19 12:12:00 EST, Compound, 157, cm, 07/04/19 11:26:00 EDT, Height Start Date: 10/21/19 Status: Ordered Pen [place], 30 G x 8 mm BD Ultra [...] 100(Confirmed) Active Mild asthma(Confirmed) 3, 4 Active *[id number]-[facility] Neyda Gallegos RN(Confirmed) Active Counseling regarding advance d directives(Confirmed) 5 Active Diabetes mellitus type II, controlled(Confirmed) 2015 Active Urolithiasis(Confirmed) Active Dementia, vascular(Confirmed) Active 1Echo 2014:The mid anterior,inferolateral, anterolateral wall is moderately to severely hypokinetic 18995-Zooisxdokq perfusion test shows scar in inferior and infero-lateral wall without reversibility. 3Had normal spirometry in [facility] in 04-06-2011, that if anything could suggest mild asthma 4Based on CXR done at [facility] in : hyperinflated lungs. PFTs done [...]
--- OUTSIDE RECORDS SUMMARY | 2023-02-04 16:20 | XMS_ITS | Continuity of Care Document ---
Author Name Unknown Organization [facility] Address Unknown Care Team Providers Care Choir Accompanist Name Role Phone Nain WILSON, Lenore Primary Care Physician Encounter [facility] [place] Date(s): 12/09/21 - 01/08/22 [facility] Attending Physician: Blayne Torres Admitting Physician: [...] incontinence R32 vascular dementia F01.50 faxed to [phone], 08/10/20 15:06:00 EST, Supply Start Date: 08/10/20 [...] incontinence R32 vascular dementia F01.50 faxed to [phone], 08/10/20 15:06:00 EST, Supply Start Date: 08/10/20 [...] incontinence R32 vascular dementia F01.50 faxed to [phone], 08/10/2015:06:00 EST, Supply Start Date: 08/10/20 Status: [...] incontinence R32 vascular dementia F01.50 faxed to [phone], 08/10/20 15:06:00 EST, Supply Start Date: 08/10/20 [...] ER, # 25 tablet, 0 Refills, [facility], 157, cm, 09/27/21 8:42:00 E... Start Date: 11/16/21 Status: Ordered Nutritional Supplements See Instructions, # 90 each, Refills 11, Tot. Refills 11, Maintenance, Glucerna. Assorted Flavors. dx: R62.7, 06/02/20 14:19:00 EDT, Supply Start Date: 06/02/20 Status: Ordered Pen [place], 30 G x 8 mm BD Ultra Fine II See Instructions, # 90 each, Refills 3, Tot. Refills 3, Maintenance, to use with lantus daily, 12/09/21 11:14:00 EDT, Compound, 157, cm, 12/09/21 10:30:00 EDT, Height Start Date: 12/09/21 Status: Ordered Pen [place], 30 G x 8 mm BD Ultra Fine II See Instructions, # 100 each, Refills 1, Tot. Refills 1, Maintenance, dx: DM II. to use with [id number] units daily, 12/08/21 15:38:00 EDT, Compound, 157, [...] 3 Refills, Maintenance, 07/06/21 13:57:00 EDT, Tablet, [facility], Partial fill upon patient request if the prescription is for a schedule II opioid drug., 157, cm, 06/10/21 11:13:00 EDT, .. Start Date: 07/06/21 Status: Ordered Problem List Condition Effective Dates Status Health Status Inform ant Cholelithiasis(Confirmed) 1 Active CAD - Coronary artery disease(Confirmed) 2, 3 Active Erectile dysfunction(Confirmed) Active Rib fractures(Confirmed) 4 Active Hyperlipidemia LDL goal < 100(Confirmed) Active Multiple renal calculi(Confirmed) 5 Active Mild asthma(Confirmed) 6, 7 Active DNR (do not resuscitate)(Confirmed) 8 Active *[phone]-[facility] Partn swathi-Francheska Gallegos RN(Confirmed) Active Counseling regarding advance d directives(Confirmed) 9 Active Diabetes mellitus type II, controlled(Confirmed) 2016 Active Urolithiasis(Confirmed) Active Dementia, vascular(Confirmed) Active 1-in US done at [facility] March 2021 2Echo 2014:The mid anterior,inferolateral, anterolateral wall is moderately to severely hypokinetic 36752-Qrpfecyhcl perfusion test shows scar in inferior and infero-lateral wall without reversibility. 4-multiple subacute rib fractures on the Right (seen in imaging done at [facility] March 2021) 5-seen in CT scan abdomen done at [facility] March 2021 6Had normal spirometry in [facility] in -, that if anything could suggest mild asthma 7Based on CXR done at [facility] in : hyperinflated lungs. PFTs [...]
--- OUTSIDE RECORDS SUMMARY | 2023-02-04 16:20 | XMS_ITS | Continuity of Care Document ---
Author Name Unknown Organization [facility] Address Unknown Care Team Providers Care Construction Equipment Mechanic Name Role Phone Nain WILSON, Lenore Primary Care Physician En[place] [facility] [place] Date(s): 02/01/22 - 03/03/22 [facility] Allergies, Adverse Reactions, Alerts [...] incontinence R32 vascular dementia F01.50 faxed to [phone], 08/10/20 15:06:00 EST, Supply Start Date: 08/10/20 [...] incontinence R32 vascular dementia F01.50 faxed to [phone], 08/10/20 15:06:00 EST, Supply Start Date: 08/10/20 [...] incontinence R32 vascular dementia F01.50 faxed to [phone], 08/10/2015:06:00 EST, Supply Start Date: 08/10/20 Status: [...] incontinence R32 vascular dementia F01.50 faxed to [phone], 08/10/20 15:06:00 EST, Supply Start Date: 08/10/20 [...] Supply Start Date: 02/02/22 Status: Ordered Pen [place], 30 G x 8 mm BD Ultra Fine II See Instructions, # 90 each, Refills 3, Tot. Refills 3, Maintenance, to use with lantus daily, 12/09/21 11:14:00 EDT, Compound, 157, cm, 12/09/21 10:30:00 EDT, Height Start Date: 12/09/21 Status: Ordered Pen [place], 30 G x 8 mm BD Ultra Fine II See Instructions, # 100 each, Refills 1, Tot. Refills 1, Maintenance, dx: DM II. to use with [id number] units daily, 12/08/21 15:38:00 EDT, Compound, 157, cm, 09/27/21 8:42:00 EST, Height Start Date: 12/08/21 Status: Ordered Senna 8.6 mg oral tablet 1 or 2 tablets, By Mouth, Daily at bedtime, PRN, # 60 tablet, Refills 1, Tot. Refills 1, Acute, Constipation, 02/16/23 11:34:00 EDT, 02/15/22 11:34:00 EDT, Route to Pharmacy Electronically, [facility] Tablet, Partial fill upon patient [...] BREATH, # 18 Gm, 0 Refills, [facility], 157, cm, 09/27/21 8:42:00 EST, Height [...] Active DNR (do not resuscitate)(Confirmed) 8 Active *[phone]-Care Neyda Gallegos RN(Confirmed) Active Counseling regarding advance d directives(Confirmed) 9 Active Diabetes mellitus type II, controlled(Confirmed) 2016 Active Urolithiasis(Confirmed) Active Dementia, vascular(Confirmed) Active 1-in US done at [facility] March 2021 2Echo 2014:The mid anterior,inferolateral, anterolateral wall is moderately to severely hypokinetic 55434-Asujqbnlzh perfusion test shows scar in inferior and infero-lateral wall without reversibility. 4-multiple subacute rib fractures on the Right (seen in imaging done at [facility] March 2021) 5-seen in CT scan abdomen done at [facility] March 2021 6Had normal spirometry in [facility] in -, that if anything could suggest mild asthma 7Based on CXR done at [facility] in : hyperinflated lungs. PFTs done [...]
--- OUTSIDE RECORDS SUMMARY | 2023-02-04 16:20 | XMS_ITS | Continuity of Care Document ---
Author Name Unknown Organization [facility] Address [address] [place] [address]- Care Team Providers Care Cath Lab Tech Name Role Phone Nain WILSON, Lenore Primary Care Physician Encounter [facility] Date(s): 07/29/20 - 08/28/20 [facility] [address] [address]- Allergies, Adverse Reactions, Alerts No Known Medication [...] incontinence R32 vascular dementia F01.50 faxed to [phone], 08/10/20 15:06:00 EST, Supply Start Date: 08/10/20 Status: Ordered albuterol CFC free 90 mcg/inh inhalation aerosol 1, puffs, Inhalation, 4 times a day, PRN, # 1 each, Refills 6, Tot. Refills 6, Maintenance, 12/20/18 11:20:52 EDT, Aerosol, Route to Pharmacy Electronically, [id number], [facility] Start Date: 12/20/18 Stop [...] incontinence R32 vascular dementia F01.50 faxed to [phone], 08/10/20 15:06:00 EST, Supply Start Date: 08/10/20 [...] incontinence R32 vascular dementia F01.50 faxed to [phone], 08/10/2015:06:00 EST, Supply Start Date: 08/10/20 Status: Ordered Incontinence wipes for adults Incontinence wipes for adults, See Instructions, # 4 pack/packet, Refills 11, Tot. Refills 11, Maintenance, to used as directed 8 changes/day incontinence R32 vascular dementia F01.50 faxed to [phone], 08/10/20 15:06:00 EST, Supply Start Date: 08/10/20 [...] Supply Start Date: 06/02/20 Status: Ordered Pen [place], 30 G x 8 mm BD Ultra Fine II See Instructions, # 30 each, Refills 11, Tot. Refills 11, Maintenance, dx: DM II. to use with lantus 10 units daily, 10/21/19 12:12:00 EST, Compound, 157, cm, 07/04/19 11:26:00 EDT, Height Start Date: 10/21/19 Status: Ordered Pen [place], 30 G x 8 mm BD Ultra [...] 100(Confirmed) Active Mild asthma(Confirmed) 3, 4 Active *[phone] Neyda Gallegos RN(Confirmed) Active Counseling regarding advance d directives(Confirmed) 5 Active Diabetes mellitus type II, controlled(Confirmed) 2016 Active Urolithiasis(Confirmed) Active Dementia, vascular(Confirmed) Active 1Echo 2014:The mid anterior,inferolateral, anterolateral wall is moderately to severely hypokinetic 74893-Jrmihgaqjb perfusion test shows scar in inferior and infero-lateral wall without reversibility. 3Had normal spirometry in [facility] in 04-06-2011, that if anything could suggest mild asthma 4Based on CXR done at [facility] in : hyperinflated lungs. PFTs done [...]
--- OUTSIDE RECORDS SUMMARY | 2023-02-04 16:20 | XMS_ITS | Continuity of Care Document ---
Author Name Unknown Organization [facility] Address [address] [place] [address]- Care Team Providers Care Operating Cost Clerk Name Role Phone Nain WILSON, Lenore Primary Care Physician Encounter [facility] Date(s): 11/03/20 - 12/03/20 [facility] [address] [address]- Allergies, Adverse Reactions, Alerts No Known Medication [...] incontinence R32 vascular dementia F01.50 faxed to [phone], 08/10/20 15:06:00 EST, Supply Start Date: 08/10/20 Status: Ordered albuterol CFC free 90 mcg/inh inhalation aerosol 1, puffs, Inhalation, 4 times a day, PRN, # 1 each, Refills 6, Tot. Refills 6, Maintenance, 12/20/18 11:20:52 EDT, Aerosol, Route to Pharmacy Electronically, [id number], [facility] Start Date: 12/20/18 Stop [...] incontinence R32 vascular dementia F01.50 faxed to [phone], 08/10/20 15:06:00 EST, Supply Start Date: 08/10/20 [...] incontinence R32 vascular dementia F01.50 faxed to [phone], 08/10/2015:06:00 EST, Supply Start Date: 08/10/20 Status: Ordered Incontinence wipes for adults Incontinence wipes for adults, See Instructions, # 4 pack/packet, Refills 11, Tot. Refills 11, Maintenance, to used as directed 8 changes/day incontinence R32 vascular dementia F01.50 faxed to [phone], 08/10/20 15:06:00 EST, Supply Start Date: 08/10/20 Status: Ordered Lantus Solostar Pen 100 units/mL subcutaneous solution = 15 units, Subcutaneous Infusion, Daily, NEW HIGHER DOSE. discontinue metformin, # 10 mL, 3 Refills, Maintenance, 11/26/20 12:25:00 EDT, [facility], 157, cm, 11/26/20 11:44:00 EDT, [...] Supply Start Date: 06/02/20 Status: Ordered Pen [place], 30 G x 8 mm BD Ultra Fine II See Instructions, # 30 each, Refills 11, Tot. Refills 11, Maintenance, dx: DM II. to use with lantus 10 units daily, 10/21/19 12:12:00 EST, Compound, 157, cm, 07/04/19 11:26:00 EDT, Height Start Date: 10/21/19 Status: Ordered Pen [place], 30 G x 8 mm BD Ultra Fine II See Instructions, # 90 units, Refills 3, Tot. Refills 3, Maintenance, to use with lantus 15 units daily, 05/08/19 15:35:35 EDT, Compound Start Date: 05/08/19 Status: Ordered Shower chair Shower chair, See [...] EDT, Height Start Date: 01/22/20 Status: Ordered Walker with seat Walker with [...] 100(Confirmed) Active Mild asthma(Confirmed) 3, 4 Active *[phone]-[facility] Neyda Gallegos RN(Confirmed) Active Counseling regarding advance d directives(Confirmed) 5 Active Diabetes mellitus type II, controlled(Confirmed) 2015 Active Urolithiasis(Confirmed) Active Dementia, vascular(Confirmed) Active 1Echo 2014:The mid anterior,inferolateral, anterolateral wall is moderately to severely hypokinetic 27368-Vbbvdlhizs perfusion test shows scar in inferior and infero-lateral wall without reversibility. 3Had normal spirometry in [facility] in 04-06-2011, that if anything could suggest mild asthma 4Based on CXR done at [facility] in : hyperinflated lungs. PFTs [...]
--- OUTSIDE RECORDS SUMMARY | 2023-02-04 16:20 | XMS_ITS | Continuity of Care Document ---
Author Name Unknown Organization [facility] Address [address] [place] [address]- Care Team Providers Care Ict Sales Representative Name Role Phone Nain WILSON, Lenore Primary Care Physician Encounter [facility] Date(s): 02/23/21 - 03/25/21 [facility] [address] [place] [address]- Allergies, Adverse Reactions, Alerts No Known Medication [...] influenza virus vaccine, inactivated 5 11/28/11 Gi la influenza virus vaccine, inactivated 6 10/18/10 Gi [...] incontinence R32 vascular dementia F01.50 faxed to [phone], 08/10/20 15:06:00 EST, Supply Start Date: 08/10/20 Status: Ordered albuterol CFC free 90 mcg/inh inhalation aerosol 1, puffs, Inhalation, 4 times a day, PRN, # 1 each, Refills 6, Tot. Refills 6, Maintenance, 12/20/18 11:20:52 EDT, Aerosol, Route to Pharmacy Electronically, [id number], [facility] Start Date: 12/20/18 Stop [...] incontinence R32 vascular dementia F01.50 faxed to [phone], 08/10/20 15:06:00 EST, Supply Start Date: 08/10/20 [...] incontinence R32 vascular dementia F01.50 faxed to [phone], 08/10/2015:06:00 EST, Supply Start Date: 08/10/20 Status: [...] incontinence R32 vascular dementia F01.50 faxed to [phone], 08/10/20 15:06:00 EST, Supply Start Date: 08/10/20 Status: Ordered Lantus Solostar Pen 100 units/mL subcutaneous solution = 20 units, Subcutaneous Infusion, Daily, NEW HIGHER DOSE., # 10 mL, 3 Refills, Maintenance, 03/25/21 11:42:00 EDT, [facility], 157, cm, 03/25/21 11:06:00 EDT, Height Start Date: 03/25/21 Stop Date: 07/23/21 Status: Ordered Nitrostat 0.4 mg sublingual tablet [...] Supply Start Date: 06/02/20 Status: Ordered Pen [place], 30 G x 8 mm BD Ultra Fine II See Instructions, # 90 units, Refills 3, Tot. Refills 3, Maintenance, to use with lantus 15 units daily, 05/08/19 15:35:35 EDT, Compound Start Date: 05/08/19 Status: Ordered Pen [place], 30 G x 8 mm BD Ultra [...] Date: 03/25/21 Stop Date: 03/20/22 Status: Ordered Walker with seat Walker with [...] 100(Confirmed) Active Mild asthma(Confirmed) 3, 4 Active *[phone]-[facility] Neyda Gallegos RN(Confirmed) Active Counseling regarding advance d directives(Confirmed) 5 Active Diabetes mellitus type II, controlled(Confirmed) 2016 Active Urolithiasis(Confirmed) Active Dementia, vascular(Confirmed) Active 1Echo 2014:The mid anterior,inferolateral, anterolateral wall is moderately to severely hypokinetic 26474-Oyloazwroi perfusion test shows scar in inferior and infero-lateral wall without reversibility. 3Had normal spirometry in [facility] in 04-06-2011, that if anything could suggest mild asthma 4Based on CXR done at [facility] in : hyperinflated lungs. PFTs done at [...]
--- OUTSIDE RECORDS SUMMARY | 2023-02-04 16:20 | XMS_ITS | Continuity of Care Document ---
Author Name Unknown Organization [facility] Address [address] [place] [address]- Care Team Providers Care Ordering Box Operator Name Role Phone Nain WILSON, Lenore Primary Care Physician ( [phone] Encounter [facility] Date(s): 11/19/20 - 12/19/20 [facility] [address] [address]- Allergies, Adverse Reactions, Alerts No Known Medication [...] incontinence R32 vascular dementia F01.50 faxed to [phone], 08/10/20 15:06:00 EST, Supply Start Date: 08/10/20 Status: Ordered albuterol CFC free 90 mcg/inh inhalation aerosol 1, puffs, Inhalation, 4 times a day, PRN, # 1 each, Refills 6, Tot. Refills 6, Maintenance, 12/20/18 11:20:52 EDT, Aerosol, Route to Pharmacy Electronically, [id number], [facility] Start Date: 12/20/18 Stop [...] incontinence R32 vascular dementia F01.50 faxed to [phone], 08/10/20 15:06:00 EST, Supply Start Date: 08/10/20 [...] incontinence R32 vascular dementia F01.50 faxed to [phone], 08/10/2015:06:00 EST, Supply Start Date: 08/10/20 Status: Ordered Incontinence wipes for adults Incontinence wipes for adults, See Instructions, # 4 pack/packet, Refills 11, Tot. Refills 11, Maintenance, to used as directed 8 changes/day incontinence R32 vascular dementia F01.50 faxed to [phone], 08/10/20 15:06:00 EST, Supply Start Date: 08/10/20 [...] Supply Start Date: 06/02/20 Status: Ordered Pen [place], 30 G x 8 mm BD Ultra Fine II See Instructions, # 90 units, Refills 3, Tot. Refills 3, Maintenance, to use with lantus 15 units daily, 05/08/19 15:35:35 EDT, Compound Start Date: 05/08/19 Status: Ordered Pen [place], 30 G x 8 mm BD Ultra [...] 100(Confirmed) Active Mild asthma(Confirmed) 3, 4 Active *[phone]-[facility] Neyda Gallegos RN(Confirmed) Active Counseling regarding advance d directives(Confirmed) 5 Active Diabetes mellitus type II, controlled(Confirmed) 2016 Active Urolithiasis(Confirmed) Active Dementia, vascular(Confirmed) Active 1Echo 2014:The mid anterior,inferolateral, anterolateral wall is moderately to severely hypokinetic 83351-Xenleepwxn perfusion test shows scar in inferior and infero-lateral wall without reversibility. 3Had normal spirometry in [facility] in 04-06-2011, that if anything could suggest mild asthma 4Based on CXR done at [facility] in : hyperinflated lungs. PFTs done [...]
--- OUTSIDE RECORDS SUMMARY | 2023-02-04 16:20 | XMS_ITS | Continuity of Care Document ---
Author Name Unknown Organization [facility] Address [address] [place] [address]- Care Team Providers Care Or Rn Name Role Phone Lenore Gillette MD Primary Care Physician Encounter [facility] Date(s): 09/16/21 - 10/27/21 [facility] [address] [place] [address]- Attending Physician: Valorie Paez MD Admitting Physician: [...] incontinence R32 vascular dementia F01.50 faxed to [phone], 08/10/20 15:06:00 EST, Supply Start Date: 08/10/20 Status: Ordered albuterol CFC free 90 mcg/inh inhalation aerosol 1, puffs, Inhalation, 4 times a day, PRN, # 1 each, Refills 6, Tot. Refills 6, Maintenance, 12/20/18 11:20:52 EDT, Aerosol, Route to Pharmacy Electronically, [id number], [facility] Start Date: 12/20/18 Stop [...] incontinence R32 vascular dementia F01.50 faxed to [phone], 08/10/20 15:06:00 EST, Supply Start Date: 08/10/20 [...] incontinence R32 vascular dementia F01.50 faxed to [phone], 08/10/2015:06:00 EST, Supply Start Date: 08/10/20 Status: [...] incontinence R32 vascular dementia F01.50 faxed to [phone], 08/10/20 15:06:00 EST, Supply Start Date: 08/10/20 [...] day, Take PRN rib pain with food. Egyptian, # 30 tablet, Refills 0, Tot. Refills [...] Supply Start Date: 06/02/20 Status: Ordered Pen [place], 30 G x 8 mm BD Ultra Fine II See Instructions, # 100 each, Refills 1, Tot. Refills 1, Maintenance, dx: DM II. to use with qkhjxe73 units daily, 06/03/21 15:48:00 EDT, Compound, 157, cm, 06/03/21 10:57:00 EDT, Height Start Date: 06/03/21 Status: Ordered Pen [place], 30 G x 8 mm BD Ultra Fine II See Instructions, # 90 units, Refills 3, Tot. Refills 3, Maintenance, to use with lantus 15 units daily, 05/08/19 15:35:35 EDT, Compound Start Date: 05/08/19 Status: Ordered SEROquel 50 mg oral tablet 1 tablet = 50 mg, By Mouth, Daily at bedtime, # 90 tablet, 3 Refills, Maintenance, 09/27/21 9:18:00EST, Tablet, [facility], Partial fill upon patient request if the prescription is for a schedule II opioid drug., 157, cm, 09/27/21 8:42:00... Start Date: 09/27/21 Status: Ordered Shower chair Shower chair, See [...] Active DNR (do not resuscitate)(Confirmed) 8 Active *[phone]-Care Partpennie Gallegos RN(Confirmed) Active Counseling regarding advance d directives(Confirmed) 9 Active Diabetes mellitus type II, controlled(Confirmed) 2015 Active Urolithiasis(Confirmed) Active Dementia, vascular(Confirmed) Active 1-in US done at [facility] March 2021 2Echo 2014:The mid anterior,inferolateral, anterolateral wall is moderately to severely hypokinetic 20876-Incjbiiaqd perfusion test shows scar in inferior and infero-lateral wall without reversibility. 4-multiple subacute rib fractures on the Right (seen in imaging done at [facility] March 2021) 5-seen in CT scan abdomen done at [facility] March 2021 6Had normal spirometry in [facility] in 04-06-2011, that if anything could suggest mild asthma 7Based on CXR done at [facility] in : hyperinflated lungs. PFTs done [...]
--- OUTSIDE RECORDS SUMMARY | 2023-02-04 16:20 | XMS_ITS | Continuity of Care Document ---
Author Name Unknown Organization [facility] Address Unknown Care Team Providers Care Restaurant Host Name Role Phone Nain WILSON, Lenore Primary Care Physician [place] [facility] 04/14[place]21 - 05/14/21 [facility] Allergies, Adverse Reactions, Alerts No Known [...] 8Admin Note: PT BRINGS IN VIS 05/10 9Asaloni Note: VIS 06/09/09 GIVEN Medications Adult Diapers size small Adult Diapers size small, See Instructions, # 240 each, Refills 11, Tot. Refills 11, Maintenance, to used as directed 8/day incontinence R32 vascular dementia F01.50 faxed to [phone], 08/10/20 15:06:00 EST, Supply Start Date: 08/10/20 Status: Ordered albuterol CFC free 90 mcg/inh inhalation aerosol 1, puffs, Inhalation, 4 times a day, PRN, # 1 each, Refills 6, Tot. Refills 6, Maintenance, 12/20/18 11:20:52 EDT, Aerosol, Route to Pharmacy Electronically, [id number], [facility] Start Date: 12/20/18 Stop [...] incontinence R32 vascular dementia F01.50 faxed to [phone], 08/10/20 15:06:00 EST, Supply Start Date: 08/10/20 Status: Ordered docusate sodium 100 mg oral capsule 1 capsule, By Mouth, 2 times a day, # 56 capsule, 5 Refills, [facility], 157, cm, 04/16/21 15:53:00 EDT, Height [...] incontinence R32 vascular dementia F01.50 faxed to [phone], 08/10/2015:06:00 EST, Supply Start Date: 08/10/20 Status: [...] incontinence R32 vascular dementia F01.50 faxed to [phone], 08/10/20 15:06:00 EST, Supply Start Date: 08/10/20 [...] PRN pain wash hands thoroughly after application Slovak, # 50 Gm, 0 Refills, Maintenance, 04/16/21 16:32:00 EDT, Ointment, [facility], Partial fill upon patient request if th... Start Date: 04/16/21 Status: Ordered naproxen 375 mg oral tablet 375 mg, 1, tablet, By Mouth, 2 times a day, Take PRN rib pain with food. Slovak, # 30 tablet, Refills 0, Tot. Refills [...] Supply Start Date: 06/02/20 Status: Ordered Pen [place], 30 G x 8 mm BD Ultra Fine II See Instructions, # 90 units, Refills 3, Tot. Refills 3, Maintenance, to use with lantus 15 units daily, 05/08/19 15:35:35 EDT, Compound Start Date: 05/08/19 Status: Ordered Pen [place], 30 G x 8 mm BD Ultra [...] Every week, rotate injection sites For diabetes Slov[place], # 2 mL, 11 Refills, Maintenance, 04/16/21 [...] Active DNR (do not resuscitate)(Confirmed) 8 Active *[phone]-Care Partn swathi-Francheska Gallegos RN(Confirmed) Active Counseling regarding advance d directives(Confirmed) 9 Active Diabetes mellitus type II, controlled(Confirmed) 2016 Active Urolithiasis(Confirmed) Active Dementia, vascular(Confirmed) Active 1-in US done at [facility] March 2021 2Echo 2014:The mid anterior,inferolateral, anterolateral wall is moderately to severely hypokinetic 99307-Wcxhkvibsq perfusion test shows scar in inferior and infero-lateral wall without reversibility. 4-multiple subacute rib fractures on the Right (seen in imaging done at [facility] March 2021) 5-seen in CT scan abdomen done at [facility] March 2021 6Had normal spirometry in [facility] in 04-06-2011, that if anything could suggest mild asthma 7Based on CXR done at [facility] in : hyperinflated lungs. PFTs done [...]
[2023-02-04] MEDS: 0.9 % Sodium Chloride 1,000 ML 999 ML IVCONT ×2 (17:27→18:48)
[2023-02-04] MEDS: Lidocaine HCl 2 % Urojet 10 ML JEL.PF.APP 20 ML TOPICAL (17:41)
[2023-02-04 17:47] LABS: Appearance Urine Cloudy; Color Urine Yellow; Glucose Urine UA Negative (Negative); Leukocyte Esterase Urine Small (1+) (Negative); Nitrite Urine Negative (Negative); PH 5.5 (5.0-9.0); Specific Gravity - Urine 1.015 (1.005-1.025); UMIC TRIGGER UACC YES; Urine Blood Negative (Negative); Urine Ketones Negative (Negative); Urine Protein 30 (1+) mg/dL (Neg-Trace)
[2023-02-04 17:50] LABS: Bacteria Urine 4+ (None Seen); Hyaline Casts Urine 0-2 /LPF (0-2); RBC Urine 0-2 /HPF (0-2); Squamous Epithelial Cell Urine 0-2 /HPF (0-2); UACC Culture Trigger YES
[2023-02-04 18:46] VITALS: BP 137/67; PULSE 70; RESP 16; O2SAT 96
--- NOTE | 2023-02-04 18:51 | PC.NURSE ---
urine obtained via coude cath by . 230ml urine drained total. second liter of fluids hung per mar
--- NOTE | 2023-02-04 18:52 | PC.NURSE ---
awaiting pending order for BC before hanging rocephin. BC may not be required
--- NOTE | 2023-02-04 19:42 | PC.NURSE ---
BCS DRAWN, INFUSING ROCEPHIN PER MAR
[2023-02-04] MEDS: cefTRIAXone sodium 1 GM in 0.9 % Sodium Chloride 50 ML IV (19:43)
[2023-02-04 19:44] LABS: Lactic Acid 1.3 mmol/L (0.5-2.0)
--- NOTE | 2023-02-04 20:37 | P.HPHOSP_ITS ---
failed outpatient therapy. will treat with iv abx for full H&P see below History of Present Illness Date of Service: 02/04/23 Attending physician on admission: Marybel Trevino Chief Complaint: Lethargy Pt is an 82-year-old male with a PMH significant for?unspecified dementia, HLD, and insulin-dependent diabetes type 2 who presents to the ED with?increased lethargy and foul-smelling urine. Patient with advanced dementia and nonverbal at baseline. Family [place] Islander-speaking only. State Auditor services utilized. According to the family patient has been experiencing foul-smelling urine for the past month. Family called patient's PCP who had a dizzy and nurse draw labs at home on January 19. Patient was diagnosed with a UTI and treated with a 2-day course of Levaquin. Patient's family notes that his symptoms did not improve but worsened over the next 2 weeks S the patient became more lethargic, was sleeping more, had decreased intake of of both solids and liquids, and began refusing to take his medications by spitting them out. Patient normally is much more awake and takes his medications without incident. Family reports patient has not had an increase in cough or shortness of breath. Family is on able to report whether patient has experienced any pain. In the ED afebrile. Labs largely unremarkable. No leukocytosis, stable H&H 15.1/46.7. Electrolytes WNL. Renal function baseline. Hepatic function baseline. UA positive for small number of leukocyte esterase, WBC 6-10, bacteria 4+. Pt was treated with IVF, ceftriaxone, and lidocaine topical patch. Pt will be admitted to the hospital for treatment of acute toxic metabolic encephalopathy in the setting of UTI that failed outpatient therapy. Review of Systems Review of Systems: Unable to obtain due to patient's mentation [facility] Medical History Alzheimer disease Asthma Dementia Diabetes Social History Household Members: Family Housing: Apartment Do you presently have visiting nurse or other home services: No Patient Tobacco Use Status: Former Tobacco user Quit Date: 1 YEAR AGO service: No Current occupational status: retired Meds Allergies Allergy/AdvReac Type Severity Reaction Status Date / Time No Known Allergies Allergy Verified 08/25/20 16:13 [No Known Allergies*] Home Medications Medication Instructions Recorded Confirmed Last Taken Type aspirin 81 mg tablet,delayed 1 tab PO DAILY 03/14/21 02/04/23 Unknown History release atorvastatin 40 mg tablet 1 tab PO BEDTIME 03/14/21 02/04/23 Unknown History insulin glargine 100 unit/mL (3 15 unit subcut DAILY 03/14/21 02/04/23 Unknown History mL) subcutaneous pen (Lantus Solostar U-100 Insulin) quetiapine 25 mg tablet 1 tab PO BEDTIME 03/14/21 02/04/23 Unknown History sertraline 100 mg tablet 1 tab PO DAILY 03/14/21 02/04/23 Unknown History Physical Exam Vital Signs and Narrative: Vital Signs: Last Vital Signs Temp 98.1 F 02/04/23 16:17 Pulse 70 02/04/23 18:46 Resp 16 02/04/23 18:46 BP 137/67 02/04/23 18:46 Pulse Ox 96 02/04/23 18:46 O2 Del Method Room Air 02/04/23 18:46 BMI result Body Mass Index 20.7 Constitutional: Alert, confused, nonverbal, in no acute distress. Mental Status: Not oriented to person, place, time, or situation. Eyes: Pupils are equal, round, and reactive to light. Ear, Nose, and Throat: Oropharynx clear, mucous membranes moist. Ears and nose without deformities. Trachea midline. Respiratory: Clear to auscultation bilaterally. No wheezing, rales, or rhonchi. Cardiovascular: S1, S2 regular. No murmurs, rubs, or gallops. Gastrointestinal: Abdomen soft, non-tender, non-distended. Normal bowel sounds. Neurologic: Cranial nerves II-XII are grossly intact bilaterally. Moves all extremities spontaneously. Skin: Warm, dry. Musculoskeletal: No cyanosis or clubbing. Extremities: No edema. Psychiatric: Confused, nonverbal, unable to follow basic commands. Results Labs 02/04/23 13:51 02/04/23 13:51 Labs: Laboratory Results - last 24 hr 02/04/23 02/04/23 02/04/23 13:51 13:51 17:02 MCV 89.8 MCH 29.0 MCHC 32.3 RDW 13.6 Plt Count 252 D MPV 10.5 Immature Gran % (Auto) 0.2 Neut % (Auto) 56.7 Lymph % (Auto) 26.4 [place] % (Auto) 3.1 Eos % (Auto) 13.2 H Baso % (Auto) 0.4 Lymph # (Auto) 1.3 [place] # (Auto) 0.2 Eos # (Auto) 0.6 H Baso # (Auto) 0.0 Abs Immat Gran (auto) 0.01 Absolute Neuts (auto) 2.7 Absolute Nucleated RBC 0.000 Nucleated RBC % (auto) 0.0 Anion Gap 14 Estim Creat Clear Calc 41.8 Estimated GFR > 60 Random Glucose 236 H Lactic Acid Calcium 8.9 Magnesium 1.8 Total Bilirubin 0.5 AST 14 ALT 12 Alkaline Phosphatase 120 H Total Protein 7.2 Albumin 3.6 Urine Color Yellow Urine Appearance Cloudy Urine pH 5.5 Ur Specific [place] 1.015 Urine Protein 30 (1+) H Urine Glucose (UA) Negative Urine Ketones Negative Urine Blood Negative Urine Nitrite Negative Ur Leukocyte Esterase Small (1+) H Urine RBC 0-2 Urine WBC 6-10 H Ur Squamous Epith Cells 0-2 Urine Bacteria 4+ Hyaline Casts 0-2 02/04/23 19:12 MCV MCH MCHC RDW Plt Count MPV Immature Gran % (Auto) Neut % (Auto) Lymph % (Auto) [place] % (Auto) Eos % (Auto) Baso % (Auto) Lymph # (Auto) [place] # (Auto) Eos # (Auto) Baso # (Auto) Abs Immat Gran (auto) Absolute Neuts (auto) Absolute Nucleated RBC Nucleated RBC % (auto) Anion Gap Estim Creat Clear Calc Estimated GFR Random Glucose Lactic Acid 1.3 Calcium Magnesium Total Bilirubin AST ALT Alkaline Phosphatase Total Protein Albumin Urine Color Urine Appearance Urine pH Ur Specific [place] Urine Protein Urine Glucose (UA) Urine Ketones Urine Blood Urine Nitrite Ur Leukocyte Esterase Urine RBC Urine WBC Ur Squamous Epith Cells Urine Bacteria Hyaline Casts Assessment and Plan (1) Urinary tract infection: Status: Acute (2) Encephalopathy: Status: Acute Plan Pt is an 82-year-old male with a PMH significant for?unspecified dementia, HLD, and insulin-dependent diabetes type 2 who presents to the ED with?increased lethargy and foul-smelling urine. Patient with advanced dementia and nonverbal at baseline. Pt will be admitted to the hospital for treatment of acute toxic metabolic encephalopathy in the setting of UTI that failed outpatient therapy. Acute toxic metabolic encephalopathy in setting of UTI Originally diagnosed with a UTI on 01/19/2023 and begun on a 2 day course of Levaquin prescribed after a home medical visit Patient with increased lethargy, foul-smelling urine, and refusal to swallow medications, food, and drink since p.o. abx Patient does not meet sepsis criteria Patient treated with IVF and ceftriaxone, started 02/04/2023 Patient is incontinent of urine and feces at baseline Follow cultures HLD Continue statin Mood disorder Continue sertraline, quetiapine Insulin-dependent diabetes Hold home meds SSI, Jodi DNR/DNI Attending:?Dr. Trevino DVT Prophylaxis: Lovenox Pt will require a hospitalization of at least two nights for treatment of?acute toxic metabolic encephalopathy in the setting of UTI that failed outpatient therapy. Time Spent With Patient Time: Total time managing care of this patient today ____ minutes. Quality Stroke Does the patient have a stroke diagnosis?: No VTE Prior VTE?: No VTE Risk Level:: Medical - moderate - high VTE Device Contraindication: Treatment Not Indicated VTE Drug Contraindication: N/A - Med Ordered
[2023-02-04] MEDS: QUEtiapine Fumarate 25 MG TABLET PO (21:33)
[2023-02-04] MEDS: Atorvastatin Calcium 40 MG TABLET PO (21:33)
--- NOTE | 2023-02-04 22:08 | PC.NURSE ---
report received from NAIF Kemp This RN spoke with patient's family using employee communications intern, per family, pt has alzheimers but is pleasant. Pt refused Lovenox but willing to take other medications. Respirations even and unlabored, skin pwd, alert and oriented x1, no apparent distress at this time, denies pain
[2023-02-04] MEDS: Acetaminophen 325 MG TABLET 650 MG PO (23:48)
[2023-02-05 00:03] VITALS: BP 127/61; PULSE 74; RESP 17; TEMP 36.5; O2SAT 93
[2023-02-05] MEDS: 0.9 % Sodium Chloride Flush 3 ML SYRINGE IVFLUSH ×2 (00:08→09:49)
--- NOTE | 2023-02-05 01:34 | PC.NURSE ---
Pt arrived from ED via stretcher accompanied by family and staff. He was awake and alert. He is wolof speaking and can say yes or no per laure who is HCP. Spoke w/ daughter via upholsterer limousine and hearse. VSS, Pt was incontinent of large amount of urine. Abi care provided. Camera placed for safety. Call light within reach, safety prec maintained.
[2023-02-05 05:54] VITALS: BP 141/70; PULSE 67; RESP 15; TEMP 36.4; O2SAT 96
[2023-02-05 06:14] LABS: Hematocrit 38.3 % (42.0-52.0); Hemoglobin 12.5 g/dl (14.0-18.0); Mean Corpuscular HGB Conc 32.6 g/dl (31.0-36.0); Mean Corpuscular Hemoglobin 29.4 pg (27.0-33.0); Mean Corpuscular Volume 90.1 fL (80.0-98.0); Mean Platelet Volume 10.9 fL (9.4-12.4); Platelet Count 217 X10*3/uL (160-400); Red Blood Count 4.25 X10*6/uL (4.60-5.80); Red Cell Distribution Width 13.4 % (11.0-16.0); White Blood Count 4.6 X10*3/uL (4.8-10.8)
[2023-02-05 06:41] LABS: Anion Gap 11 (12-20); Blood Urea Nitrogen 10 mg/dL (9-16); Carbon Dioxide 23 mmol/L (22-29); Chloride 112 mmol/L (96-108); Creatinine Clr Calc Pharmacy 55.5; Estimated Glomerular Filt Rate > 60; Glucose Random 64 mg/dL (60-115); Potassium 3.8 mmol/L (3.3-5.1); Sodium 142 mmol/L (135-145)
--- NOTE | 2023-02-05 08:49 | PHA.MEDREC ---
Pharmacy Consult ? Medication Reconciliation Pharmacy has completed the medication reconciliation. Reviewed med rec done by nursing, tried calling daughter for clarification about Trulicity, left unconfirmed (recent claim history for 1.5mg as well as 3mg). Provider aware
[2023-02-05] MEDS: Sertraline HCL 100 MG TABLET PO (09:49)
[2023-02-05] MEDS: polyethylene glycoL 3350 17 GM POWD.PACK PO (09:50)
[2023-02-05] MEDS: Lactated Ringers 1,000 ML 80 ML IVCONT (09:57)
[2023-02-05 11:21] LABS: Glucose, Whole Blood 77 mg/dL (60-115)
[2023-02-05 11:22] VITALS: BP 153/70; PULSE 68; RESP 20; TEMP 36.7; O2SAT 96
--- NOTE | 2023-02-05 12:02 | PC.NURSE ---
pt out of bed with family assistance, cleaned and placed in clean hospital attire.
--- NOTE | 2023-02-05 12:31 | HO.PM.IMPN ---
Subjective Subjective Date of Service: 02/05/23 Interval History: poor oral intake , unspecified dementia, abnormal UA Review of Systems Patient responds to his name, otherwise follows simple commands, Does not seem in any discomfort Physical Exam Vital Signs: Vital Signs: Last Vital Signs Temp 98.0 F 02/05/23 11:22 Pulse 68 02/05/23 11:22 Resp 20 02/05/23 11:22 BP 153/70 H 02/05/23 11:22 Pulse Ox 96 02/05/23 11:22 O2 Del Method Room Air 02/05/23 11:22 BMI result Body Mass Index 20.7 Appearance: Awake, pleasantly confused, not in distress cvs: rrr, [id number] . res: clear to auscultation ,no rhonchii or wheezing abd: no rebound or guarding ,nt, bs present. ext pulses present , no cyanosis . neuro: Moves all extremities, follows simple commands. Objective Data Active Medications Acetaminophen (Acetaminophen 325 Mg Tablet) 650 mg PO Q6H PRN PRN Reason: Pain, Mild (Pain Scale 1-3) Last Admin: 02/04/23 23:48 Dose: 650 mg Documented By: ISRAEL Aspirin (Aspirin Enteric Coated 81 Mg Tablet.Dr) 81 mg PO DAILY [facility] Last Admin: 02/05/23 09:43 Dose: Not Given Documented By: JEANETTE Non-Admin Reason: Can't be crushed Atorvastatin Calcium (Atorvastatin Calcium 40 Mg Tablet) 40 mg PO BEDTIME [facility] Last Admin: 02/04/23 21:33 Dose: 40 mg Documented By: ALINA Bisacodyl (Bisacodyl 10 Mg Supp.Rect) 10 mg [place] BEDTIME [facility] Last Admin: 02/05/23 09:41 Dose: Not Given Documented By: JEANETTE Non-Admin Reason: per. WILSON Docusate Sodium (Docusate Sodium 100 Mg Capsule) 100 mg PO BID [facility] Last Admin: 02/05/23 09:42 Dose: Not Given Documented By: JEANETTE Non-Admin Reason: can not be crushed Enoxaparin Sodium (Enoxaparin Sodium 40 Mg/0.4 Ml Syringe) 40 mg SUBCUT Q24H [facility] Last Admin: 02/04/23 22:08 Dose: Not Given Documented By: ALINA Non-Admin Reason: Patient Refused Glucose (Glucose Gel 15 Gm Gel..Gram.) 15 gm PO Q15M PRN; Protocol PRN Reason: per Hypoglycemia Standing Ord. Ceftriaxone Sodium 1 gm/ (Sodium Chloride) 50 mls @ 100 mls/hr IV Q24H [facility] Dextrose (D10) 250 mls @ 750 mls/hr IV Q15M PRN; Protocol PRN Reason: per Hypoglycemia Standing Ord. Lactated Ringer's (Lr) 1,000 mls @ 80 mls/hr IVCONT .[id number] [facility] Last Admin: 02/05/23 09:57 Dose: 80 mls/hr Documented By: JEANETTE Insulin Human Lispro (Insulin Lispro 100 Unit/Ml 3 Ml Vial) 0 unit SUBCUT QIDACHS [facility]; Protocol Last Admin: 02/05/23 11:19 Dose: Not Given Documented By: JEANETTE Non-Admin Reason: No Insulin Coverage Ondansetron HCl (Ondansetron Hcl 4 Mg/2 Ml Vial) 4 mg IVPUSH Q8H PRN PRN Reason: Nausea and Vomiting Pharmacy Consult (Consult Rx Perform Med Rec) 1 each MISCELLANE ONCE PRN PRN Reason: Consult order Polyethylene Glycol (Polyethylene Glycol 3350 17 Gm Powd.Pack) 17 gm PO DAILY [facility] Last Admin: 02/05/23 09:50 Dose: 17 gm Documented By: JEANETTE Quetiapine Fumarate (Quetiapine Fumarate 25 Mg Tablet) 25 mg PO BEDTIME [facility] Last Admin: 02/04/23 21:33 Dose: 25 mg Documented By: ALINA Sertraline HCl (Sertraline Hcl 100 Mg Tablet) 100 mg PO DAILY [facility] Last Admin: 02/05/23 09:49 Dose: 100 mg Documented By: JEANETTE Sodium Chloride (0.9 % Sodium Chloride Flush 3 Ml Syringe) 3 ml IVFLUSH QSHIFT [facility] Last Admin: 02/05/23 09:49 Dose: 3 ml Documented By: JEANETTE Labs 02/05/23 06:06 02/05/23 06:06 Labs: Laboratory Results - last 24 hr 02/04/23 02/04/23 02/04/23 13:51 13:51 17:02 MCV 89.8 MCH 29.0 MCHC 32.3 RDW 13.6 Plt Count 252 D MPV 10.5 Immature Gran % (Auto) 0.2 Neut % (Auto) 56.7 Lymph % (Auto) 26.4 [place] % (Auto) 3.1 Eos % (Auto) 13.2 H Baso % (Auto) 0.4 Lymph # (Auto) 1.3 [place] # (Auto) 0.2 Eos # (Auto) 0.6 H Baso # (Auto) 0.0 Abs Immat Gran (auto) 0.01 Absolute Neuts (auto) 2.7 Absolute Nucleated RBC 0.000 Nucleated RBC % (auto) 0.0 Anion Gap 14 Estim Creat Clear Calc 41.8 Estimated GFR > 60 POC Glucose Random Glucose 236 H Lactic Acid Calcium 8.9 Magnesium 1.8 Total Bilirubin 0.5 AST 14 ALT 12 Alkaline Phosphatase 120 H Total Protein 7.2 Albumin 3.6 Urine Color Yellow Urine Appearance Cloudy Urine pH 5.5 Ur Specific [place] 1.015 Urine Protein 30 (1+) H Urine Glucose (UA) Negative Urine Ketones Negative Urine Blood Negative Urine Nitrite Negative Ur Leukocyte Esterase Small (1+) H Urine RBC 0-2 Urine WBC 6-10 H Ur Squamous Epith Cells 0-2 Urine Bacteria 4+ Hyaline Casts 0-2 02/04/23 02/05/23 02/05/23 19:12 06:06 06:06 MCV 90.1 MCH 29.4 MCHC 32.6 RDW 13.4 Plt Count 217 MPV 10.9 Immature Gran % (Auto) Neut % (Auto) Lymph % (Auto) [place] % (Auto) Eos % (Auto) Baso % (Auto) Lymph # (Auto) [place] # (Auto) Eos # (Auto) Baso # (Auto) Abs Immat Gran (auto) Absolute Neuts (auto) Absolute Nucleated RBC 0.000 Nucleated RBC % (auto) 0.0 Anion Gap 11 L Estim Creat Clear Calc 55.5 Estimated GFR > 60 POC Glucose Random Glucose 64 Lactic Acid 1.3 Calcium 8.0 L D Magnesium Total Bilirubin AST ALT Alkaline Phosphatase Total Protein Albumin Urine Color Urine Appearance Urine pH Ur Specific [place] Urine Protein Urine Glucose (UA) Urine Ketones Urine Blood Urine Nitrite Ur Leukocyte Esterase Urine RBC Urine WBC Ur Squamous Epith Cells Urine Bacteria Hyaline Casts 02/05/23 11:18 MCV MCH MCHC RDW Plt Count MPV Immature Gran % (Auto) Neut % (Auto) Lymph % (Auto) [place] % (Auto) Eos % (Auto) Baso % (Auto) Lymph # (Auto) [place] # (Auto) Eos # (Auto) Baso # (Auto) Abs Immat Gran (auto) Absolute Neuts (auto) Absolute Nucleated RBC Nucleated RBC % (auto) Anion Gap Estim Creat Clear Calc Estimated GFR POC Glucose 77 Random Glucose Lactic Acid Calcium Magnesium Total Bilirubin AST ALT Alkaline Phosphatase Total Protein Albumin Urine Color Urine Appearance Urine pH Ur Specific [place] Urine Protein Urine Glucose (UA) Urine Ketones Urine Blood Urine Nitrite Ur Leukocyte Esterase Urine RBC Urine WBC Ur Squamous Epith Cells Urine Bacteria Hyaline Casts Microbiology Microbiology Results: Microbiology 02/04/23 Unknown Urine Culture - Preliminary Urine Catheterized - Straight Catheter Culture in progress. 02/04/23 19:12 Blood Culture - Preliminary Blood - Venous Prelim: GNR Gram Stain only Assessment and Plan (1) Encephalopathy: Status: Acute (2) Urinary tract infection: Status: Acute Plan ?82-year-old male with a PMH significant for?unspecified dementia, HLD, and insulin-dependent diabetes type 2 who presents to the ED with?increased lethargy and foul-smelling urine.? Patient with advanced dementia and nonverbal at baseline. Pt will be admitted to the hospital for treatment of acute toxic metabolic encephalopathy in the setting of UTI that failed outpatient therapy. Acute toxic metabolic encephalopathy in setting of UTI increased lethargy, foul-smelling urine, and refusal to swallow medications, food, and drink since p.o. abx. recent UTI on 01/19/2023 and? begun on a 2 day course of Levaquin prescribed after a home medical visit. started on IVF and ceftriaxone, started 02/04/2023 Patient is incontinent of urine and feces at baseline Follow cultures HLD Continue statin Mood disorder Continue sertraline, quetiapine Insulin-dependent diabetes Hold home meds SSI, Lantus dementia unspecified :continue supportive care DNR/DNI DVT Prophylaxis: Lovenox inpatient need :?acute toxic metabolic encephalopathy in the setting of UTI that failed outpatient therapy-need iv antibiotics , blood cultures pending . family updated in detail. Time Spent With Patient Time: Total time managing care of this patient today ____ minutes. Quality Stroke Does the patient have a stroke diagnosis?: No VTE Prior VTE?: No VTE Risk Level:: Medical - moderate - high VTE Device Contraindication: Treatment Not Indicated VTE Drug Contraindication: N/A - Med Ordered
[2023-02-05 13:53] VITALS: BP 140/70; PULSE 72; RESP 18; TEMP 36.6; O2SAT 95
[2023-02-05 14:21] LABS: Glucose, Whole Blood 86 mg/dL (60-115)
[2023-02-05 16:27] LABS: Glucose, Whole Blood 79 mg/dL (60-115)
[2023-02-05] MEDS: Dextrose 5 % and 0.9 % NaCl 1,000 ML 80 ML IVCONT (17:13)
--- NOTE | 2023-02-05 17:26 | PC.NURSE ---
Pt arrived to unit from ED overflow in bed. At this time pt alert to voice, opens eyes to name and followed some basic commands in [place] but did not speak, per ED report is patients baseline. Pt brought up in brief soiled with urine, [place] cath applied to keep skin clean and dry, pt tolerated well. Skin intact. MD Nava made aware of pts poor PO intake and low blood sugars. New orderer for IVF d5 nacl at 80ml/hr infusing. All safety measures in place, pt being turned in repositioned in bed every 2 hours, all needs met at this time.
[2023-02-05] MEDS: cefTRIAXone sodium 1 GM in 0.9 % Sodium Chloride 50 ML IV (18:12)
[2023-02-05 19:10] VITALS: BP 139/67; PULSE 73; RESP 17; TEMP 36.8; O2SAT 94
[2023-02-05 20:48] LABS: Glucose, Whole Blood 112 mg/dL (60-115)
[2023-02-05] MEDS: Enoxaparin Sodium 40 MG/0.4 ML SYRINGE SUBCUT (21:46)
[2023-02-05] MEDS: QUEtiapine Fumarate 25 MG TABLET PO (21:46)
[2023-02-05] MEDS: Atorvastatin Calcium 40 MG TABLET PO (21:46)
[2023-02-05] MEDS: bisacodyL 10 MG SUPP.RECT PR (21:51)
[2023-02-06] MEDS: Acetaminophen 325 MG TABLET 650 MG PO ×2 (01:55→20:11)
[2023-02-06 04:00] VITALS: BP 139/81; PULSE 72; RESP 16; TEMP 36.1; O2SAT 97
[2023-02-06] MEDS: Dextrose 5 % and 0.9 % NaCl 1,000 ML 80 ML IVCONT ×2 (04:32→18:28)
[2023-02-06 07:33] VITALS: BP 142/80; PULSE 89; RESP 18; TEMP 36.9; O2SAT 96
[2023-02-06 07:38] LABS: Glucose, Whole Blood 174 mg/dL (60-115)
[2023-02-06] MEDS: Sertraline HCL 100 MG TABLET PO (08:48)
--- NOTE | 2023-02-06 09:50 | MHC.CM.PN ---
WITH ASSIST OF GROCERY BAGGER, CALL TO DAUGHTER, NIKOLAS ([phone]) PATIENT LIVES WITH DAUGHTER, WHO IS HATCHERY HELPER LOG HAUL OPERATOR. HAS WALKER BUT UNSURE HOW TO USE IT. NO VNA SERVICES IN THE HOME. DAUGHTER STATES THAT SHE MAY TRANSPORT AT ID. IMM LEFT ION ROOM, SHE IS ON HER WAY IN TO SEE PATIENT. PCP IS CARRINGTON ADAM OF [facility]. UPDATE MADE IN QUICK TASK. IMM 02/06 IN CHART
[2023-02-06 11:28] LABS: Glucose, Whole Blood 206 mg/dL (60-115)
--- NOTE | 2023-02-06 12:13 | MHC.CLN ---
NUTRITION CONSULT FOR POOR INTAKE. FAMILY PRESENT AND COMMUNICATED VIA CUSTOMER SERVICE SPECIALIST. POOR INTAKE REPORTED X 2 WEEKS PRIOR TO ADMISSION. TAKES GLUCERNA AT HOME. DIET=DIABETIC 1800 KCALS, NDD2 CONSISTENCY. ADDING ENSURE BID TO PROVIDE ADDITIONAL 700 KCALS, 40 G PROTEIN. FOLLOW FOR INTAKE OF MEALS AND SUPPLEMENT. SEE CLINICAL NUTRITION ASSESSMENT 02/06/23.
[2023-02-06 12:17] VITALS: BMI 20.7
[2023-02-06] MEDS: Insulin Lispro 100 UNIT/ML 3 ML VIAL SUBCUT ×2 (12:32→20:23)
--- NOTE | 2023-02-06 14:13 | P.CDIM_ITS ---
PROVIDER RESPONSE TEXT: To clarify, the appropriate diagnosis supported by the clinical indicators: Other QUERY TEXT: PHYSICIAN'S DOCUMENTATION REQUEST Date of Query: 02/06/2023 12:34 PM EDT Patient Name: ROBERTO MEJÍA Admit Date: 02/05/2023 Dear Josr Nava, A review of the medical record indicates additional documentation may be needed. Please review below and update the documentation accordingly. Clinical Indicators: ED 02/04 - Clinical impression - Failure to thrive BMI 20 Not drinking, dehydrated, refusing to eat and all medications. Weakness, inadequate energy intake, adding Ensure BID. If possible, please provide an associated diagnosis related to the abnormal BMI, such as: Underweight Weight loss Failure to thrive Anorexia BMI is not significant Other Other (explain)Clinically unable to determine (explain)Thank you, Shu Barrett, CCS, CDIS Use of terms such as suspected, likely, concern for, or probable (associated with a specific diagnosi s that is being evaluated, monitored, or treated as if it exists) are acceptable and can be coded in the inpatient se tting, when documented at the time of discharge. Please use your independent medical judgment in providing your response. THIS QUERY IS PART OF THE PERMANENT MEDICAL RECORD
--- NOTE | 2023-02-06 15:17 | HO.PM.IMPN ---
Subjective Subjective Date of Service: 02/06/23 Interval History: uti, gram neg bacteremia Review of Systems seems more awake ,eating well passed bm also Physical Exam Vital Signs: Vital Signs: Last Vital Signs Temp 98.4 F 02/06/23 07:33 Pulse 89 02/06/23 07:33 Resp 18 02/06/23 07:33 BP 142/80 H 02/06/23 07:33 Pulse Ox 96 02/06/23 07:33 O2 Del Method Room Air 02/06/23 07:33 BMI result Body Mass Index 20.7 Appearance:? Awake, pleasantly confused, not in distress cvs: rrr, [id number] . res: clear to auscultation ,no rhonchii or wheezing abd: no rebound or guarding ,nt, bs present. ext pulses present , no cyanosis . neuro:? Moves all extremities, follows simple commands. Objective Data Active Medications Acetaminophen (Acetaminophen 325 Mg Tablet) 650 mg PO Q6H PRN PRN Reason: Pain, Mild (Pain Scale 1-3) Last Admin: 02/06/23 01:55 Dose: 650 mg Documented By: KEYSHAWN Aspirin (Aspirin Enteric Coated 81 Mg Tablet.Dr) 81 mg PO DAILY [facility] Last Admin: 02/06/23 08:47 Dose: Not Given Documented By: SARAH Non-Admin Reason: Cannot be crushed Atorvastatin Calcium (Atorvastatin Calcium 40 Mg Tablet) 40 mg PO BEDTIME [facility] Last Admin: 02/05/23 21:46 Dose: 40 mg Documented By: KEYSHAWN Bisacodyl (Bisacodyl 10 Mg Supp.Rect) 10 mg W[place] BEDTIME [facility] Last Admin: 02/05/23 21:51 Dose: 10 mg Documented By: KEYSHAWN Docusate Sodium (Docusate Sodium 100 Mg Capsule) 100 mg PO BID [facility] Last Admin: 02/06/23 08:47 Dose: Not Given Documented By: SARAH Non-Admin Reason: Cannot be crushed Enoxaparin Sodium (Enoxaparin Sodium 40 Mg/0.4 Ml Syringe) 40 mg SUBCUT Q24H [facility] Last Admin: 02/05/23 21:46 Dose: 40 mg Documented By: KEYSHAWN Glucose (Glucose Gel 15 Gm Gel..Gram.) 15 gm PO Q15M PRN; Protocol PRN Reason: per Hypoglycemia Standing Ord. Ceftriaxone Sodium 1 gm/ (Sodium Chloride) 50 mls @ 100 mls/hr IV Q24H [facility] Last Infusion: 02/05/23 18:46 Dose: 0 mls/hr Documented By: EDILIA Dextrose (D10) 250 mls @ 750 mls/hr IV Q15M PRN; Protocol PRN Reason: per Hypoglycemia Standing Ord. Lactated Ringer's (Lr) 1,000 mls @ 80 mls/hr IVCONT .[id number] [facility] Last Admin: 02/06/23 08:52 Dose: Not Given Documented By: SARAH Non-Admin Reason: IV Running Dextrose/Sodium Chloride (D5ns) 1,000 mls @ 80 mls/hr IVCONT .[id number] [facility] Last Admin: 02/06/23 04:32 Dose: 80 mls/hr Documented By: KEYSHAWN Insulin Human Lispro (Insulin Lispro 100 Unit/Ml 3 Ml Vial) 0 unit SUBCUT QIDACHS [facility]; Protocol Last Admin: 02/06/23 12:32 Dose: 2 unit Documented By: NARAYAN Ondansetron HCl (Ondansetron Hcl 4 Mg/2 Ml Vial) 4 mg IVPUSH Q8H PRN PRN Reason: Nausea and Vomiting Pharmacy Consult (Consult Rx Perform Med Rec) 1 each MISCELLANE ONCE PRN PRN Reason: Consult order Polyethylene Glycol (Polyethylene Glycol 3350 17 Gm Powd.Pack) 17 gm PO DAILY [facility] Last Admin: 02/06/23 08:47 Dose: Not Given Documented By: SARAH Non-Admin Reason: Physician Approved Quetiapine Fumarate (Quetiapine Fumarate 25 Mg Tablet) 25 mg PO BEDTIME [facility] Last Admin: 02/05/23 21:46 Dose: 25 mg Documented By: KEYSHAWN Sertraline HCl (Sertraline Hcl 100 Mg Tablet) 100 mg PO DAILY [facility] Last Admin: 02/06/23 08:48 Dose: 100 mg Documented By: SARAH Sodium Chloride (0.9 % Sodium Chloride Flush 3 Ml Syringe) 3 ml IVFLUSH QSHIFT [facility] Last Admin: 02/06/23 07:41 Dose: Not Given Documented By: SARAH Non-Admin Reason: IV Running Labs 02/05/23 06:06 02/05/23 06:06 Labs: Laboratory Results - last 24 hr 02/05/23 02/05/23 02/06/23 16:18 20:41 07:30 POC Glucose 79 112 174 H 02/06/23 11:20 POC Glucose 206 H Microbiology Microbiology Results: Microbiology 02/04/23 19:12 Blood Culture - Preliminary Blood - Venous Gram negative sharmin 02/04/23 Unknown Urine Culture - Preliminary Urine Catheterized - Straight Catheter Gram negative sharmin 02/04/23 19:12 Blood Culture - Preliminary Blood - Venous No growth after 24 hours. Assessment and Plan (1) Urinary tract infection: Status: Acute (2) Gram-negative bacteremia: Status: Acute Plan 82-year-old male with a PMH significant for?unspecified dementia, HLD, and insulin-dependent diabetes type 2 who presents to the ED with?increased lethargy and foul-smelling urine.? Patient with advanced dementia and nonverbal at baseline. Pt will be admitted to the hospital for treatment of acute toxic metabolic encephalopathy in the setting of UTI that failed outpatient therapy. Acute toxic metabolic encephalopathy in setting of UTI increased lethargy, foul-smelling urine, and refusal to swallow medications, food, and drink since p.o. abx. recent? UTI on 01/19/2023 and? begun on a 2 day course of Levaquin prescribed after a home medical visit. started on? IVF and ceftriaxone, started 02/04/2023 Patient is incontinent of urine and feces at baseline blood and urine cultures-grew gr neg sharmin-identification and sensitivity pending. Added id evaluation HLD Continue statin Mood disorder Continue sertraline, quetiapine Insulin-dependent diabetes Hold home meds SSI, Lantus dementia unspecified :continue supportive care poor oral intake ,bmi normal: added nutritionst eval DNR/DNI DVT Prophylaxis: Lovenox inpatient need :?acute toxic metabolic encephalopathy in the setting of UTI that failed outpatient therapy-need iv antibiotics. Time Spent With Patient Time: Total time managing care of this patient today ____ minutes. Quality Stroke Does the patient have a stroke diagnosis?: No VTE Prior VTE?: No VTE Risk Level:: Medical - moderate - high VTE Device Contraindication: Treatment Not Indicated VTE Drug Contraindication: N/A - Med Ordered
[2023-02-06 15:22] VITALS: BP 133/77; PULSE 76; RESP 18; TEMP 36.4; O2SAT 97
[2023-02-06 16:10] LABS: Glucose, Whole Blood 109 mg/dL (60-115)
--- NOTE | 2023-02-06 16:40 | P.CNID_ITS ---
History of Present Illness Data of Consult Service Date: 02/06/23 Requesting physician: Josr Nava Primary Care Provider: Unknown Physician HPI Reason for consult: bacteremia He presents with weakness and lethargy. Blood culture gram negative rods. He cant give history due to dementia. Review of Systems Review of Systems: Yes Unobtainable due to mental status [facility] Past Medical History Medical History Alzheimer disease Asthma Dementia Diabetes Family History Family history: reviewed and not pertinent Social History Social History Household Members: Family and Children Housing: Unknown / Unable to assess Unable to assess alcohol history related to: Unable to respond Patient Tobacco Use Status: Former Tobacco user Quit Date: 1 YEAR AGO Substance Use Type: Unknown service: No Current occupational status: retired [employer] Allergies Allergy/AdvReac Type Severity Reaction Status Date / Time No Known Allergies Allergy Verified 08/25/20 16:13 [No Known Allergies*] Active Medications: Current Medications Acetaminophen (Acetaminophen 325 Mg Tablet) 650 mg PO Q6H PRN PRN Reason: Pain, Mild (Pain Scale 1-3) Last Admin: 02/06/23 01:55 Dose: 650 mg Aspirin (Aspirin Enteric Coated 81 Mg Tablet.Dr) 81 mg PO DAILY [facility] Last Admin: 02/06/23 08:47 Dose: Not Given Atorvastatin Calcium (Atorvastatin Calcium 40 Mg Tablet) 40 mg PO BEDTIME [facility] Last Admin: 02/05/23 21:46 Dose: 40 mg Bisacodyl (Bisacodyl 10 Mg Supp.Rect) 10 mg [place] BEDTIME [facility] Last Admin: 02/05/23 21:51 Dose: 10 mg Docusate Sodium (Docusate Sodium 100 Mg Capsule) 100 mg PO BID [facility] Last Admin: 02/06/23 08:47 Dose: Not Given Enoxaparin Sodium (Enoxaparin Sodium 40 Mg/0.4 Ml Syringe) 40 mg SUBCUT Q24H [facility] Last Admin: 02/05/23 21:46 Dose: 40 mg Glucose (Glucose Gel 15 Gm Gel..Gram.) 15 gm PO Q15M PRN; Protocol PRN Reason: per Hypoglycemia Standing Ord. Ceftriaxone Sodium 1 gm/ (Sodium Chloride) 50 mls @ 100 mls/hr IV Q24H [facility] Last Infusion: 02/05/23 18:46 Dose: Infused Dextrose (D10) 250 mls @ 750 mls/hr IV Q15M PRN; Protocol PRN Reason: per Hypoglycemia Standing Ord. Lactated Ringer's (Lr) 1,000 mls @ 80 mls/hr IVCONT .[id number] [facility] Last Admin: 02/06/23 08:52 Dose: Not Given Dextrose/Sodium Chloride (D5ns) 1,000 mls @ 80 mls/hr IVCONT .[id number] [facility] Last Admin: 02/06/23 04:32 Dose: 80 mls/hr Insulin Human Lispro (Insulin Lispro 100 Unit/Ml 3 Ml Vial) 0 unit SUBCUT QIDACHS [facility]; Protocol Last Admin: 02/06/23 16:12 Dose: Not Given Ondansetron HCl (Ondansetron Hcl 4 Mg/2 Ml Vial) 4 mg IVPUSH Q8H PRN PRN Reason: Nausea and Vomiting Pharmacy Consult (Consult Rx Perform Med Rec) 1 each MISCELLANE ONCE PRN PRN Reason: Consult order Polyethylene Glycol (Polyethylene Glycol 3350 17 Gm Powd.Pack) 17 gm PO DAILY [facility] Last Admin: 02/06/23 08:47 Dose: Not Given Quetiapine Fumarate (Quetiapine Fumarate 25 Mg Tablet) 25 mg PO BEDTIME [facility] Last Admin: 02/05/23 21:46 Dose: 25 mg Sertraline HCl (Sertraline Hcl 100 Mg Tablet) 100 mg PO DAILY [facility] Last Admin: 02/06/23 08:48 Dose: 100 mg Sodium Chloride (0.9 % Sodium Chloride Flush 3 Ml Syringe) [facility] Admin: 02/06/23 16:12 Dose: Not Given Home Medications Medication Instructions Recorded Confirmed Last Taken Type aspirin 81 mg tablet,delayed 1 tab PO DAILY 03/14/21 02/04/23 Unknown History release atorvastatin 40 mg tablet 1 tab PO BEDTIME 03/14/21 02/04/23 Unknown History insulin glargine 100 unit/mL (3 15 unit subcut DAILY 03/14/21 02/04/23 Unknown History mL) subcutaneous pen (Lantus Solostar U-100 Insulin) quetiapine 25 mg tablet 1 tab PO BEDTIME 03/14/21 02/04/23 Unknown History sertraline 100 mg tablet 1 tab PO DAILY 03/14/21 02/04/23 Unknown History albuterol sulfate 90 mcg/actuation 1 puff inhalation Q4H PRN 02/05/23 02/05/23 Unknown History aerosol inhaler (Ventolin HFA) Shortness Of Breath dulaglutide 1.5 mg/0.5 mL mg subcut 02/05/23 Unknown History subcutaneous pen injector (Trulicity) dulaglutide 3 mg/0.5 mL mg subcut 02/05/23 Unknown History subcutaneous pen injector (Trulicity) Physical Exam Vital Signs: Vital Signs: Last Vital Signs Temp 97.6 F 02/06/23 15:22 Pulse 76 02/06/23 15:22 Resp 18 02/06/23 15:22 BP 133/77 02/06/23 15:22 Pulse Ox 97 02/06/23 15:22 O2 Del Method Room Air 02/06/23 15:22 BMI result Body Mass Index 20.7 Const: General: cooperative HEENT: Head: Yes normal to inspection Face and sinus: Yes normal facial exa m Mouth: Normal oral and palatal mucosa present Teeth and gingiva: dentition normal Eyes: General: appearance normal, both eyes and all related structures Pupils: Equal, round and reactive pupils present Resp: Effort & Inspection: normal respiratory effort Cardio: Rate: regular rate Rhythm: regular rhythm GI: Palpation (GI): Soft to palpation and nontender : General: Yes no CVA tenderness Back/Spine/Pelvis: Back: no CVA tenderness Skin: General skin exam: no rashes or lesions noted Neuro: General: moves all extremities Cranial nerves: Yes Equal, round and reactive pupils present Extrem: General: Yes normal to inspection Psych: Other: confusion Appearance: grossly normal Results Labs 02/05/23 06:06 02/05/23 06:06 Microbiology Microbiology Results: Microbiology 02/04/23 19:12 Blood - Venous Blood Culture - Preliminary Gram negative sharmin 02/04/23 Unknown Urine Catheterized - Straight Catheter Urine Culture - Preliminary Gram negative sharmin 02/04/23 19:12 Blood - Venous Blood Culture - Preliminary No growth after 24 hours. Assessment and Plan (1) Gram-negative bacteremia: Status: Acute He has right nephrolithiasis with no obstruction. There is concern over bladder source. (2) Encephalopathy: Status: Acute (3) Urinary tract infection: Status: Acute Plan Would continue IV Ceftriaxone Po if tolerates and organism sensitive 14 days total See Urology Time Spent With Patient Time: Total time managing care of this patient today ____ minutes.
[2023-02-06] MEDS: cefTRIAXone sodium 1 GM in 0.9 % Sodium Chloride 50 ML IV (18:28)
[2023-02-06 19:35] VITALS: BP 125/64; PULSE 74; RESP 18; TEMP 36.9; O2SAT 96
[2023-02-06] MEDS: Docusate Sodium 100 MG CAPSULE PO (20:10)
[2023-02-06] MEDS: Atorvastatin Calcium 40 MG TABLET PO (20:10)
[2023-02-06] MEDS: QUEtiapine Fumarate 25 MG TABLET PO (20:10)
[2023-02-06] MEDS: 0.9 % Sodium Chloride Flush 3 ML SYRINGE IVFLUSH (20:11)
[2023-02-06 20:19] LABS: Glucose, Whole Blood 213 mg/dL (60-115)
[2023-02-06] MEDS: bisacodyL 10 MG SUPP.RECT PR (20:23)
[2023-02-06] MEDS: Enoxaparin Sodium 40 MG/0.4 ML SYRINGE SUBCUT (21:48)
[2023-02-06] MEDS: Lactated Ringers 1,000 ML 80 ML IVCONT (23:04)
[2023-02-07 03:20] VITALS: BP 158/75; PULSE 67; RESP 16; TEMP 36; O2SAT 96
--- NOTE | 2023-02-07 03:22 | PC.NURSE ---
Noted that pt has 2 types of IVF ordered, Dr. Shields notified and said to continue LR as ordered and not D5 NS, IVF changed to LR at 80 ml/ hr.
[2023-02-07 07:02] LABS: Hematocrit 40.7 % (42.0-52.0); Hemoglobin 13.4 g/dl (14.0-18.0); Mean Corpuscular HGB Conc 32.9 g/dl (31.0-36.0); Mean Corpuscular Hemoglobin 29.3 pg (27.0-33.0); Mean Corpuscular Volume 89.1 fL (80.0-98.0); Mean Platelet Volume 11.7 fL (9.4-12.4); Platelet Count 207 X10*3/uL (160-400); Red Blood Count 4.57 X10*6/uL (4.60-5.80); Red Cell Distribution Width 13.4 % (11.0-16.0); White Blood Count 3.8 X10*3/uL (4.8-10.8)
[2023-02-07 07:17] LABS: Anion Gap 11 (12-20); Blood Urea Nitrogen 8 mg/dL (9-16); Calcium 8.3 mg/dL (8.4-10.2); Carbon Dioxide 25 mmol/L (22-29); Chloride 108 mmol/L (96-108); Creatinine Clr Calc Pharmacy 58.4; Estimated Glomerular Filt Rate > 60; Glucose Random 133 mg/dL (60-115); Sodium 140 mmol/L (135-145)
[2023-02-07 07:38] VITALS: BP 167/74; PULSE 90; RESP 20; TEMP 36.6; O2SAT 96
[2023-02-07 07:52] LABS: Glucose, Whole Blood 140 mg/dL (60-115)
[2023-02-07] MEDS: Sertraline HCL 100 MG TABLET PO (08:51)
--- NOTE | 2023-02-07 10:47 | PM.DS ---
DS: Providers Provider Date of Service: 02/07/23 Date of admission: 02/04/23 21:22 Primary care physician: Unknown Physician Consults: 02/06/23 14:11 Consult to Infectious Diseases Routine Consulting Provider: [facility] Infectious Disease Reason for consultation: gram neg bateremia Has provider been notified: No DS: Diagnosis Discharge Diagnosis (1) Urinary tract infection: Status: Acute (2) Gram-negative bacteremia: Status: Acute DS: Summary Hospital Course Hospital Course: Chief Complaint: Lethargy Pt is an 82-year-old male with a PMH significant for?unspecified dementia, HLD, and insulin-dependent diabetes type 2 who presents to the ED with?increased lethargy and foul-smelling urine.? Patient with advanced dementia and nonverbal at baseline.? Family Irish-speaking only.? [employer] Operator services utilized.? According to the family patient has been experiencing foul-smelling urine for the past month.? Family called patient's PCP who had a dizzy and nurse draw labs at home on January 19.? Patient was diagnosed with a UTI and treated with a 2-day course of Levaquin. Patient's family notes that his symptoms did not improve but worsened over the next 2 weeks S the patient became more lethargic, was sleeping more, had decreased intake of of both solids and liquids, and began refusing to take his medications by spitting them out.? Patient normally is much more awake and takes his medications without incident.? Family reports patient has not had an increase in cough or shortness of breath.? Family is on able to report whether patient has experienced any pain. In the ED afebrile. Labs largely unremarkable.? No leukocytosis, stable H&H 15.1/46.7.? Electrolytes WNL.? Renal function baseline.? Hepatic function baseline.? UA positive for small number of leukocyte esterase, WBC 6-10, bacteria 4+. Pt was treated with IVF, ceftriaxone, and lidocaine topical patch. Pt will be admitted to the hospital for treatment of acute toxic metabolic encephalopathy in the setting of UTI that failed outpatient therapy. Hospital course; Acute toxic metabolic encephalopathy due to UTI, this has resolved with treatment of underlying UTI and is back to his baseline. UTI- culture growing E.coli sensitive to Ceftriaxone and is to be treated for 14 days per ID recommendation. Will change to PO Ceftin for discharge HLD--continue STatin Mood disorder Continue sertraline, quetiapine Insulin-dependent diabetes--resume home meds dementia unspecified :continue supportive care Time Spent with Patient Time attestation: Total time managing care of this patient today ____ minutes. Discharge coordination time: Greater than 30 minutes Quality: Safe Use of Opioids Does Pt have an Active Cancer Diagnosis on the Problem List?: No Quality: Stroke Does the patient have a stroke diagnosis?: No Physical Exam Vital Signs: Vital Signs: Last Vital Signs Temp 97.9 F 02/07/23 07:38 Pulse 90 02/07/23 07:38 Resp 20 02/07/23 07:38 BP 167/74 H 02/07/23 07:38 Pulse Ox 96 02/07/23 07:38 O2 Del Method Room Air 02/07/23 07:38 BMI result Body Mass Index 20.7 DS: Data Data Completed and Pending Labs on day of discharge: Laboratory Results - last 24 hr 02/06/23 02/06/23 02/06/23 11:20 16:07 20:16 WBC RBC Hgb Hct MCV MCH MCHC RDW Plt Count MPV Absolute Nucleated RBC Nucleated RBC % (auto) Sodium Potassium Chloride Carbon Dioxide Anion Gap BUN Creatinine Estim Creat Clear Calc Estimated GFR POC Glucose 206 H 109 213 H Random Glucose Calcium 02/07/23 02/07/23 02/07/23 05:33 05:33 07:48 WBC 3.8 L RBC 4.57 L Hgb 13.4 L Hct 40.7 L MCV 89.1 MCH 29.3 MCHC 32.9 RDW 13.4 Plt Count 207 MPV 11.7 Absolute Nucleated RBC 0.000 Nucleated RBC % (auto) 0.0 Sodium 140 Potassium 4.0 Chloride 108 Carbon Dioxide 25 Anion Gap 11 L BUN 8 L Creatinine 0.78 Estim Creat Clear Calc 58.4 Estimated GFR > 60 POC Glucose 140 H Random Glucose 133 H Calcium 8.3 L Preliminary micro results at discharge 02/04/23 19:12 Blood Culture - Preliminary Blood - Venous No growth after 48 hours. 02/04/23 19:12 Blood Culture - Preliminary Blood - Venous Gram negative sharmin Discharge Plan Discharge Anticipated Discharge Date/Time: 02/07/23 12:47 Patient Disposition: Home, Self-Care Discharge Diagnosis: uti, encephalopathy Referrals: Lenore Gillette [Primary Care Provider] - 1 Week Discharge Medications: New cefdinir 250 mg/5 mL suspension for reconstitution 250 mg PO BID Qty: 60 0RF Continued quetiapine 25 mg tablet 1 tab PO BEDTIME atorvastatin 40 mg tablet 1 tab PO BEDTIME sertraline 100 mg tablet 1 tab PO DAILY aspirin 81 mg tablet,delayed release (DR/EC) 1 tab PO DAILY insulin glargine [Lantus Solostar U-100 Insulin] 100 unit/mL (3 mL) insulin pen 15 unit subcut DAILY albuterol sulfate [Ventolin HFA] 90 mcg/actuation HFA aerosol inhaler 1 puff inhalation Q4H PRN (Reason: Shortness Of Breath) Trulicity 1.5 mg/0.5 mL pen injector subcut Trulicity 3 mg/0.5 mL pen injector subcut Discharge Orders: Discharge Order (Routine); Ordered 02/07/23 Ordered By: Ino Ruiz Diet: Advance to usual diet Activity on Discharge: As tolerated Stand Alone Forms: Patient Portal Discharge page Care Plan Goals: full recovery from UTI Health Concerns: UTI, encephalopathy now resolved Plan of Treatment: Take Cefuroximine as recommended and follow up with your Doctor in a week, call for appointment Assessment: as above Discharge Date/Time: 02/07/23 16:01
[2023-02-07 11:18] LABS: Glucose, Whole Blood 126 mg/dL (60-115)
== END 2023-02-07 16:01 | disposition home or self-care (01) | DRG 689 ==
LOC: HO.ED 19:06 → HO.EDOVER 21:52 → HO.S3 02-05 12:26
PROVIDERS: Internal Medicine; Physician Assistant Medical; Admitting Provider Student in an Organized Health Care Education/Training Program; Emergency Provider Emergency Medicine; PCP Internal Medicine; Visit Provider Internal Medicine
DX: N39.0 Urinary tract infection, site not specified (principal); G92.8 Other toxic encephalopathy; G30.9 Alzheimer's disease, unspecified; E11.9 Type 2 diabetes mellitus without complications; Z66 Do not resuscitate; F02.C0 Dementia in other diseases classified elsewhere, severe, without behavioral disturbance, psychotic disturbance, mood disturbance, and anxiety; B96.20 Unspecified Escherichia coli [E. coli] as the cause of diseases classified elsewhere; N20.0 Calculus of kidney; J45.909 Unspecified asthma, uncomplicated; F39 Unspecified mood [affective] disorder; E78.5 Hyperlipidemia, unspecified; Z87.440 Personal history of urinary (tract) infections; Z79.4 Long term (current) use of insulin; Z79.82 Long term (current) use of aspirin; Z79.899 Other long term (current) drug therapy
CPT/HCPCS: 36415; 80048; 80053; 81001; 82947; 83605; 83735; 85025; 85027; 87040; 87077; 87086; 87088; 87186; 87205; 99285; J0696; J1650

== ENCOUNTER 2023-05-15 22:44 | Inpatient (IN) | payer OTHER, SELFPAY ==
--- NOTE | ~2023-05-15 | XR_ITS ---
EXAMINATION: XR CHEST CLINICAL INFORMATION: Shortness of breath. COMPARISON: 02/12/2021 TECHNIQUE: Frontal view of the chest was obtained. FINDINGS: The patient is rotated/tilted and the lung volumes are low. The cardiomediastinal silhouette is stable. There is a left perihilar/left mid to lower lung field opacity. The right lung is clear. The bony structures and soft tissues are unremarkable. XR/XR chest 1V IMPRESSION: Rotation and low lung volume slightly limits evaluation. Left mid to lower lung field opacity possibly atelectasis and/or infiltrate/pneumonia.
[2023-05-15 23:23] VITALS: BP 128/80; PULSE 105; RESP 20; TEMP 36.8; O2SAT 94; BMI 15.4
--- OUTSIDE RECORDS SUMMARY | 2023-05-15 23:36 | XMS_ITS | Continuity of Care Document ---
Author Name Unknown Organization [facility] Address [address] [place] [address]- Care Team Providers Care Hoisting Machine Operator Name Role Phone Nain WILSON, Lenore Primary Care Physician Encounter [facility] Date(s): 03/02/23 - 04/01/23 [facility] [address]- Attending Physician: Blayne Torres Admitting Physician: Blayne [...] incontinence R32 vascular dementia F01.50 faxed to [phone], 01/02/23 14:17:00 EDT, Supply Start Date: 01/02/23 [...] incontinence R32 vascular dementia F01.50 faxed to [phone], 01/02/23 14:17:00 EDT, Supply Start Date: 01/02/23 Status: Ordered Gloves size adult Gloves size adult, See Instructions, # 4 pack/packet, Refills 11, Tot. Refills 11, Maintenance, to used as directed 8pair/day incontinence R32 vascular dementia F01.50 faxed to [phone], 08/10/2015:06:00 EST, Supply Start Date: 08/10/20 Status: [...] directed 8 changes/day incontinence R32 vascular dementia F01.50, 03/02/23 11:08:00 EDT, Supply Start Date: 03/02/23 Status: Ordered Lantus Solostar Pen 100 units/mL [...] 11, Maintenance, Glucerna. Vanilla only. dx: R62.7, 03/02/23 11:07:00 EDT, Supply Start Date: 03/02/23 Status: Ordered One Touch Delica Lancets See [...] Height Start Date: 12/22/22 Status: Ordered Pen [place], 30 G x 8 mm BD Ultra Fine II See Instructions, # 90 each, Refills 3, Tot. Refills 3, Maintenance, use as directed for Type 2 Diabetes Mellitus. to use with lantus [email or web address], 01/02/23 13:47:00 EDT, Supply, 157, cm, 01/02/23 13:12:00 EDT, Height Start Date: 01/02/23 Stop Date: 12/28/23 Status: Ordered polyethylene glycol 3350 oral powder for reconstitution See Instructions, MIX 17 GRAMS OF POWDER IN 8 OUNCES OF WATER AND TAKE BY MOUTH DAILY, # 510 Gm, 0 Refills, Maintenance, 02/20/23 9:55:00 EDT, [facility], 0, MIX 17 GRAMS OF POWDER IN 8OUNCES OF WATER AND TAKE BY MOUTH DAILY, 157, cm, 0... Start Date: 02/20/23 Status: Ordered Reusable Bed Liners Reusable Bed Liners, See Instructions, # 2 each, Refills 0, Tot. Refills 0, Maintenance, 2 each incontinence R32 vascular dementia F01.50, 01/19/23 14:31:00 EDT, Supply Start Date: 01/19/23 Status: Ordered SEROquel 100 mg oral tablet [...] BREATH, # 18 Gm, 5 Refills, Maintenance, 03/02/23 12:01:00 EDT, [facility], 157, cm, 03/02/23 10:37:00 EDT, Height Start Date: 03/02/23 Status: Ordered Walker with seat Walker with [...] DNR (do not resuscitate) 8 Confirmed Active *[phone]-Car e Partner-Francheska Gallegos RN Confirmed Active Counseling regarding advanced directives 9 Confirmed Active Diabetes mellitus type II, controlled Confirmed 2015 Active Urolithiasis Confirmed Active Dementia, vascular Confirmed Active 1-in US done at [facility] March 2021 2Echo 2014:The mid anterior,inferolateral, anterolateral wall is moderately to severely hypokinetic [id number] perfusion test shows scar in inferior and infero-lateral wall without reversibility. 4-multiple subacute rib fractures on the Right (seen in imaging done at [facility] March 2021) 5-seen in CT scan abdomen done at [facility] March 2021 6Had normal spirometry in [facility] in 04-06-2011, that if anything could suggest mild asthma 7Based on CXR done at [facility] in : hyperinflated lungs. PFTs done [...] No; Started at age: 22; entered on: 03/02/23 Sex Note * Event Display: Discharge/Transfer Note Hospital Authored Date: Patient Care team information Care Team Personnel Name: Lenore Gillette MD Position: S Physician - Primary Care Member Role: PCP Address: Address: [address] [place] [address]- Care Team Related Persons Name: RIC HARPER Address: home [address] [place] [address] Name: NIKOLAS MEJÍA Address: home [address] [place] [address] Name: ANITA LEÓN Address: home [facility] [address] Name: AKHIL CHAU Address: [place] [address] Name: JESENIA KUMARI Address: [place] [address]
[2023-05-15 23:37] LABS: Glucose, Whole Blood 86 mg/dL (60-115)
--- OUTSIDE RECORDS SUMMARY | 2023-05-15 23:38 | XMS_ITS | Continuity of Care Document ---
Author Name Unknown Organization [facility] Address [address] [place] [address]- Care Team Providers Care Cargo And Container Inspector Name Role Phone Nain WILSON, Lenore Primary Care Physician Encounter [facility] Date(s): 02/15/23 - 03/17/23 [facility] [address]- [place] Allergies, Adverse Reactions, Alerts No Known [...] incontinence R32 vascular dementia F01.50 faxed to [phone], 01/02/23 14:17:00 EDT, Supply Start Date: 01/02/23 [...] incontinence R32 vascular dementia F01.50 faxed to [phone], 01/02/23 14:17:00 EDT, Supply Start Date: 01/02/23 Status: Ordered Gloves size adult Gloves size adult, See Instructions, # 4 pack/packet, Refills 11, Tot. Refills 11, Maintenance, to used as directed 8pair/day incontinence R32 vascular dementia F01.50 faxed to [phone], 08/10/2015:06:00 EST, Supply Start Date: 08/10/20 Status: [...] Height Start Date: 12/22/22 Status: Ordered Pen [place], 30 G x 8 mm BD Ultra Fine II See Instructions, # 90 each, Refills 3, Tot. Refills 3, Maintenance, use as directed for Type 2 Diabetes Mellitus. to use with lantus daiy, 01/02/23 13:47:00 EDT, Supply, 157, cm, 01/02/23 [...] 5 Refills, Maintenance, 11/12/22 19:26:00 EST, [facility], 157, cm, 08/31/22 10:47:00 EST, Height Start [...] DNR (do not resuscitate) 8 Confirmed Active *[id number] e Partner-Francheska Gallegos RN Confirmed Active Counseling regarding advanced directives 9 Confirmed Active Diabetes mellitus type II, controlled Confirmed 2015 Active Urolithiasis Confirmed Active Dementia, vascular Confirmed Active 1-in US done at [facility] March 2021 2Echo 2014:The mid anterior,inferolateral, anterolateral wall is moderately to severely hypokinetic 27865-Eubpktvkrv perfusion test shows scar in inferior and infero-lateral wall without reversibility. 4-multiple subacute rib fractures on the Right (seen in imaging done at [facility] March 2021) 5-seen in CT scan abdomen done at [facility] March 2021 6Had normal spirometry in [facility] in 04-06-2011, that if anything could suggest mild asthma 7Based on CXR done at [facility] in [...] at age: 22; entered on: 03/02/23 Sex Patient Care team information Care Team Personnel Name: Lenore Gillette MD Position: [facility] Physician - Primary Care Member Role: PCP Address: Address: [address] [place] [address]- [place] Care Team Related Persons Name: LEROY RIC Address: home [address] [place] [address] Name: NIKOLAS MEJÍA Address: home [address] [place] [address] Name: ANITA LEÓN Address: home [facility] [address] Name: AKHIL CHAU Address: [place] [address] Name: JESENIA KUMARI Address: [place] [address]
--- OUTSIDE RECORDS SUMMARY | 2023-05-15 23:38 | XMS_ITS | Continuity of Care Document ---
Author Name Unknown Organization [facility] Address [address] [place] [address]- Care Team Providers Care Aerographer Name Role Phone Nain WILSON, Lenore Primary Care Physician Encounter [facility] [place] Date(s): 01/19/23 - 02/18/23 [facility] [place] [address]- [place] Allergies, Adverse Reactions, Alerts No Known [...] incontinence R32 vascular dementia F01.50 faxed to [phone], 01/02/23 14:17:00 EDT, Supply Start Date: 01/02/23 [...] incontinence R32 vascular dementia F01.50 faxed to [phone], 01/02/23 14:17:00 EDT, Supply Start Date: 01/02/23 Status: Ordered Gloves size adult Gloves size adult, See Instructions, # 4 pack/packet, Refills 11, Tot. Refills 11, Maintenance, to used as directed 8pair/day incontinence R32 vascular dementia F01.50 faxed to [phone], 08/10/2015:06:00 EST, Supply Start Date: 08/10/20 Status: [...] incontinence R32 vascular dementia F01.50 faxed to [phone], 08/10/20 15:06:00 EST, Supply Start Date: 08/10/20 Status: Ordered Lantus Solostar Pen 100 units/mL subcutaneous solution = 20 units, Subcutaneous Infusion, Daily, NEW HIGHER DOSE, # 10 mL, 3 Refills, Maintenance, 01/02/23 13:47:00 EDT, [facility], 157, cm, 01/02/23 13:12:00 EDT, Height Start Date: 01/02/23 Stop Date: 05/02/23 Status: Ordered nitroglycerin 0.4 mg sublingual tablet See Instructions, PLACE 1 TABLET UNDER THE TONGUE EVERY 5 MINS NEEDED FOR CHEST PAIN, IF CHEST PAIN NOT RELIEVED IN 5 MINS AFTER 1ST DOSE, TAKE 2ND DOSE AND GO TO THE ER, # 25 tablet, 0 Refills, [facility], 157, cm, 09/27/21 8:42:00 E... Start [...] Height Start Date: 12/22/22 Status: Ordered Pen [place], 30 G x 8 mm BD Ultra [...] DNR (do not resuscitate) 8 Confirmed Active *[phone]-Car e Partner-Francheska Rosy DISLA Confirmed Active Counseling regarding advanced directives 9 Confirmed Active Diabetes mellitus type II, controlled Confirmed 2016 Active Urolithiasis Confirmed Active Dementia, vascular Confirmed Active 1-in US done at [facility] March 2021 2Echo 2014:The mid anterior,inferolateral, anterolateral wall is moderately to severely hypokinetic 48021-Qarvrelvvi perfusion test shows scar in inferior and infero-lateral wall without reversibility. 4-multiple subacute rib fractures on the Right (seen in imaging done at [facility] March 2021) 5-seen in CT scan abdomen done at [facility] March 2021 6Had normal spirometry in [facility] in 04-06-2011, that if anything could suggest mild asthma 7Based on CXR done at [facility] in : hyperinflated lungs. PFTs done [...] Primary Care Member Role: PCP Address: Address: [address] [place] [address]- Care Team Related Persons Name: HARPER RIC Address: home [address] [place] [address] Name: NIKOLAS MEJÍA Address: home [address] [facility] [address] [place] [address] Name: ANITA LEÓN Address: home [facility] [address] Name: AKHIL CHAU Address: [place] [address] Name: JESENIA KUMARI Address: [place] [address]
--- OUTSIDE RECORDS SUMMARY | 2023-05-15 23:38 | XMS_ITS | Continuity of Care Document ---
Author Name Unknown Organization [facility] Address [address] [place] [address]- Care Team Providers Care Pediatric Dental Hygienist Name Role Phone Nain WILSON, Lenore Primary Care Physician Encounter [facility] Date(s): 02/13/23 - 03/15/23 [facility] [address] [address]- [place] Allergies, Adverse Reactions, Alerts No Known [...] incontinence R32 vascular dementia F01.50 faxed to [phone], 01/02/23 14:17:00 EDT, Supply Start Date: 01/02/23 [...] incontinence R32 vascular dementia F01.50 faxed to [phone], 01/02/23 14:17:00 EDT, Supply Start Date: 01/02/23 Status: Ordered Gloves size adult Gloves size adult, See Instructions, # 4 pack/packet, Refills 11, Tot. Refills 11, Maintenance, to used as directed 8pair/day incontinence R32 vascular dementia F01.50 faxed to [phone], 08/10/2015:06:00 EST, Supply Start Date: 08/10/20 Status: [...] Height Start Date: 12/22/22 Status: Ordered Pen [place], 30 G x 8 mm BD Ultra [...] 5 Refills, Maintenance, 11/12/22 19:26:00 EST, [facility], 157, cm, 08/31/22 10:47:00 EST, Height Start [...] DNR (do not resuscitate) 8 Confirmed Active *[phone]-Car e Partner-Francheska Gallegos RN Confirmed Active Counseling regarding advanced directives 9 Confirmed Active Diabetes mellitus type II, controlled Confirmed 2015 Active Urolithiasis Confirmed Active Dementia, vascular Confirmed Active 1-in US done at [facility] March 2021 2Echo 2014:The mid anterior,inferolateral, anterolateral wall is moderately to severely hypokinetic 86846-Sbqxafkufh perfusion test shows scar in inferior and infero-lateral wall without reversibility. 4-multiple subacute rib fractures on the Right (seen in imaging done at [facility] March 2021) 5-seen in CT scan abdomen done at [facility] March 2021 6Had normal spirometry in [facility] in 04-06-2011, that if anything could suggest mild asthma 7Based on CXR done at [facility] in : hyperinflated lungs. PFTs [...] Team Personnel Name: Lenore Gillette MD Position: [facility] Physician - Primary Care Member Role: PCP Address: Address: [address] [place] [address]- [place] Care Team Related Persons Name: LEROY RIC Address: home [address] [place] [address] Name: NIKOLAS MEJÍA Address: home [address] [place] [address] Name: ANITA LEÓN Address: home [facility] [address] Name: AKHIL CHAU Address: [place] [address] Name: JESENIA KUMARI Address: [place] [address]
--- NOTE | 2023-05-15 23:55 | PC.NURSE ---
this rn to bedside. family at bedside. hx dementia, responses limited. scientific aide utilized. dr echeverria made aware of pow of 89 and pt status. no new orders at this time
[2023-05-16] VITALS: BP 123/77; PULSE 96; RESP 18; TEMP 36.7; O2SAT 96
[2023-05-16 00:17] LABS: Hematocrit 49.2 % (42.0-52.0); Hemoglobin 16.1 g/dl (14.0-18.0); Mean Corpuscular HGB Conc 32.7 g/dl (31.0-36.0); Mean Corpuscular Hemoglobin 27.3 pg (27.0-33.0); Mean Corpuscular Volume 83.5 fL (80.0-98.0); Mean Platelet Volume 10.4 fL (9.4-12.4); Platelet Count 379 X10*3/uL (160-400); Red Blood Count 5.89 X10*6/uL (4.60-5.80); Red Cell Distribution Width 14.3 % (11.0-16.0); White Blood Count 4.2 X10*3/uL (4.8-10.8)
--- NOTE | 2023-05-16 00:32 | ED_ITS ---
HPI - General Adult General Chief complaint: General Medical Stated complaint: ?uti, dehydrated Time Seen by Provider: 05/16/23 00:30 Source: patient and family Mode of arrival: ambulatory Limitations: no limitations History of Present Illness HPI narrative: 82-year-old male with a PMH significant for? advanced dementia, nonverbal, HLD, and insulin-dependent diabetes type 2 with history of Gram-negative bacteremia 02/24 been having recurrent UTI with poor oral intake currently patient took cephalexin only for 2 days not eating much blood sugar dropping and patient losing weight patient sleeping all the time with minimal activity Related Data Home Medications Medication Instructions Recorded Confirmed aspirin 81 mg tablet,delayed 1 tab PO DAILY 03/14/21 02/04/23 release atorvastatin 40 mg tablet 1 tab PO BEDTIME 03/14/21 02/04/23 insulin glargine 100 unit/mL (3 15 unit subcut DAILY 03/14/21 02/04/23 mL) subcutaneous pen (Lantus Solostar U-100 Insulin) quetiapine 25 mg tablet 1 tab PO BEDTIME 03/14/21 02/04/23 sertraline 100 mg tablet 1 tab PO DAILY 03/14/21 02/04/23 albuterol sulfate 90 mcg/actuation 1 puff inhalation Q4H PRN 02/05/23 02/05/23 aerosol inhaler (Ventolin HFA) Shortness Of Breath dulaglutide 1.5 mg/0.5 mL mg subcut 02/05/23 subcutaneous pen injector (Trulicity) dulaglutide 3 mg/0.5 mL mg subcut 02/05/23 subcutaneous pen injector (Trulicity) Previous Rx's Medication Instructions Recorded cefdinir 250 mg/5 mL oral 250 mg (5 mL) PO BID #60 mL 02/07/23 suspension Allergies Allergy/AdvReac Type Severity Reaction Status Date / Time No Known Allergies Allergy Verified 08/25/20 16:13 [No Known Allergies*] Review of Systems 2 Review of Systems: Yes all other systems are reviewed and are negative [facility] Past Medical History Medical History Alzheimer disease Asthma Diabetes Dementia Social History Social History Household Members: Family Housing: Unknown / Unable to assess Unable to assess alcohol history related to: Unable to respond Patient Tobacco Use Status: Former Tobacco user Quit Date: 1 YEAR AGO Smoked in Last 30 Days: No Use of substances other than those prescribed or required for medical reasons: No Substance Use Type: Unknown Advance Directives: No Advance Directives Information Provided: Yes Do you have thoughts of harming others: None Do you have a plan to hurt others: No Plan Recently lost weight without trying: No Nutrition Risks: Anorexia service: No Current occupational status: retired Physical Exam ED Vital Signs: Vital Signs - 24 hr 05/15/23 23:23 05/16/23 00:00 05/16/23 02:00 Temperature 98.2 F 98.1 F 98.7 F Pulse Rate 105 H 96 90 Respiratory Rate 20 18 19 Blood Pressure 128/80 123/77 125/70 Pulse Oximetry 94 96 93 Oxygen Delivery Method Room Air Room Air Room Air BMI result Body Mass Index 15.4 Appearance: lethagic No acute distress. Eyes: PERRLA, No Nystagmus ENT: Pharynx normal. Oral Mucosa dry Neck: Normal inspection. Neck supple. CVS: Normal heart rate and rhythm. Pulses normal. Respiratory: No respiratory distress. Equal air entry bilateral, no wheezing/rales/rhonchi Abdomen: Soft and nontender. Bowel sounds are present, no mass palpable, no CVA tenderness Skin: Skin warm and dry. Normal skin color. Normal skin turgor. Extremities: No lower extremity edema. No calf tenderness Neuro: Demented moving all 4 extremities Medications Administered Generic Name Dose Route Start Last Admin Trade Name Freq PRN Reason Stop Dose Admin Dextrose 25 gm 05/16/23 02:44 05/16/23 04:12 Dextrose 50 % 25 Gm/50 Ml Syringe IVPUSH 25 gm Q15M PRN Administration per Hypoglycemia Standing Ord. Protocol Insulin Human Lispro 0 unit 05/16/23 02:45 05/16/23 06:26 Insulin Lispro 100 Unit/Ml 3 Ml Vial SUBCUT Not Given 0000,0600,1200,1800 ZACH Protocol Discontinued Medications Generic Name Dose Route Start Last Admin Trade Name Freq PRN Reason Stop Dose Admin Sodium Chloride 1,000 mls @ 999 mls/hr 05/16/23 01:21 05/16/23 03:15 Ns IV 05/16/23 02:21 Infused .Q1H1M ONE Infusion Ceftriaxone Sodium 1 gm/ 50 mls @ 100 mls/hr 05/16/23 02:18 05/16/23 03:39 Sodium Chloride IV 05/16/23 02:47 Infused ONCE ONE Infusion Medical Decision Making Medical Decision Making [facility] Narrative: Patient with demented failure to thrive possibly has UTI family not sure about feeding tube at this time unable to get the urine patient pull out the catheter and urinated just prior to arrival empirically Rocephin IV dose was given based on the previous UTI which on 02/14 grew E coli sensitive to ceftriaxone will be admitted to the medical service for possible UTI/failure to thrive with dementia Differential Diagnosis Differential Diagnoses: The differential diagnosis associated with the presentation includes Dementia/failure to thrive/UTI Admission/Observation Consideration of admission/observation: Escalation of care including admission/observation considered Consult Healthcare Provider Management of the patient was discussed with: Hospitalist Lab Data [facility] Lab Attestation statement: I reviewed the patient's lab results. 05/16/23 00:08 05/16/23 05:12 Labs: Lab Results 05/15/23 05/16/23 05/16/23 Range/Units 23:33 00:08 01:35 WBC 4.2 L (4.8-10.8) X10*3/uL RBC 5.89 H D (4.60-5.80) X10*6/uL Hgb 16.1 D (14.0-18.0) g/dl Hct 49.2 D (42.0-52.0) % MCV 83.5 (80.0-98.0) fL MCH 27.3 (27.0-33.0) pg MCHC 32.7 (31.0-36.0) g/dl RDW 14.3 (11.0-16.0) % Plt Count 379 D (160-400) X10*3/uL MPV 10.4 (9.4-12.4) fL Absolute Nucleated RBC 0.000 (0.0-0.012) X10*3/uL Nucleated RBC % (auto) 0.0 (0.0-0.2) /100WBC Sodium 141 (135-145) mmol/L Potassium 4.6 (3.3-5.1) mmol/L Chloride 107 (96-108) mmol/L Carbon Dioxide 24 (22-29) mmol/L Anion Gap 15 (12-20) BUN 16 (9-16) mg/dL Creatinine 0.87 (0.5-1.4) mg/dL Estim Creat Clear Calc 52.1 Estimated GFR > 60 POC Glucose 86 (60-115) mg/dL Random Glucose 94 (60-115) mg/dL Lactic Acid 1.5 (0.5-2.0) mmol/L Calcium 9.6 D (8.4-10.2) mg/dL Total Bilirubin 0.4 (0.0-1.0) mg/dL AST 38 H (5-37) U/L ALT 13 (0-40) U/L Alkaline Phosphatase 138 H (39-117) U/L Total Protein 8.3 H (6.5-8.0) g/dL Albumin 3.2 L (3.5-5.0) g/dL Lipase 20 (8-78) U/L External Record Review External record reviewed: Inpatient record Discharge Plan Discharge Clinical Impression: Adult failure to thrive, Urinary tract infection Patient Disposition: Admitted As Inpatient Interventions: Admission Worksheet (ED) Last Done: 05/16/23 06:10 Discharge Date/Time: 05/16/23 06:11
[2023-05-16 00:37] LABS: Alanine Aminotransferase 13 U/L (0-40); Albumin Level 3.2 g/dL (3.5-5.0); Alkaline Phosphatase 138 U/L (39-117); Anion Gap 15 (12-20); Aspartate Amino Transferase 38 U/L (5-37); Bilirubin Total 0.4 mg/dL (0.0-1.0); Blood Urea Nitrogen 16 mg/dL (9-16); Calcium 9.6 mg/dL (8.4-10.2); Carbon Dioxide 24 mmol/L (22-29); Chloride 107 mmol/L (96-108); Creatinine Clr Calc Pharmacy 52.1; Estimated Glomerular Filt Rate > 60; Glucose Random 94 mg/dL (60-115); Lipase 20 U/L (8-78); Potassium 4.6 mmol/L (3.3-5.1); Sodium 141 mmol/L (135-145); Total Protein 8.3 g/dL (6.5-8.0)
[2023-05-16] MEDS: 0.9 % Sodium Chloride 1,000 ML 999 ML IV (01:45)
[2023-05-16 01:53] LABS: Lactic Acid 1.5 mmol/L (0.5-2.0)
[2023-05-16 02:00] VITALS: BP 125/70; PULSE 90; RESP 19; TEMP 37.1; O2SAT 93
--- NOTE | 2023-05-16 02:33 | PC.NURSE ---
late entry- bladder scan order placed by this rn prior to straight cath. bladder scn showered >56ml in bladder. per computer aided design operator brief had been saturated with urine. [place] catheter placed by this rn and computer aided design operator per dr allred. ivf infusing. dr schulte at bedside at this time
--- NOTE | 2023-05-16 02:44 | P.HPHOSP_ITS ---
History of Present Illness Date of Service: 05/16/23 Chief Complaint: Altered mentation This is a 82-year-old male with pertinent history of unspecified dementia, non insulin-dependent diabetes mellitus, mood disorder, mixed hyperlipidemia, recurrent UTI who was brought to the emergency department for altered mentation and increased lethargy. Patient is nonverbal at baseline due to advanced dementia. History obtained by chart review and daughters at bedside. As per the daughters, there is concern that patient is choking with food. He is not eating or drinking adequately and is with decreased p.o. intake. Patient is not taking his home p.o. medications. Patient is on cefdinir for recurrent UTI but is not taking his medications and is spitting them out. Unable to obtain review of systems. The daughter states that this has been going on for several weeks. The patient is being given Lantus despite decreased p.o. intake. Daughter noted POCs in the 40s at home. In the emergency department, low blood glucose was noted. Review of Systems 2 Review of Systems: Yes Unobtainable due to mental status [facility] Medical History Alzheimer disease Asthma Diabetes Dementia Pertinent family history: Unable to obtain. Not significant due to age Social History Household Members: Family Housing: Unknown / Unable to assess Unable to assess alcohol history related to: Unable to respond Patient Tobacco Use Status: Former Tobacco user Quit Date: 1 YEAR AGO Substance Use Type: Unknown service: No Current occupational status: retired Meds Allergies Allergy/AdvReac Type Severity Reaction Status Date / Time No Known Allergies Allergy Verified 08/25/20 16:13 [No Known Allergies*] Active Medications: Current Medications Ceftriaxone Sodium 1 gm/ (Sodium Chloride) 50 mls @ 100 mls/hr IV ONCE ONE Stop: 05/16/23 02:47 Home Medications Medication Instructions Recorded Confirmed Last Taken Type aspirin 81 mg tablet,delayed 1 tab PO DAILY 03/14/21 02/04/23 Unknown History release atorvastatin 40 mg tablet 1 tab PO BEDTIME 03/14/21 02/04/23 Unknown History insulin glargine 100 unit/mL (3 15 unit subcut DAILY 03/14/21 02/04/23 Unknown History mL) subcutaneous pen (Lantus Solostar U-100 Insulin) quetiapine 25 mg tablet 1 tab PO BEDTIME 03/14/21 02/04/23 Unknown History sertraline 100 mg tablet 1 tab PO DAILY 03/14/21 02/04/23 Unknown History albuterol sulfate 90 mcg/actuation 1 puff inhalation Q4H PRN 02/05/23 02/05/23 Unknown History aerosol inhaler (Ventolin HFA) Shortness Of Breath dulaglutide 1.5 mg/0.5 mL mg subcut 02/05/23 Unknown History subcutaneous pen injector (Trulicity) dulaglutide 3 mg/0.5 mL mg subcut 02/05/23 Unknown History subcutaneous pen injector (Trulicity) Physical Exam 2 Vital Signs and Narrative: Vital Signs: Last Vital Signs Temp 98.7 F 05/16/23 02:00 Pulse 90 05/16/23 02:00 Resp 19 05/16/23 02:00 BP 125/70 05/16/23 02:00 Pulse Ox 93 05/16/23 02:00 O2 Del Method Room Air 05/16/23 02:00 BMI result Body Mass Index 15.4 Elderly male lying in bed in no distress Neck supple, no JVD Regular rate and rhythm, S1-S2 heard Regular breath sounds bilaterally, no wheezing or crackles appreciated Abdomen soft nontender, no guarding, no rigidity Patient is awake and nonverbal, not following commands Psych: Normal mood No pedal edema Results Labs 05/16/23 00:08 05/16/23 05:12 Labs: Laboratory Results - last 24 hr 05/15/23 05/16/23 05/16/23 23:33 00:08 01:35 MCV 83.5 MCH 27.3 MCHC 32.7 RDW 14.3 Plt Count 379 D MPV 10.4 Absolute Nucleated RBC 0.000 Nucleated RBC % (auto) 0.0 Anion Gap 15 Estim Creat Clear Calc 52.1 Estimated GFR > 60 POC Glucose 86 Random Glucose 94 Lactic Acid 1.5 Calcium 9.6 D Total Bilirubin 0.4 AST 38 H ALT 13 Alkaline Phosphatase 138 H Total Protein 8.3 H Albumin 3.2 L Lipase 20 Imaging Radiologist's Impressions: Impressions Chest X-Ray 05/16/23 01:42 IMPRESSION: Rotation and low lung volume slightly limits evaluation. Left mid to lower lung field opacity possibly atelectasis and/or infiltrate/pneumonia. Assessment and Plan (1) Acute metabolic encephalopathy: Status: Acute Plan This is a 82-year-old male with pertinent history of unspecified dementia, non insulin-dependent diabetes mellitus, mood disorder, mixed hyperlipidemia, recurrent UTI who was brought to the emergency department for altered mentation and increased lethargy. #. Acute metabolic encephalopathy. Likely Multifactorial. Due to hypoglycemia, questionable UTI and likely progression of dementia. Patient given p.r.n. IV dextrose in the ER. If blood glucose drops below 70 again, will initiate dextrose drip. Discontinue Lantus as patient with decreased p.o. intake. Does have a history of recurrent UTI, UA pending. #. Insulin-dependent diabetes mellitus with hyperglycemia. Initiating Accu- Cheks with sliding scale insulin every 6 hours. Hold Lantus as above #. Advanced unspecified dementia without behavioral disturbances. Daughter noted choking at home with p.o. intake. Will keep patient NPO and consult speech. #. Mixed hyperlipidemia. Discontinue statin due to low benefit versus risk #. Mood disorder. Continue home mood stabilizers Med rec pending DNR/DNI. Discussed with daughters at bedside Admit as inpatient and will require two night minimum hospital stay for close monitoring of mentation. Speech consult pending Time Spent With Patient Time: Total time managing care of this patient today ____ minutes. Quality Stroke Does the patient have a stroke diagnosis?: No VTE Prior VTE?: No VTE Risk Level:: Medical - moderate - high VTE Device Contraindication: Treatment Not Indicated VTE Drug Contraindication: N/A - Med Ordered
[2023-05-16] MEDS: cefTRIAXone sodium 1 GM in 0.9 % Sodium Chloride 50 ML IV (02:52)
[2023-05-16 04:10] LABS: Glucose, Whole Blood 44 mg/dL (60-115)
[2023-05-16] MEDS: Dextrose 50 % 25 GM/50 ML SYRINGE IVPUSH ×2 (04:12→12:20)
[2023-05-16 04:32] LABS: Glucose, Whole Blood 214 mg/dL (60-115)
[2023-05-16 05:02] LABS: Glucose, Whole Blood 163 mg/dL (60-115)
[2023-05-16 05:21] LABS: Glucose, Whole Blood 131 mg/dL (60-115)
--- NOTE | 2023-05-16 05:29 | PC.NURSE ---
aged or disabled carer obtained poc on pt @ 0514. poc resulted of [address] schulte aware. per dr scuhlte give d50 ivp as pt is npo d50 given @ 4042 poc recheck @ 042 poc 214 recheck poc @ 0457 poc 163 poc recheck @ 0518 poc 131
[2023-05-16 05:37] VITALS: BP 102/61; PULSE 86; RESP 20; RESP 25; TEMP 37.1; O2SAT 96
[2023-05-16 05:56] LABS: Alanine Aminotransferase 9 U/L (0-40); Albumin Level 2.6 g/dL (3.5-5.0); Alkaline Phosphatase 112 U/L (39-117); Anion Gap 11 (12-20); Aspartate Amino Transferase 26 U/L (5-37); Bilirubin Total 0.3 mg/dL (0.0-1.0); Blood Urea Nitrogen 13 mg/dL (9-16); Calcium 8.3 mg/dL (8.4-10.2); Carbon Dioxide 24 mmol/L (22-29); Chloride 110 mmol/L (96-108); Creatinine Clr Calc Pharmacy 47.7; Estimated Glomerular Filt Rate > 60; Glucose Random 155 mg/dL (60-115); Potassium 3.3 mmol/L (3.3-5.1); Sodium 142 mmol/L (135-145); Total Protein 6.5 g/dL (6.5-8.0)
--- NOTE | 2023-05-16 08:02 | PM.EVENT ---
Event Note Date of Service: 05/16/23 Event Note: I personally saw and examined this patient, he's improving. A/P per H and P from this morning Time Spent With Patient Time: Total time managing care of this patient today ____ minutes.
--- NOTE | 2023-05-16 08:28 | PHA.MEDREC ---
Pharmacy Consult ? Medication Reconciliation Pharmacy has completed the medication reconciliation. [facility] and called patient's daughter Tereza ([phone]) who named all medications and timing.
[2023-05-16] MEDS: 0.9 % Sodium Chloride Flush 3 ML SYRINGE IVFLUSH (09:29)
[2023-05-16] MEDS: Enoxaparin Sodium 40 MG/0.4 ML SYRINGE SUBCUT (09:29)
[2023-05-16 09:38] VITALS: BP 133/68; PULSE 86; RESP 16; TEMP 36.1; O2SAT 95
[2023-05-16 11:11] LABS: Glucose, Whole Blood 53 mg/dL (60-115)
[2023-05-16] MEDS: glucagon HCL 1 MG VIAL IM (12:14)
[2023-05-16 12:22] LABS: Glucose, Whole Blood 47 mg/dL (60-115)
[2023-05-16 12:22] LABS: Glucose, Whole Blood 56 mg/dL (60-115)
[2023-05-16 12:55] LABS: Glucose, Whole Blood 200 mg/dL (60-115)
[2023-05-16] MEDS: Dextrose 5 % 1,000 ML 100 ML IVCONT ×2 (13:01→22:54)
--- NOTE | 2023-05-16 15:09 | MHC.CM.PN ---
with interpertericar spoke with ya with [facility] lives,she explins that family will transport pt home and that pt has 24/7 help at home ya requesting a vna
[2023-05-16 15:49] LABS: Glucose, Whole Blood 211 mg/dL (60-115)
[2023-05-16 16:00] VITALS: BP 137/71; PULSE 86; RESP 18; TEMP 36.2; O2SAT 96
[2023-05-16 18:25] LABS: Glucose, Whole Blood 138 mg/dL (60-115)
[2023-05-16 19:43] VITALS: BP 140/72; PULSE 88; RESP 20; TEMP 36.2; O2SAT 96
[2023-05-16 23:46] LABS: Glucose, Whole Blood 155 mg/dL (60-115)
[2023-05-17 03:38] VITALS: BP 131/61; PULSE 82; RESP 16; TEMP 36.2; O2SAT 94
[2023-05-17 07:08] VITALS: BP 130/75; PULSE 86; RESP 18; TEMP 36.4; O2SAT 96
[2023-05-17 07:39] LABS: Glucose, Whole Blood 148 mg/dL (60-115)
[2023-05-17 07:40] LABS: Glucose, Whole Blood 163 mg/dL (60-115)
[2023-05-17] MEDS: Enoxaparin Sodium 40 MG/0.4 ML SYRINGE SUBCUT (08:02)
[2023-05-17] MEDS: Dextrose 5 % 1,000 ML 100 ML IVCONT ×2 (08:03→17:49)
[2023-05-17 08:34] LABS: Appearance Urine Clear; Color Urine Yellow; Glucose Urine UA 250 mg/dL (Negative); Leukocyte Esterase Urine Moderate (2+) (Negative); Nitrite Urine Positive (Negative); Specific Gravity - Urine 1.015 (1.005-1.025); UMIC TRIGGER UACC YES; Urine Blood Negative (Negative); Urine Ketones Trace mg/dL (Negative); Urine Protein Trace mg/dL (Neg-Trace)
--- NOTE | 2023-05-17 08:39 | P.PNIM_ITS ---
Subjective Subjective Date of Service: 05/17/23 Interval History: No new issues, he continues to refuse to eat Physical Exam 2 Vital Signs: Vital Signs: Last Vital Signs Temp 97.5 F 05/17/23 07:08 Pulse 86 05/17/23 07:08 Resp 18 05/17/23 07:08 BP 130/75 05/17/23 07:08 Pulse Ox 96 05/17/23 07:08 O2 Del Method Room Air 05/17/23 07:08 BMI result Body Mass Index 15.4 Const: Other: General: alert, not oriented Resp: CTA bilateral CVS: S1,S2,RRR GI: +BS, NT, no distention Skin: No rash Neuro: motor grossly intact Psych: appropriate affect Objective Data Active Medications Acetaminophen (Acetaminophen 325 Mg Tablet) 650 mg PO Q6H PRN PRN Reason: Pain, Mild (Pain Scale 1-3) Acetaminophen (Acetaminophen Supp 650 Mg Supp.Rect) 650 mg [place] Q6H PRN PRN Reason: Pain, Mild (Pain Scale 1-3) Dextrose (Dextrose 50 % 25 Gm/50 Ml Syringe) 25 gm IVPUSH Q15M PRN; Protocol PRN Reason: per Hypoglycemia Standing Ord. Last Admin: 05/16/23 12:20 Dose: 25 gm Documented By: CHRISTIAN Enoxaparin Sodium (Enoxaparin Sodium 40 Mg/0.4 Ml Syringe) 40 mg SUBCUT Q24H [facility] Last Admin: 05/17/23 08:02 Dose: 40 mg Documented By: FARHAN Glucose (Glucose Gel 15 Gm Gel..Gram.) 15 gm PO Q15M PRN; Protocol PRN Reason: per Hypoglycemia Standing Ord. Dextrose (D5w) 1,000 mls @ 100 mls/hr IVCONT .Q10H [facility] [place] Last Admin: 05/17/23 08:03 Dose: 100 mls/hr Documented By: ELLENEMA Insulin Human Lispro (Insulin Lispro 100 Unit/Ml 3 Ml Vial) 0 unit SUBCUT 0000,0600,1200,1800 [facility]; Protocol Last Admin: 05/17/23 06:08 Dose: Not Given Documented By: KEYSHAWN Non-Admin Reason: No Insulin Coverage Melatonin (Melatonin 3 Mg Tablet) 6 mg PO BEDTIME PRN PRN Reason: Insomnia Ondansetron HCl (Ondansetron Hcl 4 Mg/2 Ml Vial) 4 mg IVPUSH Q8H PRN PRN Reason: Nausea and Vomiting Sodium Chloride (0.9 % Sodium Chloride Flush 3 Ml Syringe) 3 ml IVFLUSH QSHIFT [facility] [place] Last Admin: 05/17/23 07:45 Dose: Not Given Documented By: FARHAN Non-Admin Reason: IV Running Labs 05/16/23 00:08 05/16/23 05:12 Labs: Laboratory Results - last 24 hr 05/16/23 05/16/23 05/16/23 11:00 12:07 12:19 POC Glucose 53 L* 47 L* 56 L* Urine Color Urine Appearance Urine pH Ur Specific [place] Urine Protein Urine Glucose (UA) Urine Ketones Urine Blood Urine Nitrite Ur Leukocyte Esterase 05/16/23 05/16/23 05/16/23 12:36 15:46 18:21 POC Glucose 200 H 211 H 138 H Urine Color Urine Appearance Urine pH Ur Specific [place] Urine Protein Urine Glucose (UA) Urine Ketones Urine Blood Urine Nitrite Ur Leukocyte Esterase 05/16/23 05/17/23 05/17/23 23:41 06:08 07:35 POC Glucose 155 H 148 H 163 H Urine Color Urine Appearance Urine pH Ur Specific [place] Urine Protein Urine Glucose (UA) Urine Ketones Urine Blood Urine Nitrite Ur Leukocyte Esterase 05/17/23 08:18 POC Glucose Urine Color Yellow Urine Appearance Clear Urine pH 6.0 Ur Specific [place] 1.015 Urine Protein Trace Urine Glucose (UA) 250 H Urine Ketones Trace Urine Blood Negative Urine Nitrite Positive H Ur Leukocyte Esterase Moderate (2+) H Microbiology Microbiology Results: Microbiology 05/16/23 01:52 Blood Culture - Preliminary Blood - Venous No growth after 24 hours. 05/16/23 01:52 Blood Culture - Preliminary Blood - Venous No growth after 24 hours. Assessment and Plan (1) Urinary tract infection: Status: Acute (2) Gram-negative bacteremia: Status: Acute Plan 82-year-old male with a PMH significant for?unspecified dementia, HLD, and insulin-dependent diabetes type 2 who presents to the ED with?increased lethargy and foul-smelling urine.? Patient with advanced dementia and nonverbal at baseline. Pt will be admitted to the hospital for treatment of acute toxic metabolic encephalopathy in the setting of UTI that failed outpatient therapy. Acute toxic metabolic encephalopathy in setting of UTI with severe underlying dementia, treating underlying UTI, overall his dementia is worsening and is result he is not eating or drinking , I have discussed with the daughter about alternate feeding and she's to a PEG, will consult surgery for this HLD Continue statin Mood disorder Continue sertraline, quetiapine Insulin-dependent diabetes Hold home meds SSI, Lantus dementia unspecified :continue supportive care poor oral intake ,bmi normal: added nutritionst eval DNR/DNI DVT Prophylaxis: Lovenox inpatient need :?acute toxic metabolic encephalopathy in the setting of UTI that failed outpatient therapy-need iv antibiotics. Time Spent With Patient Time: Total time managing care of this patient today ____ minutes. Quality Stroke Does the patient have a stroke diagnosis?: No VTE Prior VTE?: No VTE Risk Level:: Medical - moderate - high VTE Device Contraindication: Treatment Not Indicated VTE Drug Contraindication: N/A - Med Ordered
[2023-05-17 08:41] LABS: Bacteria Urine Trace (None Seen); Hyaline Casts Urine 0-2 /LPF (0-2); RBC Urine 0-2 /HPF (0-2); Squamous Epithelial Cell Urine 0-2 /HPF (0-2); UACC Culture Trigger YES
--- NOTE | 2023-05-17 10:39 | PM.CNGS ---
History of Present Illness Consult details Consult date: 05/17/23 <Connie Real PA-C - Last Filed: 05/17/23 11:21> Requesting physician: Ino Ruiz <Connie Real PA-C - Last Filed: 05/17/23 11:21> Narrative: This is a 82-year-old male with pertinent history of dementia, diabetes mellitus, mood disorder, mixed hyperlipidemia, recurrent UTIs who was brought to the emergency department for altered mentation and increased lethargy. Patient is nonverbal at baseline due to advanced dementia. History obtained by chart review. As per the daughters, there is concern that patient is choking with food and he has had decreased p.o. intake for several weeks. Patient is not taking his home p.o. medications and was spitting out his oral antibiotic for his UTI. He was admitted to the medical service for acute toxic metabolic encephalopathy in setting of UTI with severe underlying dementia. He is on rocephin. He has been refusing to eat during his stay and alternative methods of feeding were discussed with the family. Therefore general surgery was consulted for PEG tube placement. <Connie Real PA-C - Last Filed: 05/17/23 11:21> Review of Systems Review of Systems: Yes Unobtainable due to mental status <Connie Real PA-C - Last Filed: 05/17/23 11:21> PMFSH Past Medical History Medical History: Medical History Alzheimer disease Asthma Diabetes Dementia <MARIANNE Thomas Last Filed: 05/17/23 11:21> Social History Social History: Social History Household Members: Family Housing: Unknown / Unable to assess Unable to assess alcohol history related to: Unable to respond Patient Tobacco Use Status: Former Tobacco user Quit Date: 1 YEAR AGO Smoked in Last 30 Days: No Use of substances other than those prescribed or required for medical reasons: No Substance Use Type: Unknown Currently Displaying Signs/Symptoms of Drug Intoxication Withdrawal: No Advance Directives: No Advance Directives Information Provided: Yes Do you have thoughts of harming others: None Do you have a plan to hurt others: No Plan Recently lost weight without trying: No Nutrition Risks: Anorexia service: No Current occupational status: retired <Connie Real PA-C - Last Filed: 05/17/23 11:21> Meds Allergies/Adverse reactions: Allergies Allergy/AdvReac Type Severity Reaction Status Date / Time No Known Allergies Allergy Verified 08/25/20 16:13 [No Known Allergies*] <Connie Real PA-C - Last Filed: 05/17/23 11:21> Active Medications: Current Medications Acetaminophen (Acetaminophen 325 Mg Tablet) 650 mg PO Q6H PRN PRN Reason: Pain, Mild (Pain Scale 1-3) Acetaminophen (Acetaminophen Supp 650 Mg Supp.Rect) 650 mg [place] Q6H PRN PRN Reason: Pain, Mild (Pain Scale 1-3) Dextrose (Dextrose 50 % 25 Gm/50 Ml Syringe) 25 gm IVPUSH Q15M PRN; Protocol PRN Reason: per Hypoglycemia Standing Ord. Last Admin: 05/16/23 12:20 Dose: 25 gm Enoxaparin Sodium (Enoxaparin Sodium 40 Mg/0.4 Ml Syringe) 40 mg SUBCUT Q24H [facility] Last Admin: 05/17/23 08:02 Dose: 40 mg Glucose (Glucose Gel 15 Gm Gel..Gram.) 15 gm PO Q15M PRN; Protocol PRN Reason: per Hypoglycemia Standing Ord. Dextrose (D5w) 1,000 mls @ 100 mls/hr IVCONT .Q10H [facility] Last Admin: 05/17/23 08:03 Dose: 100 mls/hr Insulin Human Lispro (Insulin Lispro 100 Unit/Ml 3 Ml Vial) 0 unit SUBCUT 0000,0600,1200,1800 [facility]; Protocol Last Admin: 05/17/23 06:08 Dose: Not Given Melatonin (Melatonin 3 Mg Tablet) 6 mg PO BEDTIME PRN PRN Reason: Insomnia Ondansetron HCl (Ondansetron Hcl 4 Mg/2 Ml Vial) 4 mg IVPUSH Q8H PRN PRN Reason: Nausea and Vomiting Sodium Chloride (0.9 % Sodium Chloride Flush 3 Ml Syringe) 3 ml IVFLUSH QSHIFT [facility] Last Admin: 05/17/23 07:45 Dose: Not Given <Connie Real PA-C - Last Filed: 05/17/23 11:21> Home medications: Home Medications Medication Instructions Recorded Confirmed Last Taken Type aspirin 81 mg tablet,delayed 1 tab PO DAILY 03/14/21 05/16/23 Unknown History release atorvastatin 40 mg tablet 1 tab PO BEDTIME 03/14/21 05/16/23 Unknown History insulin glargine 100 unit/mL (3 20 unit subcut DAILY 03/14/21 05/16/23 Unknown History mL) subcutaneous pen (Lantus Solostar U-100 Insulin) quetiapine 25 mg tablet 1 tab PO BEDTIME 03/14/21 05/16/23 Unknown History sertraline 100 mg tablet 1 tab PO DAILY 03/14/21 05/16/23 Unknown History albuterol sulfate 90 mcg/actuation 1 puff inhalation Q4H PRN 02/05/23 05/16/23 Unknown History aerosol inhaler (Ventolin HFA) Shortness Of Breath dulaglutide 3 mg/0.5 mL 3 mg subcut [place] 02/05/23 05/16/23 Unknown History subcutaneous pen injector (Trulicity) <Connie Real PA-C - Last Filed: 05/17/23 11:21> Physical Exam Vital Signs: Vital Signs: Last Vital Signs Temp 97.5 F 05/17/23 07:08 Pulse 86 05/17/23 07:08 Resp 18 05/17/23 07:08 BP 130/75 05/17/23 07:08 Pulse Ox 96 05/17/23 07:08 O2 Del Method Room Air 05/17/23 07:08 BMI result Body Mass Index 15.4 <MARIANNE Thomas Last Filed: 05/17/23 11:21> Const: General: comfortable, no acute distress and alert <MARIANNE Thomas Last Filed: 05/17/23 11:21> Nutritional Appearance: thin and underweight <MARIANNE Thomas Last Filed: 05/17/23 11:21> Resp: Effort & Inspection: normal respiratory effort <MARIANNE Thomas Last Filed: 05/17/23 11:21> GI: Inspection: Yes normal to inspection, No distended, No scar and No visible herniation <Connie Real PA-C - Last Filed: 05/17/23 11:21> Palpation (GI): Soft to palpation, nontender, no guarding, not rigid and no hernias <MARIANNE Thomas Last Filed: 05/17/23 11:21> Percussion: Yes normal to percussion <Connie Real PA-C Bharath Last Filed: 05/17/23 11:21> Skin: General skin exam: no rashes or lesions noted <MARIANNE Thomas Last Filed: 05/17/23 11:21> Extrem: General: Yes no clubbing, cyanosis or edema <MARIANNE Thomas Last Filed: 05/17/23 11:21> Results Labs Result diagrams: 05/16/23 00:08 05/16/23 05:12 <Connie Real PA-C Bharath Last Filed: 05/17/23 11:21> Labs: Abnormal lab results 05/16/23 05/16/23 05/16/23 Range/Units 11:00 12:07 12:19 POC Glucose 53 L* 47 L* 56 L* (60-115) mg/dL Urine Glucose (UA) (Negative) mg/dL Urine Nitrite (Negative) Ur Leukocyte Esterase (Negative) Urine WBC (0-5) /HPF 05/16/23 05/16/23 05/16/23 Range/Units 12:36 15:46 18:21 POC Glucose 200 H 211 H 138 H (60-115) mg/dL Urine Glucose (UA) (Negative) mg/dL Urine Nitrite (Negative) Ur Leukocyte Esterase (Negative) Urine WBC (0-5) /HPF 05/16/23 05/17/23 05/17/23 Range/Units 23:41 06:08 07:35 POC Glucose 155 H 148 H 163 H (60-115) mg/dL Urine Glucose (UA) (Negative) mg/dL Urine Nitrite (Negative) Ur Leukocyte Esterase (Negative) Urine WBC (0-5) /HPF 05/17/23 Range/Units 08:18 POC Glucose (60-115) mg/dL Urine Glucose (UA) 250 H (Negative) mg/dL Urine Nitrite Positive H (Negative) Ur Leukocyte Esterase Moderate (2+) H (Negative) Urine WBC 11-20 H (0-5) /HPF Urine 05/17/23 Range/Units 08:18 Urine Color Yellow Urine Appearance Clear Urine pH 6.0 (5.0-9.0) Ur Specific [place] 1.015 (1.005-1.025) Urine Protein Trace (Neg-Trace) mg/dL Urine Glucose (UA) 250 H (Negative) mg/dL All other labs normal. <Connie Real PA-C - Last Filed: 05/17/23 11:21> Assessment and Plan (1) Acute metabolic encephalopathy: Status: Acute <MARIANNE Thomas Last Filed: 05/17/23 11:21> (2) Adult failure to thrive: Status: Acute <Connie Real PA-C - Last Filed: 05/17/23 11:21> Patient with poor oral intake Has dementia Referred for PEG tube placement No abdominal scars noted I explained the procedure to his family and I reviewed the risks, benefits, and alternatives. They want to proceed Will allow patient to recover from recent metabolic encephalopathy If he continues to have poor oral intake, planned peg tube placement Seen and examined independent <Roberto Alonzo MD - Last Filed: 05/17/23 15:54> (3) Urinary tract infection: Qualifiers: Urinary tract infection type: acute cystitis <Connie Real PA-C - Last Filed: 05/17/23 11:21> Status: Acute <Connie Real PA-C - Last Filed: 05/17/23 11:21> 82-year-old male with history of dementia, diabetes mellitus, mood disorder, mixed hyperlipidemia, recurrent UTIs who was brought to the ED for altered mentation and increased lethargy and admitted with acute toxic metabolic encephalopathy in setting of UTI with severe underlying dementia. General surgery was consulted for PEG tube placement for failure to thrive due to his worsening dementia. He has no hx of abdominal surgery by EMR and no evidence of prior abdominal scars. Patient is a candidate for PEG tube placement. Will add onto the OR schedule for Monday if medically cleared. <Connie Real PA-C - Last Filed: 05/17/23 11:21> Time Spent With Patient Time: Total time managing care of this patient today ____ minutes. <Connie Real PA-C - Last Filed: 05/17/23 11:21> Procedures Date of Service Date of Service: 05/17/23 <Connie Real PA-C - Last Filed: 05/17/23 11:21> 05/17/23 <Roberto Alonzo MD - Last Filed: 05/17/23 15:54>
[2023-05-17 11:07] LABS: Glucose, Whole Blood 177 mg/dL (60-115)
[2023-05-17 11:38] VITALS: BMI 15.4
--- NOTE | 2023-05-17 11:53 | MHC.CLN ---
NUTRITION DIET=DIABETIC 1800 KCAL, PUREE. IMPAIRED CHEW/SWALLOW AND UNABLE TO TAKE ADEQUATE PO. GENERAL SURGERY CONSULTED 05/17 FOR PEG PLACEMENT. QUALIFIES NON SEVERE MALNUTRITION IN THE CONTEXT OF CHRONIC ILLNESS. SIGNIFICANT WEIGHT LOSS -25.6% X 3 MONTHS. FOLLOW FOR PO INTAKE, DIET TOLERANCE AND POSSIBLE TUBE FEEDING.
[2023-05-17 15:16] VITALS: BP 124/65; PULSE 83; RESP 16; TEMP 36.4; O2SAT 96
[2023-05-17 16:58] LABS: Glucose, Whole Blood 141 mg/dL (60-115)
[2023-05-17 19:31] VITALS: BP 125/69; PULSE 82; RESP 20; TEMP 36.1; O2SAT 96
[2023-05-17 23:20] LABS: Glucose, Whole Blood 177 mg/dL (60-115)
[2023-05-18] MEDS: Dextrose 5 % 1,000 ML 100 ML IVCONT ×2 (02:45→11:38)
[2023-05-18 03:28] VITALS: BP 131/69; PULSE 75; RESP 16; TEMP 36.3; O2SAT 95
[2023-05-18 05:36] LABS: Glucose, Whole Blood 188 mg/dL (60-115)
--- NOTE | 2023-05-18 07:03 | HO.PM.IMPN ---
Subjective Subjective Date of Service: 05/18/23 Interval History: No new issues, he ate very little to nothing yesterday Physical Exam Vital Signs: Vital Signs: Last Vital Signs Temp 97.3 F 05/18/23 03:28 Pulse 75 05/18/23 03:28 Resp 16 05/18/23 03:28 BP 131/69 05/18/23 03:28 Pulse Ox 95 05/18/23 03:28 O2 Del Method Room Air 05/18/23 03:28 BMI result Body Mass Index 15.4 Const: Other: General: alert, not oriented Resp: CTA bilateral CVS: S1,S2,RRR GI: +BS, NT, no distention Skin: No rash Neuro: motor grossly intact Psych: appropriate affect Objective Data Active Medications Acetaminophen (Acetaminophen 325 Mg Tablet) 650 mg PO Q6H PRN PRN Reason: Pain, Mild (Pain Scale 1-3) Acetaminophen (Acetaminophen Supp 650 Mg Supp.Rect) 650 mg [place] Q6H PRN PRN Reason: Pain, Mild (Pain Scale 1-3) Dextrose (Dextrose 50 % 25 Gm/50 Ml Syringe) 25 gm IVPUSH Q15M PRN; Protocol PRN Reason: per Hypoglycemia Standing Ord. Last Admin: 05/16/23 12:20 Dose: 25 gm Documented By: CHRISTIAN Enoxaparin Sodium (Enoxaparin Sodium 40 Mg/0.4 Ml Syringe) 40 mg SUBCUT Q24H [facility] Last Admin: 05/17/23 08:02 Dose: 40 mg Documented By: COTEMA Glucose (Glucose Gel 15 Gm Gel..Gram.) 15 gm PO Q15M PRN; Protocol PRN Reason: per Hypoglycemia Standing Ord. Dextrose (D5w) 1,000 mls @ 100 mls/hr IVCONT .Q10H [facility] Last Admin: 05/18/23 02:45 Dose: 100 mls/hr Documented By: KEYSHAWN Insulin Human Lispro (Insulin Lispro 100 Unit/Ml 3 Ml Vial) 0 unit SUBCUT 0000,0600,1200,1800 [facility]; Protocol Last Admin: 05/18/23 05:34 Dose: Not Given Documented By: KEYSHAWN Non-Admin Reason: pt refusing any po, md aware Melatonin (Melatonin 3 Mg Tablet) 6 mg PO BEDTIME PRN PRN Reason: Insomnia Ondansetron HCl (Ondansetron Hcl 4 Mg/2 Ml Vial) 4 mg IVPUSH Q8H PRN PRN Reason: Nausea and Vomiting Sodium Chloride (0.9 % Sodium Chloride Flush 3 Ml Syringe) 3 ml IVFLUSH QSHIFT [facility] Last Admin: 05/17/23 19:11 Dose: Not Given Documented By: KEYSHAWN Non-Admin Reason: IV Running Labs 05/16/23 00:08 05/16/23 05:12 Labs: Laboratory Results - last 24 hr 05/17/23 05/17/23 05/17/23 06:08 07:35 08:18 POC Glucose 148 H 163 H Urine Color Yellow Urine Appearance Clear Urine pH 6.0 Ur Specific [place] 1.015 Urine Protein Trace Urine Glucose (UA) 250 H Urine Ketones Trace Urine Blood Negative Urine Nitrite Positive H Ur Leukocyte Esterase Moderate (2+) H Urine RBC 0-2 Urine WBC 11-20 H Ur Squamous Epith Cells 0-2 Urine Bacteria Trace Hyaline Casts 0-2 05/17/23 05/17/23 05/17/23 11:00 16:54 23:14 POC Glucose 177 H 141 H 177 H Urine Color Urine Appearance Urine pH Ur Specific [place] Urine Protein Urine Glucose (UA) Urine Ketones Urine Blood Urine Nitrite Ur Leukocyte Esterase Urine RBC Urine WBC Ur Squamous Epith Cells Urine Bacteria Hyaline Casts 05/18/23 05:31 POC Glucose 188 H Urine Color Urine Appearance Urine pH Ur Specific [place] Urine Protein Urine Glucose (UA) Urine Ketones Urine Blood Urine Nitrite Ur Leukocyte Esterase Urine RBC Urine WBC Ur Squamous Epith Cells Urine Bacteria Hyaline Casts Microbiology Microbiology Results: Microbiology 05/16/23 01:52 Blood Culture - Preliminary Blood - Venous No growth after 48 hours. 05/16/23 01:52 Blood Culture - Preliminary Blood - Venous No growth after 48 hours. Assessment and Plan (1) Urinary tract infection: Status: Acute (2) Gram-negative bacteremia: Status: Acute Plan 82-year-old male with a PMH significant for?unspecified dementia, HLD, and insulin-dependent diabetes type 2 who presents to the ED with?increased lethargy and foul-smelling urine.? Patient with advanced dementia and nonverbal at baseline. Pt will be admitted to the hospital for treatment of acute toxic metabolic encephalopathy in the setting of UTI that failed outpatient therapy. Acute toxic metabolic encephalopathy in setting of UTI with severe underlying dementia, treating underlying UTI, overall his dementia is worsening and is result he is not eating or drinking , I have discussed with the daughter about alternate feeding and she's to a PEG which is planned for 05/19/23, in the meantime IVF HLD Continue statin Mood disorder Continue sertraline, quetiapine Insulin-dependent diabetes Hold home meds SSI, Lantus dementia unspecified :continue supportive care poor oral intake ,bmi normal: added nutritionst eval DNR/DNI DVT Prophylaxis: Lovenox inpatient need :?acute toxic metabolic encephalopathy in the setting of UTI that failed outpatient therapy-need iv antibiotics. Time Spent With Patient Time: Total time managing care of this patient today ____ minutes. Quality Stroke Does the patient have a stroke diagnosis?: No VTE Prior VTE?: No VTE Risk Level:: Medical - moderate - high VTE Device Contraindication: Treatment Not Indicated VTE Drug Contraindication: N/A - Med Ordered
[2023-05-18 07:48] VITALS: BP 118/73; PULSE 92; RESP 16; TEMP 36.7; O2SAT 93
[2023-05-18] MEDS: Enoxaparin Sodium 40 MG/0.4 ML SYRINGE SUBCUT (08:12)
[2023-05-18 11:30] LABS: Glucose, Whole Blood 196 mg/dL (60-115)
[2023-05-18] MEDS: Acetaminophen Supp 650 MG SUPP.RECT PR (11:53)
--- NOTE | 2023-05-18 12:29 | MHC.SPEECHCO ---
Pt scheduled for PEG tomorrow. Continues with minimal PO intake. Follow-up treatment deferred until TFs initiated.
--- NOTE | 2023-05-18 15:17 | PM.PNGS ---
Subjective Subjective Date of Service: 05/18/23 Interval history: No new events reported Patient not eating Physical Exam Vital Signs: Vital Signs: Last Vital Signs Temp 98.1 F 05/18/23 07:48 Pulse 92 05/18/23 07:48 Resp 16 05/18/23 07:48 BP 118/73 05/18/23 07:48 Pulse Ox 93 05/18/23 07:48 O2 Del Method Room Air 05/18/23 07:48 BMI result Body Mass Index 15.4 Const: Other: Not communicative, appears comfortable Resp: Effort & Inspection: normal respiratory effort GI: Other: No abdominal wall scars Palpation (GI): Soft to palpation, not firm and nontender Objective Data Active Medications Acetaminophen (Acetaminophen 325 Mg Tablet) 650 mg PO Q6H PRN PRN Reason: Pain, Mild (Pain Scale 1-3) Acetaminophen (Acetaminophen Supp 650 Mg Supp.Rect) 650 mg [place] Q6H PRN PRN Reason: Pain, Mild (Pain Scale 1-3) Last Admin: 05/18/23 11:53 Dose: 650 mg Documented By: FARHAN Dextrose (Dextrose 50 % 25 Gm/50 Ml Syringe) 25 gm IVPUSH Q15M PRN; Protocol PRN Reason: per Hypoglycemia Standing Ord. Last Admin: 05/16/23 12:20 Dose: 25 gm Documented By: CHRISTIAN Enoxaparin Sodium (Enoxaparin Sodium 40 Mg/0.4 Ml Syringe) 40 mg SUBCUT Q24H [facility] Last Admin: 05/18/23 08:12 Dose: 40 mg Documented By: FARHAN Glucose (Glucose Gel 15 Gm Gel..Gram.) 15 gm PO Q15M PRN; Protocol PRN Reason: per Hypoglycemia Standing Ord. Insulin Human Lispro (Insulin Lispro 100 Unit/Ml 3 Ml Vial) 0 unit SUBCUT 0000,0600,1200,1800 [facility]; Protocol Last Admin: 05/18/23 11:37 Dose: Not Given Documented By: FARHAN Non-Admin Reason: poor po intake Melatonin (Melatonin 3 Mg Tablet) 6 mg PO BEDTIME PRN PRN Reason: Insomnia Ondansetron HCl (Ondansetron Hcl 4 Mg/2 Ml Vial) 4 mg IVPUSH Q8H PRN PRN Reason: Nausea and Vomiting Sodium Chloride (0.9 % Sodium Chloride Flush 3 Ml Syringe) 3 ml IVFLUSH QSHIFT [facility] Last Admin: 05/18/23 14:59 Dose: Not Given Documented By: COTEMA Non-Admin Reason: IV Running Labs 05/16/23 00:08 05/16/23 05:12 Labs: Laboratory Results - last 24 hr 05/17/23 05/17/23 05/18/23 16:54 23:14 05:31 POC Glucose 141 H 177 H 188 H 05/18/23 11:19 POC Glucose 196 H Microbiology Microbiology Results: Microbiology 05/17/23 08:41 Urine Culture - Preliminary Urine clean catch - Urine jacobsen top Staphylococcus species 05/16/23 01:52 Blood Culture - Preliminary Blood - Venous No growth after 48 hours. 05/16/23 01:52 Blood Culture - Preliminary Blood - Venous No growth after 48 hours. Procedures Date of Service Date of Service: 05/18/23 Progress Note: A&P Assessment and plan (1) Adult failure to thrive: Status: Acute Assessment and Plan: Has had poor oral intake I have had multiple extensive discussions with his daughter Tereza [phone] I reviewed the technique of PEG tube placement I explained the risks including but not limited to bleeding, infections, bowel injury, tube dislodgement, inherent risks of anesthesia Tereza has given consent Peg tube planned for tomorrow Time Spent With Patient Time: Total time managing care of this patient today ____ minutes. Quality Stroke Does the patient have a stroke diagnosis?: No VTE Prior VTE?: No VTE Risk Level:: Medical - moderate - high VTE Device Contraindication: Treatment Not Indicated VTE Drug Contraindication: N/A - Med Ordered
[2023-05-18 15:36] VITALS: BP 105/64; PULSE 88; RESP 17; TEMP 36.2; O2SAT 96
[2023-05-18 18:13] LABS: Glucose, Whole Blood 169 mg/dL (60-115)
[2023-05-18 20:00] VITALS: BP 100/62; PULSE 70; RESP 17; TEMP 36.1; O2SAT 95
[2023-05-18 23:28] LABS: Glucose, Whole Blood 156 mg/dL (60-115)
[2023-05-19] VITALS (7 sets, daily range): BP systolic 96–140; BP diastolic 53–116; PULSE 75–100; RESP 16–18; TEMP 36.2–37.1; O2SAT 94–100
[2023-05-19 06:15] LABS: Glucose, Whole Blood 149 mg/dL (60-115)
[2023-05-19] MEDS: 0.9 % Sodium Chloride Flush 3 ML SYRINGE IVFLUSH ×2 (07:27→15:00)
--- NOTE | 2023-05-19 07:29 | P.PNIM_ITS ---
Subjective Subjective Date of Service: 05/19/23 Interval History: No new issues, he ate very little to nothing yesterday Physical Exam 2 Vital Signs: Vital Signs: Last Vital Signs Temp 97.4 F 05/19/23 03:17 Pulse 75 05/19/23 03:17 Resp 17 05/19/23 03:17 BP 120/65 05/19/23 03:17 Pulse Ox 95 05/19/23 03:17 O2 Del Method Room Air 05/19/23 03:17 BMI result Body Mass Index 15.4 Const: Other: confused, ND CV RRR lungs CTA Abd S, ND, NT Neuro: NF Objective Data Active Medications Acetaminophen (Acetaminophen 325 Mg Tablet) 650 mg PO Q6H PRN PRN Reason: Pain, Mild (Pain Scale 1-3) Acetaminophen (Acetaminophen Supp 650 Mg Supp.Rect) 650 mg [place] Q6H PRN PRN Reason: Pain, Mild (Pain Scale 1-3) Last Admin: 05/18/23 11:53 Dose: 650 mg Documented By: ELLENEMA Dextrose (Dextrose 50 % 25 Gm/50 Ml Syringe) 25 gm IVPUSH Q15M PRN; Protocol PRN Reason: per Hypoglycemia Standing Ord. Last Admin: 05/16/23 12:20 Dose: 25 gm Documented By: CHRISTIAN Enoxaparin Sodium (Enoxaparin Sodium 40 Mg/0.4 Ml Syringe) 40 mg SUBCUT Q24H [facility] Last Admin: 05/18/23 08:12 Dose: 40 mg Documented By: ELLENEMA Glucose (Glucose Gel 15 Gm Gel..Gram.) 15 gm PO Q15M PRN; Protocol PRN Reason: per Hypoglycemia Standing Ord. Insulin Human Lispro (Insulin Lispro 100 Unit/Ml 3 Ml Vial) 0 unit SUBCUT 0000,0600,1200,1800 [facility]; Protocol Last Admin: 05/19/23 06:12 Dose: Not Given Documented By: KRISTEN Non-Admin Reason: No Insulin Coverage Melatonin (Melatonin 3 Mg Tablet) 6 mg PO BEDTIME PRN PRN Reason: Insomnia Ondansetron HCl (Ondansetron Hcl 4 Mg/2 Ml Vial) 4 mg IVPUSH Q8H PRN PRN Reason: Nausea and Vomiting Sodium Chloride (0.9 % Sodium Chloride Flush 3 Ml Syringe) 3 ml IVFLUSH QSHIFT [facility] Last Admin: 05/19/23 07:27 Dose: 3 ml Documented By: ASH Labs 05/16/23 00:08 05/16/23 05:12 Labs: Laboratory Results - last 24 hr 05/18/23 05/18/23 05/18/23 11:19 18:09 23:24 POC Glucose 196 H 169 H 156 H 05/19/23 06:11 POC Glucose 149 H Microbiology Microbiology Results: Microbiology 05/17/23 08:41 Urine Culture - Preliminary Urine clean catch - Urine jacobsen top Staphylococcus species 05/16/23 01:52 Blood Culture - Preliminary Blood - Venous No growth after 48 hours. 05/16/23 01:52 Blood Culture - Preliminary Blood - Venous No growth after 48 hours. Assessment and Plan (1) Urinary tract infection: Status: Acute (2) Gram-negative bacteremia: Status: Acute Plan 82-year-old male with a PMH significant for?unspecified dementia, HLD, and insulin-dependent diabetes type 2 who presents to the ED with?increased lethargy and foul-smelling urine.? Patient with advanced dementia and nonverbal at baseline. Pt will be admitted to the hospital for treatment of acute toxic metabolic encephalopathy in the setting of UTI that failed outpatient therapy. Acute toxic metabolic encephalopathy in setting of UTI with severe underlying dementia, treating underlying UTI, overall his dementia is worsening and is result he is not eating or drinking , I have discussed with the daughter about alternate feeding and she's to a PEG which is planned for 05/19/23, in the meantime IVF UTI--culture growing staph species, no bacteremia, starting Vanco, given no bacteremia, should not impact planned procedure HLD Continue statin Mood disorder Continue sertraline, quetiapine Insulin-dependent diabetes Hold home meds SSI, Lantus dementia unspecified :continue supportive care poor oral intake ,bmi normal: added nutritionst eval DNR/DNI DVT Prophylaxis: Lovenox inpatient need :?acute toxic metabolic encephalopathy in the setting of UTI that failed outpatient therapy-need iv antibiotics. Time Spent With Patient Time: Total time managing care of this patient today ____ minutes. Quality Stroke Does the patient have a stroke diagnosis?: No VTE Prior VTE?: No VTE Risk Level:: Medical - moderate - high VTE Device Contraindication: Treatment Not Indicated VTE Drug Contraindication: N/A - Med Ordered
--- NOTE | 2023-05-19 08:45 | P.CONAN_ITS ---
HPI - Anesthesia Eval Consult details Narrative: for PEG PMFSH Active Problems Active Problems: All Active Problems (Updated 05/17/23 @ 11:19 by Connie Real PA-C) Acute metabolic encephalopathy (Acute) Gram-negative bacteremia (Acute) Urinary tract infection (Acute) Adult failure to thrive (Acute) Past Medical History Medical History Alzheimer disease Asthma Diabetes Dementia Family History Family history of problems with anesthesia: No Surgical History History of Problems with Anesthesia: No Social History Social History Household Members: Family Housing: Unknown / Unable to assess Unable to assess alcohol history related to: Unable to respond Patient Tobacco Use Status: Former Tobacco user Quit Date: 1 YEAR AGO Smoked in Last 30 Days: No Use of substances other than those prescribed or required for medical reasons: No Substance Use Type: Unknown Currently Displaying Signs/Symptoms of Drug Intoxication Withdrawal: No Advance Directives: No Advance Directives Information Provided: Yes Do you have thoughts of harming others: None Do you have a plan to hurt others: No Plan Recently lost weight without trying: No Nutrition Risks: Anorexia service: No Current occupational status: retired Meds Allergies Allergy/AdvReac Type Severity Reaction Status Date / Time No Known Allergies Allergy Verified 08/25/20 16:13 [No Known Allergies*] Active Medications: Current Medications Acetaminophen (Acetaminophen 325 Mg Tablet) 650 mg PO Q6H PRN PRN Reason: Pain, Mild (Pain Scale 1-3) Acetaminophen (Acetaminophen Supp 650 Mg Supp.Rect) 650 mg [place] Q6H PRN PRN Reason: Pain, Mild (Pain Scale 1-3) Last Admin: 05/18/23 11:53 Dose: 650 mg Dextrose (Dextrose 50 % 25 Gm/50 Ml Syringe) 25 gm IVPUSH Q15M PRN; Protocol PRN Reason: per Hypoglycemia Standing Ord. Last Admin: 05/16/23 12:20 Dose: 25 gm Enoxaparin Sodium (Enoxaparin Sodium 40 Mg/0.4 Ml Syringe) 40 mg SUBCUT Q24H [facility] Last Admin: 05/19/23 07:32 Dose: Not Given Glucose (Glucose Gel 15 Gm Gel..Gram.) 15 gm PO Q15M PRN; Protocol PRN Reason: per Hypoglycemia Standing Ord. Insulin Human Lispro (Insulin Lispro 100 Unit/Ml 3 Ml Vial) 0 unit SUBCUT 0000,0600,1200,1800 [facility]; Protocol Last Admin: 05/19/23 06:12 Dose: Not Given Melatonin (Melatonin 3 Mg Tablet) 6 mg PO BEDTIME PRN PRN Reason: Insomnia Ondansetron HCl (Ondansetron Hcl 4 Mg/2 Ml Vial) 4 mg IVPUSH Q8H PRN PRN Reason: Nausea and Vomiting Pharmacy Consult (Consult Rx Vancomycin Dosing) 1 each MISCELLANE DAILY PRN PRN Reason: Consult order Sodium Chloride (0.9 % Sodium Chloride Flush 3 Ml Syringe) 3 ml IVFLUSH QSHIFT [facility] Last Admin: 05/19/23 07:27 Dose: 3 ml Home Medications Medication Instructions Recorded Confirmed Last Taken Type aspirin 81 mg tablet,delayed 1 tab PO DAILY 03/14/21 05/16/23 Unknown History release atorvastatin 40 mg tablet 1 tab PO BEDTIME 03/14/21 05/16/23 Unknown History insulin glargine 100 unit/mL (3 20 unit subcut DAILY 03/14/21 05/16/23 Unknown History mL) subcutaneous pen (Lantus Solostar U-100 Insulin) quetiapine 25 mg tablet 1 tab PO BEDTIME 03/14/21 05/16/23 Unknown History sertraline 100 mg tablet 1 tab PO DAILY 03/14/21 05/16/23 Unknown History albuterol sulfate 90 mcg/actuation 1 puff inhalation Q4H PRN 02/05/23 05/16/23 Unknown History aerosol inhaler (Ventolin HFA) Shortness Of Breath dulaglutide 3 mg/0.5 mL 3 mg subcut MO 02/05/23 05/16/23 Unknown History subcutaneous pen injector (Trulicity) Exam Exam Date and Time: May 19, 2023 0845 Height,Weight and Vital Signs: Height 5 ft 4 in Weight 40.7 kg Last Vital Signs Temp 97.1 F 05/19/23 07:46 Pulse 100 05/19/23 07:46 Resp 18 05/19/23 07:46 BP 97/53 L 05/19/23 07:46 Pulse Ox 95 05/19/23 07:46 O2 Del Method Room Air 05/19/23 07:46 Pertinent Lab Results Pertinent Lab Results: Laboratory Tests 05/15/23 05/16/23 05/16/23 23:33 00:08 01:35 WBC 4.2 L RBC 5.89 H D Hgb 16.1 D Hct 49.2 D MCV 83.5 MCH 27.3 MCHC 32.7 RDW 14.3 Plt Count 379 D MPV 10.4 Absolute Nucleated RBC 0.000 Nucleated RBC % (auto) 0.0 Sodium 141 Potassium 4.6 Chloride 107 Carbon Dioxide 24 Anion Gap 15 BUN 16 Creatinine 0.87 Estim Creat Clear Calc 52.1 Estimated GFR > 60 POC Glucose 86 Random Glucose 94 Lactic Acid 1.5 Calcium 9.6 D Total Bilirubin 0.4 AST 38 H ALT 13 Alkaline Phosphatase 138 H Total Protein 8.3 H Albumin 3.2 L Lipase 20 Urine Color Urine Appearance Urine pH Ur Specific [place] Urine Protein Urine Glucose (UA) Urine Ketones Urine Blood Urine Nitrite Ur Leukocyte Esterase Urine RBC Urine WBC Ur Squamous Epith Cells Urine Bacteria Hyaline Casts 05/16/23 05/16/23 05/16/23 04:03 04:29 04:57 WBC RBC Hgb Hct MCV MCH MCHC RDW Plt Count MPV Absolute Nucleated RBC Nucleated RBC % (auto) Sodium Potassium Chloride Carbon Dioxide Anion Gap BUN Creatinine Estim Creat Clear Calc Estimated GFR POC Glucose 44 L* 214 H 163 H Random Glucose Lactic Acid Calcium Total Bilirubin AST ALT Alkaline Phosphatase Total Protein Albumin Lipase Urine Color Urine Appearance Urine pH Ur Specific [place] Urine Protein Urine Glucose (UA) Urine Ketones Urine Blood Urine Nitrite Ur Leukocyte Esterase Urine RBC Urine WBC Ur Squamous Epith Cells Urine Bacteria Hyaline Casts 05/16/23 05/16/23 05/16/23 05:12 05:18 11:00 WBC RBC Hgb Hct MCV MCH MCHC RDW Plt Count MPV Absolute Nucleated RBC Nucleated RBC % (auto) Sodium 142 Potassium 3.3 D Chloride 110 H Carbon Dioxide 24 Anion Gap 11 L BUN 13 Creatinine 0.71 Estim Creat Clear Calc 47.7 Estimated GFR > 60 POC Glucose 131 H 53 L* Random Glucose 155 H Lactic Acid Calcium 8.3 L D Total Bilirubin 0.3 AST 26 ALT 9 Alkaline Phosphatase 112 Total Protein 6.5 Albumin 2.6 L Lipase Urine Color Urine Appearance Urine pH Ur Specific [place] Urine Protein Urine Glucose (UA) Urine Ketones Urine Blood Urine Nitrite Ur Leukocyte Esterase Urine RBC Urine WBC Ur Squamous Epith Cells Urine Bacteria Hyaline Casts 05/16/23 05/16/23 05/16/23 12:07 12:19 12:36 WBC RBC Hgb Hct MCV MCH MCHC RDW Plt Count MPV Absolute Nucleated RBC Nucleated RBC % (auto) Sodium Potassium Chloride Carbon Dioxide Anion Gap BUN Creatinine Estim Creat Clear Calc Estimated GFR POC Glucose 47 L* 56 L* 200 H Random Glucose Lactic Acid Calcium Total Bilirubin AST ALT Alkaline Phosphatase Total Protein Albumin Lipase Urine Color Urine Appearance Urine pH Ur Specific [place] Urine Protein Urine Glucose (UA) Urine Ketones Urine Blood Urine Nitrite Ur Leukocyte Esterase Urine RBC Urine WBC Ur Squamous Epith Cells Urine Bacteria Hyaline Casts 05/16/23 05/16/23 05/16/23 15:46 18:21 23:41 WBC RBC Hgb Hct MCV MCH MCHC RDW Plt Count MPV Absolute Nucleated RBC Nucleated RBC % (auto) Sodium Potassium Chloride Carbon Dioxide Anion Gap BUN Creatinine Estim Creat Clear Calc Estimated GFR POC Glucose 211 H 138 H 155 H Random Glucose Lactic Acid Calcium Total Bilirubin AST ALT Alkaline Phosphatase Total Protein Albumin Lipase Urine Color Urine Appearance Urine pH Ur Specific [place] Urine Protein Urine Glucose (UA) Urine Ketones Urine Blood Urine Nitrite Ur Leukocyte Esterase Urine RBC Urine WBC Ur Squamous Epith Cells Urine Bacteria Hyaline Casts 05/17/23 05/17/23 05/17/23 06:08 07:35 08:18 WBC RBC Hgb Hct MCV MCH MCHC RDW Plt Count MPV Absolute Nucleated RBC Nucleated RBC % (auto) Sodium Potassium Chloride Carbon Dioxide Anion Gap BUN Creatinine Estim Creat Clear Calc Estimated GFR POC Glucose 148 H 163 H Random Glucose Lactic Acid Calcium Total Bilirubin AST ALT Alkaline Phosphatase Total Protein Albumin Lipase Urine Color Yellow Urine Appearance Clear Urine pH 6.0 Ur Specific [place] 1.015 Urine Protein Trace Urine Glucose (UA) 250 H Urine Ketones Trace Urine Blood Negative Urine Nitrite Positive H Ur Leukocyte Esterase Moderate (2+) H Urine RBC 0-2 Urine WBC 11-20 H Ur Squamous Epith Cells 0-2 Urine Bacteria Trace Hyaline Casts 0-2 05/17/23 05/17/23 05/17/23 11:00 16:54 23:14 WBC RBC Hgb Hct MCV MCH MCHC RDW Plt Count MPV Absolute Nucleated RBC Nucleated RBC % (auto) Sodium Potassium Chloride Carbon Dioxide Anion Gap BUN Creatinine Estim Creat Clear Calc Estimated GFR POC Glucose 177 H 141 H 177 H Random Glucose Lactic Acid Calcium Total Bilirubin AST ALT Alkaline Phosphatase Total Protein Albumin Lipase Urine Color Urine Appearance Urine pH Ur Specific [place] Urine Protein Urine Glucose (UA) Urine Ketones Urine Blood Urine Nitrite Ur Leukocyte Esterase Urine RBC Urine WBC Ur Squamous Epith Cells Urine Bacteria Hyaline Casts 05/18/23 05/18/23 05/18/23 05:31 11:19 18:09 WBC RBC Hgb Hct MCV MCH MCHC RDW Plt Count MPV Absolute Nucleated RBC Nucleated RBC % (auto) Sodium Potassium Chloride Carbon Dioxide Anion Gap BUN Creatinine Estim Creat Clear Calc Estimated GFR POC Glucose 188 H 196 H 169 H Random Glucose Lactic Acid Calcium Total Bilirubin AST ALT Alkaline Phosphatase Total Protein Albumin Lipase Urine Color Urine Appearance Urine pH Ur Specific [place] Urine Protein Urine Glucose (UA) Urine Ketones Urine Blood Urine Nitrite Ur Leukocyte Esterase Urine RBC Urine WBC Ur Squamous Epith Cells Urine Bacteria Hyaline Casts 05/18/23 05/19/23 23:24 06:11 WBC RBC Hgb Hct MCV MCH MCHC RDW Plt Count MPV Absolute Nucleated RBC Nucleated RBC % (auto) Sodium Potassium Chloride Carbon Dioxide Anion Gap BUN Creatinine Estim Creat Clear Calc Estimated GFR POC Glucose 156 H 149 H Random Glucose Lactic Acid Calcium Total Bilirubin AST ALT Alkaline Phosphatase Total Protein Albumin Lipase Urine Color Urine Appearance Urine pH Ur Specific [place] Urine Protein Urine Glucose (UA) Urine Ketones Urine Blood Urine Nitrite Ur Leukocyte Esterase Urine RBC Urine WBC Ur Squamous Epith Cells Urine Bacteria Hyaline Casts Airway Mallampati Class: Patient Non-Cooperative TM Dist: >3cm Neck ROM: Full Heart: ok Lungs: Clear. SpO2 100% on RA. Assessment and Plan Assessment Anesthesia Assessment: Anesthesia Plan Discussed and Chart Reviewed Final Anesthetic Review Family History of Problems with Anesthesia: No History of Problems with Anesthesia: No NPO: Yes ASA Class: IV Final Preanesthetic Review: No Changes in Pt Med Stat, Meds/Allgs Chart Reviewed, Consent Obtained/Reviewed and Anes Risks/Benef Reviewed Patient Risk: High Procedure Risk: Intermediate Anesthetic Plan Anesthetic Plan: MAC: and Agree w/ Assess. and Plan Disposition: Standard PACU
--- NOTE | 2023-05-19 08:46 | MHC.CM.PN ---
CORAM AND HVNA UPDATED IN [facility]. PLAN IS FOR PEG PLACEMENT CASE MANAGEMENT FOLLOWING.
--- NOTE | 2023-05-19 09:07 | PC.NURSE ---
All health history and consents obtained from Tereza Holt (patients daughter and health care proxy) [phone].
--- NOTE | 2023-05-19 09:10 | PC.NURSE ---
Patient arrived to [facility] from the floor. IV in right extremity red and hot to touch. This IV removed. New IV placed by Giorgi RN, #22 Left forearm, tolerated well. Bracelet noted on right wrist, removed by this RN and placed in patient labeled bag and in chart. Markos ICEBOX MAN made aware.
--- NOTE | 2023-05-19 09:32 | P.OP_ITS ---
Operative Note Operative Note Date of Service: 05/19/23 Narrative: Preop diagnosis: failure to thrive, dementia Postop diagnosis: The same Procedure: PEG tube placement Surgeon: Roberto Alonzo MD construction management assistant: CASSANDRA Real The patient is an 82-year-old male with dementia, and poor p.o. intake along with failure to thrive. The daughter Tereza wanted to proceed with PEG tube placement for nutrition. She understood the technique of the procedure as well as the risks, benefits, and alternatives The patient was brought to the operating room and placed in supine position under monitored anesthesia care. Surgical time-out was done. The endoscope was gently introduced through the oral orifice into the oropharynx. The vocal cords were visualized. The esophageal slit was seen posterior to this. The esophageal slit was gently intubated and the scope was advanced through the entire length of the esophagus all to with the stomach. The stomach was insufflated to distend this. Transillumination on the epigastric area was easily seen. Furthermore, indentation of the anterior stomach wall was clearly seen with pressure on the epigastric area using a finger This area on the epigastric region was infiltrated with lidocaine 1%. A small stab wound was created using a blade 15. The large-bore needle with the knee level was inserted. The needle was removed. The cannula was left in place and the guidewires threaded through this. The guidewire was grasped with a snare and was pulled out all the way to the oral orifice. The PEG tube was looped through this guidewire. The guidewire was then pulled out through the anterior abdominal wall along with the PEG tube until this felt snug. I reinserted the scope and visualized the internal bolster which was in good position. There was no bleeding. There were no lesions seen in the stomach The scope was then completely removed. The external bolster was positioned to make this snug on the skin The procedure was then completed. The patient tolerated procedure well. There were no immediate complications. The patient was transferred to the recovery room with stable vital signs.
--- NOTE | 2023-05-19 10:25 | MHC.CLN ---
F/U PEG PLACED THIS MORNING. HAS DIET ORDER FOR DIABETIC 1800 KCAL, PUREE CONSISTENCY. HX VERY POOR INTAKE AND SIGNIFICANT WEIGHT LOSS X 3 MONTHS. WHEN ABLE TO INITIATE TUBE FEEDING, RECOMMEND: GLUCERNA AT 55 ML PER HOUR, FREE WATER FLUSH 120 ML Q 8 HOURS. PROVIDES 1320 KCALS (32.4 KCALS/KG), 55 G PROTEIN (1.36 G/KG), 1486 ML FREE WATER FROM FORMULA AND FLUSH (36.5 ML/KG). START GLUCERNA AT 20 ML PER HOUR, INCREASE 10 ML EVERY 4 HOURS TO MAX GOAL RATE OF 55 ML PER HOUR. CHECK RESIDUALS EVERY 4 HOURS, HOLD FOR 2 HOURS IF GREATER THAN 250 ML. FOLLOW FOR TUBE FEED TOLERANCE, LABS, PO INTAKE/DIET TOLERANCE. GLUCERNA FORMULA APPROPRIATE DUE TO ELEVATED POC GLUCOSE AND DX DM. IF GLUCERNA IS UNAVAILABLE, MAY SUBSTITUTE JEVITY 1.0 AND MONITOR BG CLOSELY.
[2023-05-19 11:31] LABS: Glucose, Whole Blood 137 mg/dL (60-115)
--- NOTE | 2023-05-19 14:17 | PM.EVENT ---
Event Note Date of Service: 05/19/23 Event Note: seen postop s/p PEG placement earlier looks comfortable abd soft dressings dry stable VS keep external bolster snug on skin ok to start tube feeds tomorrow rest of care as per Hospitalist Time Spent With Patient Time: Total time managing care of this patient today ____ minutes.
--- NOTE | 2023-05-19 15:37 | MHC.CM.PN ---
[facility] replied to state that they are not contracted with patient's insurance. Referral placed to [facility]. NA made aware
[2023-05-19 16:09] LABS: Glucose, Whole Blood 132 mg/dL (60-115)
[2023-05-19] MEDS: vancomycin HCL 1,250 MG in 0.9 % Sodium Chloride 250 ML 166.67 MG IV (16:53)
[2023-05-20 00:48] LABS: Glucose, Whole Blood 156 mg/dL (60-115)
[2023-05-20 06:06] LABS: Estimated Glomerular Filt Rate > 60
[2023-05-20 06:19] LABS: Glucose, Whole Blood 144 mg/dL (60-115)
--- NOTE | 2023-05-20 08:17 | P.PNIM_ITS ---
Subjective Subjective Date of Service: 05/20/23 Interval History: No new issues, PEG inserted 05/19 Physical Exam 2 Vital Signs: Vital Signs: Last Vital Signs Temp 98 F 05/19/23 15:12 Pulse 97 05/19/23 15:12 Resp 18 05/19/23 15:12 BP 118/66 05/19/23 15:12 Pulse Ox 95 05/19/23 15:12 O2 Del Method Room Air 05/19/23 15:12 BMI result Body Mass Index 15.4 Const: Other: confused, ND CV RRR lungs CTA Abd S, ND, NT Neuro: NF Objective Data Active Medications Acetaminophen (Acetaminophen 325 Mg Tablet) 650 mg PO Q6H PRN PRN Reason: Pain, Mild (Pain Scale 1-3) Acetaminophen (Acetaminophen Supp 650 Mg Supp.Rect) 650 mg [place] Q6H PRN PRN Reason: Pain, Mild (Pain Scale 1-3) Last Admin: 05/18/23 11:53 Dose: 650 mg Documented By: ELLENEMA Dextrose (Dextrose 50 % 25 Gm/50 Ml Syringe) 25 gm IVPUSH Q15M PRN; Protocol PRN Reason: per Hypoglycemia Standing Ord. Last Admin: 05/16/23 12:20 Dose: 25 gm Documented By: CHRISTIAN Enoxaparin Sodium (Enoxaparin Sodium 40 Mg/0.4 Ml Syringe) 40 mg SUBCUT Q24H [facility] Last Admin: 05/19/23 07:32 Dose: Not Given Documented By: ASH Non-Admin Reason: pt to have surgery today Glucose (Glucose Gel 15 Gm Gel..Gram.) 15 gm PO Q15M PRN; Protocol PRN Reason: per Hypoglycemia Standing Ord. Vancomycin HCl 1,000 mg/ (Sodium Chloride) 270 mls @ 270 mls/hr IV Q24H [facility] Insulin Human Lispro (Insulin Lispro 100 Unit/Ml 3 Ml Vial) 0 unit SUBCUT 0000,0600,1200,1800 [facility]; Protocol Last Admin: 05/20/23 05:58 Dose: Not Given Documented By: GABRIELA Non-Admin Reason: Nursing judgment/NPO Melatonin (Melatonin 3 Mg Tablet) 6 mg PO BEDTIME PRN PRN Reason: Insomnia Morphine Sulfate (Morphine Sulfate 2 Mg/Ml Cartridge) 2 mg IVPUSH Q4H PRN; Protocol PRN Reason: Pain, Severe (Pain Scale 7-10) Ondansetron HCl (Ondansetron Hcl 4 Mg/2 Ml Vial) 4 mg IVPUSH Q8H PRN PRN Reason: Nausea and Vomiting Oxycodone HCl (Oxycodone Hcl Immed Release 5 Mg Tablet) 5 mg PO Q4H PRN PRN Reason: Pain, Moderate(Pain Scale 4-6) Pharmacy Consult (Consult Rx Vancomycin Dosing) 1 each MISCELLANE DAILY PRN PRN Reason: Consult order Sodium Chloride (0.9 % Sodium Chloride Flush 3 Ml Syringe) 3 ml IVFLUSH QSHIFT [facility] Last Admin: 05/19/23 23:21 Dose: Not Given Documented By: GABRIELA Non-Admin Reason: Previously Administered Labs 05/16/23 00:08 05/20/23 05:04 Labs: Laboratory Results - last 24 hr 05/19/23 05/19/23 05/20/23 11:13 16:03 00:28 Estim Creat Clear Calc Estimated GFR POC Glucose 137 H 132 H 156 H 05/20/23 05/20/23 05:04 06:15 Estim Creat Clear Calc 61.0 Estimated GFR > 60 POC Glucose 144 H Microbiology Microbiology Results: Microbiology 05/17/23 08:41 Urine Culture - Final Urine clean catch - Urine jacobsen top Staphylococcus haemolyticus Assessment and Plan (1) Acute metabolic encephalopathy: Status: Acute (2) Alzheimer disease: Status: Acute Plan 82-year-old male with a PMH significant for?unspecified dementia, HLD, and insulin-dependent diabetes type 2 who presents to the ED with?increased lethargy and foul-smelling urine.? Patient with advanced dementia and nonverbal at baseline. Pt will be admitted to the hospital for treatment of acute toxic metabolic encephalopathy in the setting of UTI that failed outpatient therapy. Acute toxic metabolic encephalopathy in setting of UTI with severe underlying dementia, treating underlying UTI. I think this is his baseline UTI--culture growing staph species, no bacteremia, started Vanco on 05/19, culture showing staph heamolyticus, Severe protein calory malnutrition refusing to eat. Family opted for PEG which was inserted on 05/[address] Alonzo, starting tube feed 05/20 per nutrition specification HLD Continue statin Mood disorder Continue sertraline, quetiapine Insulin-dependent diabetes Hold home meds SSI, Lantus dementia unspecified :continue supportive care poor oral intake ,bmi normal: added nutritionst eval DNR/DNI DVT Prophylaxis: Lovenox inpatient need :?acute toxic metabolic encephalopathy in the setting of UTI that failed outpatient therapy-need iv antibiotics. Time Spent With Patient Time: Total time managing care of this patient today ____ minutes. Quality Stroke Does the patient have a stroke diagnosis?: No VTE Prior VTE?: No VTE Risk Level:: Medical - moderate - high VTE Device Contraindication: Treatment Not Indicated VTE Drug Contraindication: N/A - Med Ordered
[2023-05-20 09:02] LABS: Anion Gap 16 (12-20); Blood Urea Nitrogen 9 mg/dL (9-16); Calcium 8.7 mg/dL (8.4-10.2); Carbon Dioxide 21 mmol/L (22-29); Chloride 104 mmol/L (96-108); Glucose Random 134 mg/dL (60-115); Magnesium 1.7 mg/dL (1.6-2.6); Phosphorus 2.5 mg/dL (2.7-4.5); Potassium 3.1 mmol/L (3.3-5.1); Sodium 138 mmol/L (135-145)
[2023-05-20] MEDS: 0.9 % Sodium Chloride Flush 3 ML SYRINGE IVFLUSH ×3 (09:55→23:36)
[2023-05-20] MEDS: Enoxaparin Sodium 40 MG/0.4 ML SYRINGE SUBCUT (10:17)
--- NOTE | 2023-05-20 11:37 | PHA.PROG ---
Admission Date/Time: May 16, 2023 02:43 Indication: other Weight in k.6 kg Adjusted body weight in Kg: [place] body weight in Kg: Obesity Dosing Indication % IBW: Serum Creatinine - Last 168 Hours 05/16/23 05/16/23 05/20/23 00:08 05:12 05:04 Creatinine 0.87 0.71 0.65 Estimated CrCl and GFR - Last 168 Hours 05/16/23 05/16/23 05/20/23 00:08 05:12 05:04 Estim Creat Clear Calc 52.1 47.7 61.0 Estimated GFR > 60 > 60 > 60 Vancomycin Loading Dose: 1250mg X 1 Current Vancomycin Dosing Regimen: 1000mg Q24H Vancomycin Monitoring using AUC goal of 400 - 600 range with trough as surrogate marker: 517 mg/L Date and Time for next Vancomycin Level to be drawn: random to be drawn 05/21 @1500 after two doses Pharmacist Comments on Vancomycin Plan: PAtient is very small, using modified Goti model for pateint's over 65. Predicted trough of 15.3 mg/L. Will continue to monitor and adjust accordingly Vancomycin dosing will take advantage of i-nexus as a clinical decision support tool that uses Bayesian modeling to calculate individual patient's pharmacokinetic parameters and forecast the patient's drug concentration time course with the target goal AUC 24 range of 400 - 600 mg/L/hr.
[2023-05-20 11:42] LABS: Glucose, Whole Blood 156 mg/dL (60-115)
[2023-05-20] MEDS: Insulin Lispro 100 UNIT/ML 3 ML VIAL SUBCUT ×2 (11:56→23:36)
[2023-05-20 16:06] VITALS: BP 126/61; PULSE 90; RESP 18; TEMP 36.4; O2SAT 96
[2023-05-20] MEDS: vancomycin HCL 1,000 MG in 0.9 % Sodium Chloride 250 ML 270 MG IV (16:32)
[2023-05-20 17:55] LABS: Glucose, Whole Blood 145 mg/dL (60-115)
--- NOTE | 2023-05-20 20:35 | HO.POSTANES ---
Post Anesthesia Evaluation Post Anesthesia Evaluation Date of Service: 05/20/23 Vital Signs: Vital Signs Temp Pulse Resp BP Pulse Ox O2 Del Method 05/20/23 16:06 97.6 F 90 18 126/61 96 Room Air Anesthesia: General Mental Status: Awake Pain Control: Satisfactory Nausea/Vomiting: None Hydration: Adequate Anesthesia-Related Issues: No Anes. Related Issues Comments: pt is demented, pt was checked and further info was obtained fro his nurse
[2023-05-20 23:34] LABS: Glucose, Whole Blood 160 mg/dL (60-115)
[2023-05-21 06:01] LABS: Glucose, Whole Blood 214 mg/dL (60-115)
[2023-05-21] MEDS: Insulin Lispro 100 UNIT/ML 3 ML VIAL SUBCUT ×3 (06:05→17:48)
[2023-05-21 06:41] LABS: Creatinine Clr Calc Pharmacy 59.2; Estimated Glomerular Filt Rate > 60
[2023-05-21 07:22] VITALS: BP 112/64; PULSE 105; RESP 18; TEMP 36.7; O2SAT 94
--- NOTE | 2023-05-21 08:21 | HO.PM.IMPN ---
Subjective Subjective Date of Service: 05/21/23 Interval History: No new issues, tolerating tube feed and is at gaol of 55 ml/hr Physical Exam Vital Signs: Vital Signs: Last Vital Signs Temp 98.1 F 05/21/23 07:22 Pulse 105 H 05/21/23 07:22 Resp 18 05/21/23 07:22 BP 112/64 05/21/23 07:22 Pulse Ox 94 05/21/23 07:22 O2 Del Method Room Air 05/21/23 07:22 BMI result Body Mass Index 15.4 Const: Other: confused, ND CV RRR lungs CTA Abd S, ND, NT Neuro: NF, baseline confusion Objective Data Active Medications Acetaminophen (Acetaminophen 325 Mg Tablet) 650 mg PO Q6H PRN PRN Reason: Pain, Mild (Pain Scale 1-3) Acetaminophen (Acetaminophen Supp 650 Mg Supp.Rect) 650 mg SC Q6H PRN PRN Reason: Pain, Mild (Pain Scale 1-3) Last Admin: 05/18/23 11:53 Dose: 650 mg Documented By: FARHAN Dextrose (Dextrose 50 % 25 Gm/50 Ml Syringe) 25 gm IVPUSH Q15M PRN; Protocol PRN Reason: per Hypoglycemia Standing Ord. Last Admin: 05/16/23 12:20 Dose: 25 gm Documented By: CHRISTIAN Enoxaparin Sodium (Enoxaparin Sodium 40 Mg/0.4 Ml Syringe) 40 mg SUBCUT Q24H ZACH Last Admin: 05/20/23 10:17 Dose: 40 mg Documented By: QUINCY Glucose (Glucose Gel 15 Gm Gel..Gram.) 15 gm PO Q15M PRN; Protocol PRN Reason: per Hypoglycemia Standing Ord. Vancomycin HCl 1,000 mg/ (Sodium Chloride) 270 mls @ 270 mls/hr IV Q24H ZACH Last Infusion: 05/20/23 17:58 Dose: Infused Documented By: QUINCY Insulin Human Lispro (Insulin Lispro 100 Unit/Ml 3 Ml Vial) 0 unit SUBCUT 0000,0600,1200,1800 ZACH; Protocol Last Admin: 05/21/23 06:05 Dose: 4 unit Documented By: GABRIELA Melatonin (Melatonin 3 Mg Tablet) 6 mg PO BEDTIME PRN PRN Reason: Insomnia Morphine Sulfate (Morphine Sulfate 2 Mg/Ml Cartridge) 2 mg IVPUSH Q4H PRN; Protocol PRN Reason: Pain, Severe (Pain Scale 7-10) Ondansetron HCl (Ondansetron Hcl 4 Mg/2 Ml Vial) 4 mg IVPUSH Q8H PRN PRN Reason: Nausea and Vomiting Oxycodone HCl (Oxycodone Hcl Immed Release 5 Mg Tablet) 5 mg PO Q4H PRN PRN Reason: Pain, Moderate(Pain Scale 4-6) Pharmacy Consult (Consult Rx Vancomycin Dosing) 1 each MISCELLANE DAILY PRN PRN Reason: Consult order Sodium Chloride (0.9 % Sodium Chloride Flush 3 Ml Syringe) 3 ml IVFLUSH QSHIFT [facility] Last Admin: 05/20/23 23:36 Dose: 3 ml Documented By: GABRIELA Labs 05/16/23 00:08 05/21/23 05:28 Labs: Laboratory Results - last 24 hr 05/20/23 05/20/23 05/20/23 05:04 11:38 17:52 Anion Gap 16 Estim Creat Clear Calc 61.0 Estimated GFR > 60 POC Glucose 156 H 145 H Random Glucose 134 H Calcium 8.7 Phosphorus 2.5 L Magnesium 1.7 05/20/23 05/21/23 05/21/23 23:30 05:28 05:57 Anion Gap Estim Creat Clear Calc 59.2 Estimated GFR > 60 POC Glucose 160 H 214 H Random Glucose Calcium Phosphorus Magnesium Microbiology Microbiology Results: Microbiology 05/16/23 01:52 Blood Culture - Final Blood - Venous No growth after 5 days. 05/16/23 01:52 Blood Culture - Final Blood - Venous No growth after 5 days. Assessment and Plan (1) Acute metabolic encephalopathy: Status: Acute (2) Alzheimer disease: Status: Acute Plan 82-year-old male with a PMH significant for?unspecified dementia, HLD, and insulin-dependent diabetes type 2 who presents to the ED with?increased lethargy and foul-smelling urine.? Patient with advanced dementia and nonverbal at baseline. Pt will be admitted to the hospital for treatment of acute toxic metabolic encephalopathy in the setting of UTI that failed outpatient therapy. Acute toxic metabolic encephalopathy in setting of UTI with severe underlying dementia, treating underlying UTI. I think this is his baseline UTI--culture growing staph heamolyticus, no bacteremia, started Vanco on 9/15 Severe protein calory malnutrition refusing to eat. Family opted for PEG which was inserted on 05/[address] Alonzo, starting tube feed 05/20 per nutrition specification and is tolerating HLD Continue statin Mood disorder Continue sertraline, quetiapine Insulin-dependent diabetes Hold home meds SSI, Lantus dementia unspecified :continue supportive care poor oral intake ,bmi normal: added nutritionst eval DNR/DNI DVT Prophylaxis: Lovenox inpatient need :?acute toxic metabolic encephalopathy in the setting of UTI that failed outpatient therapy-need iv antibiotics, awaiting arrangement for home infusion for tube feed Time Spent With Patient Time: Total time managing care of this patient today ____ minutes. Quality Stroke Does the patient have a stroke diagnosis?: No VTE Prior VTE?: No VTE Risk Level:: Medical - moderate - high VTE Device Contraindication: Treatment Not Indicated VTE Drug Contraindication: N/A - Med Ordered
[2023-05-21] MEDS: Enoxaparin Sodium 40 MG/0.4 ML SYRINGE SUBCUT (09:18)
[2023-05-21] MEDS: 0.9 % Sodium Chloride Flush 3 ML SYRINGE IVFLUSH ×3 (09:18→20:06)
[2023-05-21 11:20] LABS: Glucose, Whole Blood 212 mg/dL (60-115)
[2023-05-21 15:22] VITALS: BP 123/65; PULSE 104; RESP 15; TEMP 36.4; O2SAT 94
[2023-05-21 15:55] LABS: Vancomycin Trough 7.6 mcg/mL (10.0-20.0)
--- NOTE | 2023-05-21 16:10 | HE.PHANOTE ---
VANCO DOSE ADJUSMENT BASED ON SCR AND TROUGH OF 7.6 DOSE INCREASE TO 1250 Q 24H. NEXT LEVEL 05/23 @ 1500
[2023-05-21 17:27] LABS: Glucose, Whole Blood 166 mg/dL (60-115)
[2023-05-21 19:16] VITALS: BP 112/63; PULSE 106; RESP 16; TEMP 36.7; O2SAT 95
[2023-05-21] MEDS: Insulin Glargine,Hum.rec.anlog 100 UNIT/ML 10 ML VIAL 10 UNIT SUBCUT (20:06)
[2023-05-21] MEDS: Atorvastatin Calcium 40 MG TABLET G-TUBE (20:06)
[2023-05-21] MEDS: QUEtiapine Fumarate 25 MG TABLET G-TUBE (20:06)
[2023-05-21 23:45] LABS: Glucose, Whole Blood 179 mg/dL (60-115)
[2023-05-22] MEDS: Insulin Lispro 100 UNIT/ML 3 ML VIAL SUBCUT ×3 (00:02→17:18)
[2023-05-22 04:00] VITALS: BP 141/90; PULSE 95; RESP 16; TEMP 36.6; O2SAT 95
[2023-05-22 05:24] LABS: Glucose, Whole Blood 189 mg/dL (60-115)
[2023-05-22 06:25] LABS: Creatinine Clr Calc Pharmacy 52.8; Estimated Glomerular Filt Rate > 60
--- NOTE | 2023-05-22 06:54 | HE.PHANOTE ---
JESSE DIAZ CONTINUE CURRENT DOSE, NEXT LEVEL DUE 05/23 @1500 AMI
[2023-05-22 07:43] VITALS: BP 121/57; PULSE 102; RESP 16; TEMP 36.6; O2SAT 94
[2023-05-22] MEDS: Aspirin Enteric Coated 81 MG TABLET.DR PO (07:44)
[2023-05-22] MEDS: Sertraline HCL 100 MG TABLET G-TUBE (07:44)
[2023-05-22] MEDS: Enoxaparin Sodium 40 MG/0.4 ML SYRINGE SUBCUT (07:44)
[2023-05-22] MEDS: 0.9 % Sodium Chloride Flush 3 ML SYRINGE IVFLUSH ×2 (07:45→16:25)
--- NOTE | 2023-05-22 08:36 | HO.PM.IMPN ---
Subjective Subjective Date of Service: 05/22/23 Interval History: No new issues, tolerating tube feed which is at goal. Physical Exam Vital Signs: Vital Signs: Last Vital Signs Temp 97.9 F 05/22/23 07:43 Pulse 102 H 05/22/23 07:43 Resp 16 05/22/23 07:43 BP 121/57 L 05/22/23 07:43 Pulse Ox 94 05/22/23 07:43 O2 Del Method Room Air 05/22/23 07:43 BMI result Body Mass Index 15.4 Const: Other: confused, ND CV RRR lungs CTA Abd S, ND, NT Neuro: NF, baseline confusion Objective Data Active Medications Acetaminophen (Acetaminophen 325 Mg Tablet) 650 mg PO Q6H PRN PRN Reason: Pain, Mild (Pain Scale 1-3) Acetaminophen (Acetaminophen Supp 650 Mg Supp.Rect) 650 mg ND Q6H PRN PRN Reason: Pain, Mild (Pain Scale 1-3) Last Admin: 05/18/23 11:53 Dose: 650 mg Documented By: FARHAN Albuterol Sulfate (Albuterol Sulfate 90 Mcg 8 Gm Inhaler) 1 puff INHALE Q4H PRN PRN Reason: Shortness Of Breath Aspirin (Aspirin Enteric Coated 81 Mg Tablet.Dr) 81 mg PO DAILY COUNT INCLUDES THE [facility] Last Admin: 05/22/23 07:44 Dose: 81 mg Documented By: ALDO Atorvastatin Calcium (Atorvastatin Calcium 40 Mg Tablet) 40 mg G-TUBE BEDTIME COUNT INCLUDES THE [facility] Last Admin: 05/21/23 20:06 Dose: 40 mg Documented By: KEYSHAWN Dextrose (Dextrose 50 % 25 Gm/50 Ml Syringe) 25 gm IVPUSH Q15M PRN; Protocol PRN Reason: per Hypoglycemia Standing Ord. Last Admin: 05/16/23 12:20 Dose: 25 gm Documented By: CHRISTIAN Enoxaparin Sodium (Enoxaparin Sodium 40 Mg/0.4 Ml Syringe) 40 mg SUBCUT Q24H COUNT INCLUDES THE [facility] Last Admin: 05/22/23 07:44 Dose: 40 mg Documented By: ALDO Glucose (Glucose Gel 15 Gm Gel..Gram.) 15 gm PO Q15M PRN; Protocol PRN Reason: per Hypoglycemia Standing Ord. Vancomycin HCl 1,250 mg/ (Sodium Chloride) 250 mls @ 166.667 mls/hr IV Q24H COUNT INCLUDES THE [facility] Insulin Glargine (Insulin Glargine,Hum.Rec.Anlog 100 Unit/Ml 10 Ml Vial) 10 unit SUBCUT BEDTIME COUNT INCLUDES THE [facility] Last Admin: 05/21/23 20:06 Dose: 10 unit Documented By: KEYSHAWN Insulin Human Lispro (Insulin Lispro 100 Unit/Ml 3 Ml Vial) 0 unit SUBCUT 0000,0600,1200,1800 COUNT INCLUDES THE [facility]; Protocol Last Admin: 05/22/23 05:32 Dose: 2 unit Documented By: KEYSHAWN Melatonin (Melatonin 3 Mg Tablet) 6 mg PO BEDTIME PRN PRN Reason: Insomnia Morphine Sulfate (Morphine Sulfate 2 Mg/Ml Cartridge) 2 mg IVPUSH Q4H PRN; Protocol PRN Reason: Pain, Severe (Pain Scale 7-10) Ondansetron HCl (Ondansetron Hcl 4 Mg/2 Ml Vial) 4 mg IVPUSH Q8H PRN PRN Reason: Nausea and Vomiting Oxycodone HCl (Oxycodone Hcl Immed Release 5 Mg Tablet) 5 mg PO Q4H PRN PRN Reason: Pain, Moderate(Pain Scale 4-6) Pharmacy Consult (Consult Rx Vancomycin Dosing) 1 each MISCELLANE DAILY PRN PRN Reason: Consult order Quetiapine Fumarate (Quetiapine Fumarate 25 Mg Tablet) 25 mg G-TUBE BEDTIME COUNT INCLUDES THE [facility] Last Admin: 05/21/23 20:06 Dose: 25 mg Documented By: KEYSHAWN Sertraline HCl (Sertraline Hcl 100 Mg Tablet) 100 mg G-TUBE DAILY COUNT INCLUDES THE [facility] Last Admin: 05/22/23 07:44 Dose: 100 mg Documented By: ALDO Sodium Chloride (0.9 % Sodium Chloride Flush 3 Ml Syringe) 3 ml IVFLUSH QSHIFT COUNT INCLUDES THE [facility] Last Admin: 05/22/23 07:45 Dose: 3 ml Documented By: ALDO Labs 05/16/23 00:08 05/22/23 05:46 Labs: Laboratory Results - last 24 hr 05/21/23 05/21/23 05/21/23 11:16 15:12 17:23 Estim Creat Clear Calc Estimated GFR POC Glucose 212 H 166 H Vancomycin Trough 7.6 L 05/21/23 05/22/23 05/22/23 23:40 05:22 05:46 Estim Creat Clear Calc 52.8 Estimated GFR > 60 POC Glucose 179 H 189 H Vancomycin Trough Assessment and Plan (1) Acute metabolic encephalopathy: Status: Acute (2) Alzheimer disease: Status: Acute Plan 82-year-old male with a PMH significant for?unspecified dementia, HLD, and insulin-dependent diabetes type 2 who presents to the ED with?increased lethargy and foul-smelling urine.? Patient with advanced dementia and nonverbal at baseline. Pt will be admitted to the hospital for treatment of acute toxic metabolic encephalopathy in the setting of UTI that failed outpatient therapy. Patient was brought to be evaluated by daughter because he has not been eating and his sugar were droping since the daughter continued to give him Lantus. Work up in the ED showed UTI and he was admitted for that with ? encephalopathy. He has advanced dementia and this is likely his baseline UTI--initially treated with Ceftriaxone, culture showed Staph Haemolyticus a coag neg staph, likely contamination of some sort. He has no fever or chills,. He was treated with Vanco for 3 days and stopping at this time. Confusion may due some encephalopathy but mostly due to advanced Alzheimer dementia and is stable at his baseline. Severe protein calory malnutrition refusing to eat. This is related to advanced dementia. Family opted for PEG which was inserted on 05/[address] Alonzo, starting tube feed 05/20 per nutrition specification and is tolerating . Nutrition to make recommendation for home HLD Continue statin Mood disorder Continue sertraline, quetiapine Insulin-dependent diabetes, resume Lantus at reduce dose in hospital but resume full dose upon discharge dementia unspecified :continue supportive care poor oral intake ,bmi normal: added nutritionst eval DNR/DNI DVT Prophylaxis: Lovenox inpatient need :?acute toxic metabolic encephalopathy in the setting of UTI that failed outpatient therapy-need iv antibiotics, awaiting arrangement for home infusion for tube feed Time Spent With Patient Time: Total time managing care of this patient today ____ minutes. Quality Stroke Does the patient have a stroke diagnosis?: No VTE Prior VTE?: No VTE Risk Level:: Medical - moderate - high VTE Device Contraindication: Treatment Not Indicated VTE Drug Contraindication: N/A - Med Ordered
--- NOTE | 2023-05-22 10:31 | MHC.CLN ---
F/U PEG PLACED 05/19 AND TUBE FEEDING STARTED 05/20. WEIGHT ON 05/1948=801.6 KG WITH BMI=18. PATIENT TOLERATING TUBE FEEDING AT MAX GOAL RATE. MAX GOAL RATE GLUCERNA AT 55 ML PER HOUR, FREE WATER FLUSH 120 ML Q 8 HOURS. PROVIDES 1320 KCALS (27.7 KCALS/KG), 55 G PROTEIN (1.16 G/KG), 1486 ML FREE WATER FROM FORMULA AND FLUSH (31.2 ML/KG). POC GLUCOSE REVIEWED WITH MOST RECENT RANGE OF 166-214, RECEIVING HUMALOG AND LANTUS. FOLLOW FOR TUBE FEED TOLERANCE, LABS, PO INTAKE/DIET TOLERANCE. GLUCERNA FORMULA APPROPRIATE DUE TO ELEVATED POC GLUCOSE AND DX DM. IF GLUCERNA IS UNAVAILABLE, MAY SUBSTITUTE JEVITY 1.0 AND MONITOR BG CLOSELY.
[2023-05-22 11:52] LABS: Glucose, Whole Blood 135 mg/dL (60-115)
[2023-05-22 12:27] LABS: Glucose, Whole Blood 111 mg/dL (60-115)
--- NOTE | 2023-05-22 12:42 | MHC.CM.PN ---
with interpertor dgter notified of [facility] delivery tonight between 6 and 8 imm updated
--- NOTE | 2023-05-22 15:09 | PC.NURSE ---
Tube feeding education given to daughter and family at bedside with hearing screener including education on feeding pump, medication administration through peg tube, and aspiration precautions. All questions answered from family with hearing screener at bedside.
[2023-05-22 15:45] VITALS: BP 131/68; PULSE 93; RESP 16; TEMP 36.3; O2SAT 92
--- NOTE | 2023-05-22 16:16 | MHC.SLORD ---
Speech Language Pathology Order Status: Per chart review, pt tolerating TF, which were started 05/20. Pt has been w/ minimal PO intake. [employer]IC attempted to see pt for dysphagia tx. Pt sleeping, not waking to sternal rub. No PO trials given.
[2023-05-22] MEDS: vancomycin HCL 1,250 MG in 0.9 % Sodium Chloride 250 ML 166.67 MG IV (16:25)
[2023-05-22 16:35] LABS: Glucose, Whole Blood 169 mg/dL (60-115)
[2023-05-22 20:00] VITALS: BP 118/64; PULSE 64; RESP 18; TEMP 36.7; O2SAT 98
[2023-05-22] MEDS: Atorvastatin Calcium 40 MG TABLET G-TUBE (20:27)
[2023-05-22] MEDS: QUEtiapine Fumarate 25 MG TABLET G-TUBE (20:27)
[2023-05-22 21:32] LABS: Glucose, Whole Blood 175 mg/dL (60-115)
[2023-05-22] MEDS: Insulin Glargine,Hum.rec.anlog 100 UNIT/ML 10 ML VIAL 10 UNIT SUBCUT (21:42)
[2023-05-23 00:14] LABS: Glucose, Whole Blood 171 mg/dL (60-115)
[2023-05-23] MEDS: Insulin Lispro 100 UNIT/ML 3 ML VIAL SUBCUT ×2 (00:33→05:43)
[2023-05-23] MEDS: 0.9 % Sodium Chloride Flush 3 ML SYRINGE IVFLUSH ×2 (00:34→07:18)
[2023-05-23 03:23] VITALS: BP 115/60; PULSE 92; RESP 18; TEMP 36.6; O2SAT 96
[2023-05-23 05:42] LABS: Glucose, Whole Blood 187 mg/dL (60-115)
[2023-05-23 06:19] LABS: Creatinine Clr Calc Pharmacy 58.3; Estimated Glomerular Filt Rate > 60
[2023-05-23] MEDS: Enoxaparin Sodium 40 MG/0.4 ML SYRINGE SUBCUT (07:47)
[2023-05-23] MEDS: Aspirin Enteric Coated 81 MG TABLET.DR PO (07:48)
[2023-05-23] MEDS: Sertraline HCL 100 MG TABLET G-TUBE (07:48)
[2023-05-23 07:50] VITALS: BP 120/61; PULSE 98; RESP 16; TEMP 36.4; O2SAT 92
--- NOTE | 2023-05-23 10:10 | MHC.CLN ---
F/U DUE TO SUPPLY CHAIN SHORTAGE PT'S TF WILL BE SWITCHED TO JEVITY 1.0 MONITOR TOLERANCE, RESIDUALS, BS AND LYTES
--- NOTE | 2023-05-23 11:30 | P.DS_ITS ---
DS: Providers Provider Date of Service: 05/23/23 Date of admission: 05/16/23 02:43 Date of discharge: 05/23/23 Primary care physician: Lenore Gillette Consults: 05/17/23 08:06 Consult to General Surgery Routine Consulting Provider: [facility] [place] [facility] Reason for consultation: Need peg Has provider been notified: No DS: Diagnosis Discharge Diagnosis (1) Acute metabolic encephalopathy: Status: Acute (2) Alzheimer disease: Status: Acute DS: Summary Hospital Course Hospital Course: 82-year-old male with pertinent history of unspecified dementia, non insulin- dependent diabetes mellitus, mood disorder, mixed hyperlipidemia, recurrent UTI who was brought to the emergency department for altered mentation and increased lethargy. Patient is nonverbal at baseline due to advanced dementia. History obtained by chart review and daughters at bedside. As per the daughters, there is concern that patient is choking with food. He is not eating or drinking adequately and is with decreased p.o. intake. Patient is not taking his home p.o. medications. Patient is on cefdinir for recurrent UTI but is not taking his medications and is spitting them out. Unable to obtain review of systems. The daughter states that this has been going on for several weeks. The patient is being given Lantus despite decreased p.o. intake. Daughter noted POCs in the 40s at home. In the emergency department, low blood glucose was noted. Hospital course: Patient was admitted because of poor oral intake, and low sugar levels due to use of Lantus and poor oral intake. Patient was initially thought to have possible UTI-started on IV antibiotics, but urine culture came Staph haemolyticus thought to be contaminant, subsequently vancomycin was stopped. Patient less likely has encephalopathy because he has advanced dementia and is likely at his baseline. Severe protein calory malnutrition refusing to eat. This is related to advanced dementia. Family opted for PEG which was inserted on 05/[address] Alonzo, starting tube feed 05/20 per nutrition specification and is tolerating . Patient will be going home. Assessment and plan coordination time spent 50 minute. Time Spent with Patient Time attestation: Total time managing care of this patient today ____ minutes. Discharge coordination time: Greater than 30 minutes Quality: Safe Use of Opioids Does Pt have an Active Cancer Diagnosis on the Problem List?: No Quality: Stroke Does the patient have a stroke diagnosis?: No Physical Exam Vital Signs: Vital Signs: Last Vital Signs Temp 97.6 F 05/23/23 07:50 Pulse 98 05/23/23 07:50 Resp 16 05/23/23 07:50 BP 120/61 05/23/23 07:50 Pulse Ox 92 05/23/23 07:50 O2 Del Method Room Air 05/23/23 07:50 O2 Flow Rate 2 05/22/23 20:00 BMI result Body Mass Index 15.4 advanced dementia ,at baseline, Not in distress CV :RRR, s1s2 heard. lungs CTA Abd Soft, Non distended , Non tender ,bs present ,peg site is clean , no erythema Neuro: NF, baseline confusion DS: Data Data Completed and Pending Labs on day of discharge: Laboratory Results - last 24 hr 05/22/23 05/22/23 05/22/23 07:50 11:49 16:21 Creatinine Estim Creat Clear Calc Estimated GFR POC Glucose 111 135 H 169 H 05/22/23 05/22/23 05/23/23 21:28 23:33 05:36 Creatinine Estim Creat Clear Calc Estimated GFR POC Glucose 175 H 171 H 187 H 05/23/23 05:44 Creatinine 0.68 Estim Creat Clear Calc 58.3 Estimated GFR > 60 POC Glucose Imaging Chest x-ray: Radiologist's impression: ITS Impressions Chest X-Ray 05/16/23 01:42 IMPRESSION: Rotation and low lung volume slightly limits evaluation. Left mid to lower lung field opacity possibly atelectasis and/or infiltrate/pneumonia. Discharge Plan Discharge Anticipated Discharge Date/Time: 05/23/23 11:09 Patient Disposition: Home, Self-Care Discharge Diagnosis: dementia,possible uti Referrals: [facility] [Other] - 1 Week [facility] [Other] - 1 Week Lenore Gillette [Primary Care Provider] - 1 Week Discharge Medications: Continued quetiapine 25 mg tablet 1 tab PO BEDTIME atorvastatin 40 mg tablet 1 tab PO BEDTIME sertraline 100 mg tablet 1 tab PO DAILY aspirin 81 mg tablet,delayed release (DR/EC) 1 tab PO DAILY insulin glargine [Lantus Solostar U-100 Insulin] 100 unit/mL (3 mL) insulin pen 20 unit subcut DAILY albuterol sulfate [Ventolin HFA] 90 mcg/actuation HFA aerosol inhaler 1 puff inhalation Q4H PRN (Reason: Shortness Of Breath) Trulicity 3 mg/0.5 mL pen injector 3 mg subcut MO Discharge Orders: Discharge Order (Routine); Ordered 05/23/23 Ordered By: Josr Nava Diet: Advance to usual diet Activity on Discharge: As tolerated Stand Alone Forms: Patient Portal Discharge page Care Plan Goals: Advanced dementia, urine culture staph haemolyticus -possible contminant -will avoid antibiotics. Health Concerns: As above. Plan of Treatment: As above. Assessment: As above.
--- NOTE | 2023-05-23 11:36 | MHC.CM.PN ---
DP: PT HAS BEEN MEDICALLY CLEARED FOR DC HOME WITH [facility] FOR NEW ENTERAL FEEDING VIA PEG. PT WILL BE GOING TO DAUGHTER NIKOLAS'S HOME AT [address] [place] [address]. CONFIRMED THIS WITH DAUGHTER. [facility] ALSO AWARE OF ADDRESS CHANGE AND SUPPLY DELIVERY WAS LAST [facility]. [facility] UPDATED ON TODAY'S DC. BLS TRANSPORT BOOKED FOR 12:30 PM. RN AWARE AND NOTIFIED OF NEED TO SEND [facility] FOR 2-3 DAYS PER REQUEST OF [facility].
--- NOTE | 2023-05-23 11:51 | W.MHC.F2F ---
Service Date Service Date: 05/23/23 Encounter Date of encounter: 05/23/23 Encounter: advanced dementia , severe protein calorie malnutrition s/p peg tube. Reasons for Services Signs and symptoms assessed: Any urinary complaints Reason for intermediate: medication management, medication treatment, teach disease management and other (peg placement) MD Overseeing Care: Lenore Gillette Homebound: Leaving the home is medically contraindicated at this time without the asist of a device and/or another person due th the listed conditions above and below. Reason homebound: weakness related to hospital stay Homebound supporting statement: Patient has advanced dementia, has new peg tube -tolerating tube feeds, needs help with PEG feeding and appointments. Certification: Based on the above findings, I certify that this patient is confined to the home and needs intermittent intermediate care, physical therapy and/or speech therapy, or continues to need occupational therapy. The patient is under my care, and I have initiated the establishment of the plan of care. The patient will be followed by a physician who will periodically review the plan of care. Time Spent With Patient Time: Total time managing care of this patient today ____ minutes.
== END 2023-05-23 13:35 | disposition home or self-care (01) | DRG 689 ==
LOC: HO.ED 05-16 00:30 → HO.EDOVER 05-16 02:47 → HO.S3 05-16 05:04
PROVIDERS: Internal Medicine; Physician Assistant Surgical; Surgery; Admitting Provider Student in an Organized Health Care Education/Training Program; Emergency Provider Internal Medicine; PCP Internal Medicine; Visit Provider Internal Medicine
PROC: 0DH63UZ Insertion of Feeding Device into Stomach, Percutaneous Approach (ICD-10-PCS; CPT 43246; principal; 2023-05-19 10:00)
DX: N39.0 Urinary tract infection, site not specified (principal); E43 Unspecified severe protein-calorie malnutrition; G92.8 Other toxic encephalopathy; Z68.1 Body mass index [BMI] 19.9 or less, adult; G30.9 Alzheimer's disease, unspecified; Z66 Do not resuscitate; F39 Unspecified mood [affective] disorder; E78.2 Mixed hyperlipidemia; Z87.891 Personal history of nicotine dependence; R62.7 Adult failure to thrive; E11.649 Type 2 diabetes mellitus with hypoglycemia without coma; F02.C0 Dementia in other diseases classified elsewhere, severe, without behavioral disturbance, psychotic disturbance, mood disturbance, and anxiety; Z87.440 Personal history of urinary (tract) infections; Z79.4 Long term (current) use of insulin; Z79.82 Long term (current) use of aspirin; Z79.899 Other long term (current) drug therapy
CPT/HCPCS: 36415; 71045; 80048; 80053; 80202; 81001; 82565; 82947; 83605; 83690; 83735; 84100; 85027; 87040; 87086; 87088; 92610; 99285; J0690; J0696; J1610; J1650; J3370; J3371

== ENCOUNTER → 2023-05-16 02:43 | Outpatient (BNV) | payer OTHER, SELFPAY | PROVIDERS: Admitting Provider Student in an Organized Health Care Education/Training Program; Emergency Provider Internal Medicine; Visit Provider Student in an Organized Health Care Education/Training Program | DX: G93.41 Metabolic encephalopathy (principal); G30.9 Alzheimer's disease, unspecified; F02.80 Dementia in other diseases classified elsewhere, unspecified severity, without behavioral disturbance, psychotic disturbance, mood disturbance, and anxiety | CPT/HCPCS: 99222; 99232; 99239; 99499; G0180 ==

== ENCOUNTER → 2023-05-16 02:43 | Outpatient (BNV) | payer OTHER, SELFPAY | PROVIDERS: Admitting Provider Student in an Organized Health Care Education/Training Program; Emergency Provider Internal Medicine; Visit Provider Physician Assistant Surgical | DX: R62.7 Adult failure to thrive (principal) | CPT/HCPCS: 43246; 99222; 99232; 99499 ==